=== PATIENT | male | born 1935 | race Caucasian/White ===

== ENCOUNTER 2023-08-22 05:40 | Inpatient (IN) | payer OTHER, SELFPAY ==
[2023-08-22] VITALS (9 sets, daily range): BP systolic 108–134; BP diastolic 59–71; BMI 35.4; BMI 35.2
--- NOTE | 2023-08-22 02:50 | ED.GENMED ---
History of Present Illness
<BILL Duong - Last Filed: 08/22/23 04:24>
General
Chief Complaint: Breathing Problem
Source: patient and family
Exam Limitations: none
Time Seen by Provider: 08/22/23 02:35
Nursing documentation reviewed up to this point in time: agreed with
Travel History
Have you had any contact with someone who has COVID-19?: No
Do you have any symptoms of coronavirus? Fever > 100 degrees, chills, cough, shortness of breath, sore throat, loss of taste or smell, muscle aches, or headache?: No
History of Present Illness
History of Present Illness:
This is an 88 year old male, with a PMH of CHF, stage 3b kidney disease, Afib, hypothyroidism, and lymphedema, who presents to the ED via EMS c/o wheezing and difficulty breathing x 1 day. Per pt's family, he was hospitalized on for
hallucinations and slurred speech. He was treated for heart failure and was discharged 5 days later. Pt was hospitalized again 2 weeks later at [facility] for increased somnolence. At [facility], he was placed in the ICU for a temperature of 87F
and hallucinations. He was then diagnosed with stage 3b kidney disease and discharged. Pt was at [facility] rehab for 2 weeks and then moved to [facility] 4 days ago. He states he developed wheezing 1 day ago. He was breathing okay during the day
yesterday, but began having difficulty breathing 2 hours ago. His hallucinations have resolved.He denies any fever, CP, lightheadedness, dizziness, nausea, vomiting, abdominal pain, dysuria, or urinary urgency. His daughter states his legs do look
more swollen. He denies any leg pain.
Past History
<BILL Duong - Last Filed: 08/22/23 04:24>
Past History
ED Past Medical History: Arrthythmia (Afib), CHF, Hypothyroidism and Other (Stage 3b kidney disease, lymphedema, hypothyroid)
ED Past Surgical History: Cholecystectomy
Social History
Tobacco: Non-smoker
Alcohol: None
Drug: None
Living: assisted living
Review of Systems
<BILL Duong - Last Filed: 08/22/23 04:24>
Review of Systems
Allergies reviewed?: Yes
All Other Systems: ROS reviewed and negative except as documented in HPI and ROS
Constitutional: Reports no symptoms; Denies fever
EENT: Reports no symptoms
Respiratory: Reports trouble breathing and other (wheezing); Denies cough
Cardiac: Reports no symptoms; Denies chest pain
ABD/GI: Reports no symptoms; Denies abdominal pain, nausea or vomiting
: Reports no symptoms; Denies dysuria or difficulty voiding
Musculoskeletal: Reports edema (b/l lower extremity)
Skin: Reports no symptoms
Neurological: Reports no symptoms; Denies dizzy
Psychiatric: Reports no symptoms; Denies hallucinations
Phy Exam
<BILL Duong - Last Filed: 08/22/23 04:24>
General Physical Exam
General Presentation: no apparent distress
General age: appears stated age
General Skin: warm and dry
General Habitus: elderly
General Mental: alert
General Hydration: appears well hydrated
ENT Exam
ENT Exam: neck supple, normocephalic and swallowing well
Cardiovascular Exam
Cardiovascular Exam: regular rate/rhythm, no murmur, normal peripheral pulses and other (lymphedema noted)
Heart Sounds: normal
Pulmonary Exam
Pulmonary Exam: no respiratory distress and other (bibasilar rales)
Respiratory Effort: tachypnea
Gastrointestinal Exam
Gastrointestinal Exam: normal bowel sounds, non tender, soft and non distended
Neurological Exam
Neurological Exam: alert and oriented x3
Musculoskeletal Exam
Musculoskeletal Exam: edema (significant global edema b/l LE, nontender) and other (no tenderness to palpation of lower extremity)
Skin Exam
Skin Exam: warm/dry
Psychiatric Exam
Psychiatric Exam: normal mood/affect
<Kay Abbott DO - Last Filed: 08/22/23 05:13>
Heart Failure Risk
Heart Failure Risk Score: Yes
History of Stroke or TIA: Yes
History of intubation for respiratory distress: No
Heart rate on ED arrival >/= 110: No
SaO2 <90% on arrival on room air: No
HR >/=110 during 3min walk test (or too ill to perform test): Yes
ECG has acute ischemic changes: No
Urea >/=12mmol/L (BUN 33.6mg/dL): Yes
Serum CO2>/=35mmol/L: No
Troponin I or T elevated to HI Level (0.4mg/dL): No
NT-proBNP >/=5,000ng/L (5,000pg/ml): No
HF Risk Score: 4
Admission Status: HIGH RISK 26.1% Consider SNF treatment or admission to hospital
Course
<BILL Duong - Last Filed: 08/22/23 04:24>
Orders/Labs/Results
Orders:
Orders
08/22/23 02:21
Electrocardiogram (*1) Urgent
Reason for Study: Other
Other Reason for Exam: Respiratory Distress
Cardiac Monitoring- Treatment ONCE
EKG- Treatment ONCE
IV Insert/Care/Rem.- Treatment PRN
CR Chest - 2 Views Urgent
Comment:
Reason For Exam: respiratory distress
O2 Therapy [RESP] Urgent
Titrate/Wean O2 to maintain O2 sat greater than (%): 93
Special Instructions: TO MAINTAIN CONTINUOUS O2 SATS >/= 93%
Pulse Ox/cont/shift [RESP] Urgent
Quantity: 1
Special Instructions: continuous pulse ox
08/22/23 02:22
Complete Blood Count/With Diff Urgent
Comprehensive Metabolic Panel Urgent
Free T4 Urgent
NT-proBNP Urgent
TSH Reflex To Free T4 Urgent
Comment: ADD ON
Troponin I Urgent
08/22/23 03:21
Urinalysis Reflex To Culture Urgent
08/22/23 03:23
Add On- LAB Urgent
Tests Added?: TSH w refex to free T-4
08/22/23 03:27
COVID-19 Antigen Urgent
Source: Nasal Swab
Lactic Acid Urgent
Blood Culture Q30M
MOHSEN Source: Blood/Venous
Specimen Description:
Influenza A+B Rapid Molecular Urgent
MOHSEN Source: Nasal Swab
Specimen Description:
08/22/23 03:38
US Periph Venous LOWER Ext Oneal Urgent
Comment:
Reason For Exam: progressive b/l LE edema
08/22/23 03:57
Furosemide [Lasix] 40 mg IV NOW STA
08/22/23 04:00
Blood Culture Q30M
MOHSEN Source: Blood/Venous
Specimen Description:
08/22/23 04:41
Janine [Janine Hugger-Treatment] ONCE
Patient's goal temperature:: 97 F
Additional Instructions:: Temperature and skin assessment per unit protocol
08/22/23 04:47
Admit/Transfer Patient As Directed
Co-Sign Provider:
Level of Care: Inpatient admission
Assign to:: Telemetry
Physician / Group: Domenic
Diagnosis: acute HFpEF
Reason for Telemetry: Acute Heart Failure
Date to Stop Telemetry: 08/25/23
Time to Stop Telemetry: 11:00
Reason for Hospitalization: acute HFpEF
Expected length of stay greater than two midnights?: Yes
ELOS- Estimated Length of Stay in days: 3
I certify the patient meets the requirements for IP care: Yes
08/22/23 04:48
Code Status As Directed
Resuscitation Status: Do not resuscitate
Reached after discussion with pt or family/Healthcare POA: Yes
08/22/23 04:49
DNR Bracelet Application ONCE
08/22/23 07:00
Cortisol, Random Routine
08/25/23 11:00
DC Protocol for Telemetry ONCE
Abnormal Lab Results
08/22/23
02:22
WBC 2.6 L 10^3/uL
(4.8-10.8)
RBC 3.28 L 10^6/uL
(4.70-6.10)
Hgb 10.1 L g/dL
(13.0-18.0)
Hct 31.4 L %
(39.0-52.0)
MCV 95.7 H fL
(80.0-94.0)
MCHC 32.2 L g/dL
(33.0-37.0)
RDW 15.6 H %
(11.5-14.5)
MPV 10.5 H fL
(7.4-10.4)
Absolute Neuts (auto) 1.0 L 10^3/uL
(1.4-6.5)
Absolute Lymphs (auto) 0.8 L 10^3/uL
(1.2-3.4)
Neutrophils % 38.2 L %
(42.2-75.2)
Monocytes % 17.6 H %
(1.7-9.3)
Eosinophils % 12.9 H %
(0-6)
Chloride 114 H mmol/L
(98-107)
BUN 50 H mg/dl
(9-20)
Creatinine 1.8 H mg/dL
(0.7-1.3)
Total Protein 5.5 L g/dl
(6.3-8.2)
Albumin 3.3 L g/dl
(3.5-5.0)
TSH (Reflex) 0.36 L uIU/ml
(0.47-4.68)
08/22/23 02:22
08/22/23 02:22
Vital Signs
Initial and Last Documented VS:
Initial Vital Signs
Pulse Resp Pulse Ox
60 20 98
08/22/23 02:14 08/22/23 02:14 08/22/23 02:14
Last Documented Vital Signs
Temp Pulse Resp BP Pulse Ox
94.5 F L 60 13 112/69 97
08/22/23 03:15 08/22/23 04:45 08/22/23 04:45 08/22/23 04:43 08/22/23 04:45
<Kay Abbott, DO - Last Filed: 08/22/23 05:13>
Orders/Labs/Results
Orders:
Orders
08/22/23 02:21
Electrocardiogram (*1) Urgent
Reason for Study: Other
Other Reason for Exam: Respiratory Distress
Cardiac Monitoring- Treatment ONCE
EKG- Treatment ONCE
IV Insert/Care/Rem.- Treatment PRN
CR Chest - 2 Views Urgent
Comment:
Reason For Exam: respiratory distress
O2 Therapy [RESP] Urgent
Titrate/Wean O2 to maintain O2 sat greater than (%): 93
Special Instructions: TO MAINTAIN CONTINUOUS O2 SATS >/= 93%
Pulse Ox/cont/shift [RESP] Urgent
Quantity: 1
Special Instructions: continuous pulse ox
08/22/23 02:22
Complete Blood Count/With Diff Urgent
Comprehensive Metabolic Panel Urgent
Free T4 Urgent
NT-proBNP Urgent
TSH Reflex To Free T4 Urgent
Comment: ADD ON
Troponin I Urgent
08/22/23 03:21
Urinalysis Reflex To Culture Urgent
08/22/23 03:23
Add On- LAB Urgent
Tests Added?: TSH w refex to free T-4
08/22/23 03:27
COVID-19 Antigen Urgent
Source: Nasal Swab
Lactic Acid Urgent
Blood Culture Q30M
MOHSEN Source: Blood/Venous
Specimen Description:
Influenza A+B Rapid Molecular Urgent
MOHSEN Source: Nasal Swab
Specimen Description:
08/22/23 03:38
US Periph Venous LOWER Ext Oneal Urgent
Comment:
Reason For Exam: progressive b/l LE edema
08/22/23 03:57
Furosemide [Lasix] 40 mg IV NOW STA
08/22/23 04:00
Blood Culture Q30M
MOHSEN Source: Blood/Venous
Specimen Description:
08/22/23 04:41
Janine [Janine Hugger-Treatment] ONCE
Patient's goal temperature:: 97 F
Additional Instructions:: Temperature and skin assessment per unit protocol
08/22/23 04:47
Admit/Transfer Patient As Directed
Co-Sign Provider:
Level of Care: Inpatient admission
Assign to:: Telemetry
Physician / Group: Domenic
Diagnosis: acute HFpEF
Reason for Telemetry: Acute Heart Failure
Date to Stop Telemetry: 08/25/23
Time to Stop Telemetry: 11:00
Reason for Hospitalization: acute HFpEF
Expected length of stay greater than two midnights?: Yes
ELOS- Estimated Length of Stay in days: 3
I certify the patient meets the requirements for IP care: Yes
08/22/23 04:48
Code Status As Directed
Resuscitation Status: Do not resuscitate
Reached after discussion with pt or family/Healthcare POA: Yes
08/22/23 04:49
DNR Bracelet Application ONCE
08/22/23 07:00
Cortisol, Random Routine
08/25/23 11:00
DC Protocol for Telemetry ONCE
Abnormal Lab Results
08/22/23
02:22
WBC 2.6 L 10^3/uL
(4.8-10.8)
RBC 3.28 L 10^6/uL
(4.70-6.10)
Hgb 10.1 L g/dL
(13.0-18.0)
Hct 31.4 L %
(39.0-52.0)
MCV 95.7 H fL
(80.0-94.0)
MCHC 32.2 L g/dL
(33.0-37.0)
RDW 15.6 H %
(11.5-14.5)
MPV 10.5 H fL
(7.4-10.4)
Absolute Neuts (auto) 1.0 L 10^3/uL
(1.4-6.5)
Absolute Lymphs (auto) 0.8 L 10^3/uL
(1.2-3.4)
Neutrophils % 38.2 L %
(42.2-75.2)
Monocytes % 17.6 H %
(1.7-9.3)
Eosinophils % 12.9 H %
(0-6)
Chloride 114 H mmol/L
(98-107)
BUN 50 H mg/dl
(9-20)
Creatinine 1.8 H mg/dL
(0.7-1.3)
Total Protein 5.5 L g/dl
(6.3-8.2)
Albumin 3.3 L g/dl
(3.5-5.0)
TSH (Reflex) 0.36 L uIU/ml
(0.47-4.68)
03/03/24 02:22
08/22/23 02:22
Vital Signs
Initial and Last Documented VS:
Initial Vital Signs
Pulse Resp Pulse Ox
60 20 98
08/22/23 02:14 08/22/23 02:14 08/22/23 02:14
Last Documented Vital Signs
Temp Pulse Resp BP Pulse Ox
94.5 F L 60 13 112/69 97
08/22/23 03:15 08/22/23 04:45 08/22/23 04:45 08/22/23 04:43 08/22/23 04:45
<Kay Abbott DO - Last Filed: 08/22/23 05:13>
*Radiology
Radiology exam reviewed: preliminary read by ED provider (Chest x-ray shows cardiomegaly, mild interstitial fullness, small to moderate size right pleural effusion. No old films to compare.)
*Pulse Oximetry
Patient hypoxic: no
*EKG
Interpreted by ED Provider?: Yes
Comparison EKG: no comparison EKG present
Rate: normal
Rhythm: a-fib and ventricular paced (100% ventricular paced rhythm)
*Rebar [employer]ricator Interpretation
Rate: normal
Interpretation: normal
Rhythm: ventricular paced
*Critical Care Note
Total Time (30-74mins, 75-104mins- exclusive of procedures): Not Applicable
ED Attending Note
<BILL Duong - Last Filed: 08/22/23 04:24>
-
Portions of this chart may have been created with voice recognition software.� Occasional wrong word or��sound alike� substitutions may have occurred due to the inherent limitations of voice recognition software.
<Kay Abbott DO - Last Filed: 08/22/23 05:13>
ED Attending Note
Patient seen and examined by attending physician: Yes
I performed the substantive portion of visit, reviewed & personally made and approve the management plan that is documented in note by myself or YARON.: Yes
I performed a history and physical exam of patient and discussed management with resident, I reviewed resident's note and agree with documented findings and plan of care.: Yes
ED Attending Note:
This is an 88-year-old gentleman who has history of nonischemic cardiomyopathy, CHF, chronic kidney disease stage IV, lymphedema, hypertension who was hospitalized twice at [facility] end of May to June 21 for acute CHF and then again
July 05 July 15 for acute kidney injury as well as noted to be significantly hypothermic with initial temperature reported in the 80s. There was no evidence of sepsis/bacterial infection, normal thyroid function, normal cortisol levels.
During that time he had been suffering with persistent visual hallucinations that were thought to be acute kidney injury/dehydration in nature. Lasix 40 mg as well as losartan 100 mg was discontinued.
He was discharged from [facility] July 15 and transferred to longterm facility where he remained for almost a month and from there, 1 week ago was transitioned to assisted living facility, [facility]. Prior to these recent
hospitalizations he had been living independently in [place].
While at the longterm facility Lasix 20 mg was resumed.
Patient has not been weighing himself but he does note progressive lower extremity edema over the past week or 2 and last night and then again tonight he awoke with abrupt onset of shortness of breath and wheezing. He has not had a cough, he denies
chest pain. Appetite has been 'great'
Episode of paroxysmal nocturnal dyspnea tonight was much worse than 24 hours ago prompting call to 911.
GENERAL: 88-year-old gentleman appears his stated age, awake and alert, pleasant, noted to have very mild resting tachypnea but able to speak in full sentences. Daughter and son are at bedside.
EYE: anicteric
NECK: Supple, nontender, no meningismus, no significant adenopathy. Mild JVD.
ENT: oral mucosa is moist. No rhinorrhea.
CARDIAC: Regular rate and rhythm. no murmur.
LUNGS: Mild resting tachypnea. Bibasilar rales approximately one third of the way up bilaterally.
ABDOMEN: Rotund, soft, nondistended, without focal tenderness, normoactive BS.
NEUROLOGICAL: Alert and oriented x3, no focal neuro deficits.
SKIN: Warm and dry, minimally pale in color, skin intact. Chronic venous stasis skin thickening bilateral lower extremities.
MUSCULOSKELETAL: Bilateral lower extremities with significant tense global edema that is nontender, peripheral pulses are full and equal b/l.
PSYCH: Normal and appropriate interaction.
Acute paroxysmal nocturnal dyspnea, concern for acute on chronic CHF, pneumonia. Patient is found to be mildly hypothermic, thus concern for sepsis, COVID-19, influenza.
Upon review of records from [facility] similar, more profound hypothermia at 87 �F during hospitalization mid November. Sepsis was ruled out, blood cultures were negative, normal cortisol levels as well as thyroid function.
During that hospitalization patient was noted to have acute kidney injury on chronic kidney disease complicated by visual hallucinations.
Creatinine 2.65, BUN of 94 on July 05.
BUN and creatinine at discharge 2.46/55.
BNP 338 on July 05.
According to the family patient's weight while hospitalized in June began at 235 and then diuresed to 215. Current weight is 259.
08/22/2023 04:15 AM
Chest x-ray shows cardiomegaly, mild interstitial fullness bilaterally as well as small to moderate size right pleural effusion.
Labs are remarkable for mild anemia with hemoglobin of 10.1 which is improved from previous in June. White blood cell count is low at 2.6 which is lower than previous. Normal platelet count.
Creatinine of 1.8, BUN of 50.
BNP is markedly elevated at 1900 which is trended up from 300 July 05.
COVID and influenza testing are negative.
Due to significant bilateral lower extremity edema, venous Doppler performed which overall limited study but negative for DVT.
History exam and findings most consistent with acute on chronic CHF.
Will give an IV dose of Lasix now and admit to hospitalist service.
Discharge Plan
Departure
Patient Disposition: Admit
Date of Disposition: 08/22/23
Time of Disposition: 04:21
Admit to doctor: Domenic
Presentation/result/management discussed w/ accepting MD/DO: Hospitalist
Condition: Serious
Discharge Problem:
Acute on chronic clinical systolic heart failure, Hypothermia
Prescriptions:
No Action
Eliquis 2.5 mg Tablet
2.5 mg PO BID
dutasteride [Avodart] 0.5 mg Capsule
0.5 mg PO DAILY
B12
carvedilol 6.25 mg Tablet
6.25 mg PO BID
tamsulosin [Flomax] 0.4 mg Capsule
0.4 mg PO DAILY
byhaywfrwpq-uflxwekyn-hwy C-Mn [Glucosamine 1500 Complex] 500-400 mg Capsule
PO
levothyroxine 150 mcg Capsule
150 mcg PO DAILY
Referrals:
Harvey Gonzales DO [Family Provider] -
Interventions
Interventions:
*Risk Screen - Suicide Last Done: 08/22/23 02:14
*General Assessment Last Done: 08/22/23 02:14
*Neglect/Abuse Screening Last Done: 08/22/23 02:14
ED- Fall Risk Assessment Last Done: 08/22/23 02:23
*ED COVID-19 Vaccine History Last Done: 08/22/23 02:14
ED- Cardiac Assessment Last Done: 08/22/23 02:23
ED- Pulmonary Assessment Last Done: 08/22/23 02:23
[2023-08-22 02:54] LABS: % Basophils 0.8 % (0-2); % Eosinophils 12.9 % (0-6); % Immature Granulocytes 0.4 % (0-0.5); % Lymphocytes 30.1 % (20.5-51.1); % Monocytes 17.6 % (1.7-9.3); % Neutrophils 38.2 % (42.2-75.2); Absolute Eosinophils 0.3 10^3/uL (0-0.7); Absolute Lymphocytes 0.8 10^3/uL (1.2-3.4); Absolute Monocytes 0.5 10^3/uL (0.1-0.6); Hematocrit 31.4 % (39.0-52.0); Hemoglobin 10.1 g/dL (13.0-18.0); Mean Corp Hgb Conc. 32.2 g/dL (33.0-37.0); Mean Corpuscular Hgb 30.8 pg (27.0-31.0); Mean Corpuscular Volume 95.7 fL (80.0-94.0); Mean Platelet Volume 10.5 fL (7.4-10.4); Nucleated Red Blood Cells % 0 % (-); Platelet Count 137 10^3/uL (130-400); Red Blood Cell Count 3.28 10^6/uL (4.70-6.10); Red Cell Dist. Width 15.6 % (11.5-14.5); White Blood Cell Count 2.6 10^3/uL (4.8-10.8)
[2023-08-22 03:07] LABS: ALT (SGPT) 32 U/L (0-50); AST (SGOT) 48 U/L (17-59); Albumin 3.3 g/dl (3.5-5.0); Alkaline Phosphatase 124 U/L (38-126); Blood Urea Nitrogen 50 mg/dl (9-20); Calcium 9.2 mg/dl (8.4-10.2); Carbon Dioxide 25 mmol/L (22-30); Chloride 114 mmol/L (98-107); Estimated Creatinine Clearance 39 ml/min; Glucose 87 mg/dl (70-99); Potassium 4.2 mmol/L (3.5-5.1); Sodium 143 mmol/L (135-145); Total Bilirubin 0.6 mg/dl (0.2-1.3); Total Protein 5.5 g/dl (6.3-8.2); eGFR 36.21
[2023-08-22 03:21] LABS: NT-proBNP 1890 pg/ml; Troponin I < 0.012 ng/ml
[2023-08-22 03:47] LABS: Lactic Acid 0.7 mmol/L (0.7-2.0)
[2023-08-22 03:50] LABS: COVID-19 Antigen Negative (Negative)
--- NOTE | 2023-08-22 04:11 | HPS.HSE ---
Family Physician
-
Family Physician: Harvey Gonzales
Chief Complaint
-
SOB/PND
History of Present Illness
88 y/o M with PMHx:
Chronic HFpEF (as per echo Jun 2023)
CKD3b
Paroxysmal atrial fibrillation
Hypothyroidism
Lymphedema
h/o hypothermia (without sepsis)
Visual hallucinations thought to be due to TRU/dehydration
who p/w CC SOB/PND. Yesterday evening the patient awoke with shortness of breath/paroxysmal nocturnal dyspnea. History is obtained from the patient's daughter, son-in-law, the patient, and discussion with Dr. Abbott in the ER. As per the patient's
family he has had significant weight gain recently. Records from recent [facility] admission reviewed via [place] everywhere on Dr. Abbott's iPad. Patient was hospitalized at [facility] for acute kidney injury, hypothermia not due to
sepsis, visual hallucinations. He was also diagnosed with heart failure at that time. Patient was seen and interviewed in the ultrasound department. Currently the patient denies chest pain or shortness of breath. Denies nausea, vomiting,
diarrhea, abdominal pain, headache, neck stiffness, dysuria.
Medical History
Past Medical History
Past Medical History: Reports Other (as per HPI)
Past Surgical History: Reports Other (N/A)
Social History
Tobacco: Non-smoker
Alcohol: None
Drug: None
Family History
Family History: Not pertinent
Allergies / Home Medications
Allergies reflects when Allergies were last updated in [facility].
Home Medications with original date entered in [facility]
Allergy/Medication List:
Allergies
Allergy/AdvReac Type Severity Reaction Status Date / Time
No Known Allergies Allergy Unverified 08/22/23 02:14
Home Medications
B12 08/22/23
apixaban 2.5 mg tablet (Eliquis) 2.5 mg PO BID 08/22/23
carvedilol 6.25 mg tablet 6.25 mg PO BID 08/22/23
dutasteride 0.5 mg capsule (Avodart) 0.5 mg PO DAILY 08/22/23
xvxvitgcfuw-bkrqorbwj-nfq C-Mn 500 mg-400 mg capsule cap PO 08/22/23
levothyroxine 150 mcg capsule 150 mcg PO DAILY 08/22/23
tamsulosin 0.4 mg capsule (Flomax) 0.4 mg PO DAILY 08/22/23
Review of Systems
-
History Source: Patient
A 12 point ROS was completed and negative except as noted: Yes
Physical Exam
Vital Signs
Vital Signs
Temp Pulse Resp BP Pulse Ox
94.5 F L 60 13 111/65 97
08/22/23 03:15 08/22/23 03:45 08/22/23 03:45 08/22/23 03:08 08/22/23 03:45
Physical Exam
General: Other (.)
Laboratory Results
-
08/22/23 02:22
08/22/23 02:22
Laboratory Results
Lactic Acid 0.7 mmol/L (0.7-2.0) 08/22/23 03:27
Total Bilirubin 0.6 mg/dl (0.2-1.3) 08/22/23 02:22
AST 48 U/L (17-59) 08/22/23 02:22
ALT 32 U/L (0-50) 08/22/23 02:22
Alkaline Phosphatase 124 U/L (38-126) 08/22/23 02:22
Troponin I < 0.012 ng/ml 08/22/23 02:22
Impression/Plan
-
Gen: NAD, Awake and alert, NCAT
Eyes: EOMI, PERRLA, no scleral icterus.
Neck: supple.
CV: RRR, +S1/S2, no m/r/g.
Resp: CTAB anteriorly, no rales, wheezes, or rhonchi.
Abd: +BS, soft, NT, ND
Skin: 4+ B/L LE edema, mild B/L LE chronic venous stasis dermatitis
Neuro: CN 2-12 intact, non-focal.
Psych: Normal mood and affect.
CXR (read by me, official read pending): Slightly increased vascular markings consistent with mild pulmonary edema, blunted right costophrenic angle
Acute on chronic HFpEF:
-Echo Jun 2023 with EF 60-65%
-proBNP 1889
-cont Lasix 40mg IV BID
-update echo
-c/s cards
-cont BB
-daily wts, I/Os
-FR 1200cc/day
Hypothermia:
-has been recurrent in recent months and, despite extensive workup, and etiology has not been found
-COVID/flu NEG
-BCx ordered but doubt infection, follow final BCx
-TSH slightly low at 0.36, check fT4
-check fasting cortisol
-FRANCOIS [place]
Other problems:
CKD3b
Paroxysmal atrial fibrillation: Cont BB/Eliquis
Hypothyroidism: cont Levoxyl
Lymphedema
h/o visual hallucinations thought to be due to TRU/dehydration
DNR - confirmed with pt's daughter in ER
Eliquis
[2023-08-22 04:33] LABS: TSH Reflex To Free T4 0.36 uIU/ml (0.47-4.68)
[2023-08-22] MEDS: LASIX 40 MG IV ×2 (04:43→17:54)
[2023-08-22 04:59] LABS: Free T4 1.83 ng/dl (0.78-2.19)
[2023-08-22] MEDS: COREG 6.25 MG PO ×2 (09:53→20:23)
[2023-08-22] MEDS: ELIQUIS 2.5 MG PO ×2 (09:53→20:23)
[2023-08-22] MEDS: SYNTHROID 150 MCG PO (09:53)
[2023-08-22] MEDS: FLOMAX 0.400000000000000022 MG PO (09:53)
[2023-08-22] MEDS: PROSCAR 5 MG PO (09:54)
[2023-08-22 10:43] LABS: Urine Albumin Negative (Neg - Trace); Urine Bilirubin Negative (Negative); Urine Character Clear (Clear); Urine Color Yellow; Urine Glucose Negative (Negative); Urine Ketone Negative (Negative); Urine Leukocyte Trace (Negative); Urine Nitrite Positive (Negative); Urine Occult Blood Negative (Negative); Urine Specific Gravity 1.015 (<1.030); Urine Urobilinogen Negative (Neg - 1+)
[2023-08-22 10:51] LABS: Urine Mucus Few
[2023-08-22 10:52] LABS: Urine Bacteria Moderate (Negative); Urine Hyaline Cast >15 /LPF (0-2); Urine Squamous Cell >30 /LPF (Few)
--- NOTE | 2023-08-22 10:52 | W.PN.HOSP.TC ---
Today's Communication/Plan
-
Diuresis
Follow creat
Nephrology eval
Assessment / Plan
Assessment / Plan
88-year-old male presented with shortness of breath from [facility] where he has been admitted for the past 1 week.. Patient also had weight gain. Per discussion with patient's son [facility] does not watch any diet. Patient was ordering 6 ice teas and
food with salt.
Patient thinks that he gained almost 30 pounds in the past few weeks.
Patient was admitted to [facility] June 21 [address] confusion[address] did CT scan and MRI with no CVA. 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 He was diagnosed with acute kidney injury and hypothermia also
visual hallucinations. He was also diagnosed with CHF. He went to rehab from there and was released a week ago and was admitted to [facility]. He was supposed to see a software architect when he was in the rehab which got canceled. His next appointment
is for September 2023. Family is frustrated. They have been trying to treat his lymphedema for the past 7 to 8 months with the help of primary physician. Patient states that he uses a sleeves for lymphedema of the lower extremities.
Primary physician is Dr. Harvey Gonzales and Cardiology is Dr Yuniel [facility].
Patient thinks he has had a cardiac catheterization 2 years ago
I have requested records from [facility] as well as from above physicians.
[id number] was able to access Chirag's records and told me the creatinine was 2.4 in June. She is not sure what his creatinine was prior to that.
Patient has a diagnosis of CKD.When asked if he has a history of sleep apnea-son thinks he has but he cannot tolerate CPAP.
Chest x-ray reviewed by me-pacemaker
CHF findings
# Acute on chronic heart failure with preserved ejection fraction reportedly
proBNP 1890
Continue Lasix 40 mg IV twice daily
Echo to be updated
Continue beta-blockers
Does not seem to be on SGLT2 inhibitors or BENITEZ or ARB or Arni
Intake output charting
Fluid restriction
Daily weights
He is definitely at least 20-30 pounds fluid overloaded
Benitez bandages for lower extremities
Slow diuresis may take several days
Also rule out pulmonary hypertension
# Paroxysmal atrial fibrillation-continue beta-blockers and Eliquis
# Hypothermia patient has had workup as outpatient with no etiology
Blood cultures obtained even though infection is not appearing to be at the clinical recent
Influenza and COVID-negative
Cortisol level
Urinalysis noted however a lot of epithelial cells-likely contamination
# Anemia-check iron studies
# Hypothyroidism-continue Synthroid
TSH 0.36 with normal T4
# Sleep apnea-CPAP intolerant
# CKD stage
Stage unclear
Creatinine was 2.4 while he was sick in June 2023
Creatinine is 1.8 now possible [id number] with diuresis.
Get old records from PCP and cardiology
Nephrology evaluation
# Chronic lymphedema-No DVT on ultrasound
# History of visual hallucinations felt to be secondary to dehydration TRU
Patient had MRI of the brain-no acute changes at jeans per discussion with her son.
# Prostate disease-continue Avodart and Flomax
# Pacemaker 2016
# Obesity
# DVT prophylaxis-Eliquis
# DNR status
Discussed with patient's son and [id number] on the phone.
Anticipated Discharge: > 48 hours
Subjective/Interval History
-
Date of Service: August 22, 2023
Objective Data
-
Labs:
Laboratory Results
08/22/23
02:22
WBC 2.6 L
Hgb 10.1 L
Hct 31.4 L
Plt Count 137
Sodium 143
Potassium 4.2
Chloride 114 H
Carbon Dioxide 25
BUN 50 H
Creatinine 1.8 H
Glucose 87
Calcium 9.2
Total Bilirubin 0.6
AST 48
ALT 32
Alkaline Phosphatase 124
Vital Signs:
Vital Signs
Temp Pulse Resp BP Pulse Ox
97.3 F 61 18 134/71 97
08/22/23 06:35 08/22/23 06:35 08/22/23 06:35 08/22/23 06:35 08/22/23 06:35
--- NOTE | 2023-08-22 11:34 | CON.CAR ---
Consultation
Consultation Request
Date/Time Consultation Requested: August 22, 2023 6 AM
Date/Time Consultation Performed: August 22, 2023 11:30 AM
Requesting Provider: Hospitalist
Performing Provider: Yuniel Jones
Reason for Consultation: HF
Medical History
-
Chief Complaint: SOB PND
History of Present Illness:
88-year-old male with past medical history of Chronic HFpEF (as per echo Jun 2023), CKD3b, Paroxysmal atrial fibrillation, Hypothyroidism, Lymphedema, h/o hypothermia (without sepsis)Visual hallucinations thought to be due to TRU/dehydration, who is
here with worsening shortness of breath and paroxysmal nocturnal dyspnea. Apparently, he was admitted for the entire month of July at [facility] for hypothermia, acute kidney injury, visual hallucinations, and heart failure. He was
discharged at the end of July and has noticed progressive shortness of breath and PND. Additionally, he tells me that his legs are much larger than normal. He was diuresed overnight and otherwise denies any significant chest pain or
dizziness/lightheadedness.
Past Medical History
Past Medical History: Other (Chronic HFpEF (as per echo Jun 2023), CKD3b, Paroxysmal atrial fibrillation, Hypothyroidism, Lymphedema, h/o hypothermia (without sepsis)Visual hallucinations thought to be due to TRU/dehydration)
Past Surgical History: None
Social History
Tobacco: Non-Smoker
Alcohol: None
Drug: None
Employment: Retired
Family History
Family History: Reviewed & Not Pertinent
Allergies / Home Medications
Allergy/AdvReac Type Severity Reaction Status Date / Time
No Known Allergies Allergy Unverified 08/22/23 02:14
Medication Instructions Recorded Confirmed Type
B12 08/22/23 History
apixaban 2.5 mg tablet (Eliquis) 2.5 mg PO BID 08/22/23 08/22/23 History
carvedilol 6.25 mg tablet 6.25 mg PO BID 08/22/23 08/22/23 History
dutasteride 0.5 mg capsule 0.5 mg PO DAILY 08/22/23 08/22/23 History
(Avodart)
xuaytgvyppr-ytaknvhhj-suf C-Mn 500 cap PO 08/22/23 History
mg-400 mg capsule
levothyroxine 150 mcg capsule 150 mcg PO DAILY 08/22/23 08/22/23 History
tamsulosin 0.4 mg capsule (Flomax) 0.4 mg PO DAILY 08/22/23 08/22/23 History
Review of Systems
-
All other systems: Negative unless noted
Physical Exam
Vital Signs
Temp Pulse Resp BP Pulse Ox
97.8 F 61 16 111/59 97
08/22/23 11:16 08/22/23 11:16 08/22/23 11:16 08/22/23 11:16 08/22/23 11:16
Lab Results
08/22/23 02:22
08/22/23 02:22
Troponin I < 0.012 ng/ml 08/22/23 02:22
Tkp-N-Wmiirjlawhu Pept 1890 pg/ml 08/22/23 02:22
Physical Exam
General: Well Developed, Well Nourished and No Apparent Distress
HEENT: Normocephalic
Respiratory: Clear and Non Labored Respirations
Cardiac: S1/S2 and Regular Rhythm
GI: Soft
Musculoskeletal: No Clubbing and Edema
Skin: Warm and Dry
Neuro: AO x 3
Psych: Calm
Impression / Plan
-
88-year-old male with past medical history of Chronic HFpEF (as per echo Jun 2023), CKD3b, Paroxysmal atrial fibrillation, Hypothyroidism, Lymphedema, h/o hypothermia (without sepsis)Visual hallucinations thought to be due to TRU/dehydration, who is
here with worsening shortness of breath and paroxysmal nocturnal dyspnea. He has been diuresed and is feeling improved.
Heart failure preserved ejection fraction acute on chronic
-TTE pending
-Continue 40 mg IV Lasix twice daily
-Continue beta-zonia
-Will discuss possible SGLT2 inhibitor
-Improving, dry weight unknown
Paroxysmal atrial fibrillation
-ECG shows a sensed V paced rhythm
-Continue beta-zonia and Eliquis
CKD unknown baseline creatinine today 1.8
Anemia and leukopenia
-Per primary
Hypothyroidism
Hypothermia
Lymphedema
Data Reviewed
-
EKG: Tracing Personally Visualized and interpreted
Radiology: Report Reviewed by me
Labs: Labs Reviewed by me
[2023-08-22 12:31] LABS: Cortisol, Random 14.9 ug/dl
[2023-08-22 13:50] LABS: Ferritin 60.1 ng/ml (17.9-464.0)
[2023-08-22 14:04] LABS: Vitamin B12 > 1000 pg/ml (239-931)
[2023-08-22 14:30] LABS: Iron 55 ug/dl (49-181)
[2023-08-22 14:40] LABS: Percent Saturation 16 % (20-50); Total Iron Binding Capacity 328 ug/dl (261-462)
--- NOTE | 2023-08-22 16:15 | W.CON.NEPH ---
Consultation
-
Date/Time Consultation Requested: 08/22/2023 9 AM
Date/Time Consultation Performed: 08/22/2023 4 PM
Requesting Provider: Dr. Stephen
Performing Provider: Dr. Munoz
Reason for Consultation: Acute kidney injury, edema
Medical History
-
Chief Complaint: Acute kidney injury
History of Present Illness:
This is an 88-year-old gentleman who has history of heart failure with preserved ejection fraction as well as atrial fibrillation with pacemaker. He had recently been in [facility] for what appears to have been volume overload. He was
diuresed at that time he also had acute kidney injury with a likely plateaued creatinine of 2.4. Afterwards he was sent to [facility] and then subsequently to [facility]. He says that he had gained a significant amount of weight after discharge.
He has followed a sodium restriction but not a fluid restriction. He had developed some shortness of breath with nocturnal dyspnea which had prompted his visit to the emergency room. We are asked to assist with management of his diuresis and renal
failure.
Past Medical History
Heart failure preserved ejection fraction
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
Paroxysmal atrial fibrillation
Pacemaker
Hypothyroidism
Lymphedema
Social History
Tobacco: Non-Smoker
Alcohol: None
Family History
Family History: Not Pertinent
Allergies / Home Medications
Allergy/AdvReac Type Severity Reaction Status Date / Time
No Known Allergies Allergy Unverified 08/22/23 02:14
Medication Instructions Recorded Confirmed Type
acetaminophen 325 mg tablet 650 mg PO Q8HPRN PRN mild pain 08/22/23 08/22/23 History
(Tylenol)
apixaban 2.5 mg tablet (Eliquis) 2.5 mg PO BID 08/22/23 08/22/23 History
carvedilol 6.25 mg tablet 6.25 mg PO BID 08/22/23 08/22/23 History
cyanocobalamin (vitamin B-12) 1,000 mcg PO DAILY 08/22/23 08/22/23 History
1,000 mcg tablet
dutasteride 0.5 mg capsule 0.5 mg PO DAILY 08/22/23 08/22/23 History
(Avodart)
furosemide 20 mg tablet (Lasix) 20 mg PO DAILY 08/22/23 08/22/23 History
hydrocortisone 1 % topical cream 1 applic topical BID back and 08/22/23 08/22/23 History
buttocks
levothyroxine 150 mcg capsule 150 mcg PO DAILY 08/22/23 08/22/23 History
magnesium hydroxide 400 mg/5 mL 2,400 mg PO HSPRN PRN if no bm by 08/22/23 08/22/23 History
oral suspension (Milk of Magnesia) 3rd day
tamsulosin 0.4 mg capsule (Flomax) 0.4 mg PO BID 08/22/23 08/22/23 History
Review of Systems
-
No chest pain, shortness of breath. Lower extremity edema worse than typical. No abdominal pain. No issues with urine output. The remainder of the complete review of systems was negative
Physical Exam
Vital Signs
Vital Signs
Temp Pulse Resp BP Pulse Ox
98.2 F 66 16 114/63 97
08/22/23 15:40 08/22/23 15:40 08/22/23 15:40 08/22/23 15:40 08/22/23 15:40
Lab Results
WBC 2.6 10^3/uL (4.8-10.8) L 08/22/23 02:22
RBC 3.28 10^6/uL (4.70-6.10) L 08/22/23 02:22
Hgb 10.1 g/dL (13.0-18.0) L 08/22/23 02:22
Hct 31.4 % (39.0-52.0) L 08/22/23 02:22
Plt Count 137 10^3/uL (130-400) 08/22/23 02:22
Sodium 143 mmol/L (135-145) 08/22/23 02:22
Potassium 4.2 mmol/L (3.5-5.1) 08/22/23 02:22
Chloride 114 mmol/L (98-107) H 08/22/23 02:22
Carbon Dioxide 25 mmol/L (22-30) 08/22/23 02:22
BUN 50 mg/dl (9-20) H 08/22/23 02:22
Creatinine 1.8 mg/dL (0.7-1.3) H 08/22/23 02:22
eGFR 36.21 08/22/23 02:22
Glucose 87 mg/dl (70-99) 08/22/23 02:22
Calcium 9.2 mg/dl (8.4-10.2) 08/22/23 02:22
Azp-F-Zngevnkppsz Pept 1890 pg/ml 08/22/23 02:22
Albumin 3.3 g/dl (3.5-5.0) L 08/22/23 02:22
Physical Exam
General: AOx3
HEENT: PERRL, EOMI, Ear/Nose Intact, Hearing Normal, Oropharynx Clear/Moist, Neck Supple, Trachea Midline and No Thyromegaly
Respiratory: Clear
Cardiac: Regular Rate/Rhythm
Abdomen: Soft, Nontender, Nondistended, Normal Bowel Sounds and No Hepatosplenomegaly
Musculoskeletal: Edema
Skin: No Rash and Normal Turgor
Psych: Mood/afflect pleasant and Insight/judgement good
Assessment/Plan
-
Assessment
Heart failure preserved ejection fraction
Anasarca
Acute kidney injury
CKD unknown baseline
Anemia
Paroxysmal atrial fibrillation
Hypothyroidism
CPAP
Pacemaker
Plan
Continue diuresis with IV Lasix.
Follow BMP
Records from [facility] requested
Sodium and fluid restriction
Edema is likely cardiac or lymphedema related
Data Reviewed
-
Radiology: Image Personally Visualized and interpreted (Chest x-ray on 08/22/2023 by my reading shows cardiomegaly vascular prominence)
Ultrasound: Report Reviewed by me (Lower extremity Dopplers on 08/22/2023 shows no DVT)
Medical Tests (Nuc Med, Echo etc): Image Personally Visualized and interpreted (EKG on 08/21/2022 for by my reading shows V paced rhythm)
Labs: Labs Reviewed by me
Old Records: Requested
[2023-08-23] VITALS (8 sets, daily range): BP systolic 110–125; BP diastolic 60–78; PULSE 60; O2SAT 98; BMI 34.8
[2023-08-23] MEDS: SYNTHROID 150 MCG PO (06:01)
[2023-08-23 06:48] LABS: Hematocrit 29.5 % (39.0-52.0); Hemoglobin 9.4 g/dL (13.0-18.0); Mean Corp Hgb Conc. 31.9 g/dL (33.0-37.0); Mean Corpuscular Hgb 30.8 pg (27.0-31.0); Mean Corpuscular Volume 96.7 fL (80.0-94.0); Mean Platelet Volume 10.8 fL (7.4-10.4); Platelet Count 118 10^3/uL (130-400); Red Blood Cell Count 3.05 10^6/uL (4.70-6.10); Red Cell Dist. Width 15.5 % (11.5-14.5); White Blood Cell Count 3.2 10^3/uL (4.8-10.8)
[2023-08-23 07:38] LABS: Blood Urea Nitrogen 55 mg/dl (9-20); Calcium 9.4 mg/dl (8.4-10.2); Carbon Dioxide 27 mmol/L (22-30); Chloride 108 mmol/L (98-107); Estimated Creatinine Clearance 37 ml/min; Glucose 85 mg/dl (70-99); Magnesium 2.3 mg/dl (1.6-2.3); Potassium 4.1 mmol/L (3.5-5.1); Sodium 143 mmol/L (135-145); eGFR 33.93
[2023-08-23] MEDS: ELIQUIS 2.5 MG PO ×2 (08:18→20:34)
[2023-08-23] MEDS: COREG 6.25 MG PO ×2 (08:18→20:35)
[2023-08-23] MEDS: PROSCAR 5 MG PO (08:18)
[2023-08-23] MEDS: LASIX 40 MG IV ×2 (08:18→16:11)
[2023-08-23] MEDS: FLOMAX 0.400000000000000022 MG PO (08:18)
--- NOTE | 2023-08-23 08:31 | W.PN.CD ---
Today's Communication / Plan
-
continue lasix and monitor renal function
Patiebnt with CKD- creatinine 1.9 - nephrology following
await echo
Impression / Plan
-
88-year-old male with past medical history of Chronic HFpEF (as per echo Jun 2023), CKD3b, Paroxysmal atrial fibrillation, Hypothyroidism, Lymphedema, h/o hypothermia (without sepsis)Visual hallucinations thought to be due to TRU/dehydration, who is
here with worsening shortness of breath and paroxysmal nocturnal dyspnea. Improvement with diuresis.
.
Heart failure preserved ejection fraction acute on chronic in setting of CKD
- severe bilat lower extremity edema
-Continue 40 mg IV Lasix twice daily
-Continue beta-zonia
-Improving, dry weight unknown
- monitor renal function
Paroxysmal atrial fibrillation
-ECG shows a sensed V paced rhythm
-Continue beta-zonia and Eliquis
CKD unknown baseline creatinine today 1.8and 1.9 since admit
- nephrology following
-monitor with diuretic
Anemia and leukopenia
-Per primary
Hypothyroidism
Hypothermia
Lymphedema
Physical Exam
Vital Signs/Labs
Vital Signs
Temp Pulse Resp BP Pulse Ox
97.4 F 60 18 110/78 97
08/23/23 07:00 08/23/23 07:00 08/23/23 07:00 08/23/23 07:00 08/23/23 07:00
08/22/23 08/23/23 08/24/23
06:59 06:59 06:59
Actual Weight 117.48 kg 116.148 kg
08/23/23 06:32
08/23/23 06:32
Magnesium 2.3 mg/dl (1.6-2.3) 08/23/23 06:32
Free T4 1.83 ng/dl (0.78-2.19) 08/22/23 02:22
08/22/23
02:22
Txo-J-Vyahtyonlms Pept 1890
LAB Results
08/22/23
02:22
Troponin I < 0.012
Physical Exam
Constitutional: No acute distress
Cardiovascular: Rhythm & rate is regular
Respiratory: Respiratory effort normal
GI: Soft
Neuro/Psych: Alert
Other: Other (severe bilat lower extremity edema)
Data Reviewed
-
Date of Service: August 23, 2023
Medical Decision Making: Reviewed Test Results
Echo: Other (await result. ordered. )
Medical Tests (PFT, Pathology etc): Report Reviewed by me
Labs: Labs Reviewed by me
--- NOTE | 2023-08-23 10:36 | CM ---
Reviewed chart, placed a call to patient's daughter to obtain information for assessment. Patient's daughter answered and stated that she could answer assessment questions.
Patient just moved to the [facility] [place] last Wednesday. He lives alone in his apartment but has assistance with his ADLs, personal care, dressing, bathing and toileting. He does not really ambulate and is propelled by staff in his w/c. He did use
a rollator earlier this year. Patient's daughter stated that patient is incontinent at times with bowel and bladder.
Patient has had VN services in the past however per her daughter does not do well with them.
He was in a SNF all of July, [facility]. Patient's daughter stated that if patient can return to the [facility], he would rather do that per patient's daughter than go back to SNF. Patient's daughter was advised that CM will call the [facility]
to review functional status prior to his return. Patient's daughter was agreeable to that.
Patient has a prescription plan and gets his medications from [facility].
His PCP is Harvey Gonzales DO.
Plan: Case management will continue to follow and assist with discharge planning. Patient's family hopeful that patient will be able to return back to his [facility] when stable.
--- NOTE | 2023-08-23 10:44 | W.PN.HOSP.TC ---
Today's Communication/Plan
-
see A/P
Assessment / Plan
Assessment / Plan
88-year-old male from [facility] where he has been for the past 1 week; p/w shortness of breath and weight gain.
Per son, patient was ordering 6 ice teas and food with salt. Patient thinks that he gained almost 30 pounds in the past few weeks.
Patient was admitted to [facility] June 21 for confusion. They did CT scan and MRI with no CVA. 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 He was diagnosed with acute kidney injury, hypothermia, also visual
hallucinations. He was also diagnosed with CHF. He went to rehab from there and was released a week ago and was admitted to [facility]. He was supposed to see a therapist when he was in the rehab which got canceled. His next appointment is for
September 2023.
They have been trying to treat his lymphedema for the past 7 to 8 months with the help of primary physician. Patient states that he uses a sleeves for lymphedema of the lower extremities.
Primary physician is Dr. Harvey Gonzales and Cardiology is Dr Yuniel March At [place].
Patient thinks he has had a cardiac catheterization 2 years ago.
Requested records from [facility] as well as from above physicians.
[id number] was able to access Chirag's records, his the creatinine was 2.4 in June. She is not sure what his creatinine was prior to that.
Patient has a diagnosis of CKD. Unclear history of sleep apnea- son thinks he has, but he cannot tolerate CPAP.
A/P:
# Acute on chronic heart failure with preserved ejection fraction reportedly
proBNP 1890
Continue Lasix 40 mg IV twice daily, monitor daily weight/ I and O
Check Echo
Continue PAINT AND TABLE EDGER Coreg 6.25 BID
Does not seem to be on SGLT2 inhibitors or BENITEZ or ARB, due to CKD?
Fluid restriction
Benitez bandages for lower extremities
# Paroxysmal atrial fibrillation
continue PAINT AND TABLE EDGER Coreg and Eliquis
# Hypothermia
patient has had workup as outpatient with no etiology
Blood cultures so far negative
Influenza and COVID negative
Random Cortisol level at 14.9
TSH 0.36, FT4 1.83
Urine culture noted GNR, follow S/S, start empiric ceftriaxone
Check Kidney US
# CKD unclear stage
# Possible cardiorenal syndrome
Creatinine was 2.4 in June 2023
Creatinine 1.9 today, from 1.8 on admission
Monitor SCr with IV Lasix
Check old records from PCP and cardiology
Check Kidney US
Nephrology evaluation
# Anemia with Iron deficiency
Start PO ferrous sulfate
# Hypothyroidism
continue Synthroid
TSH 0.36 with normal FT4
# Sleep apnea, CPAP intolerant
# Chronic lymphedema
No DVT on ultrasound
# History of visual hallucinations, felt to be secondary to dehydration/TRU
Patient had MRI brain-no acute changes at jeans per discussion with her son.
# Prostate disease-continue Avodart and Flomax
# Pacemaker 2016
# Obesity
DVT prophylaxis-Eliquis
DNR status
Updated patient's daughter on the phone
total time spent 51 min
Anticipated Discharge: > 48 hours
Subjective/Interval History
-
Date of Service: August 23, 2023
Objective Data
-
Labs:
Laboratory Results
08/23/23
06:32
WBC 3.2 L
Hgb 9.4 L
Hct 29.5 L
Plt Count 118 L
Sodium 143
Potassium 4.1
Chloride 108 H
Carbon Dioxide 27
BUN 55 H
Creatinine 1.9 H
Glucose 85
Calcium 9.4
Vital Signs:
Vital Signs
Temp Pulse Resp BP Pulse Ox
36.3 C 60 18 110/78 97
08/23/23 07:00 08/23/23 07:00 08/23/23 07:00 08/23/23 07:00 08/23/23 07:00
I&O
08/22/23 08/23/23 08/24/23
06:59 06:59 06:59
Intake Total 1140 / 1140
Output Total 2600 / 2600
Balance -1460 / -1460
Review of Systems
-
All other systems: Reviewed and negative
Physical Exam
-
General: Well Developed, Well Nourished, No Apparent Distress, Comfortable, Conversant and Obese; Negative Respiratory Distress
HEENT: Normocephalic, Atraumatic, Nose Appears Normal and Ears Appear Normal; Negative Oxygen
Respiratory: Clear to Auscultation and Non Labored Respirations; Negative Accessory Resp Muscle Use
Cardiac: Regular Rhythm and S1/S2
GI: Soft, Nontender, Nondistended and Normal Bowel Sounds
Musculoskeletal: Edema, Right Lower Extrem (chronic lymphedema) and Edema, Left Lower Extrem (chronic lymphedema)
Skin: Warm and Dry
Neuro: Awake and Alert
Psych: Calm and Intact Judgement/Insight
Data Reviewed
-
Diagnostic Radiology: Report Reviewed by me
Ultrasound: Report Reviewed by me
Labs: Labs Reviewed by me
Old Records: Requested
[2023-08-23] MEDS: FEOSOL 325 MG PO (13:12)
[2023-08-23] MEDS: STERILE WATER FOR INJECTION 10 ML IV (13:14)
[2023-08-23] MEDS: ROCEPHIN 1000 MG IV (13:15)
--- NOTE | 2023-08-23 13:21 | W.PN.NEPH.PH ---
Today's Communication / Plan
-
continue diuresis with IV lasix
Assessment/Plan
-
Assessment
Heart failure preserved ejection fraction
Anasarca
Acute kidney injury
CKD unknown baseline
Anemia
Paroxysmal atrial fibrillation
Hypothyroidism
CPAP
Pacemaker
Plan
Continue diuresis with IV Lasix 40mg BID.
weights are decreasing. 116kg today
UOP excellent at 2.6L
Follow BMP
Records from [facility] requested. Cr 2.4 in Jun 2023
KUS pending
Sodium and fluid restriction
Edema is likely cardiac or lymphedema related
-
-
Date of Service: August 23, 2023
CC / HPI / ROS
-
Chief Complaint:
?TRU, HFpEF
History of Present Illness:
diuresing well with lasix IV 40mg BID
weights decreasing
continues to have significant swelling
Review of Systems:
bilateral LE wrapped
UOP 2.6L
Labs
-
Labs:
WBC 3.2 10^3/uL (4.8-10.8) L 08/23/23 06:32
RBC 3.05 10^6/uL (4.70-6.10) L 08/23/23 06:32
Hgb 9.4 g/dL (13.0-18.0) L 08/23/23 06:32
Hct 29.5 % (39.0-52.0) L 08/23/23 06:32
Plt Count 118 10^3/uL (130-400) L 08/23/23 06:32
Sodium 143 mmol/L (135-145) 08/23/23 06:32
Potassium 4.1 mmol/L (3.5-5.1) 08/23/23 06:32
Chloride 108 mmol/L (98-107) H 08/23/23 06:32
Carbon Dioxide 27 mmol/L (22-30) 08/23/23 06:32
BUN 55 mg/dl (9-20) H 08/23/23 06:32
Creatinine 1.9 mg/dL (0.7-1.3) H 08/23/23 06:32
eGFR 33.93 08/23/23 06:32
Glucose 85 mg/dl (70-99) 08/23/23 06:32
Calcium 9.4 mg/dl (8.4-10.2) 08/23/23 06:32
Lpm-U-Fwedupbvesk Pept 1890 pg/ml 08/22/23 02:22
Albumin 3.3 g/dl (3.5-5.0) L 08/22/23 02:22
Physical Exam
-
Vital Signs:
Vital Signs
Temp Pulse Resp BP Pulse Ox
97.3 F 60 18 114/71 95
08/23/23 11:00 08/23/23 11:00 08/23/23 11:00 08/23/23 11:00 08/23/23 11:00
Cardiovascular:: Regular rate and rhythm
Respiratory:: Bilateral: CTA
Lung Excursion:: Normal
Abdomen:: Nontender and Soft
Bowel Sounds:: Normal
Extremity Edema:: +3: Bilateral:
Ewlsh Catheter: No
[2023-08-24 03:00] VITALS: BP 109/60
[2023-08-24 06:00] VITALS: BMI 34.5
[2023-08-24] MEDS: SYNTHROID 150 MCG PO (06:06)
[2023-08-24 06:55] LABS: Hematocrit 30.3 % (39.0-52.0); Hemoglobin 9.6 g/dL (13.0-18.0); Mean Corp Hgb Conc. 31.7 g/dL (33.0-37.0); Mean Corpuscular Volume 94.7 fL (80.0-94.0); Mean Platelet Volume 10.9 fL (7.4-10.4); Platelet Count 119 10^3/uL (130-400); Red Cell Dist. Width 15.4 % (11.5-14.5); White Blood Cell Count 2.8 10^3/uL (4.8-10.8)
[2023-08-24 07:16] LABS: Blood Urea Nitrogen 55 mg/dl (9-20); Calcium 9.2 mg/dl (8.4-10.2); Carbon Dioxide 26 mmol/L (22-30); Chloride 111 mmol/L (98-107); Estimated Creatinine Clearance 39 ml/min; Glucose 79 mg/dl (70-99); Magnesium 2.2 mg/dl (1.6-2.3); Sodium 141 mmol/L (135-145); eGFR 36.21
[2023-08-24 07:45] VITALS: BP 107/63
[2023-08-24] MEDS: ELIQUIS 2.5 MG PO ×2 (08:36→20:30)
[2023-08-24] MEDS: COREG 6.25 MG PO ×2 (08:36→20:29)
[2023-08-24] MEDS: FLOMAX 0.400000000000000022 MG PO (08:37)
[2023-08-24] MEDS: FEOSOL 325 MG PO (08:37)
[2023-08-24] MEDS: PROSCAR 5 MG PO (08:37)
[2023-08-24] MEDS: LASIX 40 MG IV ×2 (08:38→17:08)
--- NOTE | 2023-08-24 10:04 | W.PN.CD ---
Today's Communication / Plan
-
creatiine remains stable at 1.8 - nephrology following
weight trending down and and greater than 1 liter negtive over the lat 24 hours
continue lasix and monitor renal function
Impression / Plan
-
88-year-old male with past medical history of Chronic HFpEF (as per echo Jun 2023), CKD3b, Paroxysmal atrial fibrillation,PPM, Hypothyroidism, Lymphedema, h/o hypothermia (without sepsis)Visual hallucinations thought to be due to TRU/dehydration,
who is here with worsening shortness of breath and paroxysmal nocturnal dyspnea. Improvement with diuresis.
.
Heart failure preserved ejection fraction acute on chronic in setting of CKD
- severe bilat lower extremity edema
-Continue 40 mg IV Lasix twice daily
-Continue beta-zonia
-Improving, dry weight unknown
- monitor renal function
Paroxysmal atrial fibrillation
-ECG shows a sensed V paced rhythm
-Continue beta-zonia and Eliquis
Pacemaker?/[employer].
CKD unknown baseline creatinine. 1.8and 1.9 since admit
- nephrology following
-monitor with diuretic
Anemia and leukopenia
-Per primary
Hypothyroidism
Hypothermia
Lymphedema
Physical Exam
Vital Signs/Labs
Vital Signs
Temp Pulse Resp BP Pulse Ox
97.1 F 60 18 107/63 96
08/24/23 09:27 08/24/23 08:36 08/24/23 07:45 08/24/23 08:36 08/24/23 07:45
08/23/23 08/24/23 08/25/23
06:59 06:59 06:59
Actual Weight 116.148 kg 115.439 kg
08/24/23 06:26
08/24/23 06:26
Magnesium 2.2 mg/dl (1.6-2.3) 08/24/23 06:26
Free T4 1.83 ng/dl (0.78-2.19) 08/22/23 02:22
08/22/23
02:22
Iva-T-Gttygennpfm Pept 189
LAB Results
08/22/23
02:22
Troponin I < 0.012
Physical Exam
Cardiovascular: Rhythm & rate is regular
Respiratory: Respiratory effort normal
GI: Soft
Neuro/Psych: Alert
Other: Other (bilat edema up tot thighs)
Data Reviewed
-
Date of Service: August 24, 2023
Medical Decision Making: Reviewed Test Results
Medical Tests (PFT, Pathology etc): Report Reviewed by me
Labs: Labs Reviewed by me
[2023-08-24] MEDS: CORTROSYN 0.25 MG IV (10:05)
[2023-08-24] MEDS: NSS (PRESERVATIVE FREE) 1 ML IV (10:06)
[2023-08-24 10:17] LABS: ACTH Stim Cortisol 0 Min 11.8 ug/dl
--- NOTE | 2023-08-24 11:00 | W.PN.HOSP.TC ---
Today's Communication/Plan
-
see A/P
Assessment / Plan
Assessment / Plan
88-year-old male from [facility] where he has been for the past 1 week; p/w shortness of breath and weight gain.
Per son, patient was ordering 6 ice teas and food with salt. Patient thinks that he gained almost 30 pounds in the past few weeks.
Patient was admitted to [facility] June 21 for confusion[address] They did CT scan and MRI with no CVA. 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 He was diagnosed with acute kidney injury, hypothermia, also visual
hallucinations. He was also diagnosed with CHF. He went to rehab from there and was released a week ago and was admitted to [facility]. He was supposed to see a field collector when he was in the rehab which got canceled. His next appointment is for
September 2023.
They have been trying to treat his lymphedema for the past 7 to 8 months with the help of primary physician. Patient states that he uses a sleeves for lymphedema of the lower extremities.
Primary physician is Dr. Harvey Gonzales and Cardiology is Dr Yuniel March At [place].
Patient thinks he has had a cardiac catheterization 2 years ago.
Requested records from [facility] as well as from above physicians.
[id number] was able to access Chirag's records, his the creatinine was 2.4 in June. She is not sure what his creatinine was prior to that.
Patient has a diagnosis of CKD. Unclear history of sleep apnea- son thinks he has, but he cannot tolerate CPAP.
A/P:
# Acute on chronic systolic heart failure
proBNP 1890
Continue Lasix 40 mg IV twice daily, monitor daily weight, I and O
Echo noted LVEF 40% with mild global hypokinesis.�Moderate to severe tricuspid regurgitation. Estimated PASP 45-50 mmHg and RA 8 mmHg. Pleural effusion present. No prior study available for comparison.
Continue COMPRESSOR OPERATOR Coreg 6.25 BID
Does not seem to be on SGLT2 inhibitors or BENITEZ or ARB, due to CKD?
Fluid restriction
Benitez bandages for lower extremities
Card and renal following
# Paroxysmal atrial fibrillation
continue COMPRESSOR OPERATOR Coreg and Eliquis
# Hypothermia
patient has had workup as outpatient with no etiology
Blood cultures negative, Influenza and COVID negative
Urine Cx with Klebsiella, S/S reviewed
Change empiric ceftriaxone to Ancef
kidney US unrevealing: No hydronephrosis. Chronic medical renal disease and bilateral renal cysts.
Random Cortisol level equivocal at 14.9, check stim test
TSH 0.36, FT4 1.83
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
# Possible cardiorenal syndrome
Creatinine was 2.4 in June 2023
Creatinine toay 1.8, from 1.8 on admission
Monitor SCr with IV Lasix
kidney US unrevealing: No hydronephrosis. Chronic medical renal disease and bilateral renal cysts.
Nephrology evaluation
# Anemia with Iron deficiency
Started PO ferrous sulfate
# Hypothyroidism
continue Synthroid
TSH 0.36 with normal FT4
# Sleep apnea, CPAP intolerant
# Chronic lymphedema
No DVT on ultrasound
# History of visual hallucinations, felt to be secondary to dehydration/TRU
Patient had MRI brain-no acute changes at jeans per discussion with her son.
# Prostate disease-continue Avodart and Flomax
# Pacemaker 2016
# Obesity
DVT prophylaxis-Eliquis
DNR status
PT OT recc to return to [facility]
Updated patient's daughter on the phone.
Anticipated Discharge: 24 - 48 hours
Subjective/Interval History
-
Date of Service: August 24, 2023
Objective Data
-
Labs:
Laboratory Results
08/24/23
06:26
WBC 2.8 L
Hgb 9.6 L
Hct 30.3 L
Plt Count 119 L
Sodium 141
Potassium 4.0
Chloride 111 H
Carbon Dioxide 26
BUN 55 H
Creatinine 1.8 H
Glucose 79
Calcium 9.2
Vital Signs:
Vital Signs
Temp Pulse Resp BP Pulse Ox
36.2 C 60 18 107/63 96
08/24/23 09:27 08/24/23 08:36 08/24/23 07:45 08/24/23 08:36 08/24/23 07:45
I&O
08/23/23 08/24/23 08/25/23
06:59 06:59 06:59
Intake Total 1140 / 1140 1160 / 1160
Output Total 2600 / 2600 2210 / 2210
Balance -1460 / -1460 -1050 / -1050
Review of Systems
-
All other systems: Reviewed and negative
Physical Exam
-
General: Well Developed, Well Nourished, No Apparent Distress, Comfortable, Conversant and Obese; Negative Respiratory Distress
HEENT: Normocephalic, Atraumatic, Nose Appears Normal and Ears Appear Normal; Negative Oxygen
Respiratory: Clear to Auscultation and Non Labored Respirations; Negative Accessory Resp Muscle Use
Cardiac: Regular Rhythm and S1/S2
GI: Soft, Nontender, Nondistended and Normal Bowel Sounds
Musculoskeletal: Edema, Right Lower Extrem (chronic lymphedema) and Edema, Left Lower Extrem (chronic lymphedema)
Skin: Warm and Dry
Neuro: Awake and Alert
Psych: Calm and Intact Judgement/Insight
Data Reviewed
-
Diagnostic Radiology: Report Reviewed by me
Ultrasound: Report Reviewed by me
Labs: Labs Reviewed by me
Old Records: Requested
[2023-08-24] MEDS: ANCEF 5 IV ×2 (11:44→20:29)
[2023-08-24 11:48] LABS: ACTH Stim Cortisol 30 Min 21.2 ug/dl
[2023-08-24 12:02] VITALS: BP 105/61
[2023-08-24 12:25] LABS: ACTH Stim Cortisol 60 Min 24.9 ug/dl
--- NOTE | 2023-08-24 12:55 | W.PN.NEPH.PH ---
Today's Communication / Plan
-
- continue IV diuresis
Assessment/Plan
-
Assessment
Heart failure preserved ejection fraction
Anasarca
Acute kidney injury
CKD unknown baseline
Anemia
Paroxysmal atrial fibrillation
Hypothyroidism
CPAP
Pacemaker
Plan
Continue diuresis with IV Lasix 40mg BID.
weights are decreasing. 115kg today
UOP excellent at 2.2L
Follow BMP
Records from [facility] requested. Cr 2.4 in Jun 2023
KUS pending
Sodium and fluid restriction
Edema is likely cardiac or lymphedema related
-
-
Date of Service: August 24, 2023
CC / HPI / ROS
-
Chief Complaint:
?TRU, HFpEF
History of Present Illness:
diuresing well with lasix IV 40mg BID
weights decreasing
continues to have significant swelling
Review of Systems:
bilateral LE wrapped
UOP 2.2L
Labs
-
Labs:
WBC 2.8 10^3/uL (4.8-10.8) L 08/24/23 06:26
RBC 3.20 10^6/uL (4.70-6.10) L 08/24/23 06:26
Hgb 9.6 g/dL (13.0-18.0) L 08/24/23 06:26
Hct 30.3 % (39.0-52.0) L 08/24/23 06:26
Plt Count 119 10^3/uL (130-400) L 08/24/23 06:26
Sodium 141 mmol/L (135-145) 08/24/23 06:26
Potassium 4.0 mmol/L (3.5-5.1) 08/24/23 06:26
Chloride 111 mmol/L (98-107) H 08/24/23 06:26
Carbon Dioxide 26 mmol/L (22-30) 08/24/23 06:26
BUN 55 mg/dl (9-20) H 08/24/23 06:26
Creatinine 1.8 mg/dL (0.7-1.3) H 08/24/23 06:26
eGFR 36.21 08/24/23 06:26
Glucose 79 mg/dl (70-99) 08/24/23 06:26
Calcium 9.2 mg/dl (8.4-10.2) 08/24/23 06:26
Thx-X-Hbecxcueiet Pept 1890 pg/ml 08/22/23 02:22
Albumin 3.3 g/dl (3.5-5.0) L 08/22/23 02:22
Physical Exam
-
Vital Signs:
Vital Signs
Temp Pulse Resp BP Pulse Ox
97.5 F 62 16 105/61 96
08/24/23 12:47 08/24/23 12:02 08/24/23 12:02 08/24/23 12:02 08/24/23 12:02
Cardiovascular:: Regular rate and rhythm
Respiratory:: Bilateral: CTA
Lung Excursion:: Normal
Abdomen:: Nontender and Soft
Bowel Sounds:: Normal
Extremity Edema:: +3: Bilateral:
Welsh Catheter: No
[2023-08-24 15:00] VITALS: BP 115/61
[2023-08-24 19:05] VITALS: BP 123/63
[2023-08-24] MEDS: FLUSH (NSS) 2 FLUSH IV (20:29)
[2023-08-24 23:05] VITALS: BP 118/56
[2023-08-25] VITALS (7 sets, daily range): BP systolic 99–117; BP diastolic 57–66; PULSE 55; O2SAT 95; BMI 33.7
[2023-08-25] MEDS: FLUSH (NSS) 2 FLUSH IV (04:32)
[2023-08-25] MEDS: ANCEF 5 IV ×3 (04:32→20:29)
[2023-08-25] MEDS: SYNTHROID 150 MCG PO (05:48)
[2023-08-25] MEDS: ELIQUIS 2.5 MG PO ×2 (07:52→20:30)
[2023-08-25] MEDS: FEOSOL 325 MG PO (07:52)
[2023-08-25] MEDS: PROSCAR 5 MG PO (07:52)
[2023-08-25] MEDS: COREG 6.25 MG PO ×2 (07:52→20:30)
[2023-08-25] MEDS: FLOMAX 0.400000000000000022 MG PO (07:52)
[2023-08-25] MEDS: LASIX 40 MG IV (07:56)
--- NOTE | 2023-08-25 08:50 | W.PN.CD ---
Addendum entered and electronically signed by Libby Oconnell MD 08/25/23 11:41:
I saw and examined the patient.
The PERFORATOR LOADER's note was reviewed and I agree with the note.
Comment: He is feeling better, legs have always been swollen but worse in the past month. He has lymphapress boots and wears in the am, no weighing himself daily. On exam, rrr, lungs are CTA, legs with nonpitting and pitting edema, toes with edema
briana wraps on. Nephrology directing diuresis, no plans for further med changes of GDMT. Will recommend a second session of his lymphapress boots in afternoon for lymphedema.
He shoud follow up with typical Advertising Agency Manager--Advertising Agency Manager:�Dr. Yuniel March ([place]).
Will sign off
Original Note:
Today's Communication / Plan
-
BMP pending
Weight trending down
Diuresis per Nephrology
Impression / Plan
-
Background: 88-year-old male with past medical history of Chronic HFpEF (as per echo Jun 2023), CKD3b, Paroxysmal atrial fibrillation,PPM, Hypothyroidism, Lymphedema, h/o hypothermia (without sepsis)Visual hallucinations thought to be due to
TRU/dehydration, who is here with worsening shortness of breath and paroxysmal nocturnal dyspnea. Improvement with diuresis.
Advertising Agency Manager: Dr. Yuniel March ([place])
Impression/Plan:
HFmrEF (EF 40%), acute on chronic
-Last HF exacerbation 06/2023 ([facility])
-Severe bilat lower extremity edema
-Continue 40 mg IV Lasix twice daily per Nephrology, this requires intensive monitoring
-Weight trending down, dry weight unknown
-Continue beta-zonia
-Trend I/O, BMP and daily weight with diuresis
-Medical therapy is limited by renal function
Paroxysmal atrial fibrillation
-V paced on telemetry
-Oral Anticoagulation: Apixaban 2.5mg BID (age 82, creatinine > 1.5)
-[id number]: score at least 5 (Heart failure, age 75 or more, prior Stroke/TIA)
Pacemaker
-Appears to be [employer] by CXR
-Followed by primary welding machine operator submerged arc
CKD
-Unknown baseline creatinine
-Nephrology following
Moderate to severe tricuspid regurgitation
Anemia, likely of chronic diease
Leukopenia, per primary
Hypothyroidism
Prior CVA, per imaging
Hypothermia, resolved
Lymphedema, likely chronic, US neg for DVT
Physical Exam
Vital Signs/Labs
Vital Signs
Temp Pulse Resp BP Pulse Ox
97.5 F 61 18 117/64 97
08/25/23 07:00 08/25/23 07:00 08/25/23 07:00 08/25/23 07:00 08/25/23 07:00
08/24/23 08/25/23 08/26/23
06:59 06:59 06:59
Actual Weight 115.439 kg 112.491 kg
Magnesium 2.2 mg/dl (1.6-2.3) 08/24/23 06:26
Free T4 1.83 ng/dl (0.78-2.19) 08/22/23 02:22
08/22/23
02:22
Vph-E-Mczrcgmzijc Pept 189
Physical Exam
Constitutional: No acute distress and Comfortable
EENT: Anicteric and Moist mucous membranes
Cardiovascular: Rhythm/rate is irregular, S1S2 is normal and Murmur/rub/gallop absent
Respiratory: Respiratory effort normal and Lungs clear to auscul.
GI: Soft, Distention absent, Flat, Non tender and Normal bowel sounds
Neuro/Psych: AO x 3
Other: Skin (warm and dry) and Other (Lymphedema)
Data Reviewed
-
Date of Service: August 25, 2023
--- NOTE | 2023-08-25 09:22 | PN.CDI ---
CDI
- -
CDI:
Physician Documentation Request
Admit Date: 08/22/23 05:40
Dear Doctor Chivo,
Please review the following and provide your response in the progress notes.
Clinical Indicators:
Pt admitted with Acute on Chronic Systolic CHF/ CKD 3b/ HX of Anemia with Iron Deficiency
Trended Labs below
08/23/23 08/24/23
06:32 06:26
WBC 3.2 L 2.8 L
Hgb 9.4 L 9.6 L
Hct 29.5 L 30.3 L
Plt Count 118 L 119 L
Please provide a diagnosis for the above findings:
Pancytopenia
Anemia of Iron deficiency only
Other
Use of terms such as suspected, likely, concern for, or probable (associated with a specific diagnosis that is being evaluated, monitored, or treated as if it exists) are acceptable and can be coded in the inpatient setting, when documented at the
time of discharge.
Thank you,
Lilia Tan RN
CDI Specialist
[facility]
Please use your independent medical judgment in providing your response.
[2023-08-25 09:39] LABS: Hematocrit 33.1 % (39.0-52.0); Hemoglobin 10.4 g/dL (13.0-18.0); Mean Corp Hgb Conc. 31.4 g/dL (33.0-37.0); Mean Corpuscular Hgb 30.3 pg (27.0-31.0); Mean Corpuscular Volume 96.5 fL (80.0-94.0); Mean Platelet Volume 11.1 fL (7.4-10.4); Platelet Count 121 10^3/uL (130-400); Red Blood Cell Count 3.43 10^6/uL (4.70-6.10); Red Cell Dist. Width 15.3 % (11.5-14.5); White Blood Cell Count 3.9 10^3/uL (4.8-10.8)
[2023-08-25 11:04] LABS: Blood Urea Nitrogen 57 mg/dl (9-20); Calcium 9.5 mg/dl (8.4-10.2); Carbon Dioxide 25 mmol/L (22-30); Chloride 109 mmol/L (98-107); Estimated Creatinine Clearance 36 ml/min; Glucose 120 mg/dl (70-99); Magnesium 2.2 mg/dl (1.6-2.3); Sodium 141 mmol/L (135-145); eGFR 33.93
--- NOTE | 2023-08-25 11:04 | CM ---
Reviewed chart, PT/OT stating that patient can return to prior living environment but would benefit from therapy while in acute care. Will review patient's current level of functioning with director at [facility] prior to return.
Plan: Case management will continue to follow and assist with discharge planning. Return to [facility] upon medical clearance.
--- NOTE | 2023-08-25 11:10 | W.PN.HOSP.TC ---
Addendum entered and electronically signed by Vita Waldron MD 08/25/23 15:25:
# Mild Pancytopenia
Original Note:
Today's Communication/Plan
-
see A/P
Assessment / Plan
Assessment / Plan
88-year-old male from [facility] where he has been for the past 1 week; p/w shortness of breath and weight gain.
Per son, patient was ordering 6 ice teas and food with salt. Patient thinks that he gained almost 30 pounds in the past few weeks.
Patient was admitted to [facility] June 21 for confusion. They did CT scan and MRI with no CVA. 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 He was diagnosed with acute kidney injury, hypothermia, also visual
hallucinations. He was also diagnosed with CHF. He went to rehab from there and was released a week ago and was admitted to [facility]. He was supposed to see a assistant store manager sales when he was in the rehab which got canceled. His next appointment is for
September 2023.
They have been trying to treat his lymphedema for the past 7 to 8 months with the help of primary physician. Patient states that he uses a sleeves for lymphedema of the lower extremities.
Primary physician is Dr. Harvey Gonzales and Cardiology is Dr Yuniel March At [place].
Patient thinks he has had a cardiac catheterization 2 years ago.
Requested records from [facility] as well as from above physicians.
[id number] was able to access Chirag's records, his the creatinine was 2.4 in June. She is not sure what his creatinine was prior to that.
Patient has a diagnosis of CKD. Unclear history of sleep apnea- son thinks he has, but he cannot tolerate CPAP.
A/P:
# Acute on chronic systolic heart failure
proBNP 189
Continue Lasix 40 mg IV twice daily, monitor daily weight, I and O
Echo noted LVEF 40% with mild global hypokinesis.�Moderate to severe tricuspid regurgitation. Estimated PASP 45-50 mmHg and RA 8 mmHg. Pleural effusion present. No prior study available for comparison.
Continue URBAN PLANNING TEACHER Coreg 6.25 BID
Does not seem to be on SGLT2 inhibitors or BENITEZ or ARB, due to CKD?
Fluid restriction
Cont Benitez bandages for lower extremities, suspect LE edema has a large chronic lymphedema component
Card and renal following
# Paroxysmal atrial fibrillation
continue URBAN PLANNING TEACHER Coreg and Eliquis
# Hypothermia
patient has had workup as outpatient with no etiology
Blood cultures negative, Influenza and COVID negative
Urine Cx with Klebsiella, S/S reviewed
Changed empiric ceftriaxone to Ancef
kidney US unrevealing: No hydronephrosis. Chronic medical renal disease and bilateral renal cysts.
Random Cortisol level equivocal at 14.9, stim test WNL
TSH 0.36, FT4 1.83
# CKD stage 3
# Possible cardiorenal syndrome
Creatinine was 2.4 in June 2023
Creatinine toay 1.9, from 1.8 on admission
Monitor SCr with IV Lasix
kidney US unrevealing: No hydronephrosis. Chronic medical renal disease and bilateral renal cysts.
Nephrology evaluation
# Anemia with Iron deficiency
Started PO ferrous sulfate
# Hypothyroidism
continue Synthroid
TSH 0.36 with normal FT4
# Sleep apnea, CPAP intolerant
# Chronic lymphedema
No DVT on ultrasound
# History of visual hallucinations, felt to be secondary to dehydration/TRU
Patient had MRI brain-no acute changes at jeans per discussion with her son.
# Prostate disease-continue Avodart and Flomax
# Pacemaker 2016
# Obesity
DVT prophylaxis-Eliquis
DNR status
PT OT recc to return to [facility]
Updated patient's daughter on the phone 08/23
Anticipated Discharge: 24 - 48 hours
Subjective/Interval History
-
Date of Service: August 25, 2023
Objective Data
-
Labs:
Laboratory Results
08/25/23
08:49
WBC 3.9 L
Hgb 10.4 L
Hct 33.1 L
Plt Count 121 L
Sodium 141
Potassium 4.0
Chloride 109 H
Carbon Dioxide 25
BUN 57 H
Creatinine 1.9 H
Glucose 120 H
Calcium 9.5
Vital Signs:
Vital Signs
Temp Pulse Resp BP Pulse Ox
36.4 C 61 18 117/64 97
08/25/23 07:00 08/25/23 07:00 08/25/23 07:00 08/25/23 07:00 08/25/23 07:00
I&O
08/24/23 08/25/23 08/26/23
06:59 06:59 06:59
Intake Total 1160 / 1160 800 / 800
Output Total 2210 / 2210 2950 / 2950
Balance -1050 / -1050 -2150 / -2150
Review of Systems
-
All other systems: Reviewed and negative
Physical Exam
-
General: Well Developed, Well Nourished, No Apparent Distress, Comfortable, Conversant and Obese; Negative Respiratory Distress
HEENT: Normocephalic, Atraumatic, Nose Appears Normal and Ears Appear Normal; Negative Oxygen
Respiratory: Clear to Auscultation and Non Labored Respirations; Negative Accessory Resp Muscle Use
Cardiac: Regular Rhythm and S1/S2
GI: Soft, Nontender, Nondistended and Normal Bowel Sounds
Musculoskeletal: Edema, Right Lower Extrem (chronic lymphedema) and Edema, Left Lower Extrem (chronic lymphedema)
Skin: Warm and Dry
Neuro: Awake and Alert
Psych: Calm and Intact Judgement/Insight
Data Reviewed
-
Diagnostic Radiology: Report Reviewed by me
Ultrasound: Report Reviewed by me
Labs: Labs Reviewed by me
Old Records: Requested
--- NOTE | 2023-08-25 13:32 | W.PN.NEPH.PH ---
Today's Communication / Plan
-
sgin off
Assessment/Plan
-
Assessment
Heart failure preserved ejection fraction
Anasarca
Acute kidney injury
CKD unknown baseline
Anemia
Paroxysmal atrial fibrillation
Hypothyroidism
CPAP
Pacemaker
Plan
Continue diuresis with IV Lasix 40mg BID.
weights are decreasing. 115kg today
UOP excellent at 2.2L
Follow BMP
Records from [facility] requested. Cr 2.4 in Jun 2023
KUS pending
Sodium and fluid restriction
Edema is likely cardiac or lymphedema related
creatinine at 1.9, we will sign off
-
-
Date of Service: August 25, 2023
CC / HPI / ROS
-
Chief Complaint:
?TRU, HFpEF
History of Present Illness:
diuresing well with lasix IV 40mg BID
weights decreasing
continues to have significant swelling
creatinine stable at 1.9
Review of Systems:
bilateral LE wrapped
UOP 2.2L
weights down
Labs
-
Labs:
WBC 3.9 10^3/uL (4.8-10.8) L 08/25/23 08:49
RBC 3.43 10^6/uL (4.70-6.10) L 08/25/23 08:49
Hgb 10.4 g/dL (13.0-18.0) L 08/25/23 08:49
Hct 33.1 % (39.0-52.0) L 08/25/23 08:49
Plt Count 121 10^3/uL (130-400) L 08/25/23 08:49
Sodium 141 mmol/L (135-145) 08/25/23 08:49
Potassium 4.0 mmol/L (3.5-5.1) 08/25/23 08:49
Chloride 109 mmol/L (98-107) H 08/25/23 08:49
Carbon Dioxide 25 mmol/L (22-30) 08/25/23 08:49
BUN 57 mg/dl (9-20) H 08/25/23 08:49
Creatinine 1.9 mg/dL (0.7-1.3) H 08/25/23 08:49
eGFR 33.93 08/25/23 08:49
Glucose 120 mg/dl (70-99) H 08/25/23 08:49
Calcium 9.5 mg/dl (8.4-10.2) 08/25/23 08:49
Vkf-U-Dcdaydnrduq Pept 1890 pg/ml 08/22/23 02:22
Albumin 3.3 g/dl (3.5-5.0) L 08/22/23 02:22
Physical Exam
-
Vital Signs:
Vital Signs
Temp Pulse Resp BP Pulse Ox
97.7 F 61 18 99/57 96
08/25/23 11:30 08/25/23 11:30 08/25/23 11:30 08/25/23 11:30 08/25/23 11:30
Cardiovascular:: Regular rate and rhythm
Respiratory:: Bilateral: Coarse
Lung Excursion:: Normal
Abdomen:: Nontender and Soft
Bowel Sounds:: Normal
Extremity Edema:: +1: Bilateral:
Welsh Catheter: No
[2023-08-26 03:00] VITALS: BP 108/66
[2023-08-26] MEDS: ANCEF 5 IV ×2 (04:53→12:50)
[2023-08-26 06:00] VITALS: BMI 34.3
[2023-08-26] MEDS: SYNTHROID 150 MCG PO (06:24)
[2023-08-26 07:14] LABS: Hematocrit 30.5 % (39.0-52.0); Hemoglobin 9.9 g/dL (13.0-18.0); Mean Corp Hgb Conc. 32.5 g/dL (33.0-37.0); Mean Corpuscular Hgb 30.9 pg (27.0-31.0); Mean Corpuscular Volume 95.3 fL (80.0-94.0); Mean Platelet Volume 10.5 fL (7.4-10.4); Platelet Count 113 10^3/uL (130-400); Red Cell Dist. Width 15.1 % (11.5-14.5); White Blood Cell Count 3.2 10^3/uL (4.8-10.8)
[2023-08-26 07:30] VITALS: BP 110/66
[2023-08-26 07:45] LABS: Blood Urea Nitrogen 60 mg/dl (9-20); Calcium 9.3 mg/dl (8.4-10.2); Carbon Dioxide 31 mmol/L (22-30); Chloride 106 mmol/L (98-107); Estimated Creatinine Clearance 38 ml/min; Glucose 84 mg/dl (70-99); Magnesium 2.3 mg/dl (1.6-2.3); Potassium 3.9 mmol/L (3.5-5.1); Sodium 144 mmol/L (135-145); eGFR 36.21
[2023-08-26] MEDS: FEOSOL 325 MG PO (08:48)
[2023-08-26] MEDS: COREG 3.125 MG PO (08:48)
[2023-08-26] MEDS: ELIQUIS 2.5 MG PO (08:48)
[2023-08-26] MEDS: LASIX 40 MG PO (08:49)
[2023-08-26] MEDS: PROSCAR 5 MG PO (08:49)
[2023-08-26] MEDS: FLOMAX 0.400000000000000022 MG PO (08:49)
--- NOTE | 2023-08-26 10:45 | W.PN.HOSP.TC ---
Addendum entered and electronically signed by Vita Waldron MD 08/26/23 13:20:
total DC time 35 min
Original Note:
Today's Communication/Plan
-
DC today
Assessment / Plan
Assessment / Plan
88-year-old male from [facility] where he has been for the past 1 week; p/w shortness of breath and weight gain.
Per son, patient was ordering 6 ice teas and food with salt. Patient thinks that he gained almost 30 pounds in the past few weeks.
Patient was admitted to [facility] June 21 for confusion[address] They did CT scan and MRI with no CVA. 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 He was diagnosed with acute kidney injury, hypothermia, also visual
hallucinations. He was also diagnosed with CHF. He went to rehab from there and was released a week ago and was admitted to [facility]. He was supposed to see a manifest/order organizer print orders when he was in the rehab which got canceled. His next appointment is for
September 2023.
They have been trying to treat his lymphedema for the past 7 to 8 months with the help of primary physician. Patient states that he uses a sleeves for lymphedema of the lower extremities.
Primary physician is Dr. Harvey Gonzales and Cardiology is Dr Yuniel [facility].
Patient thinks he has had a cardiac catheterization 2 years ago.
Requested records from [facility] as well as from above physicians.
[id number] was able to access Chirag's records, his the creatinine was 2.4 in June. She is not sure what his creatinine was prior to that.
Patient has a diagnosis of CKD. Unclear history of sleep apnea- son thinks he has, but he cannot tolerate CPAP.
A/P:
# Acute on chronic systolic heart failure
proBNP 1889
Lasix 40 mg IV twice daily -> PO Lasix 40 mg BID, monitor daily weight, I/O
Echo noted LVEF 40% with mild global hypokinesis.�Moderate to severe tricuspid regurgitation. Estimated PASP 45-50 mmHg and RA 8 mmHg. Pleural effusion present. No prior study available for comparison.
911 TELECOMMUNICATOR Coreg 6.25 BID decreased to 3.125 mg BID due to low BP
Does not seem to be on SGLT2 inhibitors or BENITEZ or ARB, due to CKD?
Fluid restriction
Cont Benitez bandages for lower extremities, suspect LE edema has a large chronic lymphedema component
Card and renal signed off
# Paroxysmal atrial fibrillation
continue 911 TELECOMMUNICATOR Coreg and Eliquis
# Hypothermia
patient has had workup as outpatient with no etiology
Blood cultures negative, Influenza and COVID negative
Urine Cx with Klebsiella, S/S reviewed
Changed empiric ceftriaxone to Ancef -> Keflex 10 more days outpt (total 14 days)
kidney US unrevealing: No hydronephrosis. Chronic medical renal disease and bilateral renal cysts.
Random Cortisol level equivocal at 14.9, stim test WNL
TSH 0.36, FT4 1.83
# CKD stage 3
# Possible cardiorenal syndrome
Creatinine was 2.4 in June 2023
Creatinine today 1.8, from 1.8 on admission
Monitor SCr with IV Lasix
kidney US unrevealing: No hydronephrosis. Chronic medical renal disease and bilateral renal cysts.
Renal signed off
# Anemia with Iron deficiency
Started PO ferrous sulfate
# Hypothyroidism
continue Synthroid
TSH 0.36 with normal FT4
# Sleep apnea, CPAP intolerant
# Chronic lymphedema
No DVT on ultrasound
# History of visual hallucinations, felt to be secondary to dehydration/TRU
Patient had MRI brain-no acute changes at jeans per discussion with her son.
# Prostate disease-continue Avodart and Flomax
# Pacemaker 2015
# Obesity
DVT prophylaxis-Eliquis
DNR status
PT OT recc to return to [facility]
Updated patient's daughter on the phone 08/25
Anticipated Discharge: Today
Subjective/Interval History
-
Date of Service: August 26, 2023
Objective Data
-
Labs:
Laboratory Results
08/26/23
06:37
WBC 3.2 L
Hgb 9.9 L
Hct 30.5 L
Plt Count 113 L
Sodium 144
Potassium 3.9
Chloride 106
Carbon Dioxide 31 H
BUN 60 H
Creatinine 1.8 H
Glucose 84
Calcium 9.3
Vital Signs:
Vital Signs
Temp Pulse Resp BP Pulse Ox
36.3 C 61 16 110/66 96
08/26/23 07:30 08/26/23 07:30 08/26/23 07:30 08/26/23 07:30 08/26/23 07:30
I&O
08/25/23 08/26/23 08/27/23
06:59 06:59 06:59
Intake Total 800 / 800 600 / 600
Output Total 2950 / 2950 1875 / 1875
Balance -2150 / -2150 -1275 / -1275
Review of Systems
-
All other systems: Reviewed and negative
Physical Exam
-
General: Well Developed, Well Nourished, No Apparent Distress, Comfortable, Conversant and Obese; Negative Respiratory Distress
HEENT: Normocephalic, Atraumatic, Nose Appears Normal and Ears Appear Normal; Negative Oxygen
Respiratory: Clear to Auscultation and Non Labored Respirations; Negative Accessory Resp Muscle Use
Cardiac: Regular Rhythm and S1/S2
GI: Soft, Nontender, Nondistended and Normal Bowel Sounds
Musculoskeletal: Edema, Right Lower Extrem (chronic lymphedema) and Edema, Left Lower Extrem (chronic lymphedema)
Skin: Warm and Dry
Neuro: Awake and Alert
Psych: Calm and Intact Judgement/Insight
Data Reviewed
-
Diagnostic Radiology: Report Reviewed by me
Ultrasound: Report Reviewed by me
Labs: Labs Reviewed by me
Old Records: Requested
--- NOTE | 2023-08-26 11:53 | CM ---
Received notification from unit that patient is stable for discharge. Placed a call to [facility] and spoke with [place] who stated that hospital needs to set patient up with transportation.
# For report [phone]
#for [phone]
Met with patient, reviewed IMM. Patient is agreeable to discharge.
Placed a call to patient's daughter, Milagros, to update. She is also agreeable.
Transfer sheet and med necessity completed and provided to Jaye on 3.
Plan: Case management will continue to follow and assist with discharge planning. Back to the [facility].
[2023-08-26 11:58] VITALS: BMI 33.1
[2023-08-26 12:00] VITALS: BP 112/64
--- NOTE | 2023-08-26 13:02 | W.DCSUMMARY ---
Discharge Summary
Discharge Data
Date of Admission: 08/22/23
Date of Discharge: 08/26/23
-
Pending Results: No
Hospital Course
Principal Diagnosis:
Acute on chronic systolic heart failure
Urinary tract infection with Klebsiella
Chronic Diagnoses:�
Paroxysmal atrial fibrillation
Chronic kidney disease stage 3
Anemia with Iron deficiency
Hypothyroidism on Synthroid
Sleep apnea, CPAP intolerant
Chronic lymphedema
Prostate disease
Pacemaker 2016
Obesity
Consultations:�
Cardiology
Nephrology
Procedures:�
None
Clinical course:�
This is a 88-year-old male from [facility] with past medical history as stated above, who presented with shortness of breath and weight gain.�
Problem 1:
Acute on chronic systolic heart failure.
The patient's echocardiogram noted EF 40%�with mild global hypokinesis.�Moderate to severe tricuspid regurgitation. Estimated PASP 45-50 mmHg and RA 8 mmHg. Pleural effusion present.
He was treated with Lasix 40 mg IV twice daily while in the hospital, and was discharged with oral Lasix 40 mg twice daily going forward.
He can continue with his prior to admission Coreg, but at a lower dose at 3.125 mg BID (previously at 6.25 mg BID).
He can also continue with GEOVANY wrapping of his lower extremities.
It is likely that his chronic lower extremity edema has a large component of chronic lymphedema to it.
Problem 2:
Urinary tract infection with Klebsiella.
The patient received ceftriaxone and later Ancef while in the hospital. He can continue with Keflex for 10 more days following discharge.
His kidney US was unrevealing: No hydronephrosis, noted chronic medical renal disease and bilateral renal cysts.
As for the rest of his medical problems, they were stable during his hospital stay.
Discharge Plan
-
Patient Disposition: Snf/SNF
Discharge Diagnosis/Procedures: Acute on chronic systolic heart failure with chronic bilateral lower extremity lymphedema; Urinary tract infection with Klebsiella.
Condition: Fair
Diet: As tolerated, Low Sodium and Restrict fluids to 64 oz
Activity: As tolerated
Driving Restrictions: Not until seen by your Dr
Blood Work: BMP in 1 week, result to PCP
Specialty Instructions: Weigh Daily- Call MD for wt gain/loss 3 lbs overnight/5 lbs in 1 week
Instructions: *PCP/Other Validation Engineer Heart Failure Instructions
Referrals:
Harvey Gonzales, DO [Family Provider] - in less than 1 week
Additional Discharge Medication Instructions: Continue Lasix 40 mg twice daily (from 20 mg daily).
Continue Coreg at 3.125 mg twice daily (from 6.25 mg twice daily).
Continue Keflex for 10 more days
Continue oral ferrous sulfate
Prescriptions:
New
carvedilol 3.125 mg Tablet
3.125 mg PO BID Qty: 60 0RF
ferrous sulfate [FeroSul] 325 mg (65 mg iron) Tablet
325 mg PO DAILY Qty: 30 0RF
furosemide 40 mg Tablet
40 mg PO BID Qty: 60 0RF
cephalexin 500 mg capsule
500 mg PO BID 10 Days Qty: 20 0RF
Continued
Eliquis 2.5 mg Tablet
2.5 mg PO BID
dutasteride [Avodart] 0.5 mg Capsule
0.5 mg PO DAILY
cyanocobalamin (vitamin B-12) 1,000 mcg Tablet
1,000 mcg PO DAILY
tamsulosin [Flomax] 0.4 mg Capsule
0.4 mg PO BID
levothyroxine 150 mcg Capsule
150 mcg PO DAILY AT 0700
acetaminophen [Tylenol] 325 mg Tablet
650 mg PO Q8HPRN PRN (Reason: mild pain)
magnesium hydroxide [Milk of Magnesia] 400 mg/5 mL Suspension
2,400 mg PO HSPRN PRN (Reason: if no bm by 3rd day)
hydrocortisone 1 % Cream
1 applic TOPICAL BID
Discontinued
carvedilol 6.25 mg Tablet
6.25 mg PO BID
furosemide [Lasix] 20 mg Tablet
20 mg PO DAILY
Discharge Orders:
Discharge Patient (As Directed); Ordered 08/26/23
Ordered By: Vita Waldron
== END 2023-08-26 15:47 | DRG 291 ==
LOC: 3 WEST ACU 05:40
PROVIDERS: ADMITTING PHYSICIAN Internal Medicine; ATTENDING PHYSICIAN Internal Medicine; CONSULT PHYSICIAN Specialist; EMERGENCY PHYSICIAN Emergency Medicine; FAMILY PHYSICIAN Family Medicine; OTHER PHYSICIAN Internal Medicine Cardiovascular Disease
DX: I13.0 Hypertensive heart and chronic kidney disease with heart failure and stage 1 through stage 4 chronic kidney disease, or unspecified chronic kidney disease (principal); I50.43 Acute on chronic combined systolic (congestive) and diastolic (congestive) heart failure; N17.9 Acute kidney failure, unspecified; N39.0 Urinary tract infection, site not specified; N18.4 Chronic kidney disease, stage 4 (severe); D61.818 Other pancytopenia; Z66 Do not resuscitate; I48.0 Paroxysmal atrial fibrillation; E03.9 Hypothyroidism, unspecified; I89.0 Lymphedema, not elsewhere classified; B96.1 Klebsiella pneumoniae [K. pneumoniae] as the cause of diseases classified elsewhere; D50.9 Iron deficiency anemia, unspecified; E66.9 Obesity, unspecified; Z68.33 Body mass index [BMI] 33.0-33.9, adult; Z11.52 Encounter for screening for COVID-19
CPT/HCPCS: 51798; 71046; 76775; 80048; 80053; 81003; 81015; 82533; 82607; 82728; 83540; 83550; 83605; 83735; 83880; 84439; 84443; 84484; 85025; 85027; 87040; 87070; 87077; 87086; 87186; 87502; 87811; 93005; 93306; 93970; 96374; 97116; 97162; 97166; 99285

== ENCOUNTER 2023-09-21 21:03 | Inpatient (IN) | payer OTHER, SELFPAY ==
[2023-09-21] VITALS (8 sets, daily range): BP systolic 102–114; BP diastolic 61–84; BMI 34.6
[2023-09-21 17:40] LABS: % Basophils 0.9 % (0-2); % Eosinophils 4.3 % (0-6); % Lymphocytes 26.6 % (20.5-51.1); % Monocytes 13.7 % (1.7-9.3); % Neutrophils 54.5 % (42.2-75.2); Absolute Eosinophils 0.1 10^3/uL (0-0.7); Absolute Lymphocytes 0.6 10^3/uL (1.2-3.4); Absolute Monocytes 0.3 10^3/uL (0.1-0.6); Absolute Neutrophils 1.3 10^3/uL (1.4-6.5); Hematocrit 33.2 % (39.0-52.0); Hemoglobin 10.3 g/dL (13.0-18.0); Mean Corpuscular Hgb 30.1 pg (27.0-31.0); Mean Corpuscular Volume 97.1 fL (80.0-94.0); Mean Platelet Volume 11.6 fL (7.4-10.4); Nucleated Red Blood Cells % 0 % (-); Platelet Count 98 10^3/uL (130-400); Red Blood Cell Count 3.42 10^6/uL (4.70-6.10); Red Cell Dist. Width 16.1 % (11.5-14.5)
[2023-09-21 17:43] LABS: White Blood Cell Count 2.3 10^3/uL (4.8-10.8)
[2023-09-21 17:54] LABS: ALT (SGPT) 28 U/L (0-50); AST (SGOT) 51 U/L (17-59); Albumin 3.4 g/dl (3.5-5.0); Alkaline Phosphatase 128 U/L (38-126); Blood Urea Nitrogen 67 mg/dl (9-20); Calcium 9.4 mg/dl (8.4-10.2); Carbon Dioxide 26 mmol/L (22-30); Chloride 111 mmol/L (98-107); Estimated Creatinine Clearance 30 ml/min; Glucose 101 mg/dl (70-99); Potassium 3.9 mmol/L (3.5-5.1); Sodium 143 mmol/L (135-145); Total Bilirubin 0.8 mg/dl (0.2-1.3); Total Protein 5.7 g/dl (6.3-8.2); eGFR 25.63
[2023-09-21 18:02] LABS: NT-proBNP 2930 pg/ml; Troponin I < 0.012 ng/ml
--- NOTE | 2023-09-21 18:02 | ED.GENMED ---
History of Present Illness
General
Chief Complaint: Breathing Problem
Source: patient, family and ambulance crew
Exam Limitations: none
Time Seen by Provider: 09/21/23 17:47
Nursing documentation reviewed up to this point in time: agreed with
Travel History
Have you had any contact with someone who has COVID-19?: No
Do you have any symptoms of coronavirus? Fever > 100 degrees, chills, cough, shortness of breath, sore throat, loss of taste or smell, muscle aches, or headache?: No
History of Present Illness
History of Present Illness:
88-year-old male presents emergency department from [facility] for shortness of breath, dyspnea on exertion and 6 pound weight gain. He takes Lasix for CHF. Has presented similarly with hypothermia.
Past History
Past History
ED Past Medical History: Arrthythmia (Afib), CHF, Hypothyroidism and Other (Stage 3b kidney disease, lymphedema, hypothyroid)
ED Past Surgical History: Cholecystectomy
Social History
Tobacco: Non-smoker
Alcohol: None
Drug: None
Living: assisted living
Review of Systems
Review of Systems
Allergies reviewed?: Yes
All Other Systems: Not applicable
Constitutional: Reports weight gain
EENT: Reports no symptoms
Respiratory: Reports trouble breathing
Cardiac: Reports no symptoms
ABD/GI: Reports no symptoms
: Reports no symptoms
Musculoskeletal: Reports edema
Skin: Reports no symptoms
Neurological: Reports no symptoms
Endocrine: Reports no symptoms
Hematologic/Lymphatic: Reports no symptoms
Psychiatric: Reports no symptoms
Phy Exam
Physical Exam
Physical Exam:
Physical Exam
General: Afebrile
Neck: supple. no meningeal signs. normal posterior pharynx
Heart: s1/s2 regular rate and rhythm, no murmur. equal radial
pulses.
HEENT: Pupils equal round reactive to light, EOMI
Lungs: Mild respiratory distress. Rales at bases bilaterally
Abdomen: normal bowel sounds. not tender. no CVAT
Neuro: alert and oriented. no focal neurological deficits cranial nerves II through XII intact
Skin: no rash
Psychiatric: well kept. interactive and cooperative
Extremities: Bilateral tibial edema. no calf tenderness. negative homans. good distal pulses
Scores
Heart Failure Risk
Heart Failure Risk Score: Yes
History of Stroke or TIA: No
History of intubation for respiratory distress: No
Heart rate on ED arrival >/= 110: No
SaO2 <90% on arrival on room air: No
HR >/=110 during 3min walk test (or too ill to perform test): No
ECG has acute ischemic changes: No
Urea >/=12mmol/L (BUN 33.6mg/dL): Yes
Serum CO2>/=35mmol/L: No
Troponin I or T elevated to VA Level (0.4mg/dL): No
NT-proBNP >/=5,000ng/L (5,000pg/ml): No
HF Risk Score: 1
Admission Status: MEDIUM RISK 5.1% Consider observation or discharge to home with homecare & f/u visit to PCP/Picker / Packer, or SNF for treatment
Course
Orders/Labs/Results
Orders:
Orders
09/21/23 17:23
Electrocardiogram (*1) Urgent
Reason for Study: Other
Other Reason for Exam: Respiratory Distress
Cardiac Monitoring- Treatment ONCE
EKG- Treatment ONCE
IV Insert/Care/Rem.- Treatment PRN
O2 Therapy [RESP] Urgent
Titrate/Wean O2 to maintain O2 sat greater than (%): 93
Special Instructions: TO MAINTAIN CONTINUOUS O2 SATS >/= 93%
Pulse Ox/cont/shift [RESP] Urgent
Quantity: 1
Special Instructions: continuous pulse ox
09/21/23 17:25
Complete Blood Count/With Diff Urgent
Comprehensive Metabolic Panel Urgent
NT-proBNP Urgent
Troponin I Urgent
09/21/23 18:15
Lactic Acid Q4H
Comment: CANCEL 2nd LACTIC ACID IF 1st LACTIC ACID IS LESS THAN 2
Blood Culture Q30M
MOHSEN Source: Blood/Venous
Specimen Description:
Blood Culture Q30M
MOHSEN Source: Blood/Venous
Specimen Description:
09/21/23 19:02
CR Chest Portable - 1 View Urgent
Comment:
Reason For Exam: Short of breath, hypothermia
Reason Study Needs to be Portable: Patient Unstable
09/21/23 19:06
Janine Hugger [Janine Hugger-Treatment] ONCE
Patient's goal temperature:: 97 F
Additional Instructions:: Temperature and skin assessment per unit protocol
09/21/23 20:32
Furosemide [Lasix] 40 mg IV NOW STA
09/21/23 20:49
Admit/Transfer Patient As Directed
Co-Sign Provider:
Level of Care: Inpatient admission
Assign to:: IMU- Intermediate Care
Physician / Group: miles
Diagnosis: chf exacerbation, hypothermia
Reason for Hospitalization: chf exacerbation, hypothermia
Expected length of stay greater than two midnights?: Yes
ELOS- Estimated Length of Stay in days: 2
I certify the patient meets the requirements for IP care: Yes
09/21/23 20:50
Code Status As Directed
Resuscitation Status: Do not resuscitate
Reached after discussion with pt or family/Healthcare POA: Yes
DNR Bracelet Application ONCE
09/24/23 11:00
DC Protocol for Telemetry ONCE
Abnormal Lab Results
09/21/23
17:25
WBC 2.3 L* 10^3/uL
(4.8-10.8)
RBC 3.42 L 10^6/uL
(4.70-6.10)
Hgb 10.3 L g/dL
(13.0-18.0)
Hct 33.2 L %
(39.0-52.0)
MCV 97.1 H fL
(80.0-94.0)
MCHC 31.0 L g/dL
(33.0-37.0)
RDW 16.1 H %
(11.5-14.5)
Plt Count 98 L 10^3/uL
(130-400)
MPV 11.6 H fL
(7.4-10.4)
Absolute Neuts (auto) 1.3 L 10^3/uL
(1.4-6.5)
Absolute Lymphs (auto) 0.6 L 10^3/uL
(1.2-3.4)
Monocytes % 13.7 H %
(1.7-9.3)
Chloride 111 H mmol/L
(98-107)
BUN 67 H mg/dl
(9-20)
Creatinine 2.4 H mg/dL
(0.7-1.3)
Glucose 101 H mg/dl
(70-99)
Alkaline Phosphatase 128 H U/L
(38-126)
Total Protein 5.7 L g/dl
(6.3-8.2)
Albumin 3.4 L g/dl
(3.5-5.0)
09/21/23 17:25
09/21/23 17:25
Vital Signs
Initial and Last Documented VS:
Initial Vital Signs
BP
114/84
09/21/23 17:19
Last Documented Vital Signs
Temp Pulse Resp BP Pulse Ox
94.3 F L 66 13 102/72 94
09/21/23 19:54 09/21/23 20:54 09/21/23 19:52 09/21/23 20:54 09/21/23 19:45
MDM/Problems Addressed
Differential Diagnosis Includes:
Pneumonia, CHF
MDM/Problems Addressed:
88-year-old male with CHF exacerbation. IV Lasix given.
Chronic conditions affecting care: Cardiomyopathy and Kidney disease
Acute Exacerbation and/or Progression of Chronic Illness: Cardiomyopathy and Kidney disease
*Radiology
Radiology exam reviewed: radiology read reviewed (Chest x-ray shows bilateral oral effusions and pulmonary edema)
*Pulse Oximetry
Patient hypoxic: no
*EKG
Interpreted by ED Provider?: Yes
EKG Intrepretation Date: 09/21/23
EKG Intrepretation Time: 17:38
Interpretation: abnormal
Comparison EKG: changes noted
Heart Rate: 71
Rate: normal
Rhythm: PVC's and ventricular paced
Summit: normal axis
Interval: normal interval
QRS Pattern: left bundle branch block
Ischemia: no ischemia
*Mandarin Speaking Nanny Interpretation
Rate: normal
Interpretation: abnormal
Heart Rate: 72
*Critical Care Note
Total Time (30-74mins, 75-104mins- exclusive of procedures): Not Applicable
Data Reviewed
Review of Other/Old Records Reveals: Labs (Prior white blood cell count 3.2 on 08/26/2019)
Patient Management
Social determinants of health affecting care: Living situation
Discussion with other providers: Hospitalist
Escalation/DeEscalation of care consider admission/obs:
Admission indicated
ED Attending Note
-
Portions of this chart may have been created with voice recognition software.� Occasional wrong word or��sound alike� substitutions may have occurred due to the inherent limitations of voice recognition software.
Discharge Plan
Departure
Patient Disposition: Admit
Date of Disposition: 09/21/23
Time of Disposition: 20:30
Admit to: ICU
Presentation/result/management discussed w/ accepting MD/DO: Hospitalist
Patient with high blood pressure during this ER visit?: Yes
Condition: Fair
Discharge Problem:
Acute on chronic clinical systolic heart failure, Hypothermia
Interventions
Interventions:
*Risk Screen - Suicide Last Done: 09/21/23 17:21
*General Assessment Last Done: 09/21/23 17:21
*Neglect/Abuse Screening Last Done: 09/21/23 17:21
ED- Fall Risk Assessment Last Done: 09/21/23 17:22
*ED COVID-19 Vaccine History Last Done: 09/21/23 17:21
ED- Cardiac Assessment Last Done: 09/21/23 17:22
ED- Pulmonary Assessment Last Done: 09/21/23 17:53
[2023-09-21 18:40] LABS: Lactic Acid 1.1 mmol/L (0.7-2.0)
[2023-09-21] MEDS: LASIX 40 MG IV (20:54)
--- NOTE | 2023-09-21 20:56 | HPS.HSE ---
Family Physician
-
Family Physician: Jayjay Alas
Chief Complaint
-
shortness of breath
History of Present Illness
88-year-old male with past medical history of HFrEF, paroxysmal atrial fibrillation with pacemaker, hypothermia, CKD 3, anemia, hypothyroidism, sleep apnea, chronic lymphedema, history of visual hallucinations, BPH, obesity, presenting with
shortness of breath with exertion, cough with productive sputum, wheezing, increased lower extremity and 5 pound weight gain over the past week. No fevers or chills or chest pain. No urinary symptoms, nausea vomiting or diarrhea or abdominal pain.
Patient was recently treated for UTI 2 weeks ago with antibiotics.
Medical History
Past Medical History
Past Medical History: Reports Other (HFrEF, paroxysmal atrial fibrillation with pacemaker, hypothermia, CKD 3, anemia, hypothyroidism, sleep apnea, chronic lymphedema, history of visual hallucinations, BPH, obesity)
Past Surgical History: Reports None
Social History
Tobacco: Non-smoker
Alcohol: Former
Drug: None
Family History
Family History: Not pertinent
Allergies / Home Medications
Allergies reflects when Allergies were last updated in [facility].
Home Medications with original date entered in [facility]
Allergy/Medication List:
Allergies
Allergy/AdvReac Type Severity Reaction Status Date / Time
No Known Allergies Allergy Unverified 08/22/23 02:14
Home Medications
acetaminophen 325 mg tablet (Tylenol) 650 mg PO Q8HPRN PRN mild pain/temp>100 08/22/23
apixaban 2.5 mg tablet (Eliquis) 2.5 mg PO BID Blood Clot Prevention/Tx 08/22/23
cyanocobalamin (vitamin B-12) 1,000 mcg tablet 1,000 mcg PO DAILY Supplement 08/22/23
dutasteride 0.5 mg capsule (Avodart) 0.5 mg PO DAILY Urinary Issue 08/22/23
hydrocortisone 1 % topical cream 1 applic topical BID back and buttocks 08/22/23
levothyroxine 150 mcg capsule 150 mcg PO DAILY AT 0700 Thyroid 08/22/23
magnesium hydroxide 400 mg/5 mL oral suspension (Milk of Magnesia) 30 ml PO HSPRN PRN if no bm by 3rd day 08/22/23
tamsulosin 0.4 mg capsule (Flomax) 0.4 mg PO BID Urinary Issue 08/22/23
carvedilol 3.125 mg tablet 3.125 mg PO BID #60 tabs 08/26/23
ferrous sulfate 325 mg (65 mg iron) tablet (FeroSul) 325 mg PO DAILY #30 tabs 08/26/23
furosemide 40 mg tablet 40 mg PO BID #60 tabs 08/26/23
camphor-menthol 0.5 %-0.5 % lotion (Anti-Itch (menthol-camphor)) 1 applic topical HS 09/21/23
guaifenesin 100 mg/5 mL oral liquid (Edith-Tussin) 100 mg PO Q6H PRN cough 09/21/23
mupirocin 2 % topical ointment 1 applic topical BID 09/21/23
sodium chloride 0.65 % nasal spray aerosol (Deep Sea Nasal) 1 spray intranasal TID PRN nasal dryness 09/21/23
Review of Systems
-
History Source: Patient
A 12 point ROS was completed and negative except as noted: Yes
Constitutional: Reports No Symptoms
EENT: Reports No Symptoms
Respiratory: Reports See HPI
Cardiac: Reports No Symptoms
Abdomen/GI: Reports No Symptoms
: Reports No Symptoms
Musculoskeletal: Reports No Symptoms
Skin: Reports No Symptoms
Neurological: Reports No Symptoms
Endocrine: Reports No Symptoms
Hematologic/Lymphatic: Reports No Symptoms
Psych: Reports No Symptoms
Physical Exam
Vital Signs
Vital Signs
Temp Pulse Resp BP Pulse Ox
94.3 F L 66 13 102/72 94
09/21/23 19:54 09/21/23 20:54 09/21/23 19:52 09/21/23 20:54 09/21/23 19:45
Physical Exam
General: Well Developed, Well Nourished and No Apparent Distress
HEENT: NormoCephalic, Moist mucous membranes and Atraumatic
Respiratory: Clear
Cardiac: S1/S2 and Regular Rhythm; No Murmur or Rub
GI: Soft, Non Tender, Non Distended and Normal Bowel Sounds; No Organomegaly
Rectal: Deferred by Provider
Musculoskeletal: No Clubbing, No Cyanosis and No Edema
Skin: No Rash
Neuro: Nonfocal/grossly intact
Laboratory Results
-
09/21/23 17:25
09/21/23 17:25
Laboratory Results
Lactic Acid Cancelled 09/21/23 22:15
Total Bilirubin 0.8 mg/dl (0.2-1.3) 09/21/23 17:25
AST 51 U/L (17-59) 09/21/23 17:25
ALT 28 U/L (0-50) 09/21/23 17:25
Alkaline Phosphatase 128 U/L (38-126) H 09/21/23 17:25
Troponin I < 0.012 ng/ml 09/21/23 17:25
Data Reviewed
-
Lab Data: Labs Reviewed by me
Old Records: Reviewed
Impression/Plan
-
IMPRESSION:
PLAN:
Acute on chronic HFrEF exacerbation
-Cardiac BNP of 2900 from 1890
-Chest x-ray shows pulmonary edema pattern with bilateral pleural effusions
-Check I's and O's, daily weight
-40 IV Lasix twice daily
-Cardiology consulted
#Hypothermia unclear etiology, rule out UTI
# History of prior hypothermia
-Previously attributed to UTI during last admission
-Patient has had workup previously with equivocal random cortisol 14.9, normal stim test
-Check urinalysis
-Check blood cultures
-Check TSH, a.m. cortisol
-Patient on Janine hugger
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
-Creatinine of 2.4 from 1.8
Chronic leukopenia/thrombocytopenia
-Suspect underlying myelodysplastic syndrome
Chronic macrocytic anemia
Anemia with iron deficiency
-Continue ferrous sulfate
-Hemoglobin stable
Paroxysmal atrial fibrillation with pacemaker
-Continue Coreg
-Continue Eliquis
Hypothyroidism
-Continue levothyroxine
Sleep apnea, CPAP intolerant
Chronic lymphedema
History of visual hallucinations
BPH
-Continue dutasteride, tamsulosin
Obesity
DNR/DNI
DVT prophylaxis�Eliquis
Cardiac diet
[2023-09-22] VITALS (16 sets, daily range): BP systolic 85–119; BP diastolic 50–82; BMI 34.5
--- NOTE | 2023-09-22 03:00 | PTCARENOTE ---
Received patient from the ED on room air. Oral temp 97.7 off the nanda hugger.
[2023-09-22 04:19] LABS: % Basophils 0.4 % (0-2); % Eosinophils 4.8 % (0-6); % Immature Granulocytes 0.4 % (0-0.5); % Lymphocytes 28.6 % (20.5-51.1); % Monocytes 18.1 % (1.7-9.3); % Neutrophils 47.7 % (42.2-75.2); Absolute Eosinophils 0.1 10^3/uL (0-0.7); Absolute Lymphocytes 0.7 10^3/uL (1.2-3.4); Absolute Monocytes 0.4 10^3/uL (0.1-0.6); Absolute Neutrophils 1.1 10^3/uL (1.4-6.5); Mean Corp Hgb Conc. 31.3 g/dL (33.0-37.0); Mean Corpuscular Hgb 29.9 pg (27.0-31.0); Mean Corpuscular Volume 95.5 fL (80.0-94.0); Nucleated Red Blood Cells % 0 % (-); Red Blood Cell Count 3.35 10^6/uL (4.70-6.10); Red Cell Dist. Width 16.3 % (11.5-14.5)
[2023-09-22 04:30] LABS: White Blood Cell Count 2.3 10^3/uL (4.8-10.8)
[2023-09-22 04:46] LABS: Mean Platelet Volume 11.5 fL (7.4-10.4); Platelet Count 95 10^3/uL (130-400)
[2023-09-22 04:47] LABS: ALT (SGPT) 25 U/L (0-50); AST (SGOT) 44 U/L (17-59); Albumin 3.2 g/dl (3.5-5.0); Alkaline Phosphatase 131 U/L (38-126); Blood Urea Nitrogen 66 mg/dl (9-20); Calcium 9.6 mg/dl (8.4-10.2); Carbon Dioxide 26 mmol/L (22-30); Chloride 111 mmol/L (98-107); Estimated Creatinine Clearance 28 ml/min; Glucose 84 mg/dl (70-99); Potassium 3.9 mmol/L (3.5-5.1); Sodium 142 mmol/L (135-145); Total Bilirubin 0.8 mg/dl (0.2-1.3); Total Protein 5.3 g/dl (6.3-8.2); eGFR 24.41
[2023-09-22] MEDS: SYNTHROID 150 MCG PO (05:06)
[2023-09-22 05:16] LABS: TSH Reflex To Free T4 0.15 uIU/ml (0.47-4.68)
[2023-09-22 05:18] LABS: Cortisol, Random 10.6 ug/dl
[2023-09-22 05:45] LABS: Free T4 1.89 ng/dl (0.78-2.19)
[2023-09-22 07:43] LABS: Urine Albumin Negative (Neg - Trace); Urine Bilirubin Negative (Negative); Urine Character Clear (Clear); Urine Color Yellow; Urine Glucose Negative (Negative); Urine Ketone Negative (Negative); Urine Leukocyte Negative (Negative); Urine Nitrite Negative (Negative); Urine Occult Blood Negative (Negative); Urine Specific Gravity 1.015 (<1.030); Urine Urobilinogen Negative (Neg - 1+)
--- NOTE | 2023-09-22 08:54 | W.PN.CD ---
Today's Communication / Plan
-
.
Impression / Plan
-
Impression: 88M admitted with dyspnea and worsening LE edema.
PMH: He has been admitted three times this year, including a nearly one month stay at [facility]. 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
Plan
Dyspnea - he relates worsening dyspnea, cough, phlegm, and edema over two weeks. His Lasix was doubled without effect
- IV Lasix
- unclear goal weight
- He says,'The heart doctor says its the kidneys and the kidney doctor says its the heart.'
- We can consider RHC if creatinine continues to climb
HFrEF
- CM is reportedly new from prior echocardiogram
- continue carvedilol
- add other GDMT as BP/Cr tolerate
Chronic lymphedema - worsened edema from baseline according to Mr. Garcia
PAF - on apixaban. EKG looks like rate controlled AF.
CKD/TRU
Other - records records last admit from Yuniel March at [place]. Patient relates that his usual sap bi developer at [place] (?Dr. Kruse) retired several years ago. We never received records
Subjective: Dictated
TTE EF 40% with global KH, dilated and hypokinetic RV, mod-severe TR with PASP 50
Physical Exam
Vital Signs/Labs
Vital Signs
Temp Pulse Resp BP Pulse Ox
36.4 C 60 12 118/53 96
09/22/23 04:23 09/22/23 06:00 09/22/23 06:00 09/22/23 06:00 09/22/23 06:00
09/21/23 09/22/23 09/23/23
06:59 06:59 06:59
Actual Weight 254 lb 3.088 oz
09/22/23 04:09
09/22/23 04:09
Free T4 1.89 ng/dl (0.78-2.19) 09/22/23 04:09
09/21/23
17:25
Khi-L-Vhlayuclpbp Pept 2930
LAB Results
09/21/23
17:25
Troponin I < 0.012
Data Reviewed
-
Date of Service: September 22, 2023
[2023-09-22] MEDS: FEOSOL 325 MG PO (09:13)
[2023-09-22] MEDS: VITAMIN B-12 1000 MCG PO (09:13)
[2023-09-22] MEDS: COREG 3.125 MG PO ×2 (09:13→19:57)
[2023-09-22] MEDS: ELIQUIS 2.5 MG PO ×2 (09:13→19:57)
[2023-09-22] MEDS: PROSCAR 5 MG PO (09:13)
[2023-09-22] MEDS: LASIX 40 MG IV ×2 (09:13→16:42)
[2023-09-22] MEDS: FLOMAX 0.400000000000000022 MG PO ×2 (09:15→19:57)
[2023-09-22] MEDS: BACTROBAN 2% OINTMENT 1 APPLIC TOPICAL ×2 (09:15→19:59)
[2023-09-22] MEDS: HYDROCORTISONE 1% CREAM TOPICAL (09:17)
--- NOTE | 2023-09-22 10:23 | W.PN.HOSP.TC ---
Today's Communication/Plan
-
CW diuresis
Consult renal
Assessment / Plan
Assessment / Plan
Acute on chronic HFrEF exacerbation
-Cardiac BNP of 2900 from 1890; wt up by 18 lbs since recent discharge
-Chest x-ray shows pulmonary edema pattern with bilateral pleural effusions
-cw I's and O's, daily weight
-cw IV Lasix 40mg twice daily
-Cardiology following
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
-Creatinine of 2.4 from 1.8
Follow Cr with diuresis;RHC depending on diuresis and Cr
Consult Renal
Chronic leukopenia/thrombocytopenia
-Suspect underlying myelodysplastic syndrome
Chronic macrocytic anemia
Anemia with iron deficiency
-Continue ferrous sulfate
-Hemoglobin stable
Paroxysmal atrial fibrillation with pacemaker
-Continue Coreg
-Continue Eliquis
Hypothyroidism
-Continue levothyroxine
Sleep apnea, CPAP intolerant
Chronic lymphedema
History of visual hallucinations
BPH
-Continue dutasteride, tamsulosin
Obesity
DNR/DNI
DVT prophylaxis�Eliquis
Cardiac diet
DW Renal via TT
Recent admission at reviewed
Total time spent on today's encounter was 52 minutes which included time spent in counseling the patient regarding diagnosis and treatment plan as listed above, goals of care, and symptom management. Case was discussed with nursing staff,
specialists . All labs and imaging personally reviewed by me. Remainder the time spent in detailed review of previous records, lab data, imaging, and other medical provider documentation.
Anticipated Discharge: > 48 hours
Subjective/Interval History
-
Date of Service: September 22, 2023
Short of breath with minimal exertion. No need of oxygen currently.
No chest pain.
Objective Data
-
Labs:
Laboratory Results
09/22/23
04:09
WBC 2.3 L*
Hgb 10.0 L
Hct 32.0 L
Plt Count 95 L
Sodium 142
Potassium 3.9
Chloride 111 H
Carbon Dioxide 26
BUN 66 H
Creatinine 2.5 H
Glucose 84
Calcium 9.6
Total Bilirubin 0.8
AST 44
ALT 25
Alkaline Phosphatase 131 H
Vital Signs:
Vital Signs
Temp Pulse Resp BP Pulse Ox
97.4 F 60 16 97/58 95
09/22/23 07:30 09/22/23 08:12 09/22/23 08:12 09/22/23 08:12 09/22/23 08:12
I&O
09/21/23 09/22/23 09/23/23
06:59 06:59 06:59
Output Total 200 / 200 200 / 200
Balance -200 / -200 -200 / -200
Review of Systems
-
Constitutional: Denies Fever or Chills
Respiratory: Reports Cough (clear to yellow), Trouble Breathing and Wheezing
Cardiac: Denies Chest Pain
Abdomen/GI: Denies Abdominal Pain, Nausea or Vomiting
Musculoskeletal: Reports Edema
Neuro: Denies Dizzy
Physical Exam
-
General: No Apparent Distress
HEENT: Moist Mucous Membranes
Respiratory: Wheezes (occasional expiratory) and Crackles (bibasal)
Cardiac: S1/S2 and Irregular Rhythm; Negative Tachycardic
GI: Soft
Musculoskeletal: Edema, Right Lower Extrem and Edema, Left Lower Extrem (2+ BL up to upper thighs and dependent back )
Neuro: AO x 3
Psych: Calm
Data Reviewed
-
Labs: Labs Reviewed by me
--- NOTE | 2023-09-22 10:41 | CM ---
Patient from [facility] with Dx CHF, hypothermia, TRU. Room air. Receiving IV Lasix.
Spoke with Josee, DON [facility];
the patient resides there alone and is A/O at baseline.
He is assisted with ADLs and is w/c bound. The patient is able to do stand pivot transfers.
DME - w/c, rollator
VN - current with [facility] for SN due to heart failure, current with [facility] for PT/OT
SNF - prior [facility]
Pharmacy - [facility]
Per prior admission CM notes: His PCP is Harvey Gonzales DO.
Per Josee, the patient needs to be able to do stand-pivot transfers for return. The ph for report to nurse [phone], fax [phone].
Message to Dr Montague requesting PT/OT Evals.
Plan follow up after seen by PT/OT.
Plan probable return to [facility] with resumption [facility] & [facility].
--- NOTE | 2023-09-22 15:01 | W.CON.NEPH ---
Consultation
-
Date/Time Consultation Requested: 09/22/2023 10:31AM
Date/Time Consultation Performed: 09/22/2023 3:01PM
Requesting Provider: Christiano Montague
Performing Provider: Karen Jansen
Reason for Consultation: TRU on CKD
Medical History
-
Chief Complaint: TRU on CKD
History of Present Illness:
Mr. Garcia is an 88-year-old gentleman who has history of HFrEF, pAFib with PM, hypothermia, CKD 3, anemia, hypothyroidism, sleep apnea, chronic lymphedema, visual hallucinations, BPH, obesity who presented on 09/20 for SOB with exertion,
productive cough, wheezing, LE edema and weight gain (5lbs).
Of note the patient was recently admitted from 08/21-08/25 for ADHF. Found to have HFrEF (EF 40%), moderate to severe TR) PASP 45-50mmHg. He was treated with lasix. He also was treated for a UTI 2/2 to Klebsiella at the time. Nephrology was consulted
during his last hospitalization for assistance with diuretics and abnormal kidney function. We reviewed records from [facility] and he was thought to be have a Cr baseline of 1.8-2.4 (2.4 in June 2023).
Past Medical History
Heart failure preserved ejection fraction
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
Paroxysmal atrial fibrillation
Pacemaker
Hypothyroidism
Lymphedema
Past Surgical History: None
Social History
Tobacco: Non-Smoker
Alcohol: None
Drug: None
Family History
Family History: Not Pertinent
Allergies / Home Medications
Allergy/AdvReac Type Severity Reaction Status Date / Time
No Known Allergies Allergy Unverified 08/22/23 02:14
�Medication �Instructions �Recorded �Confirmed �Type
acetaminophen 325 mg tablet 650 mg PO Q8HPRN PRN mild 08/22/23 09/21/23 History
(Tylenol) pain/temp>100
apixaban 2.5 mg tablet (Eliquis) 2.5 mg PO BID Blood Clot 08/22/23 09/21/23 History
Prevention/Tx
cyanocobalamin (vitamin B-12) 1,000 mcg PO DAILY Supplement 08/22/23 09/21/23 History
1,000 mcg tablet
dutasteride 0.5 mg capsule 0.5 mg PO DAILY Urinary Issue 08/22/23 09/21/23 History
(Avodart)
hydrocortisone 1 % topical cream 1 applic topical BID back and 08/22/23 09/21/23 History
buttocks
levothyroxine 150 mcg capsule 150 mcg PO DAILY AT 0700 Thyroid 08/22/23 09/21/23 History
magnesium hydroxide 400 mg/5 mL 30 ml PO HSPRN PRN if no bm by 3rd 08/22/23 09/21/23 History
oral suspension (Milk of Magnesia) day
tamsulosin 0.4 mg capsule (Flomax) 0.4 mg PO BID Urinary Issue 08/22/23 09/21/23 History
carvedilol 3.125 mg tablet 3.125 mg PO BID #60 tabs 08/26/23 09/21/23 Rx
ferrous sulfate 325 mg (65 mg 325 mg PO DAILY #30 tabs 08/26/23 09/21/23 Rx
iron) tablet (FeroSul)
camphor-menthol 0.5 %-0.5 % lotion 1 applic topical HS Skin Issues 09/21/23 09/21/23 History
(Anti-Itch (menthol-camphor))
guaifenesin 100 mg/5 mL oral 100 mg PO Q6H PRN cough 09/21/23 09/21/23 History
liquid (Edith-Tussin)
mupirocin 2 % topical ointment 1 applic topical BID Infection 09/21/23 09/21/23 History
sodium chloride 0.65 % nasal spray 1 spray intranasal TID PRN nasal 09/21/23 09/21/23 History
aerosol (Deep Sea Nasal) dryness
furosemide 40 mg tablet 40 mg PO BID Fluid 09/22/23 09/21/23 History
Retention/Swelling
Review of Systems
-
History Source: Patient
All other systems: Negative unless noted
Constitutional: Weight Gain and Fatigue
Respiratory: Cough
Musculoskeletal: Edema
Physical Exam
Vital Signs
Vital Signs
Temp Pulse Resp BP Pulse Ox
97.7 F 60 16 109/60 94
09/22/23 11:25 09/22/23 12:17 09/22/23 12:17 09/22/23 12:17 09/22/23 12:17
Lab Results
WBC 2.3 10^3/uL (4.8-10.8) L* 09/22/23 04:09
RBC 3.35 10^6/uL (4.70-6.10) L 09/22/23 04:09
Hgb 10.0 g/dL (13.0-18.0) L 09/22/23 04:09
Hct 32.0 % (39.0-52.0) L 09/22/23 04:09
Plt Count 95 10^3/uL (130-400) L 09/22/23 04:09
Sodium 142 mmol/L (135-145) 09/22/23 04:09
Potassium 3.9 mmol/L (3.5-5.1) 09/22/23 04:09
Chloride 111 mmol/L (98-107) H 09/22/23 04:09
Carbon Dioxide 26 mmol/L (22-30) 09/22/23 04:09
BUN 66 mg/dl (9-20) H 09/22/23 04:09
Creatinine 2.5 mg/dL (0.7-1.3) H 09/22/23 04:09
eGFR 24.41 09/22/23 04:09
Glucose 84 mg/dl (70-99) 09/22/23 04:09
Calcium 9.6 mg/dl (8.4-10.2) 09/22/23 04:09
Xuf-A-Ooztmvrmxvi Pept 2930 pg/ml 09/21/23 17:25
Albumin 3.2 g/dl (3.5-5.0) L 09/22/23 04:09
Physical Exam
General: AOx3, No Distress and Nontoxic
HEENT: PERRL, EOMI, Anicteric, Conjunctivae Clear, Ear/Nose Intact and Hearing Normal
Respiratory: Crackels
Cardiac: S1/S2, Regular Rate/Rhythm and Edema
Breast: N/A
Abdomen: Soft and Nontender
Rectal: Deferred by Provider
Genito-urinary: Clear Urine
Musculoskeletal: Edema
Skin: Warm, Dry and Other (bl venous stasis changes)
Neuro: Nonfocal/Grossly Intact
Psych: Mood/afflect pleasant, Insight/judgement good and Appropriate
Assessment/Plan
-
Assessment
Heart failure reduced ejection fraction (EF 40%)
Anasarca
Acute kidney injury
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
Anemia
Paroxysmal atrial fibrillation
Hypothyroidism
CPAP
Pacemaker
Plan:
Continue diuresis with 40IV Lasix BID, appears grossly volume overloaded
Please fluid and sodium restrict
Unclear what his dry weight is -- was 110kg on discharge last time, presently 115kg
Please closely monitor I/Os
Obtain daily weights
Of note, prior kidney ultrasound without hydronephrosis, chronic medical renal disease and bilateral renal cysts
Follow BMP
If Cr continues to climb (now up to 2.5), we might need to consider a RHC
Data Reviewed
-
Radiology: Image Personally Visualized and interpreted (pulmonary edema noted )
Ultrasound: Report Reviewed by me
Labs: Labs Reviewed by me, Discussed with Physician and Discussed with Patient
Old Records: Reviewed
--- NOTE | 2023-09-22 18:07 | PTCARENOTE ---
BP 88/52 map 70 pt is sound asleep, will monitor.
--- NOTE | 2023-09-22 18:38 | PTCARENOTE ---
OOB all day in recliner - moves well with 1 assist and walker considering his lower extremities are grossly lymphedematous/ pedal edema +3 and has penile edema +2. Naps intermittently Air cushions x2 provided to recliner chair. Small void this
am- placed back to bed and bladder scanned this pm 350ml and then voided 250 in urinal. Appetite good, small BM this am. Denies pain.
Daughter brought some records she pulled from a portal from [facility] - placed on chart.
[2023-09-22] MEDS: HYDROCORTISONE 1% CREAM 1 APPLIC TOPICAL (19:59)
[2023-09-23] VITALS (18 sets, daily range): BP systolic 90–147; BP diastolic 50–85; PULSE 60; O2SAT 95; BMI 34.4
[2023-09-23] MEDS: SYNTHROID 150 MCG PO (04:22)
[2023-09-23 05:07] LABS: Blood Urea Nitrogen 68 mg/dl (9-20); Calcium 9.4 mg/dl (8.4-10.2); Carbon Dioxide 27 mmol/L (22-30); Chloride 110 mmol/L (98-107); Estimated Creatinine Clearance 29 ml/min; Glucose 93 mg/dl (70-99); Potassium 3.8 mmol/L (3.5-5.1); Sodium 141 mmol/L (135-145); eGFR 25.63
--- NOTE | 2023-09-23 05:38 | PTCARENOTE ---
Pt AAOx3, voided several times in the urinal independently. 100% paced on the monitor, 94-96% RA. VS as documented. BPs slightly lower while sound asleep, but return to baseline when awake. Call trevino within reach.
--- NOTE | 2023-09-23 07:51 | W.PN.CD ---
Today's Communication / Plan
-
Please beat on him with low sodium diet education
continue diuresis as tolerated. I think target wt of 244ish is optimal
Impression / Plan
-
Impression: 88M admitted with dyspnea and worsening LE edema.
PMH: He has been admitted three times this year, including a nearly one month stay at [facility]. 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
Plan
Dyspnea -
- Improving
- IV Lasix
- Wt is down 8 lbs (262 on admit now 254)
- On discharge last month wt was 244. This should be goal wt if we can get there. Renal fn may not allow us to get there. Continue Lasix 40mg IV bid today. When we switch to oral will llikely need 80mg qAM
- He needs a clear understanding of the importance of dietary sodium restriction. He is concerned about the high dose of lasix. I suggested he be most concerned about the repetitive CHF exacerbations requiring hospitalization. We must do better
with diet
HFrEF
- CM is reportedly new from prior echocardiogram
- continue carvedilol
- add other GDMT as BP/Cr tolerate
Chronic lymphedema - worsened edema from baseline according to Mr. Garcia
PAF - on apixaban. EKG looks like persistent/permanent AF with V Pacing
CKD/TRU
-Cr remains 2.4
Other - records records last admit from Yuniel March at [place]. 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 We never received records
Subjective: Dyspnea improving
TTE EF 40% with global KH, dilated and hypokinetic RV, mod-severe TR with PASP 50
Physical Exam
Vital Signs/Labs
Vital Signs
Temp Pulse Resp BP Pulse Ox
96.0 F L 60 14 107/66 94
09/23/23 03:10 09/23/23 06:00 09/23/23 06:00 09/23/23 06:00 09/23/23 06:00
09/22/23 09/23/23 09/24/23
06:59 06:59 06:59
Actual Weight 254 lb 3.088 oz
09/22/23 04:09
09/23/23 04:18
Free T4 1.89 ng/dl (0.78-2.19) 09/22/23 04:09
09/21/23
17:25
Rid-A-Oedzugatosg Pept 2930
LAB Results
09/21/23
17:25
Troponin I < 0.012
Physical Exam
Constitutional: No acute distress and Comfortable
EENT: Anicteric
Cardiovascular: Rhythm & rate is regular and S1S2 is normal
GI: Soft
Neuro/Psych: Motor deficits absent
Other: Skin (Lymphedema bilat LE)
Data Reviewed
-
Date of Service: September 23, 2023
--- NOTE | 2023-09-23 08:21 | PTCARENOTE ---
Assumed care of patient at beginning of this shift from previous RN. Initial temp 93 axillary as oral temp was not registering; rectal temp 94.2. Overnight temps were 95.7-96.7. Dr Montague notified via tiger text; instructed to resume nanda arambula.
Currently rectal temp 94.8.
[2023-09-23] MEDS: PROSCAR 5 MG PO (08:47)
[2023-09-23] MEDS: VITAMIN B-12 1000 MCG PO (08:47)
[2023-09-23] MEDS: COREG 3.125 MG PO ×2 (08:47→21:37)
[2023-09-23] MEDS: ELIQUIS 2.5 MG PO ×2 (08:47→21:37)
[2023-09-23] MEDS: FLOMAX 0.400000000000000022 MG PO ×2 (08:47→21:37)
[2023-09-23] MEDS: BACTROBAN 2% OINTMENT 1 APPLIC TOPICAL ×2 (08:48→21:37)
[2023-09-23] MEDS: LASIX 40 MG IV ×2 (08:48→17:29)
[2023-09-23] MEDS: FEOSOL 325 MG PO (08:48)
[2023-09-23] MEDS: HYDROCORTISONE 1% CREAM 1 APPLIC TOPICAL ×2 (08:52→21:36)
--- NOTE | 2023-09-23 09:00 | W.PN.HOSP.TC ---
Today's Communication/Plan
-
CW Diuresis
Follow weight
PT/OT eval
Assessment / Plan
Assessment / Plan
Acute on chronic HFrEF exacerbation
-Cardiac BNP of 2900 from 1890; wt up by 18 lbs since recent discharge
-Chest x-ray shows pulmonary edema pattern with bilateral pleural effusions
-cw I's and O's, daily weight
-cw IV Lasix 40mg twice daily -improved wt -loss 8 pounds. Most recent discharge weight was 244 pounds. Currently at 254 pounds.
-Cardiology following
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
-Creatinine of 2.4 from 1.8
Follow Cr with diuresis;RHC depending on diuresis and Cr
Consult Renal
Chronic leukopenia/thrombocytopenia
-Suspect underlying myelodysplastic syndrome
Chronic macrocytic anemia
Anemia with iron deficiency
-Continue ferrous sulfate
-Hemoglobin stable
Paroxysmal atrial fibrillation with pacemaker
-Continue Coreg
-Continue Eliquis
Hypothermia-suspect Thermo dysregulation from age and environmental conditions probably. Free T4 is normal. Cortisol is normal. Afebrile. Not acting like infection. Use as needed Janine hugger for now.
Hypothyroidism
-Continue levothyroxine
Sleep apnea, CPAP intolerant
Chronic lymphedema
History of visual hallucinations
BPH
-Continue dutasteride, tamsulosin
Obesity
DNR/DNI
DVT prophylaxis�Eliquis
Cardiac diet
Anticipated Discharge: 24 - 48 hours
Subjective/Interval History
-
Date of Service: September 23, 2023
Breathing better. Wheezing has receded. No chest pain.
No nausea vomiting.
Denies dysuria. No diarrhea.
2 weeks ago he had a common cold that has resolved. He is left with some cough not much productive.
Objective Data
-
Labs:
Laboratory Results
09/23/23
04:18
Sodium 141
Potassium 3.8
Chloride 110 H
Carbon Dioxide 27
BUN 68 H
Creatinine 2.4 H
Glucose 93
Calcium 9.4
Vital Signs:
Vital Signs
Temp Pulse Resp BP Pulse Ox
94.8 F L 62 14 147/71 94
09/23/23 08:24 09/23/23 08:47 09/23/23 06:00 09/23/23 08:47 09/23/23 06:00
I&O
09/22/23 09/23/23 09/24/23
06:59 06:59 06:59
Intake Total 780 / 780
Output Total 200 / 200 1000 / 1000
Balance -200 / -200 -220 / -220
Review of Systems
-
Constitutional: Denies Fever or Chills
EENT: Denies Sore Throat
Respiratory: Reports Cough and Trouble Breathing (improved)
Cardiac: Denies Chest Pain
Abdomen/GI: Denies Abdominal Pain
Neuro: Denies Dizzy
Physical Exam
-
General: No Apparent Distress
HEENT: Moist Mucous Membranes
Respiratory: Crackles (few basal bilateral) and Non Labored Respirations; Negative Wheezes or Accessory Resp Muscle Use
Cardiac: S1/S2 and Irregular Rhythm; Negative Tachycardic
GI: Soft
Musculoskeletal: Edema, Right Lower Extrem and Edema, Left Lower Extrem
Neuro: AO x 3; Negative Tremors
Psych: Calm; Negative Confused or Agitated
Data Reviewed
-
Labs: Labs Reviewed by me
--- NOTE | 2023-09-23 10:06 | W.PN.NEPH.PH ---
Today's Communication / Plan
-
Maintain IV Lasix
Check postvoid bladder
Daily BMP
Assessment/Plan
-
Assessment
Heart failure reduced ejection fraction (EF 40%)
Anasarca
Acute kidney injury
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
Anemia
Paroxysmal atrial fibrillation
Hypothyroidism
CPAP
Pacemaker
Plan:
creatinine at baseline 2.5 and remains nonoliguric but only 800cc
Continue diuresis with 40IV Lasix BID, appears grossly volume overloaded
Please fluid and sodium restrict
Unclear what his dry weight is -- was 110kg on discharge last time, presently 115kg
Please closely monitor I/Os
Obtain daily weights
Of note, prior kidney ultrasound without hydronephrosis, chronic medical renal disease and bilateral renal cysts
Follow BMP
may need to explore RHC
-
-
Date of Service: September 23, 2023
CC / HPI / ROS
-
Chief Complaint:
Chronic kidney disease stage
History of Present Illness:
Creatinine stable at 2.4
Hemodynamically stable
Congestive heart failure maintained on 40 mg IV twice daily of late
Review of Systems:
Hypothermic on Bear hugger
non oliguric
Lethargic
Labs
-
Labs:
WBC 2.3 10^3/uL (4.8-10.8) L* 09/22/23 04:09
RBC 3.35 10^6/uL (4.70-6.10) L 09/22/23 04:09
Hgb 10.0 g/dL (13.0-18.0) L 09/22/23 04:09
Hct 32.0 % (39.0-52.0) L 09/22/23 04:09
Plt Count 95 10^3/uL (130-400) L 09/22/23 04:09
Sodium 141 mmol/L (135-145) 09/23/23 04:18
Potassium 3.8 mmol/L (3.5-5.1) 09/23/23 04:18
Chloride 110 mmol/L (98-107) H 09/23/23 04:18
Carbon Dioxide 27 mmol/L (22-30) 09/23/23 04:18
BUN 68 mg/dl (9-20) H 09/23/23 04:18
Creatinine 2.4 mg/dL (0.7-1.3) H 09/23/23 04:18
eGFR 25.63 09/23/23 04:18
Glucose 93 mg/dl (70-99) 09/23/23 04:18
Calcium 9.4 mg/dl (8.4-10.2) 09/23/23 04:18
Pqh-R-Fqgvkryfcdl Pept 2930 pg/ml 09/21/23 17:25
Albumin 3.2 g/dl (3.5-5.0) L 09/22/23 04:09
Physical Exam
-
Vital Signs:
Vital Signs
Temp Pulse Resp BP Pulse Ox
94.8 F L 62 14 147/71 94
09/23/23 08:24 09/23/23 08:47 09/23/23 06:00 09/23/23 08:47 09/23/23 06:00
Cardiovascular:: Regular rate and rhythm
Respiratory:: Bilateral: Coarse
Lung Excursion:: Normal
Abdomen:: Nontender and Soft
Bowel Sounds:: Normal
Extremity Edema:: +2: Bilateral:
Welsh Catheter: No
[2023-09-23 10:27] LABS: Procalcitonin < 0.05 ng/ml (0.0-0.25)
--- NOTE | 2023-09-23 11:35 | PTCARENOTE ---
Random bladder scan done as per Dr Palacio: 233. Dr Palacio made aware.
[2023-09-23 14:43] LABS: Free T3 2.39 pg/ml (2.77-5.27)
--- NOTE | 2023-09-23 18:25 | CM ---
Patient from [facility] with Dx CHF, hypothermia, TRU. Room air. Receiving IV Lasix. PT & OT recommend skilled rehab.
Received call from Milagros, daughter this am prior to therapy notes being available; daughter hoping patient can return to [facility] with [facility]. She would want patient sent back with transport arranged. Her email is
[email or web address] - when IMM needed.
Plan follow up with Josee MUNOZ at [facility] if they can accept the patient back with his current mobility.
Plan possible return to [facility] with resumption [facility] vs SNF for rehab.
[2023-09-24] VITALS (14 sets, daily range): BP systolic 83–120; BP diastolic 54–82; BMI 34.6
--- NOTE | 2023-09-24 05:09 | PTCARENOTE ---
Pt temperature dropped from 96.3 to 94.6 rectally. Janine arambula restarted on pt to bring to goal temp of 97.0. Pt offers no complaints at this time. Resting comfortably in bed with call trevino in reach.
[2023-09-24] MEDS: SYNTHROID 150 MCG PO (05:50)
[2023-09-24 06:03] LABS: Blood Urea Nitrogen 71 mg/dl (9-20); Calcium 9.2 mg/dl (8.4-10.2); Carbon Dioxide 27 mmol/L (22-30); Chloride 110 mmol/L (98-107); Estimated Creatinine Clearance 29 ml/min; Glucose 92 mg/dl (70-99); Potassium 3.8 mmol/L (3.5-5.1); Sodium 141 mmol/L (135-145); eGFR 25.63
[2023-09-24] MEDS: VITAMIN B-12 1000 MCG PO (08:36)
[2023-09-24] MEDS: FEOSOL 325 MG PO (08:36)
[2023-09-24] MEDS: FLOMAX 0.400000000000000022 MG PO ×2 (08:36→19:25)
[2023-09-24] MEDS: ELIQUIS 2.5 MG PO ×2 (08:36→19:24)
[2023-09-24] MEDS: BACTROBAN 2% OINTMENT 1 APPLIC TOPICAL ×2 (08:36→21:19)
[2023-09-24] MEDS: PROSCAR 5 MG PO (08:36)
[2023-09-24] MEDS: HYDROCORTISONE 1% CREAM 1 APPLIC TOPICAL ×2 (08:37→21:18)
[2023-09-24] MEDS: COREG 3.125 MG PO ×2 (08:38→19:25)
[2023-09-24] MEDS: LASIX 40 MG IV ×2 (08:38→17:22)
--- NOTE | 2023-09-24 09:09 | W.PN.HOSP.TC ---
Today's Communication/Plan
-
CW diuresis
Follow Cr
Prn Janine arambula
Assessment / Plan
Assessment / Plan
Acute on chronic HFrEF exacerbation
-Cardiac BNP of 2900 from 1890; wt up by 18 lbs since recent discharge
-Chest x-ray shows pulmonary edema pattern with bilateral pleural effusions
-cw I's and O's, daily weight
-cw IV Lasix 40mg twice daily -improved wt -loss 8 pounds but stalled now. Most recent discharge weight was 244 pounds. Currently at 255 pounds.
-Cardiology following; consider metalzone.
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
-Creatinine of 2.4 from 1.8
Follow Cr with diuresis;RHC depending on diuresis and Cr
Renal following
Chronic leukopenia/thrombocytopenia
-Suspect underlying myelodysplastic syndrome
Chronic macrocytic anemia
Anemia with iron deficiency
-Continue ferrous sulfate
-Hemoglobin stable
Paroxysmal atrial fibrillation with pacemaker
-Continue Coreg
-Continue Eliquis
Hypothermia-suspect Thermo dysregulation from age and environmental conditions probably. Free T4 is normal. Cortisol is normal. Afebrile. Not acting like infection. UA neg , blood cx neg, Procal normal .Optimize CHF. Use as needed Janine arambula
for now.
Hypothyroidism
-Continue levothyroxine
Sleep apnea, CPAP intolerant
Chronic lymphedema
History of visual hallucinations
BPH
-Continue dutasteride, tamsulosin
Obesity
DNR/DNI
DVT prophylaxis�Eliquis
Cardiac diet
DW RN
Anticipated Discharge: > 48 hours
Subjective/Interval History
-
Date of Service: September 24, 2023
Slept okay after midnight.
Not short of breath. No chest pain. No palpitations.
Good appetite. No diarrhea.
No dysuria or retention symptoms.
Denies any fever or chills.
No leg pains.
Objective Data
-
Labs:
Laboratory Results
09/24/23
05:20
Sodium 141
Potassium 3.8
Chloride 110 H
Carbon Dioxide 27
BUN 71 H
Creatinine 2.4 H
Glucose 92
Calcium 9.2
Vital Signs:
Vital Signs
Temp Pulse Resp BP Pulse Ox
97.1 F 113 21 102/65 95
09/24/23 07:41 09/24/23 08:38 09/24/23 04:00 09/24/23 08:38 09/24/23 04:00
I&O
09/23/23 09/24/23 09/25/23
06:59 06:59 06:59
Intake Total 780 / 780 1200 / 1200
Output Total 1000 / 1000 1150 / 1150 400 / 400
Balance -220 / -220 50 / 50 -400 / -400
Review of Systems
-
All other systems: Reviewed and negative
Physical Exam
-
General: No Apparent Distress
HEENT: Moist Mucous Membranes
Respiratory: Non Labored Respirations; Negative Wheezes, Rhonchi, Crackles or Accessory Resp Muscle Use
Cardiac: S1/S2 and Irregular Rhythm; Negative Tachycardic
GI: Soft and Nontender
Musculoskeletal: Edema, Right Lower Extrem and Edema, Left Lower Extrem
Neuro: AO x 3
Psych: Calm; Negative Confused or Agitated
Data Reviewed
-
Labs: Labs Reviewed by me
--- NOTE | 2023-09-24 09:57 | W.PN.CD ---
Today's Communication / Plan
-
cont lasix 40mg IV bid, with close monitoring of labs and tele
discussed with hospitalist: will add metolazone prior to PM lasix dose, but may ultimately need to increase to 80mg IV bid
Impression / Plan
-
Impression: 88M admitted with dyspnea and worsening LE edema.
PMH: He has been admitted three times this year, including a nearly one month stay at [facility]. 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
Plan
Dyspnea: in setting of acute on chronic HFrEF. 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
- Improving
- this admit: weight 119kg --> 115kg, but he was 110-111kg in August
-cont lasix 40mg IV bid, with close monitoring of labs and tele
-discussed with hospitalist: will add metolazone prior to PM lasix dose, but may ultimately need to increase to 80mg IV bid
HFrEF, cardiomyopathy, unspecified type
- CM is reportedly new from prior echocardiogram, med mgmt for now
- continue carvedilol
- GDMT limited by BP and CKD4
Chronic lymphedema - worsened edema from baseline according to Mr. Garcia
A fib - may be persistent now
-on apixaban. Tele: AFib with V Pacing
CKD/TRU
-Cr remains 2.4
Other - records records last admit from Yuniel March at [place]. 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 We never received records
Subjective:
SOB better. Still with significant edema.
TTE 08/22/22: EF 40% with global KH, dilated and hypokinetic RV, mod-severe TR with PASP 50
Physical Exam
Vital Signs/Labs
Vital Signs
Temp Pulse Resp BP Pulse Ox
97.1 F 113 21 102/65 95
09/24/23 07:41 09/24/23 08:38 09/24/23 04:00 09/24/23 08:38 09/24/23 04:00
09/23/23 09/24/23 09/25/23
06:59 06:59 06:59
Actual Weight 115.5 kg
09/22/23 04:09
09/24/23 05:20
Free T4 1.89 ng/dl (0.78-2.19) 09/22/23 04:09
09/21/23
17:25
Ulm-B-Knnbcqwiwgz Pept 2930
LAB Results
09/21/23
17:25
Troponin I < 0.012
Physical Exam
Constitutional: No acute distress and Comfortable
EENT: Moist mucous membranes
Cardiovascular: Rhythm & rate is regular, Systolic murmur absent, Pedal edema present and JVD present
Respiratory: Respiratory effort normal and Lungs clear to auscul.
Neuro/Psych: AO x 3
Data Reviewed
-
Date of Service: September 24, 2023
EKG: Other (Tele: A fib, V paced)
Labs: Labs Reviewed by me
--- NOTE | 2023-09-24 12:43 | W.PN.NEPH.PH ---
Today's Communication / Plan
-
diuresis per cards
follow labs
Assessment/Plan
-
Assessment
Heart failure reduced ejection fraction (EF 40%)
Anasarca
Acute kidney injury
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
Anemia
Paroxysmal atrial fibrillation
Hypothyroidism
CPAP
Pacemaker
Plan:
creatinine at baseline 2.5 and remains nonoliguric
Continue diuresis with 40IV Lasix BID, appears grossly volume overloaded
metolazone this pm, agree likely need to increase lasix to 80 BID
cont fluid and sodium restrict,pt was taking 62ounces/day as out pt
goal DW probably 110kg,
Please closely monitor I/Os
Obtain daily weights
Of note, prior kidney ultrasound without hydronephrosis, chronic medical renal disease and bilateral renal cysts
Follow BMP
may need to explore RHC if no improvement
consider thoracentesis if possible
d/w pt
-
-
Date of Service: September 24, 2023
CC / HPI / ROS
-
Chief Complaint:
Chronic kidney disease stage
History of Present Illness:
Creatinine stable at 2.4
Hemodynamically stable
Congestive heart failure maintained on 40 mg IV twice daily, wt is up
on RA
Review of Systems:
Hypothermic on Bear hugger
non oliguric
sob no change, no dysuria
Labs
-
Labs:
WBC 2.3 10^3/uL (4.8-10.8) L* 09/22/23 04:09
RBC 3.35 10^6/uL (4.70-6.10) L 09/22/23 04:09
Hgb 10.0 g/dL (13.0-18.0) L 09/22/23 04:09
Hct 32.0 % (39.0-52.0) L 09/22/23 04:09
Plt Count 95 10^3/uL (130-400) L 09/22/23 04:09
Sodium 141 mmol/L (135-145) 09/24/23 05:20
Potassium 3.8 mmol/L (3.5-5.1) 09/24/23 05:20
Chloride 110 mmol/L (98-107) H 09/24/23 05:20
Carbon Dioxide 27 mmol/L (22-30) 09/24/23 05:20
BUN 71 mg/dl (9-20) H 09/24/23 05:20
Creatinine 2.4 mg/dL (0.7-1.3) H 09/24/23 05:20
eGFR 25.63 09/24/23 05:20
Glucose 92 mg/dl (70-99) 09/24/23 05:20
Calcium 9.2 mg/dl (8.4-10.2) 09/24/23 05:20
Ase-M-Yopieqfpyzg Pept 2930 pg/ml 09/21/23 17:25
Albumin 3.2 g/dl (3.5-5.0) L 09/22/23 04:09
Physical Exam
-
Vital Signs:
Vital Signs
Temp Pulse Resp BP Pulse Ox
97.9 F 113 21 102/65 95
09/24/23 11:45 09/24/23 08:38 09/24/23 04:00 09/24/23 08:38 09/24/23 04:00
Cardiovascular:: Regular rate and rhythm
Lung Excursion:: Normal (very decreased bilat, mild wheezing)
Extremity Edema:: +3: Bilateral:
Welsh Catheter: No
--- NOTE | 2023-09-24 14:29 | CM ---
Patient seen at bedside. Patient on nanda hugger when seen today. Patient not medically ready for discharge. Patient family plan is for patient to return to [facility] with [facility]. CM will continue to follow for discharge planning needs.
Plan; return to independent apartment at [facility]; pending functional status assessments. will need updated referrals to [facility].
[2023-09-24] MEDS: ZAROXOLYN 5 MG PO (15:33)
[2023-09-25] VITALS (17 sets, daily range): BP systolic 88–123; BP diastolic 54–78; PULSE 65–66; BMI 33.9
--- NOTE | 2023-09-25 02:41 | PTCARENOTE ---
Pt resting comfortably overnight. No complaints of pain. At baseline pupils are unequal. AAOx3. Edema as documented. Scrotal edema +2 elevated on towel. Continues on RA POX 93-94%. Slightly MEDINA, EW after activity. 100% VPaced on CM rate 60.
Afebrile. Using urinal at bedside. Pt states he pulled left groin muscle approx 10 days ago so it is difficult for him to lift left leg. Using urinal at bedside. Rest of assessment as documented. Call trevino remain within reach. Will continue to
monitor.
[2023-09-25 06:23] LABS: Blood Urea Nitrogen 72 mg/dl (9-20); Calcium 9.6 mg/dl (8.4-10.2); Carbon Dioxide 29 mmol/L (22-30); Chloride 107 mmol/L (98-107); Estimated Creatinine Clearance 28 ml/min; Glucose 91 mg/dl (70-99); Potassium 3.7 mmol/L (3.5-5.1); Sodium 140 mmol/L (135-145); eGFR 24.41
--- NOTE | 2023-09-25 08:49 | W.PN.HOSP.TC ---
Today's Communication/Plan
-
CW IV diuresis
Follow Cr
Assessment / Plan
Assessment / Plan
Acute on chronic HFrEF exacerbation
-Cardiac BNP of 2900 from 1890; wt up by 18 lbs since recent discharge
-Chest x-ray shows pulmonary edema pattern with bilateral pleural effusions
-cw I's and O's, daily weight
-cw IV Lasix twice daily 's/p one dose of Metalazone 45-improved wt -249 lbs today . Most recent discharge weight was 244 pounds.
-Cardiology following; consider metalzone.
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
-Creatinine of 2.5 from 1.8
Follow Cr with diuresis;RHC depending on diuresis and Cr
Renal following
Chronic leukopenia/thrombocytopenia
-Suspect underlying myelodysplastic syndrome
Chronic macrocytic anemia
Anemia with iron deficiency
-Continue ferrous sulfate
-Hemoglobin stable
Paroxysmal atrial fibrillation with pacemaker
-Continue Coreg
-Continue Eliquis
Hypothermia-suspect Thermo dysregulation from age and environmental conditions probably. Free T4 is normal. Cortisol is normal. Afebrile. Not acting like infection. UA neg , blood cx neg, Procal normal .Optimize CHF. Use as needed Janine hugger
for now.
Hypothyroidism
-Continue levothyroxine
Sleep apnea, CPAP intolerant
Chronic lymphedema
History of visual hallucinations
BPH
-Continue dutasteride, tamsulosin
Obesity
DNR/DNI
DVT prophylaxis�Eliquis
Cardiac diet
DW RN
Anticipated Discharge: 24 - 48 hours
Subjective/Interval History
-
Date of Service: September 25, 2023
Improved breathing. Denies shortness of breath at rest. Improving weight.
No chest pain.
No fever or chills.
Tolerating diet.
Objective Data
-
Labs:
Laboratory Results
09/25/23
04:36
Sodium 140
Potassium 3.7
Chloride 107
Carbon Dioxide 29
BUN 72 H
Creatinine 2.5 H
Glucose 91
Calcium 9.6
Vital Signs:
Vital Signs
Temp Pulse Resp BP Pulse Ox
97.1 F 60 14 113/68 94
09/25/23 06:19 09/25/23 08:00 09/25/23 08:00 09/25/23 08:00 09/25/23 04:00
I&O
09/24/23 09/25/23 09/26/23
06:59 06:59 06:59
Intake Total 1200 / 1200
Output Total 1150 / 1150 1300 / 1300
Balance 50 / 50 -1300 / -1300
Review of Systems
-
Respiratory: Denies Cough
Abdomen/GI: Denies Abdominal Pain, Nausea or Vomiting
Neuro: Denies Dizzy
Physical Exam
-
General: No Apparent Distress
HEENT: Moist Mucous Membranes
Respiratory: Clear to Auscultation
Cardiac: S1/S2 and Irregular Rhythm; Negative Tachycardic
GI: Soft and Nontender
Musculoskeletal: Edema, Right Lower Extrem and Edema, Left Lower Extrem
Neuro: AO x 3
Psych: Calm
Data Reviewed
-
Labs: Labs Reviewed by me
[2023-09-25] MEDS: PROSCAR 5 MG PO (09:53)
[2023-09-25] MEDS: SYNTHROID 150 MCG PO (09:53)
[2023-09-25] MEDS: VITAMIN B-12 1000 MCG PO (09:53)
[2023-09-25] MEDS: FEOSOL 325 MG PO (09:53)
[2023-09-25] MEDS: COREG 3.125 MG PO ×2 (09:53→22:07)
[2023-09-25] MEDS: ELIQUIS 2.5 MG PO ×2 (09:53→22:07)
[2023-09-25] MEDS: FLOMAX 0.400000000000000022 MG PO ×2 (09:53→22:07)
[2023-09-25] MEDS: LASIX 40 MG IV ×2 (09:56→16:11)
[2023-09-25] MEDS: HYDROCORTISONE 1% CREAM 1 APPLIC TOPICAL ×2 (09:56→22:07)
[2023-09-25] MEDS: BACTROBAN 2% OINTMENT 1 APPLIC TOPICAL ×2 (10:19→22:07)
--- NOTE | 2023-09-25 15:03 | W.PN.CD ---
Today's Communication / Plan
-
Continue diuresis
Benitez wraps to legs bilaterally
Impression / Plan
-
Impression: 88M admitted with dyspnea and worsening LE edema.
PMH: He has been admitted three times this year, including a nearly one month stay at [facility]. 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
Plan
Dyspnea: in setting of acute on chronic HFrEF. 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
- Improving
- this admit: weight 119kg --> 113kg, but he was 110-111kg in August
-metolazone 5mg 09/24/23 pror to pm dose
-BP low but I ordered orthostatics and these were normal
-cont lasix 40mg IV bid, with close monitoring of labs and tele
HFrEF, cardiomyopathy, unspecified type
- CM is reportedly new from prior echocardiogram, med mgmt for now
- continue carvedilol
- GDMT limited by BP and CKD4
Chronic lymphedema - worsened edema from baseline according to Mr. Garcia
Will order Benitez wraps
A fib - may be persistent now
-on apixaban. Tele: AFib with V Pacing
CKD/TRU
-Cr remains 2.5 (prior 07/25)
Hypothermia: Janine arambula on care per medicine
Other - records records last admit from Yuniel March at [facility]. 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 We never received records
Subjective:
SOB better. Still with significant edema. No dizziness when he stands up
TTE 08/22/22: EF 40% with global KH, dilated and hypokinetic RV, mod-severe TR with PASP 50
Physical Exam
Vital Signs/Labs
Vital Signs
Temp Pulse Resp BP Pulse Ox
97.1 F 60 14 90/54 95
09/25/23 06:19 09/25/23 09:53 09/25/23 08:00 09/25/23 09:53 09/25/23 14:27
09/24/23 09/25/23 09/26/23
06:59 06:59 06:59
Actual Weight 115.5 kg 113.262 kg
09/22/23 04:09
09/25/23 04:36
Free T4 1.89 ng/dl (0.78-2.19) 09/22/23 04:09
09/21/23
17:25
Ece-C-Zovbxxhkljv Pept 2930
Physical Exam
Constitutional: No acute distress
Cardiovascular: Rhythm & rate is regular, Pedal edema present (2+ pitting and nonpitting edema bilaterally) and S1S2 is normal
Respiratory: Respiratory effort normal, Lungs clear to auscul., Wheeze Absent and Crackles Absent
Neuro/Psych: AO x 3
Data Reviewed
-
Date of Service: September 25, 2023
EKG: Other (Telemetry with V pacing intermittent PVCs)
X-Ray/CT/US/MRI/NUC/PET: Discussed with Physician (Will order compression) and Discussed with Nurse (Will order compression)
--- NOTE | 2023-09-25 16:19 | W.PN.NEPH.PH ---
Addendum entered and electronically signed by Sonali Marcus MD 09/25/23 16:25:
BP are soft, on high dose flomax
monitor , prn midodrine
Original Note:
Today's Communication / Plan
-
IV lasix 40 BID, metolazone again
Assessment/Plan
-
Assessment
Heart failure reduced ejection fraction (EF 40%)
Anasarca
Acute kidney injury
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
Anemia
Paroxysmal atrial fibrillation
Hypothyroidism
CPAP
Pacemaker
Plan:
creatinine at baseline 2.5 and remains nonoliguric
Continue diuresis with 40IV Lasix BID, appears grossly volume overloaded
metolazone this pm, again
cont fluid and sodium restrict,pt was taking 62ounces/day as out pt
goal DW probably 110kg,
Please closely monitor I/Os
Obtain daily weights
Of note, prior kidney ultrasound without hydronephrosis, chronic medical renal disease and bilateral renal cysts
Follow BMP
consider thoracentesis if possible
d/w pt and family at bedside in detail
-
-
Date of Service: September 25, 2023
CC / HPI / ROS
-
Chief Complaint:
Chronic kidney disease stage
History of Present Illness:
Creatinine stable at 2.5
Hemodynamically stable
Congestive heart failure maintained on 40 mg IV twice daily, wt is decreasing
on RA
Review of Systems:
Hypothermic better
non oliguric
no sob at rest
Labs
-
Labs:
WBC 2.3 10^3/uL (4.8-10.8) L* 09/22/23 04:09
RBC 3.35 10^6/uL (4.70-6.10) L 09/22/23 04:09
Hgb 10.0 g/dL (13.0-18.0) L 09/22/23 04:09
Hct 32.0 % (39.0-52.0) L 09/22/23 04:09
Plt Count 95 10^3/uL (130-400) L 09/22/23 04:09
Sodium 140 mmol/L (135-145) 09/25/23 04:36
Potassium 3.7 mmol/L (3.5-5.1) 09/25/23 04:36
Chloride 107 mmol/L (98-107) 09/25/23 04:36
Carbon Dioxide 29 mmol/L (22-30) 09/25/23 04:36
BUN 72 mg/dl (9-20) H 09/25/23 04:36
Creatinine 2.5 mg/dL (0.7-1.3) H 09/25/23 04:36
eGFR 24.41 09/25/23 04:36
Glucose 91 mg/dl (70-99) 09/25/23 04:36
Calcium 9.6 mg/dl (8.4-10.2) 09/25/23 04:36
Aad-R-Etcyizmwlrd Pept 2930 pg/ml 09/21/23 17:25
Albumin 3.2 g/dl (3.5-5.0) L 09/22/23 04:09
Physical Exam
-
Vital Signs:
Vital Signs
Temp Pulse Resp BP Pulse Ox
93.0 F L 71 11 96/56 95
09/25/23 15:50 09/25/23 16:11 09/25/23 16:00 09/25/23 16:11 09/25/23 14:27
Cardiovascular:: Regular rate and rhythm
Respiratory:: Bilateral: CTA (decreased bs)
Lung Excursion:: Normal
Abdomen:: Nontender and Soft
Extremity Edema:: +2: Bilateral:
Welsh Catheter: No
--- NOTE | 2023-09-25 16:29 | PTCARENOTE ---
Pt again hypothermic, placed back on nanda hugger for temp of 93.0. Drs. Montague and Anish aware. Plan discussed. Pt remains seated up in chair. no complaints at this time.
--- NOTE | 2023-09-25 17:08 | PTCARENOTE ---
Benitez wraps ordered and applied at this time.
[2023-09-25] MEDS: ProAmatine 5 MG PO (17:42)
[2023-09-25] MEDS: ZAROXOLYN 5 MG PO (17:43)
[2023-09-26] VITALS (11 sets, daily range): BP systolic 95–109; BP diastolic 54–68; BMI 33.7
--- NOTE | 2023-09-26 04:43 | PTCARENOTE ---
Pt slept well overnight. AAOx3. Denies any pain or discomfort. VSS. Temps low throughout shift. Remained on nanda hugger till 0300 this am with eventual increase in temp 97.5 rectally. Nanda hugger removed. CM 100% Vpaced. Benitez wraps removed from B/L
LE's, remained elevated on pillows. Using urinal throughout shift. No change from previous assessment. Call trevino remains within reach. Will continue to monitor.
[2023-09-26 05:54] LABS: Blood Urea Nitrogen 76 mg/dl (9-20); Calcium 9.6 mg/dl (8.4-10.2); Carbon Dioxide 30 mmol/L (22-30); Chloride 105 mmol/L (98-107); Estimated Creatinine Clearance 29 ml/min; Glucose 82 mg/dl (70-99); Potassium 3.8 mmol/L (3.5-5.1); Sodium 139 mmol/L (135-145); eGFR 25.63
[2023-09-26] MEDS: SYNTHROID 150 MCG PO (06:07)
--- NOTE | 2023-09-26 07:36 | PTCARENOTE ---
Janine arambula resumed for rectal temp 96.6 at this time. Will discuss with attending Dr. Montague on rounds.
--- NOTE | 2023-09-26 09:02 | W.PN.HOSP.TC ---
Today's Communication/Plan
-
CW IV diuresis
ID eval
Assessment / Plan
Assessment / Plan
Acute on chronic HFrEF exacerbation
-Cardiac BNP of 2900 from 1890; wt up by 18 lbs since recent discharge
-Chest x-ray shows pulmonary edema pattern with bilateral pleural effusions
-cw I's and O's, daily weight
-cw IV Lasix twice daily 's/p one dose of Metalazone 45-improved wt -248 lbs today . Most recent discharge weight was 244 pounds.
-Cardiology following.
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
-Creatinine of 2.4 from 1.8
Follow Cr with diuresis;RHC depending on diuresis and Cr
Renal following
# Hypothermia-suspect thermo dysregulation from age . No focal infective symptoms. Not bacteremic. Urinalysis negative. Procalcitonin negative. Chronic leukopenia without neutropenia noted. Doubt infection. Thought hypothermia may be from
heart failure decompensation but with her weight coming down and remaining hypothermic will ask ID to weigh in
Doubt endocrinopathy-patient with low TSH on Synthroid suggestive more of hyperthyroidism than hypothyroidism. Cortisol is normal on 2 occasions.
Once infection is felt unlikely by ID as well we will give a trial of steroids see.
Dont see any medications that would do it .
Chronic leukopenia/thrombocytopenia
-Suspect underlying myelodysplastic syndrome
Chronic macrocytic anemia
Anemia with iron deficiency
-Continue ferrous sulfate
-Hemoglobin stable
Paroxysmal atrial fibrillation with pacemaker
-Continue Coreg
-Continue Eliquis
Hypothyroidism
-Continue levothyroxine
Sleep apnea, CPAP intolerant
Chronic lymphedema
History of visual hallucinations
BPH
-Continue dutasteride, tamsulosin
Obesity
DNR/DNI
DVT prophylaxis�Eliquis
Cardiac diet
DW RN
Anticipated Discharge: > 48 hours
Subjective/Interval History
-
Date of Service: September 26, 2023
Feels generally weak But voices no specific complaints.
Breathing comfortable. No chest pain.
No nausea vomiting or diarrhea.
Denies any dysuria.
No joint pains. Denies any pain in his body. No fevers chills.
Remained hypothermic last night requiring Janine hugger again.
Objective Data
-
Labs:
Laboratory Results
09/26/23
04:52
Sodium 139
Potassium 3.8
Chloride 105
Carbon Dioxide 30
BUN 76 H
Creatinine 2.4 H
Glucose 82
Calcium 9.6
Vital Signs:
Vital Signs
Temp Pulse Resp BP Pulse Ox
96.6 F L 60 11 100/61 94
09/26/23 07:34 09/26/23 06:00 09/26/23 06:00 09/26/23 06:00 09/25/23 20:00
I&O
09/25/23 09/26/23 09/27/23
06:59 06:59 06:59
Intake Total 200 / 200
Output Total 1300 / 1300 2450 / 2450 200 / 200
Balance -1300 / -1300 -2250 / -2250 -200 / -200
Review of Systems
-
All other systems: Reviewed and negative
Physical Exam
-
General: No Apparent Distress
HEENT: Moist Mucous Membranes
Respiratory: Clear to Auscultation (anteriorly)
Cardiac: Regular Rhythm and S1/S2
GI: Soft, Nontender, Nondistended and Normal Bowel Sounds
Musculoskeletal: Edema, Right Lower Extrem and Edema, Left Lower Extrem
Neuro: AO x 3
Psych: Calm
Data Reviewed
-
Labs: Labs Reviewed by me
[2023-09-26] MEDS: VITAMIN B-12 1000 MCG PO (09:40)
[2023-09-26] MEDS: FLOMAX 0.400000000000000022 MG PO ×2 (09:40→21:11)
[2023-09-26] MEDS: DESENEX/MITRAZOL/ZEASORB 1 APPLIC TOPICAL ×2 (09:40→21:11)
[2023-09-26] MEDS: ELIQUIS 2.5 MG PO ×2 (09:40→21:11)
[2023-09-26] MEDS: PROSCAR 5 MG PO (09:40)
[2023-09-26] MEDS: COREG 3.125 MG PO ×2 (09:40→21:11)
[2023-09-26] MEDS: LASIX 80 MG IV ×2 (09:41→17:56)
[2023-09-26] MEDS: HYDROCORTISONE 1% CREAM 1 APPLIC TOPICAL ×2 (09:41→21:12)
[2023-09-26] MEDS: FEOSOL 325 MG PO (09:41)
--- NOTE | 2023-09-26 11:00 | CON.ID ---
Consultation
-
Date/Time Consultation Requested: September 26, 2023 0859
Date/Time Consultation Performed: September 26, 2023 1100
Requesting Provider: Dr. Christiano Montague
Performing Provider: Dr. Karen Buckner
Reason for Consultation: Hypothermia of unclear etiology
Chief Complaint / Past History
Chief Complaint
SOB
History of Present Illness
88 year old male with CHF, CKD3b, Afib, PPM, hypothyroidism third hospitalization for acute on chronic CHF exacerbation. He was hospitalized at [facility] Jun-Jul with visual hallucination, TRU, diagnosed with heart failure. He was hypothermic
during that admission without finding of sepsis. He was recently hospitalized at 08/21 to 08/25 with acute on chronic HF; intermittent hypothermic, Ucx + klebsiella treated with abx. He returned to ED 09/20 with worsening SOB, cough, worsening LE
edema, and weight gain. CXR: + pulm edema. ECHO EF 40%. Pt again hypothermic. He denies feeling cold. No subjective fever, chills, or sweats. No URI sxs. No urinary sxs. No diarrhea.
Past History
Additional Past Medical History:
Chronic HFpEF
CKD3b
Paroxysmal atrial fibrillation
PPM
Hypothyroidism
Lymphedema (since Jul, 2023)
h/o hypothermia (without sepsis)
BPH
sleep apnea, intolerant to CPAP
Allergy History:
No Known Allergies Allergy (Unverified 08/22/23 02:14)
Medications Reviewed: Yes
Current Antibiotics:
None
Social History
Tobacco: Non-Smoker
Alcohol: None
Drug: None
Family History
Family History: Not Pertinent
Review of Systems
Review of Systems
General: Negative Fever, Chills or Change in Appetite
HEENT: Negative Stiff Neck, Sinus Problems, Headache or Pharyngitis
Cardiovascular: Negative Chest Pain
Respiratory: Negative Sputum Production
Gasteroenterology: Other (no diarrhea); Negative Nausea or Vomiting
Genital / Urological: Negative Dysuria or Flank Pain
Endocrine: Negative Weakness
Musculoskeletal: Negative Arthralgias
Skin / Hair / Nails: Negative Rash
Neurological: Negative Headache or Dizziness
All systems: All other systems were reviewed and were negative
Vital Signs
Temp Pulse Resp BP Pulse Ox
97.1 F 60 18 113/67 94
09/26/23 09:00 09/26/23 09:40 09/26/23 09:37 09/26/23 09:40 09/26/23 09:37
Physical Exam
Physical Exam
Constitutional: No Acute Distress, Comfortable and Obese
Eyes: No Conjunctival Hemorrhage and Sclera Anicteric
Pharynx: Benign
Cardiovascular: Regular Rate, S1/S2 and Other (PPM site no induration/erythema)
Pulmonary: Other (decreased BS bases)
Gastrointestinal: Soft, Non Tender, Non Distended and Normal Bowel Sounds
Genito-Urinary: Negative CVA Tenderness
Extremities: Edema (BLE 2+)
Musculoskeletal: Negative Spinal Tenderness
Neurological: AO x 3; Negative Meningeal Signs
Lab / Diagnostic Study Results
09/22/23 04:09
09/26/23 04:52
Abs Immat Gran (auto) 0.0 10^3/uL (0-0.05) 09/22/23 04:09
Absolute Neuts (auto) 1.1 10^3/uL (1.4-6.5) L 09/22/23 04:09
Absolute Lymphs (auto) 0.7 10^3/uL (1.2-3.4) L 09/22/23 04:09
Absolute Monos (auto) 0.4 10^3/uL (0.1-0.6) 09/22/23 04:09
Absolute Basos (auto) 0.0 10^3/uL (0-0.2) 09/22/23 04:09
Immature Gran % 0.4 % (0-0.5) 09/22/23 04:09
Neutrophils % 47.7 % (42.2-75.2) 09/22/23 04:09
Lymphocytes % 28.6 % (20.5-51.1) 09/22/23 04:09
Monocytes % 18.1 % (1.7-9.3) H 09/22/23 04:09
Eosinophils % 4.8 % (0-6) 09/22/23 04:09
Basophils % 0.4 % (0-2) 09/22/23 04:09
Lactic Acid Cancelled 09/21/23 22:15
Procalcitonin < 0.05 ng/ml (0.0-0.25) 09/23/23 09:38
Microbiology Results
Micro:
09/21/23 18:15 Blood Culture - Preliminary
Blood/Venous No Growth in 4 days- Final report to follow
09/21/23 18:15 Blood Culture - Preliminary
Blood/Venous No Growth in 4 days- Final report to follow
09/22/23 04:09 MRSA Screen - Final
Nose No Methicillin Resistant Staphylococcus aureus isolated.
09/21/23 CXR: Cardiomegaly with findings highly suggestive of pulmonary edema pattern with bilateral pleural effusions.
Assessment / Plan
# Intermittent Hypothermia (rectal temps), persistent over past 2 days
- No infectious etiology as previous (at [facility]).
-Nontoxic appearing.
- Unclear source. ?autonomic dsysfunction
- Can repeat blood cx, UA reflex Ucx.
- Observe off abx.
# Pancytopenia
- Suspect underlying hematological/bone marrow disorder
--- NOTE | 2023-09-26 15:40 | W.PN.CD ---
Today's Communication / Plan
-
continue diuresis
continue compression therapy
Continue bb
Impression / Plan
-
Impression: 88M admitted with dyspnea and worsening LE edema.
PMH: He has been admitted three times this year, including a nearly one month stay at [facility]. 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
Plan
Dyspnea: in setting of acute on chronic HFrEF. 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
- Improving
- this admit: weight 119kg --> 112kg, but he was 110-111kg in August
-metolazone 5mg 09/24/23 and 09/25/23 prior to pm dose, and lasix increased to 80mg IV BID
-BP low but better today , prn midodrine ordered by nephrology but none today
-continue close monitoring of labs and tele
HFrEF, cardiomyopathy, unspecified type
- CM is reportedly new from prior echocardiogram, med mgmt for now
- continue carvedilol
- GDMT limited by BP and CKD4
Chronic lymphedema - worsened edema from baseline according to Mr. Garcia
-Continue Benitez wraps
A fib - may be persistent now
-on apixaban. Tele: AFib with V Pacing
CKD/TRU
-Cr remains 2.5 (prior 07/25)
Hypothermia: Janine arambula on care per medicine
Other - records records last admit from Yuniel March at [facility]. 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 We never received records
Subjective:
SOB better. No dizziness when he stands up. He is cold and doesn't know why.
TTE 08/22/22: EF 40% with global KH, dilated and hypokinetic RV, mod-severe TR with PASP 50
Physical Exam
Vital Signs/Labs
Vital Signs
Temp Pulse Resp BP Pulse Ox
97.3 F 60 18 113/67 94
09/26/23 14:00 09/26/23 09:40 09/26/23 09:37 09/26/23 09:40 09/26/23 09:37
09/25/23 09/26/23 09/27/23
06:59 06:59 06:59
Actual Weight 113.262 kg 112.7 kg
09/22/23 04:09
09/26/23 04:52
Free T4 1.89 ng/dl (0.78-2.19) 09/22/23 04:09
09/21/23
17:25
Ech-V-Ooxwvdysvds Pept 2930
Physical Exam
Constitutional: No acute distress
Cardiovascular: Rhythm & rate is regular and Pedal edema present (benitez wraps in place still with 1-2+ pitting)
Respiratory: Respiratory effort normal, Lungs clear to auscul., Wheeze Absent, Crackles Absent and Rhonchi Absent
Neuro/Psych: AO x 3
Data Reviewed
-
Date of Service: September 26, 2023
EKG: Other (tele pacing )
--- NOTE | 2023-09-26 17:01 | W.PN.NEPH.PH ---
Today's Communication / Plan
-
cont diuresis
Assessment/Plan
-
Assessment
Heart failure reduced ejection fraction (EF 40%)
Anasarca
Acute kidney injury
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
Anemia
Paroxysmal atrial fibrillation
Hypothyroidism
CPAP
Pacemaker
Plan:
creatinine stable at 2.4 and remains nonoliguric
increased Lasix 80 BID, appears grossly volume overloaded
metolazone prn
cont fluid and sodium restrict,pt was taking 62ounces/day as out pt
goal DW probably 110kg,
Please closely monitor I/Os
Obtain daily weights
Of note, prior kidney ultrasound without hydronephrosis, chronic medical renal disease and bilateral renal cysts
Follow BMP
-
-
Date of Service: September 26, 2023
CC / HPI / ROS
-
Chief Complaint:
Chronic kidney disease stage
History of Present Illness:
Creatinine stable at 2.4
Hemodynamically stable
Congestive heart failure maintained on 80 mg IV twice daily, wt is decreasing
on RA, wt decreasing
Review of Systems:
Hypothermic still
non oliguric
no sob at rest
Labs
-
Labs:
WBC 2.3 10^3/uL (4.8-10.8) L* 09/22/23 04:09
RBC 3.35 10^6/uL (4.70-6.10) L 09/22/23 04:09
Hgb 10.0 g/dL (13.0-18.0) L 09/22/23 04:09
Hct 32.0 % (39.0-52.0) L 09/22/23 04:09
Plt Count 95 10^3/uL (130-400) L 09/22/23 04:09
Sodium 139 mmol/L (135-145) 09/26/23 04:52
Potassium 3.8 mmol/L (3.5-5.1) 09/26/23 04:52
Chloride 105 mmol/L (98-107) 09/26/23 04:52
Carbon Dioxide 30 mmol/L (22-30) 09/26/23 04:52
BUN 76 mg/dl (9-20) H 09/26/23 04:52
Creatinine 2.4 mg/dL (0.7-1.3) H 09/26/23 04:52
eGFR 25.63 09/26/23 04:52
Glucose 82 mg/dl (70-99) 09/26/23 04:52
Calcium 9.6 mg/dl (8.4-10.2) 09/26/23 04:52
Jgb-C-Iuyraairuuo Pept 2930 pg/ml 09/21/23 17:25
Albumin 3.2 g/dl (3.5-5.0) L 09/22/23 04:09
Physical Exam
-
Vital Signs:
Vital Signs
Temp Pulse Resp BP Pulse Ox
96.9 F L 60 18 113/67 94
09/26/23 16:00 09/26/23 09:40 09/26/23 09:37 09/26/23 09:40 09/26/23 09:37
Cardiovascular:: Regular rate and rhythm
Lung Excursion:: Normal (decreasedBS )
Abdomen:: Nontender and Soft
Extremity Edema:: +3: Bilateral:
Welsh Catheter: No
[2023-09-26 19:06] LABS: Urine Albumin Negative (Neg - Trace); Urine Bilirubin Negative (Negative); Urine Character Clear (Clear); Urine Color Straw; Urine Glucose Negative (Negative); Urine Ketone Negative (Negative); Urine Leukocyte Negative (Negative); Urine Nitrite Negative (Negative); Urine Occult Blood Negative (Negative); Urine Urobilinogen Negative (Neg - 1+)
--- NOTE | 2023-09-26 20:00 | PTCARENOTE ---
resumed care of pt sleeping in bed, pt easily arousable to voice, MAKAH, AAOx3. HR 60, 100% Vpaced on the monitor. POX 98% on RA. B/L base crackles, MEDINA. + bowel, round obese abd. Pt using BSCx1 with walker when needed/ Urinal. B/L LE Benitez wraps in
place, removed HS per protocol. +3 pitting B/L LE edema, Reddness/warmth noted. Heels elevated on pillows. Pt repositioning self as needed. Right AC int capped at this time. Call trevino in reach. Will continue to monitor.
[2023-09-27] VITALS (16 sets, daily range): BP systolic 86–112; BP diastolic 48–73; PULSE 60; O2SAT 97; BMI 33.2
[2023-09-27 04:55] LABS: Hematocrit 30.7 % (39.0-52.0); Hemoglobin 9.6 g/dL (13.0-18.0); Mean Corp Hgb Conc. 31.3 g/dL (33.0-37.0); Mean Corpuscular Hgb 29.7 pg (27.0-31.0); Mean Platelet Volume 11.1 fL (7.4-10.4); Platelet Count 94 10^3/uL (130-400); Red Blood Cell Count 3.23 10^6/uL (4.70-6.10); Red Cell Dist. Width 15.9 % (11.5-14.5); White Blood Cell Count 3.3 10^3/uL (4.8-10.8)
[2023-09-27 05:25] LABS: Blood Urea Nitrogen 80 mg/dl (9-20); Calcium 9.5 mg/dl (8.4-10.2); Carbon Dioxide 33 mmol/L (22-30); Chloride 102 mmol/L (98-107); Estimated Creatinine Clearance 28 ml/min; Glucose 93 mg/dl (70-99); Potassium 3.6 mmol/L (3.5-5.1); Sodium 138 mmol/L (135-145); eGFR 25.63
[2023-09-27] MEDS: SYNTHROID 150 MCG PO (05:40)
--- NOTE | 2023-09-27 08:25 | W.PN.CD ---
Today's Communication / Plan
-
change lasix to 80mg bid as pt at target wt 244
CXR to rule out sizeable effusions suggested by exam today
Impression / Plan
-
Impression: 88M admitted with dyspnea and worsening LE edema.
PMH: He has been admitted three times this year, including a nearly one month stay at [facility]. 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
Plan
Dyspnea: in setting of acute on chronic HFrEF. 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
- Improving
- this admit: weight 119kg --> 112kg, but he was 110-111kg in August. Wt today is 244 lbs - I think this is his goal wt (was wt when discharged in August)
-Change lasis to 80mg po bid
- CXR - exam suggests bilat effusions
HFrEF, cardiomyopathy, unspecified type
- CM is reportedly new from prior echocardiogram, med mgmt for now
- continue carvedilol
- GDMT limited by BP and CKD4
Chronic lymphedema - worsened edema from baseline according to Mr. Garcia
-Continue Benitez wraps
A fib - may be persistent now
-on apixaban. Tele: AFib with V Pacing
CKD/TRU
-Cr remains 2.5 (prior 07/25)
Hypothermia: Janine arambula on care per medicine
Other - records records last admit from Yuniel March at [facility]. 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 We never received records
Subjective:
SOB better. No dizziness when he stands up. He is cold and doesn't know why.
TTE 08/22/22: EF 40% with global KH, dilated and hypokinetic RV, mod-severe TR with PASP 50
Physical Exam
Vital Signs/Labs
Vital Signs
Temp Pulse Resp BP Pulse Ox
96.9 F L 60 13 97/55 92
09/27/23 03:36 09/27/23 04:00 09/27/23 04:00 09/27/23 04:00 09/27/23 04:00
09/26/23 09/27/23 09/28/23
06:59 06:59 06:59
Actual Weight 248 lb 7.375 oz 244 lb 7.882 oz
09/27/23 04:26
09/27/23 04:26
Free T4 1.89 ng/dl (0.78-2.19) 09/22/23 04:09
09/21/23
17:25
Tee-D-Wflhyuotzlv Pept 2930
Physical Exam
Constitutional: No acute distress and Comfortable
Cardiovascular: Rhythm & rate is regular and Murmur/rub/gallop absent
Respiratory: Respiratory effort normal and Other (Diminished breath sounds at both bases)
GI: Non tender
Neuro/Psych: Motor deficits absent
Data Reviewed
-
Date of Service: September 27, 2023
[2023-09-27] MEDS: LASIX IV (09:06)
[2023-09-27] MEDS: COREG 3.125 MG PO ×2 (09:25→19:56)
[2023-09-27] MEDS: VITAMIN B-12 1000 MCG PO (09:25)
[2023-09-27] MEDS: FEOSOL 325 MG PO (09:25)
[2023-09-27] MEDS: ELIQUIS 2.5 MG PO ×2 (09:25→19:56)
[2023-09-27] MEDS: DESENEX/MITRAZOL/ZEASORB 1 APPLIC TOPICAL ×2 (09:25→19:56)
[2023-09-27] MEDS: PROSCAR 5 MG PO (09:25)
[2023-09-27] MEDS: LASIX 80 MG PO ×2 (09:26→16:25)
[2023-09-27] MEDS: FLOMAX 0.400000000000000022 MG PO ×2 (09:26→19:56)
[2023-09-27] MEDS: HYDROCORTISONE 1% CREAM 1 APPLIC TOPICAL ×2 (09:26→19:57)
--- NOTE | 2023-09-27 11:00 | W.PN.ID1 ---
Date of Service
Date of Service: September 27, 2023
Today's Communication
Observe off abx.
Assessment / Plan
# Intermittent Hypothermia (rectal temps),
- Now off warming blanket.
- No infectious etiology as previous (at [facility]).
-Nontoxic appearing.
- Unclear source. ?autonomic dysfunction
-09/26/23 Repeat UA negative
09/27/23 CXR: no infiltrate
Repeat Blood cx's pending.
- Observe off abx.
# Pancytopenia
- Suspect underlying hematological/bone marrow disorder
%Additional Past Medical History:
Chronic HFpEF
CKD3b
Paroxysmal atrial fibrillation
PPM
Hypothyroidism
Lymphedema (since Jul, 2023)
h/o hypothermia (without sepsis)
BPH
sleep apnea, intolerant to CPAP
Chief Complaint
-: Other (Hypothermia)
Subjective / Review of Systems
Feels well. No longer on warming blanket. No new symptoms.
Vital Signs / Physical Exam
Vital Signs
Vital Signs
Temp Pulse Resp BP Pulse Ox
97.4 F 60 16 94/51 94
09/27/23 07:25 09/27/23 10:00 09/27/23 10:00 09/27/23 10:00 09/27/23 06:00
Physical Exam
Constitutional: No Acute Distress and Comfortable
Pulmonary: Clear
Gastrointestinal: Soft, Non Tender and Non Distended
Genito-Urinary: Negative CVA Tenderness
Extremities: Edema; Negative Erythema
Neurological: AO x 3
Objective Data
Lab Data
Lab Results
09/27/23 04:26
09/27/23 04:26
Estimated Creat Clear 28 ml/min 09/27/23 04:26
Lactic Acid Cancelled 09/21/23 22:15
Total Bilirubin 0.8 mg/dl (0.2-1.3) 09/22/23 04:09
AST 44 U/L (17-59) 09/22/23 04:09
ALT 25 U/L (0-50) 09/22/23 04:09
Alkaline Phosphatase 131 U/L (38-126) H 09/22/23 04:09
Most recent labs reviewed.
Micro Results:
09/26/23 14:38 Blood Culture - Pending
Blood/Venous
09/21/23 18:15 Blood Culture - Final
Blood/Venous No Growth - Final Report
09/21/23 18:15 Blood Culture - Final
Blood/Venous No Growth - Final Report
09/26/23 13:18 Blood Culture - Pending
Blood/Venous
09/22/23 04:09 MRSA Screen - Final
Nose No Methicillin Resistant Staphylococcus aureus isolated.
09/21/23 CXR: Cardiomegaly with findings highly suggestive of pulmonary edema pattern with bilateral pleural effusions.
--- NOTE | 2023-09-27 12:48 | W.PN.HOSP.TC ---
Addendum entered and electronically signed by Christiano Montague MD 09/27/23 16:13:
discussed with nephrology Dr. Raza for discharge from their standpoint.
Discussed with the daughter Milagros and updated the clinical data and the changes in the dose of Lasix and follow-up plan.
repeat PT eval noted-recommendation is now for home health.
Total time of discharge 35 minutes
Original Note:
Today's Communication/Plan
-
DC planning
Assessment / Plan
Assessment / Plan
Acute on chronic HFrEF exacerbation
-Cardiac BNP of 2900 from 1890; wt up by 18 lbs since recent discharge
-Chest x-ray shows pulmonary edema pattern with bilateral pleural effusions
-cw I's and O's, daily weight
-cw IV Lasix twice daily 's/p one dose of Metalazone 45-improved wt -244 lbs today . Most recent discharge weight was 244 pounds.
-Cardiology following. CXR today shows small left and small to moderate rt pleural effusion -pt without resp distress and on RA -CW Diuresis
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
-Creatinine of 2.4 from 1.8
Follow Cr with diuresis;RHC depending on diuresis and Cr
Renal following
# Hypothermia-suspect thermo dysregulation from age . No focal infective symptoms. Not bacteremic. Urinalysis negative. Procalcitonin negative. Chronic leukopenia without neutropenia noted. Doubt infection. Thought hypothermia may be from
heart failure decompensation
Doubt endocrinopathy-patient with low TSH on Synthroid suggestive more of hyperthyroidism than hypothyroidism. Cortisol is normal on 2 occasions.
ID input noted - no evidence of obvious infection
Resolved now
Chronic leukopenia/thrombocytopenia
-Suspect underlying myelodysplastic syndrome
Chronic macrocytic anemia
Anemia with iron deficiency
-Continue ferrous sulfate
-Hemoglobin stable
Paroxysmal atrial fibrillation with pacemaker
-Continue Coreg
-Continue Eliquis
Hypothyroidism
-Continue levothyroxine
Sleep apnea, CPAP intolerant
Chronic lymphedema
History of visual hallucinations
BPH
-Continue dutasteride, tamsulosin
Obesity
DNR/DNI
DVT prophylaxis�Eliquis
Cardiac diet
PT recs rehab
DC planning when ok from Renal standpoint
Anticipated Discharge: Within 24 hours
Subjective/Interval History
-
Date of Service: September 27, 2023
Patient feels improved. Denies shortness of breath.
No chest pain.
No fever or chills.
Objective Data
-
Labs:
Laboratory Results
09/27/23
04:26
WBC 3.3 L
Hgb 9.6 L
Hct 30.7 L
Plt Count 94 L
Sodium 138
Potassium 3.6
Chloride 102
Carbon Dioxide 33 H
BUN 80 H
Creatinine 2.4 H
Glucose 93
Calcium 9.5
Vital Signs:
Vital Signs
Temp Pulse Resp BP Pulse Ox
97.4 F 60 16 94/51 94
09/27/23 07:25 09/27/23 10:00 09/27/23 10:00 09/27/23 10:00 09/27/23 06:00
I&O
09/26/23 09/27/23 09/28/23
06:59 06:59 06:59
Intake Total 200 / 200 480 / 480 120 / 120
Output Total 2450 / 2450 2075 / 2075 450 / 450
Balance -2250 / -2250 -1595 / -1595 -330 / -330
Review of Systems
-
EENT: Denies Sore Throat
Respiratory: Denies Cough
Abdomen/GI: Denies Abdominal Pain, Nausea or Vomiting
Neuro: Denies Dizzy or Headache
Psych: Reports Depressed
Physical Exam
-
General: No Apparent Distress
HEENT: Moist Mucous Membranes
Respiratory: Non Labored Respirations and Decreased Breath Sounds (bl bases); Negative Wheezes, Crackles or Accessory Resp Muscle Use
Cardiac: Regular Rhythm and S1/S2
GI: Soft
Musculoskeletal: Edema, Right Lower Extrem and Edema, Left Lower Extrem
Neuro: AO x 3
Psych: Calm
Data Reviewed
-
Labs: Labs Reviewed by me
--- NOTE | 2023-09-27 16:06 | W.DS.TRANS ---
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
-
Discharge Instructions:
Sleep Apnea Risk Low
Discharge Diagnosis/Procedures Acute on chronic CHF decompensation
Diet 2 Gram Sodium
Activity As tolerated
Driving Restrictions No driving
Bathing Restrictions None
Blood Work BMP in one week -arrange it through your PCP
Other Services PT,OT
Specialty Instructions Weigh Daily
Instructions: *PCP/Other Waiter/Waitress Second Class Heart Failure Instructions
Stand-Alone Forms:
Changes to Home Medications: Yes
Discharge Medications:
DC Medications w/original date entered in [facility]
acetaminophen 325 mg tablet (Tylenol) 650 mg PO Q8HPRN PRN mild pain/temp>100 08/22/23
apixaban 2.5 mg tablet (Eliquis) 2.5 mg PO BID Blood Clot Prevention/Tx 08/22/23
cyanocobalamin (vitamin B-12) 1,000 mcg tablet 1,000 mcg PO DAILY Supplement 08/22/23
dutasteride 0.5 mg capsule (Avodart) 0.5 mg PO DAILY Urinary Issue 08/22/23
hydrocortisone 1 % topical cream 1 applic topical BID back and buttocks 08/22/23
levothyroxine 150 mcg capsule 150 mcg PO DAILY AT 0700 Thyroid 08/22/23
magnesium hydroxide 400 mg/5 mL oral suspension (Milk of Magnesia) 30 ml PO HSPRN PRN if no bm by 3rd day 08/22/23
tamsulosin 0.4 mg capsule (Flomax) 0.4 mg PO BID Urinary Issue 08/22/23
carvedilol 3.125 mg tablet 3.125 mg PO BID #60 tabs 08/26/23
ferrous sulfate 325 mg (65 mg iron) tablet (FeroSul) 325 mg PO DAILY #30 tabs 08/26/23
camphor-menthol 0.5 %-0.5 % lotion (Anti-Itch (menthol-camphor)) 1 applic topical HS Skin Issues 09/21/23
guaifenesin 100 mg/5 mL oral liquid (Edith-Tussin) 100 mg PO Q6H PRN cough 09/21/23
mupirocin 2 % topical ointment 1 applic topical BID Infection 09/21/23
sodium chloride 0.65 % nasal spray aerosol (Deep Sea Nasal) 1 spray intranasal TID PRN nasal dryness 09/21/23
furosemide 80 mg tablet 80 mg PO BID@0800,1600 #60 tabs 09/27/23
Home Medication Changes
continue medication-Lasix dose increased from 40 to 80 mg twice a day
Pending Results: No
--- NOTE | 2023-09-27 16:13 | W.DCSUMMARY ---
Addendum entered and electronically signed by Christiano Montague MD 09/28/23 09:14:
Date of discharge 09/28/2023
Original Note:
Discharge Summary
Discharge Data
Date of Admission: 09/21/23
Date of Discharge: 09/27/23
-
Pending Results: No
Hospital Course
Primary diagnosis:
Acute on chronic heart failure with reduced EF
Acute kidney injury on chronic kidney disease stage III
Hypothermia without evidence of infection
Secondary diagnosis:
chronic pancytopenia
Paroxysmal atrial fibrillation
Pacemaker in situ
Hypothyroidism
Sleep apnea - CPAP intolerant
Hospital course:
patient with chronic heart failure with reduced EF presented with increasing shortness of breath and weight gain.
Most recent weight on discharge in August was 244 and he was admitted 262 pounds. He lives in a local assisted living facility. His BNP was elevated 2930. Chest x-ray findings are highly suggestive of pulmonary edema pattern with bilateral pleural
effusion. No evidence of FL. He had an echocardiogram last month during his admission At [facility] and it showed LV function 40% with mild global hypokinesis. Dilated and hypokinetic RV. Moderate to severe TR. Elevated pulmonary
systolic pressures of 45-50 mmHg.
Was seen by cardiology was initiated on diuretics with improvement in his symptoms as well as weight back to 244 pounds. He was on Lasix40 mg twice daily at home and that was increased to 80 mg twice daily on discharge.
started chronic kidney stage III and his creatinine [Baseline 1.8] was elevated on this occasion suggestive of acute kidney injury. his creatinine was 2.4 on admission and remained stable at that with diuresis. Unclear if this is related to his
cardiorenal syndrome. No evidence of obstruction on the recent kidney ultrasound. was seen by barrel dedenting machine operator who recommended continued diuresis.
He was hypothermic during the stay and it was felt may be thrombotic dysregulation from his age and acute CHF. There is no Evidence of endocrinopathy or infection during the stay here. Once his heart failure is better his temperature was normal
again.
Consultants on board:
Cardiology-Dr. Ch
Nephrology-Dr. Jansen
Infectious disease-
Discharge Plan
-
Patient Disposition: Home with Home Care
Discharge Diagnosis/Procedures: Acute on chronic CHF decompensation
Diet: 2 Gram Sodium
Activity: As tolerated
Driving Restrictions: No driving
Bathing Restrictions: None
Blood Work: BMP in one week -arrange it through your PCP
Other Services: PT and OT
Specialty Instructions: Weigh Daily- Call MD for wt gain/loss 3 lbs overnight/5 lbs in 1 week
Instructions: *PCP/Other Machine Hose Cutter Heart Failure Instructions
Referrals:
Jayjay Alas MD [Family Provider] - in less than 1 week
Santhosh Hdez MD [Active] - in one week
Prescriptions:
New
furosemide 80 mg Tablet
80 mg PO BID@0800,1600 Qty: 60 0RF
Rx Instructions:
Dose increased on this admission
Continued
Eliquis 2.5 mg Tablet
2.5 mg PO BID
dutasteride [Avodart] 0.5 mg Capsule
0.5 mg PO DAILY
cyanocobalamin (vitamin B-12) 1,000 mcg Tablet
1,000 mcg PO DAILY
tamsulosin [Flomax] 0.4 mg Capsule
0.4 mg PO BID
levothyroxine 150 mcg Capsule
150 mcg PO DAILY AT 0700
acetaminophen [Tylenol] 325 mg Tablet
650 mg PO Q8HPRN PRN (Reason: mild pain/temp>100)
magnesium hydroxide [Milk of Magnesia] 400 mg/5 mL Suspension
30 ml PO HSPRN PRN (Reason: if no bm by 3rd day)
hydrocortisone 1 % Cream
1 applic TOPICAL BID
carvedilol 3.125 mg Tablet
3.125 mg PO BID Qty: 60 0RF
ferrous sulfate [FeroSul] 325 mg (65 mg iron) Tablet
325 mg PO DAILY Qty: 30 0RF
guaifenesin [Edith-Tussin] 100 mg/5 mL Liquid
100 mg PO Q6H PRN (Reason: cough)
Anti-Itch (menthol-camphor) 0.5-0.5 % Lotion
1 applic TOPICAL HS
Patient Comments:
09/21/2023: apply to legs
mupirocin 2 % Ointment
1 applic TOPICAL BID
Patient Comments:
09/21/2023: apply to gluteal area until rash is healed
Deep Sea Nasal 0.65 % Aerosol,Douglas
1 spray INTRANASAL TID PRN (Reason: nasal dryness)
Discontinued
furosemide 40 mg tablet
40 mg PO BID
Discharge Orders:
Discharge Patient (As Directed); Ordered 09/27/23
Ordered By: Christiano Montague
Discharge Date and Time
Print Language: PORTUGUESE
--- NOTE | 2023-09-27 16:41 | CM ---
Addendum entered by Diana Chen RN 09/27/23 16:55:
Plan return to [facility] tomorrow with resumption [facility]
Original Note:
Patient from [facility] with Dx CHF, hypothermia, TRU. Room air. PT recommends HH. OT recommends SNF vs LONG-TERM w/assist ADLs.
Phone call to [facility]; requested callback to confirm acceptance for return- no response.
Spoke with Alberto nurse, [facility]; they are able to accept the patient back tomorrow, as he is finished at 5pm and cannot re-admit him or give meds if he arrives after that time. The patient should be set up with [facility] again-
confirmed will refer to [facility]. The phone for report [phone], fax [phone].
Phone call to daughter Milagros; left mesage requesting callback re; d/c tomorrow - no response.
Referral to [facility].
Plan return to [facility] tomorrow with resumption [facility] vs SNF for rehab.
--- NOTE | 2023-09-27 16:44 | W.PN.NEPH.PH ---
Today's Communication / Plan
-
- for d/c today
Assessment/Plan
-
Assessment
Heart failure reduced ejection fraction (EF 40%)
Anasarca
Acute kidney injury
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
Anemia
Paroxysmal atrial fibrillation
Hypothyroidism
CPAP
Pacemaker
Plan:
creatinine stable at 2.4 and remains nonoliguric
increased Lasix 80 BID, doing well on this
metolazone prn
cont fluid and sodium restrict,pt was taking 62ounces/day as out pt
goal DW probably 110kg, met today
Please closely monitor I/Os
Obtain daily weights
Of note, prior kidney ultrasound without hydronephrosis, chronic medical renal disease and bilateral renal cysts
Follow BMP
-
-
Date of Service: September 27, 2023
CC / HPI / ROS
-
Chief Complaint:
Chronic kidney disease stage
History of Present Illness:
Creatinine stable at 2.4
Hemodynamically stable
Congestive heart failure maintained on 80 mg IV twice daily, wt is decreasing
on RA, wt decreasing
Review of Systems:
Hypothermic still
non oliguric
no sob at rest
Labs
-
Labs:
WBC 3.3 10^3/uL (4.8-10.8) L 09/27/23 04:26
RBC 3.23 10^6/uL (4.70-6.10) L 09/27/23 04:26
Hgb 9.6 g/dL (13.0-18.0) L 09/27/23 04:26
Hct 30.7 % (39.0-52.0) L 09/27/23 04:26
Plt Count 94 10^3/uL (130-400) L 09/27/23 04:26
Sodium 138 mmol/L (135-145) 09/27/23 04:26
Potassium 3.6 mmol/L (3.5-5.1) 09/27/23 04:26
Chloride 102 mmol/L (98-107) 09/27/23 04:26
Carbon Dioxide 33 mmol/L (22-30) H 09/27/23 04:26
BUN 80 mg/dl (9-20) H 09/27/23 04:26
Creatinine 2.4 mg/dL (0.7-1.3) H 09/27/23 04:26
eGFR 25.63 09/27/23 04:26
Glucose 93 mg/dl (70-99) 09/27/23 04:26
Calcium 9.5 mg/dl (8.4-10.2) 09/27/23 04:26
Uni-F-Uqlqcgbahgj Pept 2930 pg/ml 09/21/23 17:25
Albumin 3.2 g/dl (3.5-5.0) L 09/22/23 04:09
Physical Exam
-
Vital Signs:
Vital Signs
Temp Pulse Resp BP Pulse Ox
97.4 F 60 16 102/61 94
09/27/23 07:25 09/27/23 10:00 09/27/23 10:00 09/27/23 16:25 09/27/23 06:00
Cardiovascular:: Regular rate and rhythm
Respiratory:: Bilateral: CTA
Lung Excursion:: Normal
Abdomen:: Nontender and Soft
Bowel Sounds:: Normal
Extremity Edema:: +2: Bilateral:
Welsh Catheter: No
--- NOTE | 2023-09-27 17:59 | PTCARENOTE ---
Rec'd pt this AM. Temp remains WNL throughout the day not requiring nanda hugger. Vital signs stable. Plan for d.c. to [facility] tomorrow
[2023-09-28] VITALS (8 sets, daily range): BP systolic 94–114; BP diastolic 45–74; BMI 32.5
[2023-09-28] MEDS: SYNTHROID 150 MCG PO (03:51)
--- NOTE | 2023-09-28 03:56 | PTCARENOTE ---
Pt assessed at 1999, rectal temp found to be 95.0. Janine hugger applied to keep temp >97.0. Rectal temp now 97.6. Janine hugger removed. Pt repositioned per comfort. Heels elevated on pillows. Pt denies any complaints. HR in the 60's 100% V paced on
the monitor. POX 94-96% on RA. Sacral foam applied to sacrum for protection. Pt slept well overnight. Vital signs stable. Will continue to monitor.
[2023-09-28] MEDS: LASIX 80 MG PO (08:35)
[2023-09-28] MEDS: FLOMAX 0.400000000000000022 MG PO (08:35)
[2023-09-28] MEDS: FEOSOL 325 MG PO (08:35)
[2023-09-28] MEDS: PROSCAR 5 MG PO (08:35)
[2023-09-28] MEDS: VITAMIN B-12 1000 MCG PO (08:35)
[2023-09-28] MEDS: ELIQUIS 2.5 MG PO (08:35)
[2023-09-28] MEDS: COREG 3.125 MG PO (08:35)
[2023-09-28] MEDS: HYDROCORTISONE 1% CREAM 1 APPLIC TOPICAL (08:36)
[2023-09-28] MEDS: DESENEX/MITRAZOL/ZEASORB 1 APPLIC TOPICAL (08:36)
--- NOTE | 2023-09-28 09:00 | PTCARENOTE ---
Patient received from speech correction consultant. Patient resting comfortably in bed. AAO, VSS. No complaints of pain. Patient however with low temperatures overnight and needing to be placed back on the Janine hugger. Patient was off Janine hugger by 0400 and
has maintained appropriate temps since. Being discharged today. Call trevino in reach.
--- NOTE | 2023-09-28 09:08 | W.PN.HOSP.TC ---
Today's Communication/Plan
-
DC
Assessment / Plan
Assessment / Plan
Acute on chronic HFrEF exacerbation
-Cardiac BNP of 2900 from 1890; wt up by 18 lbs since recent discharge
-Chest x-ray shows pulmonary edema pattern with bilateral pleural effusions
-cw I's and O's, daily weight
-cw IV Lasix twice daily 's/p one dose of Metalazone 45-improved wt -244 lbs today . Most recent discharge weight was 244 pounds.
-Cardiology following. CXR today shows small left and small to moderate rt pleural effusion -pt without resp distress and on RA -CW Diuresis
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
-Creatinine of 2.4 from 1.8
Follow Cr with diuresis;RHC depending on diuresis and Cr
Renal following
# Hypothermia-suspect thermo dysregulation from age . No focal infective symptoms. Not bacteremic. Urinalysis negative. Procalcitonin negative. Chronic leukopenia without neutropenia noted. Doubt infection. Thought hypothermia may be from
heart failure decompensation
Doubt endocrinopathy-patient with low TSH on Synthroid suggestive more of hyperthyroidism than hypothyroidism. Cortisol is normal on 2 occasions.
ID input noted - no evidence of obvious infection
Intermittent nature of it says again about thermo dysregulation/autonomic dysfunction from age and environmental issues may be.
If persistent during day and night and all times may be then check MRI brain to at thermoregulatory centers -hippocampus/basal ganglia
Chronic leukopenia/thrombocytopenia
-Suspect underlying myelodysplastic syndrome
Chronic macrocytic anemia
Anemia with iron deficiency
-Continue ferrous sulfate
-Hemoglobin stable
Paroxysmal atrial fibrillation with pacemaker
-Continue Coreg
-Continue Eliquis
Hypothyroidism
-Continue levothyroxine
Sleep apnea, CPAP intolerant
Chronic lymphedema
History of visual hallucinations
BPH
-Continue dutasteride, tamsulosin
Obesity
DNR/DNI
DVT prophylaxis�Eliquis
Cardiac diet
PT recs home health
Remains Medically stable for DC
Had discussed with daughter Milagros yesterday and went over the dx,tx,dc plan
Total time of dc 35 min
Anticipated Discharge: Today
Subjective/Interval History
-
Date of Service: September 28, 2023
Stayed overnight due to failed logistics of discharge.
Was hypothermic needing Janine Hugger last night but now this am fine.
Objective Data
-
Vital Signs:
Vital Signs
Temp Pulse Resp BP Pulse Ox
97.6 F 60 13 101/54 94
09/28/23 03:00 09/28/23 08:35 09/28/23 06:00 09/28/23 08:35 09/28/23 06:00
I&O
09/27/23 09/28/23 09/29/23
06:59 06:59 06:59
Intake Total 480 / 480 120 / 120
Output Total 5 / 5 2475 / 2475
Balance -1595 / -1595 -2355 / -2355
Review of Systems
-
Constitutional: Denies Fever or Chills
Respiratory: Denies Trouble Breathing
Cardiac: Denies Chest Pain
Abdomen/GI: Denies Abdominal Pain, Nausea or Vomiting
Neuro: Denies Dizzy
Physical Exam
-
General: Well Nourished and Comfortable
HEENT: Moist Mucous Membranes
Respiratory: Clear to Auscultation
Cardiac: Regular Rhythm and S1/S2
GI: Soft
Musculoskeletal: Edema, Right Lower Extrem and Edema, Left Lower Extrem
Neuro: AO x 3 and No Motor Deficits; Negative Tremors
--- NOTE | 2023-09-28 09:13 | W.PN.UPDATE ---
Update Note
Progress Note Update
for billing purposes
Level 2 inpatient subsequent for 09/27/23
--- NOTE | 2023-09-28 13:47 | CM ---
CM reviewed pt with Dr Montague- ready for dc
Call to dtr with update and transportation discussed
Per chart review and discussion with nursing, no medical necessity for BLS
Dtr in agreement with van fees
Per dtr request, outreach to Dr Montague requesting call to dtr to address her medical concerns
IMM verbally reviewed over phone with dtr- copy emailed [email or web address]
Transportation form completed
Update to [facility] nursing/Alberto
Update to [facility] via [facility]
Bedside update to patient who requesting physician call son with update as well
Pt concern with [facility] ability to handle LTC- discussed HALFWAY vs SNF
Provided SNF PAC per his request
Outreach to Dr Montague with his request regarding call to son
Discharge Disposition- return to [facility] with Deepika/Gelacio- FERNANDA wesley pickup 3pm
Phone- [phone] Fax- [phone]
[facility] Fax- [phone]
--- NOTE | 2023-09-28 14:00 | W.HF.CON ---
Heart Failure
- LV Function
Left ventricular function study result: LV Ejection fraction >35% - 40% (ECHO 08/23/23)
Ejection Fraction Percentage: 40
- ARNI
Patient already on ARNI: No
Heart Failure ARNI Contraindication: Acute Renal Failure, Hypotension
- ACEI/ARB
Patient already on ACEI/ARB: No
Heart Failure ACEI/ARB Contraindication: Acute Renal Failure, Hypotension
- Beta Jena
Patient already on Evidence Based Beta Jena: Yes
- Mineralocorticord Receptor Antagonist
Patient already on MRA: No
Heart Failure MRA Contraindication: Acute Renal Insufficiency, Hypotension
- SGLT-2 Inhibitor
Patient already on SGLT-2 Inhibitor: No
Heart Failure SGLT-2 Inhibitor Contraindication: eGFR < 25
- Afib Anticoagulation
Patient already on Anticoagulation for Afib: Yes
- NYHA CHF Classification
NYHA CHF Classification Level: Class III - Symptoms w/ min exertion, interferes w/ nml daily activity
- ACC/AHA Stage
ACC/AHA Stage: Stage C: Symptomatic Heart Failure
--- NOTE | 2023-09-28 14:15 | PTCARENOTE ---
Report called to Naif at [facility]. [phone]
--- NOTE | 2023-09-28 15:19 | PTCARENOTE ---
Patient discharged to [facility] via [facility] transport. Questions answered to best ability. Patient left with all known belongings.
== END 2023-09-28 15:13 | disposition home health service (06) | DRG 291 ==
LOC: IMU 21:03
PROVIDERS: ADMITTING PHYSICIAN Hospitalist; ATTENDING PHYSICIAN Internal Medicine; CONSULT PHYSICIAN Internal Medicine Cardiovascular Disease; CONSULT PHYSICIAN Internal Medicine Infectious Disease; EMERGENCY PHYSICIAN Emergency Medicine; FAMILY PHYSICIAN Family Medicine; OTHER PHYSICIAN Student in an Organized Health Care Education/Training Program
DX: I13.0 Hypertensive heart and chronic kidney disease with heart failure and stage 1 through stage 4 chronic kidney disease, or unspecified chronic kidney disease (principal); I50.43 Acute on chronic combined systolic (congestive) and diastolic (congestive) heart failure; D61.818 Other pancytopenia; N17.9 Acute kidney failure, unspecified; I42.9 Cardiomyopathy, unspecified; Z66 Do not resuscitate; N18.32 Chronic kidney disease, stage 3b; I48.0 Paroxysmal atrial fibrillation; Z95.0 Presence of cardiac pacemaker; Z79.01 Long term (current) use of anticoagulants; E03.9 Hypothyroidism, unspecified; E66.9 Obesity, unspecified; I89.0 Lymphedema, not elsewhere classified; D50.9 Iron deficiency anemia, unspecified; N40.0 Benign prostatic hyperplasia without lower urinary tract symptoms; G47.30 Sleep apnea, unspecified; Z68.32 Body mass index [BMI] 32.0-32.9, adult
CPT/HCPCS: 71045; 71046; 80048; 80053; 81003; 82533; 83605; 83880; 84145; 84439; 84443; 84481; 84484; 85025; 85027; 87040; 87070; 93005; 97163; 97167; 97530; 99285

== ENCOUNTER 2024-02-06 19:20 | Inpatient (IN) | payer OTHER, SELFPAY ==
[2024-02-06] VITALS (8 sets, daily range): BP systolic 99–126; BP diastolic 63–95; BMI 29.3; BMI 28.2
[2024-02-06 15:24] LABS: % Basophils 0.5 % (0-2); % Eosinophils 7.6 % (0-6); % Immature Granulocytes 0.2 % (0-0.5); % Lymphocytes 22.9 % (20.5-51.1); % Monocytes 10.8 % (1.7-9.3); Absolute Eosinophils 0.3 10^3/uL (0-0.7); Absolute Monocytes 0.5 10^3/uL (0.1-0.6); Absolute Neutrophils 2.5 10^3/uL (1.4-6.5); Hematocrit 38.2 % (39.0-52.0); Hemoglobin 12.8 g/dL (13.0-18.0); Mean Corp Hgb Conc. 33.5 g/dL (33.0-37.0); Mean Corpuscular Hgb 30.9 pg (27.0-31.0); Mean Corpuscular Volume 92.3 fL (80.0-94.0); Mean Platelet Volume 9.8 fL (7.4-10.4); Nucleated Red Blood Cells % 0 % (-); Platelet Count 129 10^3/uL (130-400); Red Blood Cell Count 4.14 10^6/uL (4.70-6.10); White Blood Cell Count 4.4 10^3/uL (4.8-10.8)
[2024-02-06 15:36] LABS: ALT (SGPT) 15 U/L (0-50); AST (SGOT) 26 U/L (17-59); Alkaline Phosphatase 68 U/L (38-126); Blood Urea Nitrogen 57 mg/dl (9-20); Calcium 9.1 mg/dl (8.4-10.2); Carbon Dioxide 30 mmol/L (22-30); Chloride 102 mmol/L (98-107); Estimated Creatinine Clearance 31 ml/min; Glucose 116 mg/dl (70-99); Potassium 3.2 mmol/L (3.5-5.1); Sodium 139 mmol/L (135-145); Total Protein 5.1 g/dl (6.3-8.2); eGFR 33.93
[2024-02-06 15:38] LABS: NT-proBNP 6860 pg/ml
--- NOTE | 2024-02-06 17:50 | ED.GENMED ---
History of Present Illness
General
Chief Complaint: Weight Changes
Source: patient
Exam Limitations: none
Time Seen by Provider: 02/06/24 17:01
Nursing documentation reviewed up to this point in time: agreed with
History of Present Illness
History of Present Illness:
Patient with history of congestive heart failure on Lasix, presents to ED from senior care secondary to increased leg swelling along with weight gain over the past 1 week, despite increasing dose of Lasix. Denies fever or chills. Denies coughing.
Denies chest pain or shortness of breath. Denies leg pain. Denies back pain. Denies recent change in diet. Denies recent illness.
Past History
Past History
ED Past Medical History: Arrthythmia (Afib), CHF, Hypothyroidism and Other (Stage 3b kidney disease, lymphedema, hypothyroid)
ED Past Surgical History: Cholecystectomy
Social History
Tobacco: Non-smoker
Alcohol: None
Drug: None
Living: assisted living
Review of Systems
Review of Systems
Allergies reviewed?: Yes
All Other Systems: ROS reviewed and negative except as documented in HPI and ROS
Constitutional: Reports no symptoms
EENT: Reports no symptoms
Respiratory: Reports no symptoms
Cardiac: Reports no symptoms
ABD/GI: Reports no symptoms
: Reports no symptoms
Musculoskeletal: Reports edema
Skin: Reports no symptoms
Neurological: Reports no symptoms
Phy Exam
Physical Exam
Physical Exam:
Physical Exam
General: no apparent distress, not acutely ill. afebrile.
Head: nc/at. eomi
Neck: supple. no meningeal signs.
Heart: s1/s2 regular rate and rhythm, no murmur. equal radial pulses.
Lungs: no acute respiratory distress. diminished breath sounds bilaterally
Abdomen: normal bowel sounds. not tender.
Neuro: alert and oriented. no focal neurological deficits
Skin: no rash
Psychiatric: well kept. interactive and cooperative
Extremities: LE b/l pitting edema. no calf tenderness.
Scores
Heart Failure Risk
Heart Failure Risk Score: Yes
History of Stroke or TIA: No
History of intubation for respiratory distress: No
Heart rate on ED arrival >/= 110: No
SaO2 <90% on arrival on room air: No
HR >/=110 during 3min walk test (or too ill to perform test): No
ECG has acute ischemic changes: No
Urea >/=12mmol/L (BUN 33.6mg/dL): Yes
Serum CO2>/=35mmol/L: No
Troponin I or T elevated to RI Level (0.4mg/dL): No
NT-proBNP >/=5,000ng/L (5,000pg/ml): Yes
HF Risk Score: 2
Admission Status: MEDIUM RISK 9.2% Consider observation or discharge to home with homecare & f/u visit to PCP/Track Grinder Operator, or SNF for treatment
Course
Orders/Labs/Results
Orders:
Orders
02/06/24 14:53
EKG [Electrocardiogram (*1)] Urgent
Reason for Study: Shortness of Breath
EKG- Treatment ONCE
02/06/24 Dinner
Cholesterol Lowering
At Your Request: Full Participation
Does patient need a safe tray?: No
Fluid Restriction: 1800 mL/day (60 oz)
Cholesterol Lowering: Sodium, 2 Gram
02/06/24 15:07
Complete Blood Count/With Diff Urgent
Comprehensive Metabolic Panel Urgent
Magnesium Urgent
Comment: ADD ON
Pro-BNP [NT-proBNP] Urgent
02/06/24 17:51
Add On- LAB Urgent
Tests Added?: magnesium
Furosemide [Lasix] 40 mg IV NOW STA
Potassium Chloride [KCl] 40 meq PO NOW STA
02/06/24 17:55
CR Chest - 2 Views Urgent
Comment:
Reason For Exam: fluid overload
02/06/24 18:29
Admit/Transfer Patient As Directed
Co-Sign Provider:
Level of Care: Inpatient admission
Assign to:: Telemetry
Physician / Group: Dr. Celestino Ellis/Hospitalists
Diagnosis: Heart Failure Exacerbation
Reason for Telemetry: Acute Heart Failure
Date to Stop Telemetry: 02/09/24
Time to Stop Telemetry: 11:00
Reason for Hospitalization: Heart Failure Exacerbation
Expected length of stay greater than two midnights?: Yes
ELOS- Estimated Length of Stay in days: 3
I certify the patient meets the requirements for IP care: Yes
PRN Pain Medication Management As Directed
May give lesser potent ordered pain med per pt: Yes
preference::
Protocol:: Medication orders for pain may be administered in a
manner that supports deferring to patient preference
when the pt is:
- Requesting an ordered lesser potent pain medication.
Least to most potent pain medications are defined
as: acetaminophen < NSAID < tramadol < opioids
(morphine, oxycodone, hydromorphone).
- Requesting a lesser dose of the same medication IF
ORDERED.
- Requesting a less intrusive route of administration
if both routes are prescribed by the provider (PO <
IV).
02/06/24 18:32
Code Status As Directed
Resuscitation Status: Do not resuscitate
Reached after discussion with pt or family/Healthcare POA: Yes
DNR Bracelet Application ONCE
02/06/24 18:44
CARDIOLOGY CONSULT Routine
Consulting Provider: Yuniel Jones
Was physician already notified: Yes
Reason for consult: CHF exacerbation, increased legs swelling, poor urine output
02/06/24 18:45
NEPHROLOGY CONSULT Routine
Consulting Provider: Sonali Marcus
Was physician already notified: Yes
Reason for consult: CHF exacerbation, increased legs swelling, poor urine output
02/06/24 20:44
Acetaminophen [Tylenol] 650 mg PO Q8HPRN PRN
Apixaban [Eliquis] 2.5 mg PO BID
Bisacodyl [Dulcolax] 10 mg RECTAL [id number] PRN
Carvedilol [Coreg] 3.125 mg PO BID
Clotrimazole/Betamet Diprop [Lotrisone Cream] See Dose Instructions TOPICAL BID
Guaifenesin Solution [Robitussin] 100 mg PO Q6HPRN PRN
Magnesium Hydroxide [Milk of Magnesia] 30 ml PO HSPRN PRN
Polyethylene Glycol Powder [Miralax] 17 grams PO DAILYPRN PRN
Zinc Oxide 20% [Zinc Oxide Ointment] See Dose Instructions TOPICAL BID
Zinc Oxide 20% [Zinc Oxide Ointment] See Dose Instructions TOPICAL DAILYPRN PRN
clobetasol 1 applic TOPICAL BIDPRN PRN
02/06/24 20:44
Activity As Directed
Activity Level: As Tolerated
Intake/ Output As Directed
Frequency: q12h
Vital Signs As Directed
Frequency: Per unit guidelines
Weight As Directed
Frequency: Daily
02/06/24 20:54
Sodium Chloride [Ross, Saline Mist] See Dose Instructions NASAL TIDPRN PRN
02/06/24 21:11
HydrOXYZINE [Atarax] 50 mg PO Q8HPRN PRN
02/06/24 21:16
Troponin I Q6H
02/06/24 22:00
Miconazole Nitrate [Desenex/Mitrazol/Zeasorb] See Dose Instructions TOPICAL BID
Tamsulosin [Flomax] 0.4 mg PO BID@1200,2200
02/07/24 00:00
BMP [Basic Metabolic Panel] Routine
02/07/24 02:44
Troponin I Q6H
02/07/24 06:00
Basic Metabolic Panel IN AM
Complete Blood Count/No Diff IN AM
Magnesium IN AM
Levothyroxine [Synthroid] 150 mcg PO DAILY @ 0600
02/07/24 08:00
Docusate Sodium [Colace] 200 mg PO DAILY
Furosemide [Lasix] 60 mg IV BID AT 0800,1600
02/07/24 08:44
Troponin I Q6H
02/07/24 12:00
Cyanocobalamin [Vitamin B-12] 1,000 mcg PO NOON
Famotidine [Pepcid] 40 mg PO NOON
Ferrous Sulfate [Feosol] 325 mg PO NOON
dutasteride [Avodart] 0.5 mg PO NOON
02/08/24 06:00
Basic Metabolic Panel IN AM
Complete Blood Count/No Diff IN AM
Magnesium IN AM
02/09/24 06:00
Basic Metabolic Panel IN AM
Complete Blood Count/No Diff IN AM
Magnesium IN AM
02/09/24 11:00
DC Protocol for Telemetry ONCE
02/10/24 06:00
Basic Metabolic Panel IN AM
Complete Blood Count/No Diff IN AM
Magnesium IN AM
02/11/24 06:00
Magnesium IN AM
02/12/24 06:00
Magnesium IN AM
02/13/24 06:00
Magnesium IN AM
Abnormal Lab Results
02/06/24
15:07
WBC 4.4 L 10^3/uL
(4.8-10.8)
RBC 4.14 L 10^6/uL
(4.70-6.10)
Hgb 12.8 L g/dL
(13.0-18.0)
Hct 38.2 L %
(39.0-52.0)
RDW 16.0 H %
(11.5-14.5)
Plt Count 129 L 10^3/uL
(130-400)
Absolute Lymphs (auto) 1.0 L 10^3/uL
(1.2-3.4)
Monocytes % 10.8 H %
(1.7-9.3)
Eosinophils % 7.6 H %
(0-6)
Potassium 3.2 L mmol/L
(3.5-5.1)
BUN 57 H mg/dl
(9-20)
Creatinine 1.9 H mg/dL
(0.7-1.3)
Glucose 116 H mg/dl
(70-99)
Total Protein 5.1 L g/dl
(6.3-8.2)
Albumin 3.0 L g/dl
(3.5-5.0)
02/06/24 15:07
02/06/24 15:07
Vital Signs
Initial and Last Documented VS:
Initial Vital Signs
Temp Pulse Resp BP Pulse Ox
97.8 F 76 18 124/65 97
02/06/24 14:54 02/06/24 14:54 02/06/24 14:54 02/06/24 14:54 02/06/24 14:54
Last Documented Vital Signs
Temp Pulse Resp BP Pulse Ox
97.8 F 78 20 109/63 92
02/06/24 23:15 02/06/24 23:15 02/06/24 23:15 02/06/24 23:15 02/06/24 23:15
MDM/Problems Addressed
MDM/Problems Addressed:
History and exam consistent with fluid overload. Unfortunately, with increased weight gain and decreased urine output, despite increasing Lasix as an outpatient, especially in light of stage IV kidney disease, patient will require IV diuresis.
*Critical Care Note
Total Time (30-74mins, 75-104mins- exclusive of procedures): Not Applicable
ED Attending Note
-
Portions of this chart may have been created with voice recognition software.� Occasional wrong word or��sound alike� substitutions may have occurred due to the inherent limitations of voice recognition software.
Discharge Plan
Departure
Patient Disposition: Admit
Date of Disposition: 02/06/24
Time of Disposition: 18:01
Admit to: Telemetry
Presentation/result/management discussed w/ accepting MD/DO: Hospitalist
Discharge Problem:
Fluid overload, Chronic kidney disease, Hypokalemia
Interventions
Interventions:
*Risk Screen - Suicide Last Done: 02/06/24 21:35
*General Assessment Last Done: 02/06/24 14:59
*Neglect/Abuse Screening Last Done: 02/06/24 14:59
ED- Fall Risk Assessment Last Done: 02/06/24 15:00
*ED COVID-19 Vaccine History Last Done: 02/06/24 21:35
*Nursing Disposition Last Done: 02/06/24 20:52
Discharge Date and Time
Discharge Date/Time: 02/06/24 20:53
[2024-02-06] MEDS: LASIX 40 MG IV (17:57)
[2024-02-06] MEDS: KCL 40 MEQ PO (17:57)
--- NOTE | 2024-02-06 18:03 | HPS.HSE ---
Family Physician
-
Family Physician: Jayjay Alas
Chief Complaint
-
Weight gain, increased swelling in the legs
History of Present Illness
88 y/o male with past medical history of HFrEF, paroxysmal atrial fibrillation with pacemaker, hypothermia, CKD 3, anemia, chronic pancytopenia, hypothyroidism, sleep apnea (CPAP intolerant), chronic lymphedema, history of visual hallucinations, BPH
and obesity, presented with increasing swelling in his legs and poor urine output over the past ~1 week. Patient's daughter was present in patient's room with him and contributed to the history. They both mentioned that patient's Lasix was
increased to 100 mg PO BID this past week however patient has still been gaining weight and low urine output. Patient denied having any chest pain, shortness of breath or abdominal pain.
Medical History
Past Medical History
Past Medical History: Reports Other (As per HPI above)
Past Surgical History: Reports Cholecystectomy
Social History
Tobacco: Non-smoker
Alcohol: None
Drug: None
Family History
Family History: Not pertinent
Allergies / Home Medications
Allergies reflects when Allergies were last updated in [facility].
Home Medications with original date entered in [facility]
Allergy/Medication List:
Allergies
Allergy/AdvReac Type Severity Reaction Status Date / Time
No Known Allergies Allergy Verified 02/06/24 14:54
Home Medications
acetaminophen 325 mg tablet (Tylenol) 650 mg PO Q8HPRN PRN mild pain/temp>100 08/22/23
apixaban 2.5 mg tablet (Eliquis) 2.5 mg PO BID Blood Clot Prevention/Tx 08/22/23
cyanocobalamin (vitamin B-12) 1,000 mcg tablet 1,000 mcg PO NOON Supplement 08/22/23
dutasteride 0.5 mg capsule (Avodart) 0.5 mg PO NOON Urinary Issue 08/22/23
levothyroxine 150 mcg capsule 150 mcg PO DAILY @ 0600 Thyroid 08/22/23
magnesium hydroxide 400 mg/5 mL oral suspension (Milk of Magnesia) 30 ml PO HSPRN PRN CONSTIPATION 08/22/23
tamsulosin 0.4 mg capsule (Flomax) 0.4 mg PO BID@1200,2200 Urinary Issue 08/22/23
sodium chloride 0.65 % nasal spray aerosol (Deep Sea Nasal) 1 spray intranasal TIDPRN PRN nasal dryness 09/21/23
furosemide 80 mg tablet 80 mg PO BID@0800,1600 #60 tabs 09/27/23
carvedilol 3.125 mg tablet (Coreg) 3.125 mg PO BID 02/06/24
clobetasol 0.05 % topical cream 1 applic topical BIDPRN PRN FLARES 02/06/24
clotrimazole-betamethasone 1 %-0.05 % topical cream 1 applic topical BID RASH 02/06/24
docusate sodium 100 mg capsule (Colace) 200 mg PO DAILY 02/06/24
famotidine 40 mg tablet (Pepcid) 40 mg PO NOON 02/06/24
ferrous sulfate 325 mg (65 mg iron) tablet (FeroSul) 325 mg PO NOON 02/06/24
furosemide 40 mg tablet (Lasix) 40 mg PO NOON 02/06/24
guaifenesin 100 mg/5 mL oral liquid (Tussin) 100 mg PO Q6HPRN PRN COUGH 02/06/24
hydroxyzine HCl 50 mg tablet 50 mg PO Q8HPRN PRN PRURITIS 02/06/24
nystatin 100,000 unit/gram topical powder 1 applic topical NOON ABD FOLDS 02/06/24
polyethylene glycol 3350 17 gram oral powder packet (Miralax) 17 g PO DAILYPRN PRN CONSTIPATION 02/06/24
zinc oxide 20 % topical ointment 1 applic topical BID INCONTINENCE 02/06/24
zinc oxide 20 % topical ointment 1 applic topical DAILYPRN PRN BUTTOCKS 02/06/24
Review of Systems
-
A 12 point ROS was completed and negative except as noted: Yes
Physical Exam
Vital Signs
Vital Signs
Temp Pulse Resp BP Pulse Ox
97.8 F 77 16 122/80 98
02/06/24 14:54 02/06/24 17:57 02/06/24 17:30 02/06/24 17:57 02/06/24 17:30
Physical Exam
General: No Apparent Distress, Comfortable and Conversant
HEENT: NormoCephalic and Moist mucous membranes
Respiratory: Clear
Cardiac: S1/S2 and Regular Rhythm
GI: Soft, Non Tender and Normal Bowel Sounds
Musculoskeletal: No Cyanosis, Edema, Left Lower Extremity and Edema, Right Lower Extremity
Skin: Warm and Dry
Neuro: Awake, Alert, AO x 3 and Nonfocal/grossly intact
Psych: Calm and Intact Judgment/Insight
Laboratory Results
-
02/06/24 15:07
02/06/24 15:07
Laboratory Results
Total Bilirubin 1.0 mg/dl (0.2-1.3) 02/06/24 15:07
AST 26 U/L (17-59) 02/06/24 15:07
ALT 15 U/L (0-50) 02/06/24 15:07
Alkaline Phosphatase 68 U/L (38-126) 02/06/24 15:07
Impression/Plan
-
Assessment/Plan
Increased leg swelling along with weight gain over the 1 week prior to admission
Concern for Acute on chronic HFrEF exacerbation
-Cardiac BNP of 6860 (was 2930 a few months ago)
-Weight is 97.8 kg, lower than the discharge weight of 108.5 kg a few months ago
-Continue I's and O's, daily weights
-Start IV Lasix 60 mg BID
-Cardiology will be consulted, recommendations appreciated
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
#Hypokalemia
-Potassium given in the ER
-Recheck BMP tonight
-Follow-up on magnesium
# CKD 3
-Creatinine 1.9 today, better than the Cr on discharge a few months ago at 2.4
-Follow Cr with diuresis; RHC depending on diuresis and Cr
#History of Hypothermia
#Chronic Pancytopenia
-Suspect on last admission to have underlying myelodysplastic syndrome
Chronic macrocytic anemia
Anemia with iron deficiency
-Continue ferrous sulfate
-Hemoglobin stable
Paroxysmal atrial fibrillation with pacemaker
-Continue Coreg
-Continue Eliquis
Hypothyroidism
-Continue levothyroxine
Sleep apnea, CPAP intolerant
Chronic lymphedema
History of visual hallucinations
BPH
-Continue dutasteride, tamsulosin
Obesity
DNR/DNI (patient and his daugter confirmed patient's DNR status at the time of admission)
DVT prophylaxis�Eliquis
Cardiac diet
[2024-02-06 18:36] LABS: Magnesium 2.3 mg/dl (1.6-2.3)
--- NOTE | 2024-02-06 21:00 | PTCARENOTE ---
Pt arrived to room 416-02. Pt did stand+pivot from stretcher to bed. Pt AAOx3, VSS. Pt in no signs of acute distress, respirations regular. Pt oriented to room, call trevino placed within reach.
[2024-02-06 21:50] LABS: Troponin I 0.036 ng/ml
[2024-02-06] MEDS: COREG 3.125 MG PO (22:12)
[2024-02-06] MEDS: FLOMAX 0.4 MG PO (22:12)
[2024-02-06] MEDS: ELIQUIS 2.5 MG PO (22:12)
[2024-02-06] MEDS: ZINC OXIDE OINTMENT 1 APPLIC TOPICAL (22:13)
[2024-02-06] MEDS: LOTRISONE CREAM 1 APPLIC TOPICAL (22:13)
[2024-02-06] MEDS: DESENEX/MITRAZOL/ZEASORB 1 APPLIC TOPICAL (22:13)
[2024-02-07] VITALS (7 sets, daily range): BP systolic 103–129; BP diastolic 56–73; PULSE 59–60; O2SAT 97–98; BMI 28.0
[2024-02-07 02:50] LABS: Blood Urea Nitrogen 52 mg/dl (9-20); Calcium 8.8 mg/dl (8.4-10.2); Carbon Dioxide 33 mmol/L (22-30); Chloride 103 mmol/L (98-107); Estimated Creatinine Clearance 32 ml/min; Glucose 107 mg/dl (70-99); Potassium 3.4 mmol/L (3.5-5.1); Sodium 140 mmol/L (135-145); eGFR 36.21
[2024-02-07 02:55] LABS: Troponin I 0.036 ng/ml
[2024-02-07] MEDS: SYNTHROID 150 MCG PO (06:02)
[2024-02-07] MEDS: KCL 40 MEQ PO (06:32)
--- NOTE | 2024-02-07 06:38 | W.PN.HOSP.TC ---
Today's Communication/Plan
-
cont IV diuresis
daily weights I/O
Aldactone as per cardio
monitor electrolytes
PT/OT
Assessment / Plan
Assessment / Plan
Physical Exam
General: No Apparent Distress, Comfortable and Conversant
HEENT: NormoCephalic and Moist mucous membranes
Respiratory: Clear
Cardiac: S1/S2 and Regular Rhythm
GI: Soft, Non Tender and Normal Bowel Sounds
Musculoskeletal: No Cyanosis, Lower ext Edema b/l
Skin: Warm and Dry
Neuro: Awake, Alert, AO x 3 and Nonfocal/grossly intact
Psych: Calm and Intact Judgment/Insight
88M HFrEF pAfib ppm CVA CKD3 COPD Sleep Apnea Pancytopenia Hypothyroidism BPH Obesity here for Acute on Chronic HFrEF
Increased leg swelling along with weight gain over the 1 week prior to admission
Concern for Acute on chronic HFrEF exacerbation
-Cardiac BNP of 6860 (was 2930 a few months ago)
-Weight is 97.8 kg, lower than the discharge weight of 108.5 kg a few months ago
-Continue I's and O's, daily weights
-Started IV Lasix 60 mg BID, cont
-Cardiology Nephro consults appreciated
-Aldactone added
#Hypokalemia
Monitor and replete as necessary
# CKD 3
-Creatinine 1.9 today, better than the Cr on discharge a few months ago at 2.4
-Cont to monitor
#History of Hypothermia
#Chronic Pancytopenia
-Suspect on last admission to have underlying myelodysplastic syndrome
Chronic macrocytic anemia
Anemia with iron deficiency
-Continue ferrous sulfate
-Hemoglobin stable
Paroxysmal atrial fibrillation with pacemaker
-Continue Coreg
-Continue Eliquis
Hypothyroidism
-Continue levothyroxine
Sleep apnea, CPAP intolerant
Chronic lymphedema
History of visual hallucinations
BPH
-Continue dutasteride, tamsulosin
Obesity
DNR/DNI
DVT prophylaxis�Eliquis
I spent a total of 50 minutes with the patient or on the floor. More than 50% of this time involved counseling and coordination of care.
Anticipated Discharge: 24 - 48 hours
Subjective/Interval History
-
Date of Service: February 07, 2024
Reports feeling well. Notes weight loss since start IV diuresis
Objective Data
-
Labs:
Laboratory Results
02/07/24 02/07/24
02:03 06:00
WBC Pending
Hgb Pending
Hct Pending
Plt Count Pending
Sodium 140 Pending
Potassium 3.4 L Pending
Chloride 103 Pending
Carbon Dioxide 33 H Pending
BUN 52 H Pending
Creatinine 1.8 H Pending
Glucose 107 H Pending
Calcium 8.8 Pending
Vital Signs:
Vital Signs
Temp Pulse Resp BP Pulse Ox
98.0 F 62 20 103/62 95
02/07/24 03:02 02/07/24 03:02 02/07/24 03:02 02/07/24 03:02 02/07/24 03:02
I&O
02/05/24 02/06/24 02/07/24
06:59 06:59 06:59
Intake Total 480 / 480
Output Total 1220 / 1220
Balance -740 / -740
--- NOTE | 2024-02-07 08:04 | CON.CAR ---
Addendum entered and electronically signed by Jaret Goldman MD 02/07/24 10:39:
-
-
Came in with a k+ of3.2 suggesting we can stop the KCl and send him out on new Aldactone with plans for CAREFUL BMP followup.
-
-
Addendum entered and electronically signed by Jaret Goldman MD 02/07/24 10:34:
I saw and examined the patient.
The CMA OR LPN's note was reviewed and I agree with the note.
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 Fortunately no dyspnea,
PND, orthopnea. No clear precipitant for his acute HF exacerbation. No obvious med nonadherence or infection or new illness.
Plan:
IV diuresis
Add SGLT2-I if renal and medicine agree. His VA benefits should cover his Eliquis and the SGLT2-I (I reviewed with patient)
Add MRA if renal agrees
BP soft for ARNI but could consider ARB or GEOVANY-I as well
Goal dry weight now seems to be 202 lbs (91.8 kg)
We spent more than 75 min on patient encounter today.
Original Note:
Consultation
Consultation Request
Date/Time Consultation Requested: 02/06/24 1844
Date/Time Consultation Performed: 02/07/24 0800
Requesting Provider: Dr. Ellis
Performing Provider: Ananya ZHAO for Dr. Goldman
Reason for Consultation: CHF
Medical History
-
Chief Complaint: edema, weight gain, decreased urine output
History of Present Illness:
88 y/o male with HFrEF, Biventricular pacemaker (BS), Permanent AFIB on Eliquis, chronic lymphedema, and CKD (stage IV per OP nephro note), who is here for evaluation of 6 lb weight gain over the last week with increased LE edema and decreased urine
output. He denies any CP or SOB. He is laying flat without SOB. Denies orthopnea or PND. Last admission 09/2023, he was d/c'd at weight of about 109 kg and he is admitted with weight of about 98 kg (in ER). However, he tells me that since that d/c he
has been diligent about his diet. His dry weight is 202 lbs. He takes his meds and lasix was recently increased as OP without helping with weight or edema.
Past Medical History
Past Medical History: Arrhythmias, CHF and Renal Failure
Social History
Tobacco: Non-Smoker
Living: Other ('[place]')
Family History
Family History: Reviewed & Not Pertinent
Allergies / Home Medications
Allergy/AdvReac Type Severity Reaction Status Date / Time
No Known Allergies Allergy Verified 02/06/24 14:54
�Medication �Instructions �Recorded �Confirmed �Type
acetaminophen 325 mg tablet 650 mg PO Q8HPRN PRN mild 08/22/23 02/06/24 History
(Tylenol) pain/temp>100
apixaban 2.5 mg tablet (Eliquis) 2.5 mg PO BID Blood Clot 08/22/23 02/06/24 History
Prevention/Tx
cyanocobalamin (vitamin B-12) 1,000 mcg PO NOON Supplement 08/22/23 02/06/24 History
1,000 mcg tablet
dutasteride 0.5 mg capsule 0.5 mg PO NOON Urinary Issue 08/22/23 02/06/24 History
(Avodart)
levothyroxine 150 mcg capsule 150 mcg PO DAILY @ 0600 Thyroid 08/22/23 02/06/24 History
magnesium hydroxide 400 mg/5 mL 30 ml PO HSPRN PRN CONSTIPATION 08/22/23 02/06/24 History
oral suspension (Milk of Magnesia)
tamsulosin 0.4 mg capsule (Flomax) 0.4 mg PO BID@1200,2200 Urinary 08/22/23 02/06/24 History
Issue
sodium chloride 0.65 % nasal spray 1 spray intranasal TIDPRN PRN 09/21/23 02/06/24 History
aerosol (Deep Sea Nasal) nasal dryness
furosemide 80 mg tablet 80 mg PO BID@0800,1600 #60 tabs 09/27/23 02/06/24 Rx
carvedilol 3.125 mg tablet (Coreg) 3.125 mg PO BID 02/06/24 02/06/24 History
clobetasol 0.05 % topical cream 1 applic topical BIDPRN PRN FLARES 02/06/24 02/06/24 History
clotrimazole-betamethasone 1 1 applic topical BID RASH 02/06/24 02/06/24 History
%-0.05 % topical cream
docusate sodium 100 mg capsule 200 mg PO DAILY 02/06/24 02/06/24 History
(Colace)
famotidine 40 mg tablet (Pepcid) 40 mg PO NOON 02/06/24 02/06/24 History
ferrous sulfate 325 mg (65 mg 325 mg PO NOON 02/06/24 02/06/24 History
iron) tablet (FeroSul)
furosemide 40 mg tablet (Lasix) 40 mg PO NOON 02/06/24 02/06/24 History
guaifenesin 100 mg/5 mL oral 100 mg PO Q6HPRN PRN COUGH 02/06/24 02/06/24 History
liquid (Tussin)
hydroxyzine HCl 50 mg tablet 50 mg PO Q8HPRN PRN PRURITIS 02/06/24 02/06/24 History
nystatin 100,000 unit/gram topical 1 applic topical NOON ABD FOLDS 02/06/24 02/06/24 History
powder
polyethylene glycol 3350 17 gram 17 g PO DAILYPRN PRN CONSTIPATION 02/06/24 02/06/24 History
oral powder packet (Miralax)
zinc oxide 20 % topical ointment 1 applic topical BID INCONTINENCE 02/06/24 02/06/24 History
zinc oxide 20 % topical ointment 1 applic topical DAILYPRN PRN 02/06/24 02/06/24 History
BUTTOCKS
Review of Systems
-
History Source: Patient
All other systems: Negative unless noted
Constitutional: Weight Gain
Musculoskeletal: Edema
Physical Exam
Vital Signs
Temp Pulse Resp BP Pulse Ox
98 F 61 18 117/66 97
02/07/24 07:29 02/07/24 07:29 02/07/24 07:29 02/07/24 07:29 02/07/24 07:29
Lab Results
Troponin I 0.036 ng/ml H* 02/07/24 02:03
Vju-G-Jncftlqnvky Pept 6860 pg/ml 02/06/24 15:07
Physical Exam
General: Well Developed, Well Nourished and No Apparent Distress
HEENT: Normocephalic and Anicteric
Respiratory: Clear and Non Labored Respirations
Cardiac: Regular Rhythm
Musculoskeletal: Edema (moderate BLE edema)
Neuro: AO x 3
Psych: Calm
Impression / Plan
-
HFrEF: acute on chronic
-most recent echo 08/23/23: LVEF 40% with mild global hypokinesis. Dilated and hypokinetic RV. Moderate to severe tricuspid regurgitation. Estimated PASP 45-50 mmHg and RA 8 mmHg. Will update.
-continue IV Lasix, which requires intensive monitoring
-labs this AM are pending. Hypokalemia noted on arrival and replaced.
-continue Coreg- past notes reviewed and GDMT has been limited by BP and CKD. Will palencia SGLT2 inhibitors for patient. Also may be able to increase BB this admit. Monitor BP response with diuresis. Can discuss with nephro if patient could be on
RAAS or MRA meds, or if need to continue to avoid with renal dysfunction.
-dry weight is 202 lbs per patient and he is currently 206 lbs. Of note, LE edema is worse than usual, but he does have baseline lymphedema. Compression to LE's.
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
CKD:
-nephrology is consulted
-monitor with diuresis
Permanent AFIB:
-stable, rate controlled
-continue Eliquis for OAC for his [id number] score of at least 3 for age and CHF
Abnormal troponin:
-acute non-ischemic myocardial injury in setting of CHF exacerbation
-denies CP or SOB
-checking echo as above
Data Reviewed
-
EKG: Tracing Personally Visualized and interpreted (V-paced 75 BPM)
Radiology: Report Reviewed by me (CXR: Cardiomegaly with a small left pleural effusion.)
Medical Tests (Nuc Med, Echo etc): Report Reviewed by me (echo 08/23/23: LVEF 40% with mild global hypokinesis. Dilated and hypokinetic RV. Moderate to severe tricuspid regurgitation. Estimated PASP 45-50 mmHg and RA 8 mmHg.)
Labs: Labs Reviewed by me
[2024-02-07 10:08] LABS: Hematocrit 36.8 % (39.0-52.0); Hemoglobin 12.3 g/dL (13.0-18.0); Mean Corp Hgb Conc. 33.4 g/dL (33.0-37.0); Mean Corpuscular Hgb 30.3 pg (27.0-31.0); Mean Corpuscular Volume 90.6 fL (80.0-94.0); Mean Platelet Volume 10.3 fL (7.4-10.4); Platelet Count 124 10^3/uL (130-400); Red Blood Cell Count 4.06 10^6/uL (4.70-6.10); Red Cell Dist. Width 16.4 % (11.5-14.5)
[2024-02-07] MEDS: ELIQUIS 2.5 MG PO ×2 (10:09→21:33)
[2024-02-07] MEDS: COREG 3.125 MG PO ×2 (10:12→21:33)
[2024-02-07] MEDS: LASIX 60 MG IV ×2 (10:19→17:58)
[2024-02-07] MEDS: DESENEX/MITRAZOL/ZEASORB 1 APPLIC TOPICAL ×2 (10:23→21:34)
[2024-02-07] MEDS: ZINC OXIDE OINTMENT 1 APPLIC TOPICAL ×2 (10:24→21:34)
[2024-02-07] MEDS: LOTRISONE CREAM 1 APPLIC TOPICAL ×2 (10:25→21:34)
[2024-02-07 10:31] LABS: Troponin I 0.028 ng/ml
[2024-02-07 11:06] LABS: Blood Urea Nitrogen 47 mg/dl (9-20); Calcium 9.1 mg/dl (8.4-10.2); Carbon Dioxide 31 mmol/L (22-30); Chloride 102 mmol/L (98-107); Estimated Creatinine Clearance 31 ml/min; Glucose 102 mg/dl (70-99); Magnesium 2.2 mg/dl (1.6-2.3); Sodium 138 mmol/L (135-145); eGFR 33.93
--- NOTE | 2024-02-07 11:21 | CM ---
Addendum entered by Salima Martinez 02/07/24 15:55:
CM spoke with nurse Ellison from the [facility], discussed patients PT notes, per Scot, patient appears to be at baseline, patient is typically ambulatory in room with RW, for farther distance requires assistance. Patient will need script for PT/OT to
continue therapy upon discharge (Gelacio PT). Scot reports [facility] new pharmacy is [facility] out of [place] ([phone]).
Addendum entered by Salima Martinez 02/07/24 11:34:
CM spoke with Dorota from [facility] office ([phone]), would be able to cover medication, would need discharge summary and script faxed to [phone]. Dorota reports medication can take about two weeks, CM will provide patient with medication
coupon upon discharge.
Plan; will need discharge summary and script for either Jardiance or Farxiga faxed to [facility] ([phone]) upon discharge, watch for PT/OT recommendations for return to [facility].
Original Note:
CM received consult for cost of Jardiance/Farxiga 10 mg PO daily. Per ambulatory orders: Jardiance 10mg: $161.76, Farxiga: $154, shared with patient. Patient reports he would like to see if the [place] can assist with any coverage, [facility] [place], doctor is Laurie Caruso, gives CM approval to call [place].
Patient resides in the [facility]. Patient reports he is currently working with [facility] PT/OT at the [facility] (with therapist Jose Elias and Sincere). Patient denies SNF history. Patient PCP Dr. Alas, pharmacy [facility], patient reports
pharmacy has recently been changed, unsure new pharmacy, CM will confirm with [facility]. Patient confirms he has prescription coverage. CM placed call to [facility], left message for nurse Ellison to obtain patients PLOF. CM will continue to follow for
all discharge planning needs.
Plan; return to [facility] with Brizuela PT/OT likely, will watch for PT/OT recommendations.
[2024-02-07] MEDS: FEOSOL 325 MG PO (13:46)
[2024-02-07] MEDS: PEPCID 20 MG PO (13:46)
[2024-02-07] MEDS: FLOMAX 0.4 MG PO ×2 (13:46→21:33)
[2024-02-07] MEDS: VITAMIN B-12 1000 MCG PO (13:46)
--- NOTE | 2024-02-07 13:46 | W.CON.NEPH ---
Consultation
-
Date/Time Consultation Requested: 02/06/2024 18:45PM
Date/Time Consultation Performed: 02/07/2024 1:46PM
Requesting Provider: Celestino Ellis
Performing Provider: Karen Jansen
Reason for Consultation: CKD
Medical History
-
Chief Complaint: TRU on CKD
History of Present Illness:
Mr. Garcia is an 88-year-old gentleman who has history of HFrEF, pAFib with PM, hypothermia, CKD 3, anemia, hypothyroidism, sleep apnea, chronic lymphedema, visual hallucinations, BPH, obesity who presented on 02/05 with increased LE swelling
and poor urine output for 1 week.
Of note the patient was recently admitted from 08/21-08/25 for ADHF. Found to have HFrEF (EF 40%), moderate to severe TR) PASP 45-50mmHg. He was treated with lasix. He also was treated for a UTI 2/ to Klebsiella at the time. Nephrology was consulted
during his last hospitalization for assistance with diuretics and abnormal kidney function. We reviewed records from [facility] and he was thought to be have a Cr baseline of 1.8-2.4 (2.4 in June 2023). He had another admission in September for
ADHF, discharged with Cr of 2.4 and lasix 80mg BID and metolazone with good response. EDW thought to be 110kg.
Past Medical History
Heart failure preserved ejection fraction
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
Paroxysmal atrial fibrillation
Pacemaker
Hypothyroidism
Lymphedema
Past Surgical History: None
Social History
Tobacco: Non-Smoker
Alcohol: None
Drug: None
Family History
Family History: Not Pertinent
Allergies / Home Medications
Allergy/AdvReac Type Severity Reaction Status Date / Time
No Known Allergies Allergy Verified 02/06/24 14:54
�Medication �Instructions �Recorded �Confirmed �Type
acetaminophen 325 mg tablet 650 mg PO Q8HPRN PRN mild 08/22/23 02/06/24 History
(Tylenol) pain/temp>100
apixaban 2.5 mg tablet (Eliquis) 2.5 mg PO BID Blood Clot 08/22/23 02/06/24 History
Prevention/Tx
cyanocobalamin (vitamin B-12) 1,000 mcg PO NOON Supplement 08/22/23 02/06/24 History
1,000 mcg tablet
dutasteride 0.5 mg capsule 0.5 mg PO NOON Urinary Issue 08/22/23 02/06/24 History
(Avodart)
levothyroxine 150 mcg capsule 150 mcg PO DAILY @ 0600 Thyroid 08/22/23 02/06/24 History
magnesium hydroxide 400 mg/5 mL 30 ml PO HSPRN PRN CONSTIPATION 08/22/23 02/06/24 History
oral suspension (Milk of Magnesia)
tamsulosin 0.4 mg capsule (Flomax) 0.4 mg PO BID@1200,2200 Urinary 08/22/23 02/06/24 History
Issue
sodium chloride 0.65 % nasal spray 1 spray intranasal TIDPRN PRN 09/21/23 02/06/24 History
aerosol (Deep Sea Nasal) nasal dryness
furosemide 80 mg tablet 80 mg PO BID@0800,1600 #60 tabs 09/27/23 02/06/24 Rx
carvedilol 3.125 mg tablet (Coreg) 3.125 mg PO BID 02/06/24 02/06/24 History
clobetasol 0.05 % topical cream 1 applic topical BIDPRN PRN FLARES 02/06/24 02/06/24 History
clotrimazole-betamethasone 1 1 applic topical BID RASH 02/06/24 02/06/24 History
%-0.05 % topical cream
docusate sodium 100 mg capsule 200 mg PO DAILY 02/06/24 02/06/24 History
(Colace)
famotidine 40 mg tablet (Pepcid) 40 mg PO NOON 02/06/24 02/06/24 History
ferrous sulfate 325 mg (65 mg 325 mg PO NOON 02/06/24 02/06/24 History
iron) tablet (FeroSul)
furosemide 40 mg tablet (Lasix) 40 mg PO NOON 02/06/24 02/06/24 History
guaifenesin 100 mg/5 mL oral 100 mg PO Q6HPRN PRN COUGH 02/06/24 02/06/24 History
liquid (Tussin)
hydroxyzine HCl 50 mg tablet 50 mg PO Q8HPRN PRN PRURITIS 02/06/24 02/06/24 History
nystatin 100,000 unit/gram topical 1 applic topical NOON ABD FOLDS 02/06/24 02/06/24 History
powder
polyethylene glycol 3350 17 gram 17 g PO DAILYPRN PRN CONSTIPATION 02/06/24 02/06/24 History
oral powder packet (Miralax)
zinc oxide 20 % topical ointment 1 applic topical BID INCONTINENCE 02/06/24 02/06/24 History
zinc oxide 20 % topical ointment 1 applic topical DAILYPRN PRN 02/06/24 02/06/24 History
BUTTOCKS
Review of Systems
-
History Source: Patient
All other systems: Negative unless noted
Constitutional: Fatigue
: Difficulty Voiding
Musculoskeletal: Edema
Physical Exam
Vital Signs
Vital Signs
Temp Pulse Resp BP Pulse Ox
98.3 F 61 20 121/73 97
02/07/24 11:18 02/07/24 11:18 02/07/24 11:18 02/07/24 11:18 02/07/24 11:18
Lab Results
WBC 4.0 10^3/uL (4.8-10.8) L 02/07/24 09:22
RBC 4.06 10^6/uL (4.70-6.10) L 02/07/24 09:22
Hgb 12.3 g/dL (13.0-18.0) L 02/07/24 09:22
Hct 36.8 % (39.0-52.0) L 02/07/24 09:22
Plt Count 124 10^3/uL (130-400) L 02/07/24 09:22
Sodium 138 mmol/L (135-145) 02/07/24 09:22
Potassium 4.0 mmol/L (3.5-5.1) 02/07/24 09:22
Chloride 102 mmol/L (98-107) 02/07/24 09:22
Carbon Dioxide 31 mmol/L (22-30) H 02/07/24 09:22
BUN 47 mg/dl (9-20) H 02/07/24 09:22
Creatinine 1.9 mg/dL (0.7-1.3) H 02/07/24 09:22
eGFR 33.93 02/07/24 09:22
Glucose 102 mg/dl (70-99) H 02/07/24 09:22
Calcium 9.1 mg/dl (8.4-10.2) 02/07/24 09:22
Zts-Y-Fnrwigglvvs Pept 6860 pg/ml 02/06/24 15:07
Albumin 3.0 g/dl (3.5-5.0) L 02/06/24 15:07
Physical Exam
General: AOx3, No Distress and Nontoxic
HEENT: PERRL, EOMI, Anicteric, Conjunctivae Clear, Ear/Nose Intact and Hearing Normal
Respiratory: Crackels, Normal Excursion and Nonlabored Respirations
Cardiac: S1/S2, Regular Rate/Rhythm and Edema
Breast: N/A
Abdomen: Soft, Nontender, Nondistended, Normal Bowel Sounds and No Hepatosplenomegaly
Rectal: Deferred by Provider
Genito-urinary: No Costovertebral Tender and Clear Urine
Musculoskeletal: No Clubbing, No Cyanosis and Edema
Skin: No Rash, Warm, Dry, No Clubbing, No Cyanosis, Normal Turgor and No Bruising
Neuro: Nonfocal/Grossly Intact
Hematologic/Lymphatic: No Cervical Lymphadenopathy
Psych: Mood/afflect pleasant, Insight/judgement good and Appropriate
Data Reviewed
-
Radiology: Image Personally Visualized and interpreted (L pleural effusion)
Labs: Labs Reviewed by me, Discussed with Physician and Discussed with Patient
Old Records: Reviewed
Assessment/Plan
-
Assessment
Heart failure reduced ejection fraction (EF 40%)
Anasarca
Acute kidney injury
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
Anemia
Paroxysmal atrial fibrillation
Hypothyroidism
CPAP
Pacemaker
Plan:
creatinine stable at 1.9 and remains nonoliguric
on lasix 60mg IV BID and responding well
metolazone prn
added on spironolactone today
discussed initiating SGLT2-inhibitor. i would be okay with this as kidney function is at baseline
cont fluid and sodium restrict
patient's weight is significantly lower than prior --> needs new EDW
Please closely monitor I/Os
Obtain daily weights
Of note, prior kidney ultrasound without hydronephrosis, chronic medical renal disease and bilateral renal cysts
Follow BMP
[2024-02-08 03:15] VITALS: BP 121/70
[2024-02-08 06:00] VITALS: BMI 28.0
[2024-02-08] MEDS: SYNTHROID 150 MCG PO (06:38)
[2024-02-08 07:00] VITALS: BP 127/65
[2024-02-08 08:10] LABS: Hematocrit 38.1 % (39.0-52.0); Hemoglobin 12.7 g/dL (13.0-18.0); Mean Corp Hgb Conc. 33.3 g/dL (33.0-37.0); Mean Corpuscular Hgb 30.8 pg (27.0-31.0); Mean Corpuscular Volume 92.5 fL (80.0-94.0); Mean Platelet Volume 10.7 fL (7.4-10.4); Platelet Count 122 10^3/uL (130-400); Red Blood Cell Count 4.12 10^6/uL (4.70-6.10); Red Cell Dist. Width 16.4 % (11.5-14.5); White Blood Cell Count 3.7 10^3/uL (4.8-10.8)
[2024-02-08] MEDS: COREG 3.125 MG PO ×2 (08:44→21:05)
[2024-02-08] MEDS: ELIQUIS 2.5 MG PO ×2 (08:44→21:05)
[2024-02-08] MEDS: LASIX 60 MG IV ×2 (08:45→15:44)
[2024-02-08] MEDS: ALDACTONE 12.5 MG PO (08:45)
[2024-02-08] MEDS: DESENEX/MITRAZOL/ZEASORB 1 APPLIC TOPICAL ×2 (08:45→21:05)
[2024-02-08 08:46] LABS: Blood Urea Nitrogen 52 mg/dl (9-20); Carbon Dioxide 29 mmol/L (22-30); Chloride 105 mmol/L (98-107); Estimated Creatinine Clearance 32 ml/min; Glucose 92 mg/dl (70-99); eGFR 36.21
[2024-02-08] MEDS: LOTRISONE CREAM 1 APPLIC TOPICAL ×2 (08:46→21:05)
[2024-02-08] MEDS: ZINC OXIDE OINTMENT 1 APPLIC TOPICAL ×2 (08:46→21:06)
[2024-02-08 08:56] LABS: Calcium 9.2 mg/dl (8.4-10.2); Magnesium 2.4 mg/dl (1.6-2.3); Phosphorus 3.3 mg/dl (2.5-4.5); Sodium 139 mmol/L (135-145)
--- NOTE | 2024-02-08 09:55 | W.PN.HOSP.TC ---
Today's Communication/Plan
-
cont diuresis as per cardio
Assessment / Plan
Assessment / Plan
Physical Exam
General: No Apparent Distress, Comfortable and Conversant
HEENT: NormoCephalic and Moist mucous membranes
Respiratory: Clear
Cardiac: S1/S2 and Regular Rhythm
GI: Soft, Non Tender and Normal Bowel Sounds
Musculoskeletal: No Cyanosis, Lower ext Edema b/l
Skin: Warm and Dry
Neuro: Awake, Alert, AO x 3 and Nonfocal/grossly intact
Psych: Calm and Intact Judgment/Insight
88M HFrEF pAfib ppm CVA CKD3 COPD Sleep Apnea Pancytopenia Hypothyroidism BPH Obesity here for Acute on Chronic HFrEF
Increased leg swelling along with weight gain over the 1 week prior to admission
Concern for Acute on chronic HFrEF exacerbation
-Cardiac BNP of 6860 (was 2930 a few months ago)
-Weight is 97.8 kg, lower than the discharge weight of 108.5 kg a few months ago
-Continue I's and O's, daily weights
-Started IV Lasix 60 mg BID, cont
-Cardiology Nephro consults appreciated
-Aldactone added
#Hypokalemia
Monitor and replete as necessary
# CKD 3
-Creatinine 1.9 today, better than the Cr on discharge a few months ago at 2.4
-Cont to monitor
#History of Hypothermia
#Chronic Pancytopenia
-Suspect on last admission to have underlying myelodysplastic syndrome
Chronic macrocytic anemia
Anemia with iron deficiency
-Continue ferrous sulfate
-Hemoglobin stable
Paroxysmal atrial fibrillation with pacemaker
-Continue Coreg
-Continue Eliquis
Hypothyroidism
-Continue levothyroxine
Sleep apnea, CPAP intolerant
Chronic lymphedema
History of visual hallucinations
BPH
-Continue dutasteride, tamsulosin
Obesity
DNR/DNI
DVT prophylaxis�Eliquis
I spent a total of 40 minutes with the patient or on the floor. More than 50% of this time involved counseling and coordination of care.
Anticipated Discharge: 24 - 48 hours
Subjective/Interval History
-
Date of Service: February 08, 2024
No acute distress
Objective Data
-
Labs:
Laboratory Results
02/08/24
06:43
WBC 3.7 L
Hgb 12.7 L
Hct 38.1 L
Plt Count 122 L
Sodium 139
Potassium 4.0
Chloride 105
Carbon Dioxide 29
BUN 52 H
Creatinine 1.8 H
Glucose 92
Calcium 9.2
Vital Signs:
Vital Signs
Temp Pulse Resp BP Pulse Ox
97.8 F 62 18 127/65 98
02/08/24 07:00 02/08/24 07:00 02/08/24 07:00 02/08/24 07:00 02/08/24 07:00
I&O
02/07/24 02/08/24 02/09/24
06:59 06:59 06:59
Intake Total 480 / 480 120 / 120
Output Total 1220 / 1220 2225 / 2225
Balance -740 / -740 -2105 / -2105
--- NOTE | 2024-02-08 10:07 | CM ---
Patient seen at bedside.
Patient was receiving Brizuela PT/OT at [facility].
Therapy recommending PT/OT when he returns to [facility]. Will need script at discharge.
will need discharge summary and script for either Fatmata or Yvonne faxed to [facility] ([phone]) upon discharge.
PLAN: Discharge when stable to [facility] with Brizuela PT/OT.
--- NOTE | 2024-02-08 10:13 | W.PN.CD ---
Today's Communication / Plan
-
-Continue 60 mg IV Lasix BID.
Impression / Plan
-
HFrEF: acute on chronic
-LVEF 40% with mild global hypokinesis; dilated and hypokinetic RV.
-Severe tricuspid regurgitation.; estimated PASP 45-50 mmHg and RA 8 mmHg.
-Continue 60 mg IV Lasix BID.
-Nephrology consulted.
-Continue Coreg- past notes reviewed and GDMT has been limited by BP and CKD.
-Dry weight is 202 lbs per patient and he is currently 206 lbs; chronic lymphedema.
CKD:
-nephrology is consulted
-monitor with diuresis
Permanent AFIB/PPM:
-Rate controlled, V-Paced; RINKMAN-P in place (BS).
-Continue Eliquis for OAC for his [id number] score of at least 3 for age and CHF.
Abnormal troponin:
-Likely acute non-ischemic myocardial injury in setting of CHF exacerbation.
Physical Exam
Vital Signs/Labs
Vital Signs
Temp Pulse Resp BP Pulse Ox
97.8 F 62 18 127/65 98
02/08/24 07:00 02/08/24 07:00 02/08/24 07:00 02/08/24 07:00 02/08/24 07:00
02/07/24 02/08/24 02/09/24
06:59 06:59 06:59
Actual Weight 93.621 kg 93.497 kg
02/08/24 06:43
02/08/24 06:43
Magnesium 2.4 mg/dl (1.6-2.3) H 02/08/24 06:43
02/06/24
15:07
Rax-F-Idtnpmwrvqf Pept 6860
LAB Results
02/06/24 02/07/24 02/07/24
21:16 02:03 09:22
Troponin I 0.036 H* 0.036 H* 0.028
Physical Exam
Constitutional: No acute distress and Comfortable
EENT: Anicteric
Cardiovascular: Rhythm & rate is regular, Pedal edema present (3+), Systolic murmur present (Soft 1/6) and S1S2 is normal
Respiratory: Respiratory effort normal and Lungs clear to auscul.
GI: Soft
Neuro/Psych: AO x 3
Other: Skin (Bilateral pretibial erythema with venous stasis changes)
Data Reviewed
-
Date of Service: February 08, 2024
EKG: Tracing Personally Visualized and interpreted (Telemetry: Atrial fibrillation, V paced)
Echo: Report Reviewed by me (EF 40%, severe TR)
Medical Tests (PFT, Pathology etc): Discussed with Patient
Labs: Labs Reviewed by me
[2024-02-08 11:00] VITALS: BP 146/80
[2024-02-08] MEDS: PEPCID 20 MG PO (12:14)
[2024-02-08] MEDS: FEOSOL 325 MG PO (12:14)
[2024-02-08] MEDS: FLOMAX 0.4 MG PO ×2 (12:14→21:05)
[2024-02-08] MEDS: VITAMIN B-12 1000 MCG PO (12:14)
[2024-02-08 15:00] VITALS: BP 151/80
--- NOTE | 2024-02-08 15:01 | W.PN.NEPH.PH ---
Today's Communication / Plan
-
- sign off
Assessment/Plan
-
Assessment
Heart failure reduced ejection fraction (EF 40%)
Anasarca
Acute kidney injury
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
Anemia
Paroxysmal atrial fibrillation
Hypothyroidism
CPAP
Pacemaker
Plan:
creatinine stable at 1.8 and remains nonoliguric
on lasix 60mg IV BID and responding well
metolazone prn
added on spironolactone today
discussed initiating SGLT2-inhibitor. i would be okay with this as kidney function is at baseline
cont fluid and sodium restrict
patient's weight is significantly lower than prior --> needs new EDW
Please closely monitor I/Os
Obtain daily weights
Of note, prior kidney ultrasound without hydronephrosis, chronic medical renal disease and bilateral renal cysts
Follow BMP
Nephrology will sign off at this time as the patient's kidney function is at baseline.
-
-
Date of Service: February 08, 2024
CC / HPI / ROS
-
Chief Complaint:
CKD
History of Present Illness:
CHF exacerbation
diuresing well with lasix 60mg IV BID
Cr at baseline
Review of Systems:
feeling well
birthday tomorrow
Labs
-
Labs:
WBC 3.7 10^3/uL (4.8-10.8) L 02/08/24 06:43
RBC 4.12 10^6/uL (4.70-6.10) L 02/08/24 06:43
Hgb 12.7 g/dL (13.0-18.0) L 02/08/24 06:43
Hct 38.1 % (39.0-52.0) L 02/08/24 06:43
Plt Count 122 10^3/uL (130-400) L 02/08/24 06:43
Sodium 139 mmol/L (135-145) 02/08/24 06:43
Potassium 4.0 mmol/L (3.5-5.1) 02/08/24 06:43
Chloride 105 mmol/L (98-107) 02/08/24 06:43
Carbon Dioxide 29 mmol/L (22-30) 02/08/24 06:43
BUN 52 mg/dl (9-20) H 02/08/24 06:43
Creatinine 1.8 mg/dL (0.7-1.3) H 02/08/24 06:43
eGFR 36.21 02/08/24 06:43
Glucose 92 mg/dl (70-99) 02/08/24 06:43
Calcium 9.2 mg/dl (8.4-10.2) 02/08/24 06:43
Phosphorus 3.3 mg/dl (2.5-4.5) 02/08/24 06:43
Fra-T-Ungdgdddbtp Pept 6860 pg/ml 02/06/24 15:07
Albumin 3.0 g/dl (3.5-5.0) L 02/06/24 15:07
Physical Exam
-
Vital Signs:
Vital Signs
Temp Pulse Resp BP Pulse Ox
97.8 F 61 18 146/80 99
02/08/24 11:00 02/08/24 11:00 02/08/24 11:00 02/08/24 11:00 02/08/24 11:00
Cardiovascular:: Regular rate and rhythm
Respiratory:: Bilateral: CTA
Lung Excursion:: Normal
Abdomen:: Nontender and Soft
Bowel Sounds:: Normal
Extremity Edema:: +2: Bilateral:
Welsh Catheter: No
[2024-02-08 19:30] VITALS: BP 128/67
[2024-02-08 23:25] VITALS: BP 118/65
[2024-02-09] VITALS (7 sets, daily range): BP systolic 104–145; BP diastolic 55–79; PULSE 58; O2SAT 98; BMI 27.5
--- NOTE | 2024-02-09 03:15 | DOWNTIME ---
There was a [employer] Client Furnace Clerk Downtime on 02/09/2024 from 0100 to 02/09/2024 at 0252. Downtime documentation of patient's care, including medication administrations, has been reconciled in the electronic record per guidelines. Refer to the
patient's paper chart under the miscellaneous tab to see printed paper medication records and downtime forms.
[2024-02-09] MEDS: SYNTHROID 150 MCG PO (06:09)
--- NOTE | 2024-02-09 07:58 | W.PN.HOSP.TC ---
Addendum entered and electronically signed by Priya Valle MD 02/10/24 08:10:
Stage 2 sacral pressure injury, POA
Addendum entered and electronically signed by Priya Valle MD 02/10/24 08:08:
permanent atrial fibrillation
Original Note:
Today's Communication/Plan
-
cont diuresis as per Cardio
Assessment / Plan
Assessment / Plan
Physical Exam
General: No Apparent Distress, Comfortable and Conversant
HEENT: NormoCephalic and Moist mucous membranes
Respiratory: Clear
Cardiac: S1/S2 and Regular Rhythm
GI: Soft, Non Tender and Normal Bowel Sounds
Musculoskeletal: No Cyanosis, Lower ext Edema b/l
Skin: Warm and Dry
Neuro: Awake, Alert, AO x 3 and Nonfocal/grossly intact
Psych: Calm and Intact Judgment/Insight
88M HFrEF pAfib ppm CVA CKD3 COPD Sleep Apnea Pancytopenia Hypothyroidism BPH Obesity here for Acute on Chronic HFrEF
Increased leg swelling along with weight gain over the 1 week prior to admission
Concern for Acute on chronic HFrEF exacerbation
-Cardiac BNP of 6860 (was 2930 a few months ago)
-Weight is 97.8 kg, lower than the discharge weight of 108.5 kg a few months ago
-Continue I's and O's, daily weights
-Started IV Lasix 60 mg BID, cont
-Cardiology Nephro consults appreciated
-Aldactone added
#Hypokalemia
Monitor and replete as necessary
# CKD 3
-Creatinine 1.9 today, better than the Cr on discharge a few months ago at 2.4
-Cont to monitor
#History of Hypothermia
#Chronic Pancytopenia
-Suspect on last admission to have underlying myelodysplastic syndrome
Chronic macrocytic anemia
Anemia with iron deficiency
-Continue ferrous sulfate
-Hemoglobin stable
Paroxysmal atrial fibrillation with pacemaker
-Continue Coreg
-Continue Eliquis
Hypothyroidism
-Continue levothyroxine
Sleep apnea, CPAP intolerant
Chronic lymphedema
History of visual hallucinations
BPH
-Continue dutasteride, tamsulosin
Obesity
DNR/DNI
DVT prophylaxis�Eliquis
discussed with patient, patient's son Gene, and [id number]-uph Leigh
I spent a total of 40 minutes with the patient or on the floor. More than 50% of this time involved counseling and coordination of care.
Anticipated Discharge: Within 24 hours
Subjective/Interval History
-
Date of Service: February 09, 2024
Objective Data
-
Labs:
Laboratory Results
02/09/24
07:02
WBC Pending
Hgb Pending
Hct Pending
Plt Count Pending
Sodium Pending
Potassium Pending
Chloride Pending
Carbon Dioxide Pending
BUN Pending
Creatinine Pending
Glucose Pending
Calcium Pending
Vital Signs:
Vital Signs
Temp Pulse Resp BP Pulse Ox
97.7 F 61 18 104/55 95
02/09/24 03:30 02/09/24 03:30 02/09/24 03:30 02/09/24 03:30 02/09/24 03:30
I&O
02/08/24 02/09/24 02/10/24
06:59 06:59 06:59
Intake Total 120 / 120 1080 / 1080
Output Total 2225 / 2225 2625 / 2625
Balance -2105 / -2105 -1545 / -1545
[2024-02-09 08:20] LABS: Hematocrit 37.5 % (39.0-52.0); Hemoglobin 12.6 g/dL (13.0-18.0); Mean Corp Hgb Conc. 33.6 g/dL (33.0-37.0); Mean Corpuscular Hgb 31.1 pg (27.0-31.0); Mean Corpuscular Volume 92.6 fL (80.0-94.0); Mean Platelet Volume 10.4 fL (7.4-10.4); Platelet Count 141 10^3/uL (130-400); Red Blood Cell Count 4.05 10^6/uL (4.70-6.10); Red Cell Dist. Width 16.2 % (11.5-14.5); White Blood Cell Count 4.1 10^3/uL (4.8-10.8)
[2024-02-09] MEDS: LASIX 60 MG IV ×2 (08:36→16:35)
[2024-02-09] MEDS: COREG 3.125 MG PO ×2 (08:38→21:14)
[2024-02-09] MEDS: ELIQUIS 2.5 MG PO ×2 (08:38→21:14)
[2024-02-09] MEDS: ALDACTONE 12.5 MG PO (08:38)
[2024-02-09] MEDS: DESENEX/MITRAZOL/ZEASORB 1 APPLIC TOPICAL ×2 (08:40→21:16)
[2024-02-09 08:41] LABS: Blood Urea Nitrogen 46 mg/dl (9-20); Calcium 9.3 mg/dl (8.4-10.2); Carbon Dioxide 39 mmol/L (22-30); Chloride 100 mmol/L (98-107); Estimated Creatinine Clearance 32 ml/min; Glucose 103 mg/dl (70-99); Magnesium 2.3 mg/dl (1.6-2.3); Phosphorus 3.2 mg/dl (2.5-4.5); Potassium 3.9 mmol/L (3.5-5.1); Sodium 138 mmol/L (135-145); eGFR 35.98
[2024-02-09] MEDS: LOTRISONE CREAM 1 APPLIC TOPICAL ×2 (08:41→21:17)
[2024-02-09] MEDS: ZINC OXIDE OINTMENT 1 APPLIC TOPICAL ×2 (08:42→21:17)
--- NOTE | 2024-02-09 09:15 | PN.CDI ---
CDI
- -
CDI:
Physician Documentation Request
Admit Date: 02/06/24 19:20
Dear Doctor Tori,
Patient admitted with acute on chronic systolic CHF.
02/06 Nursing skin assessment, 'Stage 2 sacral pressure injury, POA.'
Physician documentation of the type and location of wounds is required for compliant documentation. Based on the above clinical findings and your assessment, please provide the following in your progress note:
Type (etiology) of ulcer/wound:
- Diabetic ulcer
- Arterial (ischemic) ulcer
- Traumatic wound
- Venous stasis ulcer
- Pressure (decubitus) ulcer
- Non-healing surgical wound
- Other
- Unable to determine
For a pressure ulcer, please also include the stage* of the ulcer:
- Stage 1 - Skin intact, non-blanchable redness
- Stage 2 - Partial thickness loss of dermis, includes intact or open blister
- Stage 3 - Full thickness tissue not including bone, tendon or muscle
- Stage 4 - Full thickness tissue loss, including exposed bone, tendon or muscle
- Unstageable - Full thickness loss in which the base of the ulcer is covered by slough (yellow, batres, duarte, green or brown) and/or eschar (batres, brown or black) in the wound bed.
- Unable to determine
Use of terms such as suspected, likely, concern for, or probable (associated with a specific diagnosis that is being evaluated, monitored, or treated as if it exists) are acceptable and can be coded in the inpatient setting, when documented at the
time of discharge.
Thank you,
Marce NERI,RN,CCDS
CDI Specialist
Available via [place] text
Please use your independent medical judgment in providing your response.
*Source: National Pressure Ulcer Advisory Panel (NPUAP)
--- NOTE | 2024-02-09 09:29 | PN.CDI ---
CDI
- -
CDI:
Physician Documentation Request
Admit Date: 02/06/24 19:20
Dear Doctor Tori,
Patient admitted with acute on chronic systolic CHF.
02/07 PN, 'Paroxysmal atrial fibrillation with pacemaker....'
02/07 Cardiology note, 'Permanent AFIB/PPM....'
Due to conflicting documentation, please clarify in your note the type of atrial fib being monitored, evaluated and/ or treated:
Permanent atrial fibrillation
Paroxysmal atrial fibrillation
Other
Use of terms such as suspected, likely, concern for, or probable (associated with a specific diagnosis that is being evaluated, monitored, or treated as if it exists) are acceptable and can be coded in the inpatient setting, when documented at the
time of discharge.
Thank you,
Marce NERI, RN,CCDS
CDI Specialist
Available via [employer] text
Please use your independent medical judgment in providing your response.
--- NOTE | 2024-02-09 11:00 | PTCARENOTE ---
Dr Valle wants pt to stay on tele monitoring due to receiving Lasix 60mg IV BID.
[2024-02-09] MEDS: PEPCID 20 MG PO (11:50)
[2024-02-09] MEDS: FEOSOL 325 MG PO (11:50)
[2024-02-09] MEDS: FLOMAX 0.4 MG PO ×2 (11:50→21:14)
[2024-02-09] MEDS: VITAMIN B-12 1000 MCG PO (11:50)
--- NOTE | 2024-02-09 12:48 | CM ---
Patient seen at bedside.
Cont on IV lasix - diuresis
Patient resident at the [facility].
Had Brizuela therapy at the facility prior to hospitalization.
PT recommending therapy at facility. Will need script.
CM to give coupon for medication.
Dorota from [facility] office ([phone]), would be able to cover medication, would need discharge summary and script faxed to [phone]. Dorota reports medication can take about two weeks, CM will provide patient with medication coupon upon
discharge.
will need discharge summary and script for either Jardiance or Farxiga faxed to [facility] ([phone]) upon discharge.
PLAN: Discharge when stable to the [facility] with Brizuela therapy.
--- NOTE | 2024-02-09 17:07 | W.PN.CD ---
Today's Communication / Plan
-
Will move to PO Lasix with PRN extra for weight gain
Check pBNP and BMP in AM
Consider adding SGLT2-I at discharge
Impression / Plan
-
HFrEF: acute on chronic
-LVEF 40% with mild global hypokinesis; dilated and hypokinetic RV.
-Severe tricuspid regurgitation.; estimated PASP 45-50 mmHg and RA 8 mmHg.
-Continue 60 mg IV Lasix BID.
-Nephrology consulted.
-Continue Coreg- past notes reviewed and GDMT has been limited by BP and CKD.
-Dry weight is 202 lbs per patient and he is currently 206 lbs; chronic lymphedema.
- Today 02/09/2024 weight is 202.3, essentially at dry weight => will move to PO Lasix with PRN extra for weight gain
CKD:
-nephrology is consulted
-monitor with diuresis
Permanent AFIB/PPM:
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
-Continue Eliquis for OAC for his [id number] score of at least 3 for age and CHF.
Abnormal troponin:
-Likely acute non-ischemic myocardial injury in setting of CHF exacerbation.
Physical Exam
Vital Signs/Labs
Vital Signs
Temp Pulse Resp BP Pulse Ox
98.1 F 60 16 136/67 99
02/09/24 15:00 02/09/24 16:35 02/09/24 15:00 02/09/24 16:35 02/09/24 15:00
02/08/24 02/09/24 02/10/24
06:59 06:59 06:59
Actual Weight 93.497 kg 91.943 kg
02/09/24 07:02
02/09/24 07:02
Magnesium 2.3 mg/dl (1.6-2.3) 02/09/24 07:02
08/18/24
15:07
Gri-B-Cvutaepkzpi Pept 6860
LAB Results
02/06/24 02/07/24 02/07/24
21:16 02:03 09:22
Troponin I 0.036 H* 0.036 H* 0.028
Physical Exam
Constitutional: No acute distress
EENT: Anicteric
Cardiovascular: Pedal edema is absent
Respiratory: Respiratory effort normal and Lungs clear to auscul.
GI: Soft and Distention absent
Data Reviewed
-
Date of Service: February 09, 2024
[2024-02-10 03:45] VITALS: BP 111/64
[2024-02-10 05:29] VITALS: BMI 27.7
[2024-02-10] MEDS: SYNTHROID 150 MCG PO (06:23)
[2024-02-10 07:00] VITALS: BP 120/63
--- NOTE | 2024-02-10 07:25 | W.PN.HOSP.TC ---
Today's Communication/Plan
-
discharge
Assessment / Plan
Assessment / Plan
Physical Exam
General: No Apparent Distress, Comfortable and Conversant
HEENT: NormoCephalic and Moist mucous membranes
Respiratory: Clear
Cardiac: S1/S2 and Regular Rhythm
GI: Soft, Non Tender and Normal Bowel Sounds
Musculoskeletal: No Cyanosis, Lower ext Edema b/l
Skin: Warm and Dry
Neuro: Awake, Alert, AO x 3 and Nonfocal/grossly intact
Psych: Calm and Intact Judgment/Insight
88M HFrEF pAfib ppm CVA CKD3 COPD Sleep Apnea Pancytopenia Hypothyroidism BPH Obesity here for Acute on Chronic HFrEF
Increased leg swelling along with weight gain over the 1 week prior to admission
Concern for Acute on chronic HFrEF exacerbation
-Cardiac BNP of 6860 (was 2930 a few months ago)
-Weight is 97.8 kg, lower than the discharge weight of 108.5 kg a few months ago
-Continue I's and O's, daily weights
-improved with IV Lasix 60 mg BID transitioned back to 80 mg bid as per cardiology. Metolazone prn wt gain
-Cardiology Nephro consults appreciated
-Aldactone Farxiga added
#Hypokalemia
Monitor and replete as necessary
# CKD 3
-Creatinine stable baseline 1.8
Chronic macrocytic anemia
Anemia with iron deficiency
-Continue ferrous sulfate
-Hemoglobin stable
Permanent atrial fibrillation with pacemaker
-Continue Coreg
-Continue Eliquis
Hypothyroidism
-Continue levothyroxine
Sleep apnea, CPAP intolerant
Chronic lymphedema
History of visual hallucinations
BPH
-Continue dutasteride, tamsulosin
Obesity
Stage 2 sacral pressure injury, POA
cont local wound care
DNR/DNI
DVT prophylaxis�Eliquis
discussed with patient, patient's son Gene, and Asrvpgbz-og-ygu Leigh
Total Time Preparing Discharge ___50____ minutes including examination of the patient, summary of the hospital stay, instructions for continuing care to all relevant caregivers; and preparation of discharge records, prescriptions, and referral
forms if necessary.
Anticipated Discharge: Today
Subjective/Interval History
-
Date of Service: February 10, 2024
Seen and examined at bedside in no acute distress. Reports feeling well. Eager to go home. Denies new acute issues.
Objective Data
-
Labs:
Laboratory Results
02/10/24
06:22
WBC Pending
Hgb Pending
Hct Pending
Plt Count Pending
Sodium Pending
Potassium Pending
Chloride Pending
Carbon Dioxide Pending
BUN Pending
Creatinine Pending
Glucose Pending
Calcium Pending
Vital Signs:
Vital Signs
Temp Pulse Resp BP Pulse Ox
97.5 F 62 18 111/64 97
02/10/24 03:45 02/10/24 03:45 02/10/24 03:45 02/10/24 03:45 02/10/24 03:45
I&O
02/09/24 02/10/24 02/11/24
06:59 06:59 06:59
Intake Total 1080 / 1080 1080 / 1080
Output Total 2625 / 2625 800 / 800
Balance -1545 / -1545 280 / 280
[2024-02-10 08:07] LABS: Hematocrit 37.5 % (39.0-52.0); Hemoglobin 12.3 g/dL (13.0-18.0); Mean Corp Hgb Conc. 32.8 g/dL (33.0-37.0); Mean Corpuscular Hgb 30.1 pg (27.0-31.0); Mean Corpuscular Volume 91.7 fL (80.0-94.0); Mean Platelet Volume 10.5 fL (7.4-10.4); Platelet Count 147 10^3/uL (130-400); Red Blood Cell Count 4.09 10^6/uL (4.70-6.10); White Blood Cell Count 4.1 10^3/uL (4.8-10.8)
[2024-02-10 08:28] LABS: NT-proBNP 4350 pg/ml
[2024-02-10 08:43] LABS: Blood Urea Nitrogen 48 mg/dl (9-20); Calcium 9.3 mg/dl (8.4-10.2); Chloride 99 mmol/L (98-107); Estimated Creatinine Clearance 32 ml/min; Glucose 95 mg/dl (70-99); Magnesium 2.4 mg/dl (1.6-2.3); Phosphorus 3.3 mg/dl (2.5-4.5); Potassium 4.2 mmol/L (3.5-5.1); Sodium 142 mmol/L (135-145); eGFR 35.98
[2024-02-10] MEDS: ELIQUIS 2.5 MG PO (08:48)
[2024-02-10] MEDS: LASIX 80 MG PO ×2 (08:49→16:22)
[2024-02-10] MEDS: ZINC OXIDE OINTMENT 1 APPLIC TOPICAL (08:50)
[2024-02-10] MEDS: ALDACTONE 12.5 MG PO (08:50)
[2024-02-10] MEDS: COREG 3.125 MG PO (08:51)
[2024-02-10] MEDS: LOTRISONE CREAM 1 APPLIC TOPICAL (08:53)
[2024-02-10] MEDS: DESENEX/MITRAZOL/ZEASORB 1 APPLIC TOPICAL (08:53)
[2024-02-10 09:04] LABS: Carbon Dioxide 35 mmol/L (22-30)
[2024-02-10 11:00] VITALS: BP 127/65
--- NOTE | 2024-02-10 11:45 | W.PN.CD ---
Today's Communication / Plan
-
Lasix 80 mg po bid, metolazone 5 mg 30 mins prior to AM dose for weight gain
Start Farxiga 10 mg
We will sign off pls call with questions/concerns.
Impression / Plan
-
HFrEF: acute on chronic
-LVEF 40% with mild global hypokinesis; dilated and hypokinetic RV.
-Severe tricuspid regurgitation.; estimated PASP 45-50 mmHg and RA 8 mmHg.
-Nephrology consulted.
-Continue Coreg- past notes reviewed and GDMT has been limited by BP and CKD.
-Dry weight is 204 lbs per patient and he is currently 206 lbs; chronic lymphedema.
- Lasix 80 mg bid, if weight is up 3 lbs in a day or 5 lbs in a week then 5 mg Metolazone prior to AM dose
- Started farxiga 10 mg daily
CKD:
-nephrology is consulted
-monitor with diuresis
Permanent AFIB/PPM:
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
-Continue Eliquis for OAC for his [id number] score of at least 3 for age and CHF.
Abnormal troponin:
-Likely acute non-ischemic myocardial injury in setting of CHF exacerbation.
Physical Exam
Vital Signs/Labs
Vital Signs
Temp Pulse Resp BP Pulse Ox
97.5 F 61 18 120/63 99
02/10/24 07:00 02/10/24 07:00 02/10/24 07:00 02/10/24 08:51 02/10/24 07:00
02/09/24 02/10/24 02/11/24
06:59 06:59 06:59
Actual Weight 202 lb 11.2 oz 204 lb 3 oz
02/10/24 06:22
02/10/24 06:22
Magnesium 2.4 mg/dl (1.6-2.3) H 02/10/24 06:22
02/06/24 02/10/24
15:07 06:22
Wry-Q-Dtruevfpnop Pept 2600 1060
Physical Exam
Constitutional: No acute distress and Comfortable
EENT: Anicteric
Cardiovascular: Rhythm & rate is regular and Pedal edema present
Respiratory: Respiratory effort normal and Lungs clear to auscul.
GI: Soft
Neuro/Psych: AO x 3
Data Reviewed
-
Date of Service: February 10, 2024
EKG: Tracing Personally Visualized and interpreted (paced)
Echo: Report Reviewed by me
Labs: Labs Reviewed by me
[2024-02-10] MEDS: FARXIGA 10 MG PO (11:47)
[2024-02-10] MEDS: VITAMIN B-12 1000 MCG PO (11:47)
[2024-02-10] MEDS: FLOMAX 0.4 MG PO (11:47)
[2024-02-10] MEDS: FEOSOL 325 MG PO (11:48)
[2024-02-10] MEDS: PEPCID 20 MG PO (11:49)
[2024-02-10 15:00] VITALS: BP 116/65
--- NOTE | 2024-02-10 15:30 | W.DCSUMMARY ---
Discharge Summary
Discharge Data
Date of Admission: 02/06/24
Date of Discharge: 02/10/24
-
Pending Results: No
Discharge Plan
-
Patient Disposition: Home with Home Care
Discharge Diagnosis/Procedures: Lymphedema
Acute on Chronic Heart Failure with Reduced Ejection Fraction
Chronic Kidney Disease Stage III
Mild Anemia
permanent atrial fibrillation with pacemaker
Hypothyroidism
Condition: Fair
Diet: Low Cholesterol and 2 Gram Sodium
Additional Diets: 60 oz fluid restriction
Activity: As tolerated and With Walker
Driving Restrictions: No driving
Bathing Restrictions: None
Blood Work: Please repeat CBC and BMP with primary care provider in 1 week of discharge.
Other Services: PT and OT
Specialty Instructions: Weigh Daily- Call MD for wt gain/loss 3 lbs overnight/5 lbs in 1 week
Activity Restrictions/Additional Instructions:
Please follow up with primary care provider in 1 week of discharge and Cardiology in 2 weeks of discharge.
Farxiga and Aldactone have been prescribed for better control/treatment heart Failure.
Metolazone has been prescribed as needed for wt gain 3lbs overnight or 5 lbs in 1 week. When needed, take 30 min before morning Lasix dose.
Please take medications as prescribed/recommended and follow up with primary care provider and/or other healthcare provider involved in your care for refills and/or further adjustment to your medication regimen as necessary.
Instructions: *CBC Heart Failure Instructions
Referrals:
Yuniel Jones MD [Active] - in two weeks
Jayjay Alas MD [Family Provider] - in one week
Prescriptions:
New
spironolactone 25 mg Tablet
12.5 mg PO DAILY 30 Days Qty: 15 0RF
dapagliflozin propanediol 10 mg Tablet
10 mg PO DAILY 30 Days Qty: 30 0RF
metolazone 5 mg tablet
5 mg PO DAILY PRN (Reason: weight gain) Qty: 30 0RF
Rx Instructions:
as needed for wt gain 3 lbs overnight or 5 lbs in a week.
Take 30 min before morning Lasix
Continued
Eliquis 2.5 mg Tablet
2.5 mg PO BID
dutasteride [Avodart] 0.5 mg Capsule
0.5 mg PO NOON
cyanocobalamin (vitamin B-12) 1,000 mcg Tablet
1,000 mcg PO NOON
tamsulosin [Flomax] 0.4 mg Capsule
0.4 mg PO BID@1200,2200
levothyroxine 150 mcg Capsule
150 mcg PO DAILY @ 0600
acetaminophen [Tylenol] 325 mg Tablet
650 mg PO Q8HPRN PRN (Reason: mild pain/temp>100)
magnesium hydroxide [Milk of Magnesia] 400 mg/5 mL Suspension
30 ml PO HSPRN PRN (Reason: CONSTIPATION)
[place] Nasal 0.65 % Aerosol,[place]
1 spray INTRANASAL TIDPRN PRN (Reason: nasal dryness)
furosemide 80 mg Tablet
80 mg PO BID@0800,1600 Qty: 60 0RF
Rx Instructions:
Dose increased on this admission
polyethylene glycol 3350 [Miralax] 17 gram Powder In Packet
17 g PO DAILYPRN PRN (Reason: CONSTIPATION)
famotidine [Pepcid] 40 mg Tablet
40 mg PO NOON
clobetasol 0.05 % Cream
1 applic TOPICAL BIDPRN PRN (Reason: FLARES)
Rx Instructions:
2 WEEKS ON 1 WEEK OFF
hydroxyzine HCl 50 mg Tablet
50 mg PO Q8HPRN PRN (Reason: PRURITIS)
zinc oxide 20 % Ointment
1 applic TOPICAL BID
zinc oxide 20 % Ointment
1 applic TOPICAL DAILYPRN PRN (Reason: BUTTOCKS)
guaifenesin [Tussin] 100 mg/5 mL Liquid
100 mg PO Q6HPRN PRN (Reason: COUGH)
carvedilol [Coreg] 3.125 mg Tablet
3.125 mg PO BID
clotrimazole-betamethasone 1-0.05 % Cream
1 applic TOPICAL BID
docusate sodium [Colace] 100 mg Capsule
200 mg PO DAILY
nystatin 100,000 unit/gram Powder
1 applic TOPICAL NOON
ferrous sulfate [FeroSul] 325 mg (65 mg iron) tablet
325 mg PO NOON
Discontinued
furosemide [Lasix] 40 mg Tablet
40 mg PO NOON
Rx Instructions:
FOR 5 DAYS STARTING 02/03/24 IN ADDITION TO 80MG STNDING ORDER
Discharge Orders:
Discharge Patient (As Directed); Ordered 02/10/24
Ordered By: Priya Valle
Discharge Date and Time
Print Language: YAKUT
--- NOTE | 2024-02-10 16:31 | CM ---
Patient seen at bedside. IMM explained & signed. In chart.
Discharge today back to the [facility]
Spoke with daughter Milagros & son and they were unable to transport patient.
Transportation discussed along with the cost & patient agreeable to w/c van ($105)
Phone number for transport given to patient for payment.
Transport time set for 5:30PM
Farxiga coupon sent in discharge packet. CM spoke to Alberto at [facility].
Scripts for Brizuela PT/OT in packet.
Faxed discharge summary & Farxiga script to [facility] ([phone]).
PLAN: Discharge to [facility].
Transportation at 5:30pm via wheelchair van.
[employer]
Report - [phone]
Fax - [phone]
== END 2024-02-10 17:40 | disposition home or self-care (01) | DRG 292 ==
LOC: 4 WEST ACU 19:20
PROVIDERS: Emergency Medicine; ADMITTING PHYSICIAN Hospitalist; ATTENDING PHYSICIAN Internal Medicine; EMERGENCY PHYSICIAN Emergency Medicine; FAMILY PHYSICIAN Family Medicine; OTHER PHYSICIAN Internal Medicine Cardiovascular Disease; OTHER PHYSICIAN Student in an Organized Health Care Education/Training Program
DX: I50.23 Acute on chronic systolic (congestive) heart failure (principal); D61.818 Other pancytopenia; N18.4 Chronic kidney disease, stage 4 (severe); N17.9 Acute kidney failure, unspecified; I48.21 Permanent atrial fibrillation; I5A Non-ischemic myocardial injury (non-traumatic); Z66 Do not resuscitate; I89.0 Lymphedema, not elsewhere classified; E03.9 Hypothyroidism, unspecified; G47.30 Sleep apnea, unspecified; N40.0 Benign prostatic hyperplasia without lower urinary tract symptoms; E87.6 Hypokalemia; D50.9 Iron deficiency anemia, unspecified; D53.9 Nutritional anemia, unspecified; L89.152 Pressure ulcer of sacral region, stage 2; I07.1 Rheumatic tricuspid insufficiency; E66.9 Obesity, unspecified; Z68.27 Body mass index [BMI] 27.0-27.9, adult; Z79.01 Long term (current) use of anticoagulants; Z79.890 Hormone replacement therapy; Z79.899 Other long term (current) drug therapy; Z95.0 Presence of cardiac pacemaker
CPT/HCPCS: 71046; 80048; 80053; 83735; 83880; 84100; 84484; 85025; 85027; 87070; 93005; 93306; 96374; 97116; 97162; 97166; 99285

== ENCOUNTER 2024-08-09 06:35 | Day surgery (SDC) | payer OTHER, SELFPAY ==
[2024-08-09 07:33] VITALS: BMI 28.5
[2024-08-09 07:34] VITALS: BMI 28.5
[2024-08-09 07:38] VITALS: BP 125/69
[2024-08-09] MEDS: ALCAINE 0.5% EYE DROPS 1 DROP OPHTH (07:52)
[2024-08-09] MEDS: POLYTRIM OPHTHALMIC SOLUTION 1 DROP OPHTH (07:52)
[2024-08-09] MEDS: PRED FORTE 1% EYE DROPS 1 DROP OPHTH (07:53)
[2024-08-09] MEDS: NEO-SYNEPHRINE 2.5% OPH SOL. 1 DROP OPHTH (07:53)
[2024-08-09] MEDS: CYCLOGYL 1% EYE DROPS 1 DROP OPHTH (07:53)
[2024-08-09] MEDS: ACUVAIL 1 DROPS OPHTH (07:54)
[2024-08-09] MEDS: MYDRIACYL 1 DROP OPHTH (07:54)
[2024-08-09] MEDS: AKTEN OPHTHALMIC GEL 1 ML OPHTH (07:55)
[2024-08-09 09:48] VITALS: BP 123/65
== END 2024-08-09 10:15 ==
LOC: SDS 06:35
PROVIDERS: ATTENDING PHYSICIAN Ophthalmology
PROC: 08RJ3JZ Replacement of Right Lens with Synthetic Substitute, Percutaneous Approach (ICD-10-PCS; 2024-08-09)
DX: H25.11 Age-related nuclear cataract, right eye (principal)
CPT/HCPCS: 66984

== ENCOUNTER → 2024-08-11 11:07 | Outpatient (REF) | payer OTHER, SELFPAY | LOC: RAD 11:07 | PROVIDERS: ATTENDING PHYSICIAN Podiatrist Foot & Ankle Surgery; FAMILY PHYSICIAN Family Medicine | DX: I73.9 Peripheral vascular disease, unspecified (principal); I73.89 Other specified peripheral vascular diseases | CPT/HCPCS: 93922; 93925 ==

== ENCOUNTER → 2024-10-02 12:25 | Outpatient (REF) | payer OTHER, SELFPAY ==
[2024-10-02 13:31] LABS: Hemoglobin 13.2 g/dL (13.0-18.0); Mean Corp Hgb Conc. 33.8 g/dL (33.0-37.0); Mean Corpuscular Hgb 31.5 pg (27.0-31.0); Mean Corpuscular Volume 93.1 fL (80.0-94.0); Platelet Count 141 10^3/uL (130-400); Red Blood Cell Count 4.19 10^6/uL (4.70-6.10); Red Cell Dist. Width 13.7 % (11.5-14.5); White Blood Cell Count 5.5 10^3/uL (4.8-10.8)
[2024-10-02 15:20] LABS: Blood Urea Nitrogen 61 mg/dl (9-20); Calcium 9.2 mg/dl (8.4-10.2); Carbon Dioxide 21 mmol/L (22-30); Chloride 110 mmol/L (98-107); Glucose 99 mg/dl (70-99); Potassium 3.9 mmol/L (3.5-5.1); Sodium 144 mmol/L (135-145); eGFR 23.14
== END ==
LOC: REG 12:25
PROVIDERS: ATTENDING PHYSICIAN Internal Medicine Cardiovascular Disease; FAMILY PHYSICIAN Family Medicine
DX: I50.20 Unspecified systolic (congestive) heart failure (principal); I48.19 Other persistent atrial fibrillation
CPT/HCPCS: 36415; 80048; 85027

== ENCOUNTER → 2025-01-22 09:27 | Outpatient (REF) | payer OTHER, SELFPAY | LOC: RCS 09:27 | PROVIDERS: ATTENDING PHYSICIAN Internal Medicine Cardiovascular Disease; FAMILY PHYSICIAN Family Medicine | DX: I50.20 Unspecified systolic (congestive) heart failure (principal) | CPT/HCPCS: 93306; Q9950 ==

== ENCOUNTER 2025-05-20 12:33 | Inpatient (IN) | payer OTHER, SELFPAY ==
[2025-05-20] VITALS (13 sets, daily range): BP systolic 103–139; BP diastolic 58–91; BMI 26.2; BMI 26.1
--- NOTE | 2025-05-20 08:18 | ED.GENMED ---
History of Present Illness
<CECE Fraser - Last Filed: 05/20/25 12:35>
General
Chief Complaint: Skin Problem
Source: patient
Exam Limitations: none
Time Seen by Provider: 05/20/25 08:16
Nursing documentation reviewed up to this point in time: agreed with
History of Present Illness
History of Present Illness:
Patient is an 89-year-old male with past medical history of CVA chronic kidney disease stage III COPD sleep apnea pancytopenia hypothyroid chronic heart failure iron deficiency anemia A-fib with PM presents to the ER complaining of increasing
swelling in his legs for the past 2 weeks. He also notes that since 3 days ago he has had redness to his bilateral legs/feet area worse on the right. He has been taking Keflex since without relief.
In addition he complains of left lateral neck pain worse with movement and twisting his neck for the past several days.
Past History
<CECE Fraser - Last Filed: 05/20/25 12:35>
Past History
ED Past Medical History: Arrthythmia (Afib), CHF, Hypothyroidism and Other (Stage 3b kidney disease, lymphedema, hypothyroid)
ED Past Surgical History: Cholecystectomy
Social History
Tobacco: Non-smoker
Alcohol: None
Drug: None
Living: assisted living
Phy Exam
<CECE Fraser - Last Filed: 05/20/25 12:35>
General Physical Exam
General Presentation: no apparent distress
General age: appears stated age
General Skin: warm and dry
General Habitus: elderly
General Mental: alert
General Hydration: appears well hydrated
Cardiovascular Exam
Cardiovascular Exam: regular rate/rhythm, normal peripheral pulses and other (+ l/e edema to redness to dorsal right foot )
Neurological Exam
Neurological Exam: alert and oriented x3
Musculoskeletal Exam
Musculoskeletal Exam: other (Positive bilateral lower extremity swelling and redness to dorsal foot on right and slight erythema to left foot as well )
Skin Exam
Skin Exam: normal color and warm/dry
Psychiatric Exam
Psychiatric Exam: normal mood/affect
Course
<CECE Fraser - Last Filed: 05/20/25 12:35>
Orders/Labs/Results
Orders:
Orders
05/20/25 08:30
Electrocardiogram (*1) Urgent
Reason for Study: Other
Other Reason for Exam: Possible Sepsis
EKG- Treatment ONCE
05/20/25 08:34
Acetaminophen [Tylenol] 1,000 mg PO NOW STA
Lidocaine [Lidocaine 4% Patch] 1 patch TOPICAL NOW STA
Apply Lidocaine patch(s) to:: left lateral neck
05/20/25 08:39
Complete Blood Count/With Diff Urgent
Comprehensive Metabolic Panel Urgent
Lactic Acid Q4H
Comment: ON ICE, CANCEL 2ND ORDER IF FIRST LACTIC ACID LEVEL <2
Pro-BNP [NT-proBNP] Urgent
Prothrombin Time Urgent
Blood Culture Q20M
MOHSEN Source: Blood/Venous
Specimen Description:
Comment: Urgent from separate sites. If patient screens positive for possible sepsis
Blood Culture Q20M
MOHSEN Source: Blood/Venous
Specimen Description:
Comment: Urgent from separate sites. If patient screens positive for possible sepsis
05/20/25 08:45
Acetaminophen [Tylenol] 500 mg .ROUTE .STK-MED ONE
05/20/25 10:03
Chest [CR Chest - 2 Views ] Urgent
Comment:
Reason For Exam: sob
05/20/25 10:41
Furosemide [Lasix] 20 mg IV NOW STA
05/20/25 11:02
Vancomycin [Vancocin] 2,000 mg 0.9% Sodium Chloride 500 ml [Nss] 500 ml IV NOW
05/20/25 11:27
Potassium Chloride [KCl] 40 meq PO NOW STA
05/20/25 11:51
CARDIOLOGY CONSULT Routine
Consulting Provider: Yuniel Jones
Was physician already notified: Yes
05/20/25 11:58
Admit/Transfer Patient As Directed
Co-Sign Provider:
Level of Care: Inpatient admission
Assign to:: Telemetry
Physician / Group: [facility]/hospitalist
Diagnosis: CHF
Reason for Telemetry: Arrhythmia
Date to Stop Telemetry: 05/23/25
Time to Stop Telemetry: 11:00
Reason for Hospitalization: CHF
Expected length of stay greater than two midnights?: Yes
ELOS- Estimated Length of Stay in days: 3
I certify the patient meets the requirements for IP care: Yes
PRN Pain Medication Management As Directed
May give lesser potent ordered pain med per pt: Yes
preference::
Protocol:: Medication orders for pain may be administered in a
manner that supports deferring to patient preference
when the pt is:
- Requesting an ordered lesser potent pain medication.
Least to most potent pain medications are defined
as: acetaminophen < NSAID < tramadol < opioids
(morphine, oxycodone, hydromorphone).
- Requesting a lesser dose of the same medication IF
ORDERED.
- Requesting a less intrusive route of administration
if both routes are prescribed by the provider (PO <
IV).
05/20/25 12:04
Code Status As Directed
Resuscitation Status: Do not resuscitate
Reached after discussion with pt or family/Healthcare POA: Yes
DNR Bracelet Application ONCE
05/20/25 12:30
Lactic Acid Q4H
Comment: ON ICE, CANCEL 2ND ORDER IF FIRST LACTIC ACID LEVEL <2
05/23/25 11:00
DC Protocol for Telemetry ONCE
Abnormal Lab Results
05/20/25
08:39
WBC 11.0 H 10^3/uL
(4.8-10.8)
RBC 4.65 L 10^6/uL
(4.70-6.10)
MCHC 32.8 L g/dL
(33.0-37.0)
Abs Immat Gran (auto) 0.2 H 10^3/uL
(0-0.05)
Absolute Neuts (auto) 9.3 H 10^3/uL
(1.4-6.5)
Absolute Lymphs (auto) 0.4 L 10^3/uL
(1.2-3.4)
Absolute Monos (auto) 1.0 H 10^3/uL
(0.1-0.6)
Immature Gran % 1.7 H %
(0-0.5)
Neutrophils % 84.5 H %
(42.2-75.2)
Lymphocytes % 3.9 L %
(20.5-51.1)
Monocytes % 9.4 H %
(1.7-9.3)
PT 19.6 H Sec
(11.4-14.6)
Potassium 3.3 L mmol/L
(3.5-5.1)
BUN 97 H mg/dl
(9-20)
Creatinine 2.6 H mg/dL
(0.7-1.3)
Glucose 111 H mg/dl
(70-99)
Total Bilirubin 1.7 H mg/dl
(0.2-1.3)
Total Protein 6.2 L g/dl
(6.3-8.2)
Albumin 3.4 L g/dl
(3.5-5.0)
05/20/25 08:39
05/20/25 08:39
Vital Signs
Initial and Last Documented VS:
Initial Vital Signs
Pulse Ox
98
05/20/25 08:19
Last Documented Vital Signs
Temp Pulse Resp BP Pulse Ox
97.7 F 72 17 112/83 98
05/20/25 08:22 05/20/25 11:50 05/20/25 08:26 05/20/25 11:50 05/20/25 10:36
Assembler Billiard Table consulted with Physician
Assembler Billiard Table consulted with physician?: Yes
Name of Physician Consulted: Henrietta
<Gillian Shrestha MD - Last Filed: 05/20/25 12:36>
Orders/Labs/Results
Orders:
Orders
05/20/25 08:30
Electrocardiogram (*1) Urgent
Reason for Study: Other
Other Reason for Exam: Possible Sepsis
EKG- Treatment ONCE
05/20/25 08:34
Acetaminophen [Tylenol] 1,000 mg PO NOW STA
Lidocaine [Lidocaine 4% Patch] 1 patch TOPICAL NOW STA
Apply Lidocaine patch(s) to:: left lateral neck
05/20/25 08:39
Complete Blood Count/With Diff Urgent
Comprehensive Metabolic Panel Urgent
Lactic Acid Q4H
Comment: ON ICE, CANCEL 2ND ORDER IF FIRST LACTIC ACID LEVEL <2
Pro-BNP [NT-proBNP] Urgent
Prothrombin Time Urgent
Blood Culture Q20M
MOHSEN Source: Blood/Venous
Specimen Description:
Comment: Urgent from separate sites. If patient screens positive for possible sepsis
Blood Culture Q20M
MOHSEN Source: Blood/Venous
Specimen Description:
Comment: Urgent from separate sites. If patient screens positive for possible sepsis
05/20/25 08:45
Acetaminophen [Tylenol] 500 mg .ROUTE .STK-MED ONE
05/20/25 10:03
Chest [CR Chest - 2 Views ] Urgent
Comment:
Reason For Exam: sob
05/20/25 10:41
Furosemide [Lasix] 20 mg IV NOW STA
05/20/25 11:02
Vancomycin [Vancocin] 2,000 mg 0.9% Sodium Chloride 500 ml [Nss] 500 ml IV NOW
05/20/25 11:27
Potassium Chloride [KCl] 40 meq PO NOW STA
05/20/25 11:51
CARDIOLOGY CONSULT Routine
Consulting Provider: Yuniel Jones
Was physician already notified: Yes
05/20/25 11:58
Admit/Transfer Patient As Directed
Co-Sign Provider:
Level of Care: Inpatient admission
Assign to:: Telemetry
Physician / Group: Chivo/hospitalist
Diagnosis: CHF
Reason for Telemetry: Arrhythmia
Date to Stop Telemetry: 05/23/25
Time to Stop Telemetry: 11:00
Reason for Hospitalization: CHF
Expected length of stay greater than two midnights?: Yes
ELOS- Estimated Length of Stay in days: 3
I certify the patient meets the requirements for IP care: Yes
PRN Pain Medication Management As Directed
May give lesser potent ordered pain med per pt: Yes
preference::
Protocol:: Medication orders for pain may be administered in a
manner that supports deferring to patient preference
when the pt is:
- Requesting an ordered lesser potent pain medication.
Least to most potent pain medications are defined
as: acetaminophen < NSAID < tramadol < opioids
(morphine, oxycodone, hydromorphone).
- Requesting a lesser dose of the same medication IF
ORDERED.
- Requesting a less intrusive route of administration
if both routes are prescribed by the provider (PO <
IV).
05/20/25 12:04
Code Status As Directed
Resuscitation Status: Do not resuscitate
Reached after discussion with pt or family/Healthcare POA: Yes
DNR Bracelet Application ONCE
05/20/25 12:30
Lactic Acid Q4H
Comment: ON ICE, CANCEL 2ND ORDER IF FIRST LACTIC ACID LEVEL <2
05/23/25 11:00
DC Protocol for Telemetry ONCE
Abnormal Lab Results
05/20/25
08:39
WBC 11.0 H 10^3/uL
(4.8-10.8)
RBC 4.65 L 10^6/uL
(4.70-6.10)
MCHC 32.8 L g/dL
(33.0-37.0)
Abs Immat Gran (auto) 0.2 H 10^3/uL
(0-0.05)
Absolute Neuts (auto) 9.3 H 10^3/uL
(1.4-6.5)
Absolute Lymphs (auto) 0.4 L 10^3/uL
(1.2-3.4)
Absolute Monos (auto) 1.0 H 10^3/uL
(0.1-0.6)
Immature Gran % 1.7 H %
(0-0.5)
Neutrophils % 84.5 H %
(42.2-75.2)
Lymphocytes % 3.9 L %
(20.5-51.1)
Monocytes % 9.4 H %
(1.7-9.3)
PT 19.6 H Sec
(11.4-14.6)
Potassium 3.3 L mmol/L
(3.5-5.1)
BUN 97 H mg/dl
(9-20)
Creatinine 2.6 H mg/dL
(0.7-1.3)
Glucose 111 H mg/dl
(70-99)
Total Bilirubin 1.7 H mg/dl
(0.2-1.3)
Total Protein 6.2 L g/dl
(6.3-8.2)
Albumin 3.4 L g/dl
(3.5-5.0)
05/20/25 08:39
05/20/25 08:39
Vital Signs
Initial and Last Documented VS:
Initial Vital Signs
Pulse Ox
98
05/20/25 08:19
Last Documented Vital Signs
Temp Pulse Resp BP Pulse Ox
97.7 F 72 17 112/83 98
05/20/25 08:22 05/20/25 11:50 05/20/25 08:26 05/20/25 11:50 05/20/25 10:36
<CECE Fraser - Last Filed: 05/20/25 12:35>
MDM/Problems Addressed
Differential Diagnosis Includes:
Not limited to CHF exacerbation fluid overload cellulitis
MDM/Problems Addressed:
As documented patient is a an 89-year-old male with chronic kidney disease and heart failure presents for creasing swelling in lower extremities along with redness. Patient has been on antibiotics without improvement. He has worsened. He denies
any shortness of breath he is afebrile no acute distress. White count minimally elevated at 11. Regarding cellulitis will order dose of vancomycin. He has chronic kidney disease is BUN is 97 which is higher than previous and his creatinine today
is 2.6 which is baseline. As discussed in ED physician will give small dose of lasix and will order vanco for cellulitis. His x-ray shows cardiomegaly however no acute pulmonary tumor on x-ray. His lungs are clear he is in no acute distress
nonhypoxic. He did have discomfort in his left neck with presenting musculoskeletal.
Chronic conditions affecting care:
Chronic kidney disease CHF
<CECE Fraser - Last Filed: 05/20/25 12:35>
*Radiology
Radiology exam reviewed: radiology read reviewed
*Pulse Oximetry
SaO2: 98
Oxygen Mode of Delivery: Room air
Patient hypoxic: no
*EKG
Interpreted by ED Provider?: Yes
Heart Rate: 74
Rate: normal
Rhythm: sinus and ventricular paced
*Critical Care Note
Total Time (30-74mins, 75-104mins- exclusive of procedures): Not Applicable
Data Reviewed
Review of Other/Old Records Reveals: Labs and Discharge Summary
ED Attending Note
<CECE Fraser - Last Filed: 05/20/25 12:35>
-
Portions of this chart may have been created with voice recognition software.� Occasional wrong word or��sound alike� substitutions may have occurred due to the inherent limitations of voice recognition software.
<Gillian Shrestha MD - Last Filed: 05/20/25 12:36>
ED Attending Note
Patient seen and examined by attending physician: Yes
I performed the substantive portion of visit, reviewed & personally made and approve the management plan that is documented in note by myself or YARON.: Yes
ED Attending Note:
Patient appears nontoxic. He is breathing comfortably. Patient has erythema of bilateral lower extremities, particularly medial right lower leg area
Discharge Plan
Departure
Patient Disposition: Admit
Date of Disposition: 05/20/25
Time of Disposition: 10:54
Admit to: Telemetry
Admit to doctor: hospitalist
Presentation/result/management discussed w/ accepting MD/DO: Hospitalist
Patient with high blood pressure during this ER visit?: No
Condition: Fair
Covid-19: Not Applicable
Discharge Problem:
Cellulitis, Fluid overload
Interventions
Interventions:
*Risk Screen - Suicide Last Done: 05/20/25 08:24
*General Assessment Last Done: 05/20/25 08:24
*Neglect/Abuse Screening Last Done: 05/20/25 08:24
*ED COVID-19 Vaccine History Last Done: 05/20/25 08:24
*ED Influenza Vaccine History Last Done: 05/20/25 08:24
ED-Skin Assessment Last Done: 05/20/25 08:25
[2025-05-20] MEDS: LIDOCAINE 4% PATCH 1 PATCH TOPICAL (08:46)
[2025-05-20] MEDS: TYLENOL 1000 MG PO (08:46)
[2025-05-20 08:51] LABS: Hematocrit 41.8 % (39.0-52.0); Hemoglobin 13.7 g/dL (13.0-18.0); Mean Corp Hgb Conc. 32.8 g/dL (33.0-37.0); Mean Corpuscular Volume 89.9 fL (80.0-94.0); Nucleated Red Blood Cells % 0 % (-); Platelet Count 209 10^3/uL (130-400); Red Cell Dist. Width 13.4 % (11.5-14.5)
[2025-05-20 08:59] LABS: INR 1.64; PT 19.6 Sec (11.4-14.6)
[2025-05-20 09:23] LABS: ALT (SGPT) 31 U/L (0-50); AST (SGOT) 31 U/L (17-59); Albumin 3.4 g/dl (3.5-5.0); Alkaline Phosphatase 75 U/L (38-126); Blood Urea Nitrogen 97 mg/dl (9-20); Calcium 8.9 mg/dl (8.4-10.2); Carbon Dioxide 23 mmol/L (22-30); Chloride 103 mmol/L (98-107); Estimated Creatinine Clearance 22 ml/min; Glucose 111 mg/dl (70-99); Potassium 3.3 mmol/L (3.5-5.1); Sodium 136 mmol/L (135-145); Total Protein 6.2 g/dl (6.3-8.2); eGFR 23.00
--- NOTE | 2025-05-20 11:22 | HPS.HSE ---
Addendum entered and electronically signed by Vita Waldron MD 05/20/25 15:08:
Holding Aldactone per psych tech
Original Note:
Family Physician
-
Family Physician: Jayjay Alas
Chief Complaint
-
BL LE swelling and redness
L lateral neck pain 2/2 spasm
History of Present Illness
HPI: 89-year-old male with past medical history of CKD, sleep apnea, heart failure, iron deficiency anemia, Pancytopenia, A-fib; p/w BL LE increasing swelling for the past 2 weeks.
He also noted redness to his bilateral legs/feet (R >L ) that started about 3 days HEEL REDUCER. He has been taking Keflex since without relief.
In addition, he complains of localized left lateral neck pain, worse with movement for a few days.
Medical History
Past Medical History
Past Medical History: Reports Other
Additional Past Medical History:
CKD,
sleep apnea,
heart failure,
iron deficiency anemia,
Pancytopenia,
A-fib
Past Surgical History: Reports Cardiac (PPM), Cholecystectomy and Other (Cataract)
Social History
Tobacco: Non-smoker
Alcohol: None
Drug: None
Living: Assisted Living
Family History
Family History: Not pertinent
Allergies / Home Medications
Allergies reflects when Allergies were last updated in [facility].
Home Medications with original date entered in [facility]
Allergy/Medication List:
Allergies
Allergy/AdvReac Type Severity Reaction Status Date / Time
No Known Allergies Allergy Verified 05/20/25 08:27
Home Medications
acetaminophen 325 mg tablet (Tylenol) 650 mg PO Q8HPRN PRN mild pain/temp>100 08/22/23
apixaban 2.5 mg tablet (Eliquis) 2.5 mg PO BID@1200,1700 Blood Clot Prevention/Tx 03/03/24
levothyroxine 150 mcg capsule 150 mcg PO DAILY @ 0600 Thyroid 08/22/23
magnesium hydroxide 400 mg/5 mL oral suspension (Milk of Magnesia) 30 ml PO HSPRN PRN CONSTIPATION 08/22/23
tamsulosin 0.4 mg capsule (Flomax) 0.4 mg PO BID@1200,1700 Urinary Issue 08/22/23
carvedilol 3.125 mg tablet (Coreg) 3.125 mg PO BID@1200,1700 02/06/24
clobetasol 0.05 % topical cream 1 applic topical BIDPRN PRN FLARES 02/06/24
guaifenesin 100 mg/5 mL oral liquid (Tussin) 100 mg PO Q6HPRN PRN COUGH 02/06/24
hydroxyzine HCl 50 mg tablet 50 mg PO Q8HPRN PRN PRURITIS 02/06/24
nystatin 100,000 unit/gram topical powder 1 applic topical NOON ABD FOLDS 02/06/24
polyethylene glycol 3350 17 gram oral powder packet (Miralax) 17 g PO DAILYPRN PRN CONSTIPATION 02/06/24
benzocaine 15 mg-menthol 3.6 mg lozenges (Sore Throat (benzocaine with menthol)) 1 srinivas PO QID PRN sore throat 08/02/24
diclofenac sodium 1 % topical gel (Voltaren Arthritis Pain) 1 ea topical BID 08/02/24
dutasteride 0.5 mg capsule 0.5 mg PO NOON 08/02/24
fluticasone propionate 50 mcg/actuation nasal spray,suspension 1 spray intranasal BID@0800,1600 08/02/24
furosemide 80 mg tablet 80 mg PO BID@1200,1700 08/02/24
menthol 5 % topical patch (Bengay Ultra Strength (menthol)) 1 patch topical DAILY Right Foot Pain 08/02/24
mineral oil-hydrophil petrolat topical ointment 1 applic topical DAILY shins 08/02/24
sertraline 50 mg tablet 50 mg PO NOON 08/02/24
sodium chloride 0.65 % nasal spray aerosol (Saline Nasal) 1 spray intranasal TID PRN Nasal Dryness 08/02/24
spironolactone 25 mg tablet 25 mg PO NOON 08/02/24
triamcinolone acetonide 0.1 % topical cream 1 applic topical BID 08/02/24
zinc oxide 13 % topical cream (Desitin Daily Defense) 1 applic topical BID AT 0800,1600 after cleansing 08/02/24
zinc oxide 13 % topical cream (Desitin Daily Defense) 1 applic topical PRN PRN after cleansing for redness 08/02/24
cephalexin 500 mg capsule 500 mg PO TID 05/20/25
clotrimazole 1 % topical cream 1 applic topical BID 05/20/25
dapagliflozin propanediol 10 mg tablet (Farxiga) 10 mg PO DAILY 05/20/25
glycerin-dimethicone lotion ea topical 05/20/25
hydrocortisone 1 % topical cream 1 applic topical BID PRN itching 05/20/25
loratadine 10 mg tablet 10 mg PO DAILY PRN allergies 05/20/25
metolazone 5 mg tablet 2.5 mg PO DAILY PRN weight gain 05/20/25
Review of Systems
-
Cardiac: Reports See HPI; Denies Chest Pain
Musculoskeletal: Reports Edema (BL LE )
Skin: Reports See HPI and Rash (Mild BL LE)
Physical Exam
Vital Signs
Vital Signs
Temp Pulse Resp BP Pulse Ox
36.5 C 78 17 121/71 98
05/20/25 08:22 05/20/25 08:26 05/20/25 08:26 05/20/25 08:22 05/20/25 10:36
Physical Exam
General: Well Developed, Well Nourished, No Apparent Distress, Comfortable and Conversant
HEENT: NormoCephalic, Moist mucous membranes and Atraumatic
Respiratory: Clear and Non Labored Respirations; No Accessory Resp Muscle Use
Cardiac: S1/S2 and Regular Rhythm; No Murmur or Rub
GI: Soft, Non Tender, Non Distended and Normal Bowel Sounds; No Organomegaly
Rectal: Deferred by Provider
Musculoskeletal: Edema, Left Lower Extremity and Edema, Right Lower Extremity
Skin: Rash (BL LE )
Neuro: Awake and Alert
Psych: Calm and Intact Judgment/Insight
Laboratory Results
-
05/20/25 08:39
05/20/25 08:39
Laboratory Results
PT 19.6 Sec (11.4-14.6) H 05/20/25 08:39
INR 1.64 05/20/25 08:39
Lactic Acid 0.9 mmol/L (0.7-2.0) 05/20/25 08:39
Total Bilirubin 1.7 mg/dl (0.2-1.3) H 05/20/25 08:39
AST 31 U/L (17-59) 05/20/25 08:39
ALT 31 U/L (0-50) 05/20/25 08:39
Alkaline Phosphatase 75 U/L (38-126) 05/20/25 08:39
Data Reviewed
-
Lab Data: Labs Reviewed by me
Impression/Plan
-
HPI: 89-year-old male with past medical history of CKD, sleep apnea, heart failure, iron deficiency anemia, Pancytopenia, A-fib; p/w BL LE increasing swelling for the past 2 weeks.
He also noted redness to his bilateral legs/feet (R >L ) that started about 3 days HEEL REDUCER. He has been taking Keflex since without relief.
In addition, he complains of localized left lateral neck pain, worse with movement for a few days.
A/P:
# BL LE swelling, concern for acute on chronic HFrEF
BNP 6550
Check update echo
s/p IV Lasix 20 mg in ED, cont IV lasix 40 BID (HEEL REDUCER 80 mg daily with metolazone PRN)
Monitor daily weight, I/O
Cont HEEL REDUCER coreg, Cont HEEL REDUCER Aldactone at decreased dose to give BP room for IV lasix
Card CS
# localized left lateral neck pain, suspect MSL in etiology
warm compress, lidocaine cream, Tylenol PRN for pain control
# Likely BL LE cellulitis, R > L
# Chronic lymphedema
s/p vanc in ED, cont Ancef
Wound care CS
# Hypokalemia
Replete
# CKD stage 4
SCr 2.6 which appears to be at baseline,
Monitor SCr on IV lasix
# h/o Chronic macrocytic anemia
# h/o Anemia with iron deficiency
# h/o Pancytopenia,
Monitor CBC
# Permanent atrial fibrillation with pacemaker
Cont HEEL REDUCER Coreg with hold parameter
Continue HEEL REDUCER Eliquis
# Hypothyroidism
Continue levothyroxine
Check TSH reflex FT4
# Sleep apnea, CPAP intolerant
# BPH
Continue dutasteride, tamsulosin
DNR/DNI, confirmed with pt with daughter at bedside
DVT prophylaxis� HEEL REDUCER Eliquis
[2025-05-20] MEDS: LASIX 20 MG IV (11:50)
[2025-05-20] MEDS: KCL 40 MEQ PO (11:50)
[2025-05-20] MEDS: VANCOCIN 540 MG IV (11:54)
--- NOTE | 2025-05-20 12:52 | CON.CAR ---
Consultation
Consultation Request
Date/Time Consultation Requested: May 20, 2025 11 AM
Date/Time Consultation Performed: May 20, 2025 12:58 PM
Requesting Provider: Hospitalist
Performing Provider: Yuniel Jones
Reason for Consultation: Acute on chronic heart failure
Medical History
-
Chief Complaint: Lower extremity swelling and redness
History of Present Illness:
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
He tells me this started maybe about 1 or 2 weeks ago. However, on Wednesday became much more prevalent. He tells me that he has been taking his medications as prescribed. Unfortunately, yesterday his legs became so swollen that he was unable to get
out of bed without any help. Today, this continues to be exacerbated and he presented for further evaluation.
Past Medical History
Past Medical History: Arrhythmias, CHF, Renal Failure and Other (Iron deficiency anemia pancytopenia)
Past Surgical History: Other (Permanent pacemaker cholecystectomy cataract)
Social History
Tobacco: Non-Smoker
Alcohol: None
Drug: None
Living: Assisted [facility]
Family History
Family History: Reviewed & Not Pertinent
Allergies / Home Medications
Allergy/AdvReac Type Severity Reaction Status Date / Time
No Known Allergies Allergy Verified 05/20/25 08:27
�Medication �Instructions �Recorded �Confirmed �Type
acetaminophen 325 mg tablet 650 mg PO Q8HPRN PRN mild 08/22/23 05/20/25 History
(Tylenol) pain/temp>100
apixaban 2.5 mg tablet (Eliquis) 2.5 mg PO BID@1200,1700 Blood Clot 08/22/23 05/20/25 History
Prevention/Tx
levothyroxine 150 mcg capsule 150 mcg PO DAILY @ 0600 Thyroid 08/22/23 05/20/25 History
magnesium hydroxide 400 mg/5 mL 30 ml PO HSPRN PRN CONSTIPATION 08/22/23 05/20/25 History
oral suspension (Milk of Magnesia)
tamsulosin 0.4 mg capsule (Flomax) 0.4 mg PO BID@1200,1700 Urinary 08/22/23 05/20/25 History
Issue
carvedilol 3.125 mg tablet (Coreg) 3.125 mg PO BID@1200,1700 02/06/24 05/20/25 History
clobetasol 0.05 % topical cream 1 applic topical BIDPRN PRN FLARES 02/06/24 05/20/25 History
guaifenesin 100 mg/5 mL oral 100 mg PO Q6HPRN PRN COUGH 02/06/24 05/20/25 History
liquid (Tussin)
hydroxyzine HCl 50 mg tablet 50 mg PO Q8HPRN PRN PRURITIS 02/06/24 05/20/25 History
nystatin 100,000 unit/gram topical 1 applic topical NOON ABD FOLDS 02/06/24 05/20/25 History
powder
polyethylene glycol 3350 17 gram 17 g PO DAILYPRN PRN CONSTIPATION 02/06/24 05/20/25 History
oral powder packet (Miralax)
benzocaine 15 mg-menthol 3.6 mg 1 srinivas PO QID PRN sore throat 08/02/24 05/20/25 History
lozenges (Sore Throat (benzocaine
with menthol))
diclofenac sodium 1 % topical gel 1 ea topical BID 08/02/24 05/20/25 History
(Voltaren Arthritis Pain)
dutasteride 0.5 mg capsule 0.5 mg PO NOON 08/02/24 05/20/25 History
fluticasone propionate 50 1 spray intranasal BID@0800,1600 08/02/24 05/20/25 History
mcg/actuation nasal
spray,suspension
furosemide 80 mg tablet 80 mg PO BID@1200,1700 08/02/24 05/20/25 History
menthol 5 % topical patch (Bengay 1 patch topical DAILY Right Foot 08/02/24 05/20/25 History
Ultra Strength (menthol)) Pain
mineral oil-hydrophil petrolat 1 applic topical DAILY shins 08/02/24 05/20/25 History
topical ointment
sertraline 50 mg tablet 50 mg PO NOON 08/02/24 05/20/25 History
sodium chloride 0.65 % nasal spray 1 spray intranasal TID PRN Nasal 08/02/24 05/20/25 History
aerosol (Saline Nasal) Dryness
spironolactone 25 mg tablet 25 mg PO NOON 08/02/24 05/20/25 History
triamcinolone acetonide 0.1 % 1 applic topical BID 08/02/24 05/20/25 History
topical cream
zinc oxide 13 % topical cream 1 applic topical BID AT 0800,1600 08/02/24 05/20/25 History
(Desitin Daily Defense) after cleansing
zinc oxide 13 % topical cream 1 applic topical PRN PRN after 08/02/24 05/20/25 History
(Desitin Daily Defense) cleansing for redness
cephalexin 500 mg capsule 500 mg PO TID 05/20/25 05/20/25 History
clotrimazole 1 % topical cream 1 applic topical BID 05/20/25 05/20/25 History
dapagliflozin propanediol 10 mg 10 mg PO DAILY 05/20/25 05/20/25 History
tablet (Farxiga)
glycerin-dimethicone lotion ea topical 05/20/25 History
hydrocortisone 1 % topical cream 1 applic topical BID PRN itching 05/20/25 05/20/25 History
loratadine 10 mg tablet 10 mg PO DAILY PRN allergies 05/20/25 05/20/25 History
metolazone 5 mg tablet 2.5 mg PO DAILY PRN weight gain 05/20/25 05/20/25 History
Review of Systems
-
All other systems: Negative unless noted
Physical Exam
Vital Signs
Temp Pulse Resp BP Pulse Ox
97.7 F 72 17 112/83 98
05/20/25 08:22 05/20/25 11:50 05/20/25 08:26 05/20/25 11:50 05/20/25 10:36
Lab Results
05/20/25 08:39
05/20/25 08:39
Axx-Q-Lmoqmadixvp Pept 6550 pg/ml 05/20/25 08:39
Physical Exam
General: Well Developed, Well Nourished and No Apparent Distress
HEENT: Normocephalic
Respiratory: Clear and Non Labored Respirations
Cardiac: Irregular Rhythm
GI: Soft
Musculoskeletal: Edema (2-3+)
Skin: Warm and Dry
Neuro: AO x 3
Psych: Calm
Impression / Plan
-
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
lower extremity edema and likely cellulitis of his bilateral lower extremities.
Cellulitis
- Per primary
Acute on chronic heart failure mildly reduced ejection fraction exacerbation
- IV Lasix 80 mg twice daily: K greater than 4 mag greater than 2
- Monitor creatinine as he does have CKD; low threshold to involve nephrology
- GDMT limited by creatinine and blood pressure
- GDMT: Continue carvedilol 3.125 mg twice daily, continue dapagliflozin: Unable to tolerate Entresto, holding spironolactone for now
- Presence of BiV ICD
Persistent/permanent A-fib
- Heart rate controlled continue Eliquis
CKD
- Monitor creatinine low threshold for nephrology
Hypothyroidism
Sleep apnea
BPH
Data Reviewed
-
EKG: Tracing Personally Visualized and interpreted (paced)
Medical Tests (Nuc Med, Echo etc): Report Reviewed by me
Labs: Labs Reviewed by me
--- NOTE | 2025-05-20 13:16 | EDCM ---
Reviewed chart and met with pt bedside in ED. [place] apartment at [facility].
Needs assistance with ADLs and personal care, ambulates with RW and also has WC.
His daughter Miko is POA.
Confirms prescription coverage.
Hx [facility] PT/OT, no hx SNF
PCP: Jayjay Alas
Pharmacy: Meds supplied by the [facility] [place], [facility].
Anticipate return to the [facility], CM will continue to follow for any discharge planning needs.
[2025-05-20] MEDS: ANCEF 5 IV (15:52)
[2025-05-20] MEDS: COREG PO (15:53)
[2025-05-20] MEDS: ELIQUIS 2.5 MG PO (15:54)
[2025-05-20] MEDS: FLOMAX 0.4 MG PO ×2 (15:54→17:39)
[2025-05-20] MEDS: ZOLOFT 50 MG PO (15:54)
[2025-05-20] MEDS: LMX 4 1 APPLIC TOPICAL (15:54)
[2025-05-20] MEDS: LASIX 80 MG IV (16:28)
[2025-05-20] MEDS: TYLENOL 650 MG PO (17:39)
[2025-05-21] MEDS: ANCEF 5 IV ×2 (02:55→15:24)
[2025-05-21 02:57] VITALS: BP 122/64
[2025-05-21 05:28] VITALS: BMI 26.2
[2025-05-21] MEDS: SYNTHROID 150 MCG PO (05:37)
[2025-05-21 05:45] LABS: Hematocrit 36.1 % (39.0-52.0); Hemoglobin 12.1 g/dL (13.0-18.0); Mean Corp Hgb Conc. 33.5 g/dL (33.0-37.0); Mean Corpuscular Volume 90.5 fL (80.0-94.0); Nucleated Red Blood Cells % 0 % (-); Platelet Count 210 10^3/uL (130-400); Red Cell Dist. Width 13.4 % (11.5-14.5)
[2025-05-21 06:07] LABS: Blood Urea Nitrogen 92 mg/dl (9-20); Calcium 8.6 mg/dl (8.4-10.2); Carbon Dioxide 22 mmol/L (22-30); Chloride 107 mmol/L (98-107); Estimated Creatinine Clearance 25 ml/min; Glucose 92 mg/dl (70-99); Magnesium 2.5 mg/dl (1.6-2.3); Potassium 3.5 mmol/L (3.5-5.1); Sodium 135 mmol/L (135-145); eGFR 28.10
--- NOTE | 2025-05-21 07:19 | W.PN.HOSP.TC ---
Today's Communication/Plan
-
Per cardiology: IV Lasix 80 mg twice daily; added 3 days metolazone; Continue carvedilol 3.125 mg twice daily, continue dapagliflozin
Replete K+
f/u echocardiogram
Assessment / Plan
Assessment / Plan
89-year-old male with past medical history of CKD, sleep apnea, heart failure, iron deficiency anemia, Pancytopenia, A-fib; p/w BL LE increasing swelling for the past 2 weeks currently most concerning for acute HFmrEF exacerbation.
acute on chronic HFmrEF exacerbation
BNP 6550 (ranged from 1890 to 6860 in past)
Last echo LVEF 45%
f/u echocardiogram
weight is up 0.5kg; I/O net -270 mL
Per cardiology: IV Lasix 80 mg twice daily: K > 4; Mg > 2; and added 3 days metolazone
Per cardiology: Continue carvedilol 3.125 mg twice daily, continue dapagliflozin: Unable to tolerate Entresto, holding spironolactone for now;
localized left lateral neck pain, suspect MSK in etiology
warm compress, lidocaine cream, Tylenol PRN for pain control
Concern for possible cellulitis, R > L
Chronic lymphedema
s/p vanc in ED, on cefazolin to cover for possible cellulitis
Wound care CS
Hypokalemia
K 3.5
Mg 2.5
Ordered 40 Meq PO K+
CKD stage 4
Cr 2.2 down from 2.6; baselien could be 1.8-2.0
decrease in creatinine after lasix could be cardiorenal
h/o Chronic macrocytic anemia
h/o Anemia with iron deficiency
h/o Pancytopenia
Monitor CBC
Permanent atrial fibrillation with pacemaker
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
Continue SURVEY RESEARCH PROFESSOR Eliquis
Hypothyroidism
Continue levothyroxine
low TSH normal FT4 ->sublinical hyperthyroidism or euthyroid issues during hospitalization
upon discharge, consider repeat outpatient TFTs
Sleep apnea, CPAP intolerant
BPH
Continue dutasteride, tamsulosin
DNR/DNI, confirmed with pt with daughter at bedside
DVT prophylaxis� SURVEY RESEARCH PROFESSOR Eliquis
Anticipated Discharge: > 48 hours
Subjective/Interval History
-
Date of Service: May 21, 2025
this morning, endorses numbness on right heel, but able to move toes/legs. R foot > swollen than left, but compressible. rash over the toes.
reports that the neck pain is still persisting despite warm compress
denies chest pain, abdominal pain, dyspnea, headaches
denies fevers/chills
Objective Data
-
Labs:
Laboratory Results
05/21/25
05:05
WBC 9.4
Hgb 12.1 L
Hct 36.1 L
Plt Count 210
Sodium 135
Potassium 3.5
Chloride 107
Carbon Dioxide 22
BUN 92 H
Creatinine 2.2 H
Glucose 92
Calcium 8.6
WBC down from 11
Cre 2.2 from 2.6 (on furosemide)
BUN 92 from 97
TSH 0.03
Free T4 1.59
Vital Signs:
Vital Signs
Temp Pulse Resp BP Pulse Ox
97.7 F 62 17 122/64 97
05/21/25 02:57 05/21/25 02:57 05/21/25 02:57 05/21/25 02:57 05/21/25 02:57
I&O
05/20/25 05/21/25 05/22/25
06:59 06:59 06:59
Intake Total 480 / 480
Output Total 750 / 750
Balance -270 / -270
[2025-05-21 07:30] VITALS: BP 111/53
[2025-05-21] MEDS: PROSCAR 5 MG PO (08:06)
[2025-05-21] MEDS: ELIQUIS 2.5 MG PO ×2 (08:06→23:04)
[2025-05-21] MEDS: DESENEX/MITRAZOL/ZEASORB 1 APPLIC TOPICAL ×2 (08:06→23:03)
[2025-05-21] MEDS: FARXIGA 10 MG PO (08:06)
[2025-05-21] MEDS: COREG 3.125 MG PO ×2 (08:06→23:04)
[2025-05-21] MEDS: LASIX 80 MG IV ×2 (08:48→16:06)
[2025-05-21] MEDS: TYLENOL 650 MG PO (08:53)
--- NOTE | 2025-05-21 11:03 | W.PN.CD ---
Today's Communication / Plan
-
Add 3 days of metolazone to Lasix 80 IV BID
Follow BUN/Cr carefully given eGFR 23-28
Let's hope renal function improves or at least dose not worsen with diuresis, high risk
Impression / Plan
-
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
lower extremity edema and likely cellulitis of his bilateral lower extremities.
Cellulitis
- Per primary
Acute on chronic heart failure mildly reduced ejection fraction exacerbation
- IV Lasix 80 mg twice daily: K greater than 4 mag greater than 2 => not losing weight. 05/20/2025 87.1 kg and 05/21/2025 87.54 kg
- Will add 3 doses of Zaroxolyn
- Monitor creatinine as he does have CKD; low threshold to involve nephrology
- GDMT limited by creatinine and blood pressure
- GDMT: Continue carvedilol 3.125 mg twice daily, continue dapagliflozin: Unable to tolerate Entresto, holding spironolactone for now
- Presence of BiV ICD
Persistent/permanent A-fib
- Heart rate controlled continue Eliquis
CKD4, severe
- Monitor creatinine low threshold for nephrology
Hypothyroidism
Sleep apnea
BPH
Subjective: Comfortable
Physical Exam
Vital Signs/Labs
Vital Signs
Temp Pulse Resp BP Pulse Ox
98.1 F 61 18 115/61 94
05/21/25 07:30 05/21/25 08:48 05/21/25 07:30 05/21/25 08:48 05/21/25 07:30
05/20/25 05/21/25 05/22/25
06:59 06:59 06:59
Actual Weight 87.543 kg
05/21/25 05:05
05/21/25 05:05
PT 19.6 Sec (11.4-14.6) H 05/20/25 08:39
INR 1.64 05/20/25 08:39
Magnesium 2.5 mg/dl (1.6-2.3) H 05/21/25 05:05
Free T4 1.59 ng/dl (0.78-2.19) 05/21/25 05:05
05/20/25
08:39
Jko-L-Nygaroadzai Pept 6550
Physical Exam
Constitutional: No acute distress
Cardiovascular: Rhythm/rate is irregular and Pedal edema present
Respiratory: Respiratory effort normal and Crackles Present
GI: Soft
Neuro/Psych: Alert
Data Reviewed
-
Date of Service: May 21, 2025
--- NOTE | 2025-05-21 11:23 | WOUNDNOTE ---
R FOOT/ANKLE (DORSAL)
--- NOTE | 2025-05-21 11:25 | WOUNDNOTE ---
[facility] RN note: Patient admitted with CHF, LE swelling/redness. Patient lives a [facility] assisted living.
See H&P for complete history.
PMH: CKD4, sleep apnea, HF, anemia, pancytopenia, a fib (Eliquis), lymphedema, BPH. Patient wears knee high Tubigrip at home.
Wound Location and type/assessment: Patient admitted with: LE edema. Pedal pulses heard via portable Doppler. R anterior ankle/foot linear ecchymotic red area suspect from his knee high Tubigrip with edema. Coccyx/buttocks blanchable red skin. Skin
on heels blanchable mild red skin.
Appetite: on lower cholesterol diet.
Pressure redistribution devices in place: [employer] Accumax. Patient turns self in bed. He ambulates to bathroom.
Plan: Protective silicone border foam applied to R dorsal foot/ankle. Heels off bed with pillow. t/c SPD and ordered a bariatric air chair cushion. Discussed with EMMY Bella. Instructed patient use of bariatric air chair cushion. Instructed patient
pressure injury prevention measures.
Will confirm orders with Dr. Waldron and discussed with RAÚL Johansen.
Care plan to be updated. Will sign off. Call if needed.
Note to case management requested for discharge: VN if needed.
Recommend follow up at wound care center upon discharge if needed.
[2025-05-21 11:30] VITALS: BP 143/63
[2025-05-21] MEDS: ZOLOFT 50 MG PO (12:22)
[2025-05-21] MEDS: FLOMAX 0.4 MG PO ×2 (12:22→16:29)
--- NOTE | 2025-05-21 12:54 | W.PN.UPDATE ---
Update Note
Progress Note Update
I saw and evaluated the patient with the resident.
HPI: 89-year-old male with past medical history of CKD, sleep apnea, heart failure, iron deficiency anemia, Pancytopenia, A-fib; p/w BL LE increasing swelling for the past 2 weeks.
He also noted redness to his bilateral legs/feet (R >L ) that started about [address] [employer]. He has been taking Keflex since without relief.
In addition, he complains of localized left lateral neck pain, worse with movement for a few days.
A/P:
# BL LE swelling 2/2 acute on chronic HFrEF
BNP 6550
update echo this admission: compared to prior echocardiogram in January 2025, suspect LVEF was underestimated on prior study (45%). PASP is stable (previously 39 mmHg).
cont IV lasix now at 80 BID ([address] WORKER 80 mg daily with metolazone PRN)
Metolazone added by card
Monitor daily weight, I/O
Cont [address] [address] [employer]ER coreg,
Holding [address] [address] WORKER Aldactone
Card on board
# localized left lateral neck pain, suspect MSL in etiology
warm compress, lidocaine cream, Tylenol PRN for pain control
# Likely BL LE cellulitis, R > L
# Chronic lymphedema
s/p vanc in ED, cont Ancef
Wound care on board
# Hypokalemia
Replete
# CKD stage 4
SCr 2.6 -> 2.2, appears to be at baseline,
Monitor SCr on IV lasix
# h/o Chronic macrocytic anemia
# h/o Anemia with iron deficiency
# h/o Pancytopenia,
Monitor CBC
# Permanent atrial fibrillation with pacemaker
Cont [employer] [address] WORKER Coreg with hold parameter
Continue [employer] [address] WORKER Eliquis
# Hypothyroidism
Continue levothyroxine
TSH reflex FT4 noted
# Sleep apnea, CPAP intolerant
# BPH
Continue dutasteride, tamsulosin
DNR/DNI, confirmed with pt with daughter at bedside
DVT prophylaxis� [address] [address] WORKER Eliquis
[2025-05-21] MEDS: KCL 40 MEQ PO (13:27)
[2025-05-21 15:24] VITALS: BP 130/67
[2025-05-21] MEDS: ZAROXOLYN 5 MG PO (15:24)
--- NOTE | 2025-05-21 17:35 | CM ---
Pt admitted via ED last night with LE edema and cellulitis. [place] apartment at [facility].
Needs assistance with ADLs and personal care, ambulates with RW and also has WC.
Hx of [facility]. Await PT/OT evals to determine if referral to [facility] is appropriate.
[2025-05-21 19:00] VITALS: BP 124/55
[2025-05-21 23:00] VITALS: BP 118/57
[2025-05-22] VITALS (9 sets, daily range): BP systolic 103–131; BP diastolic 51–70; PULSE 60; O2SAT 96; BMI 25.0
[2025-05-22] MEDS: ANCEF 5 IV ×2 (02:46→15:58)
[2025-05-22] MEDS: SYNTHROID 150 MCG PO (05:40)
[2025-05-22 06:25] LABS: Hematocrit 38.4 % (39.0-52.0); Hemoglobin 12.6 g/dL (13.0-18.0); Mean Corp Hgb Conc. 32.8 g/dL (33.0-37.0); Mean Corpuscular Volume 91.6 fL (80.0-94.0); Nucleated Red Blood Cells % 0 % (-); Platelet Count 216 10^3/uL (130-400); Red Cell Dist. Width 13.8 % (11.5-14.5)
[2025-05-22 06:47] LABS: Blood Urea Nitrogen 90 mg/dl (9-20); Calcium 8.9 mg/dl (8.4-10.2); Carbon Dioxide 27 mmol/L (22-30); Chloride 106 mmol/L (98-107); Estimated Creatinine Clearance 23 ml/min; Glucose 101 mg/dl (70-99); Magnesium 2.6 mg/dl (1.6-2.3); Potassium 3.6 mmol/L (3.5-5.1); Sodium 138 mmol/L (135-145); eGFR 25.32
--- NOTE | 2025-05-22 07:09 | W.PN.HOSP.TC ---
Addendum entered and electronically signed by Johanny Linder MD 05/22/25 18:38:
I saw and evaluated the patient independently. I reviewed and discussed the resident�s note and agree with findings and plan as documented by Dr. Cardozo.
GENERAL: well developed, well nourished, male in no apparent distress
HEENT: NC/AT
HEART: irreg irreg
LUNGS : clear to auscultation bilaterally
ABDOM: soft, nontender, nondistended, + bowel sounds
EXT: no cyanosis, clubbing--bilateral LE edema with briana wraps in place--legs not elevated as pt sitting in the chair with dependent legs--pt also has posterior neck (does NOT cross the midline) rash with scabbed area on distal shoulder (trapezius
distribution)--red with concern for blisters
NEUROLOGIC: grossly intact
acute on chronic HFmrEF -> HFimprovedEF exacerbation--pro BNP 6500--apprec cards--cont diuresis--ECHO with EF 59%--cont coreg, farxiga--daily weights, I/Os--Per cardiology: IV Lasix 80 mg twice daily; 3 days of metolazone started 05/21/2025--Per
cardiology: Continue carvedilol 3.125 mg twice daily, continue dapagliflozin: Unable to tolerate Entresto, holding spironolactone for now;
Left neck and shoulder pain--not relieved with tylenol--shoulder vesicular rash concerning for shingles )does not cross midline)--try gabapentin--likely will start acyclovir renal dosing in AM if more blisters are seen
Hypokalemia --replete--due to diuresis
CKD stage 4--Cr 2.6->2.2->2.4----renal dose meds
Concern for possible cellulitis, R > L /Chronic lymphedema--cont cefazolin for now, low threshold to stop
Permanent atrial fibrillation with pacemaker--Continue FURNACE UNLOADER carvedilol with hold parameter--Continue FURNACE UNLOADER apixaban
h/o Chronic macrocytic anemia/h/o Anemia with iron deficiency/h/o Pancytopenia
Hypothyroidism--Continue levothyroxine--TSH 0.03--FT4 1.59--low TSH, normal FT4 --> subclinical hyperthyroidism or euthyroid issues during hospitalization--upon discharge, consider repeat outpatient TFTs
Sleep apnea, CPAP intolerant
BPH--Continue dutasteride, tamsulosin
code status--DNR/DNI
DVT proph� FURNACE UNLOADER Eliquis
Original Note:
Today's Communication/Plan
-
c/f shingles, start gabapentin
consider d/c cefazolin
Replete K+
per cardiology, continue metalozone
Assessment / Plan
Assessment / Plan
89-year-old male with past medical history of CKD, atrial fibrillation with pacemaker on apixaban, HFmrEF -> HFimpEF, iron deficiency anemia, pancytopenia, sleep apnea p/w BL LE increasing swelling for the past 2 weeks currently most concerning for
acute HFmrEF -> HFimpEF exacerbation.
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
BNP 6550 (ranged from 1890 to 6860 in past)
Echo 01/22/2025: LVEF 45%
Echo 05/21/2025: LVEF 59%
His home GDMT: carvedilol, dapagliflozin, spironolactone
Today: weight is down 4kg; I/O net -1395mL
Per cardiology: IV Lasix 80 mg twice daily; 3 days of metolazone started 05/21/2025
Per cardiology: Continue carvedilol 3.125 mg twice daily, continue dapagliflozin: Unable to tolerate Entresto, holding spironolactone for now;
Goal electrolytes: K > 4; Mg > 2
per cardiology, continue metolazone
Left shoulder vesicular rash c/f shingles
concerning for shingles
after discussion with pharmacy, will start gabapentin 100mg tid
monitor
Hypokalemia
K 3.6
Mg 2.6
Ordered 40 Meq PO K+ on 05/22 for goal K of 4
CKD stage 4
Cr 2.6->2.2->2.4
baseline could be 1.8-2.0
Concern for possible cellulitis, R > L
Chronic lymphedema
s/p vanc in ED, currently on cefazolin to cover for possible cellulitis
consider d/c cefazolin
Wound care following
Permanent atrial fibrillation with pacemaker
Continue FURNACE UNLOADER carvedilol with hold parameter
Continue FURNACE UNLOADER apixaban
h/o Chronic macrocytic anemia
h/o Anemia with iron deficiency
h/o Pancytopenia
Hgb 12.6
MCV 91.6
WBC 8.3
Plt 216
Hypothyroidism
Continue levothyroxine
TSH 0.03
FT4 1.59
low TSH, normal FT4 --> sublinical hyperthyroidism or euthyroid issues during hospitalization
upon discharge, consider repeat outpatient TFTs
Sleep apnea, CPAP intolerant
BPH
Continue dutasteride, tamsulosin
DNR/DNI, confirmed with pt with daughter at bedside
DVT prophylaxis� FURNACE UNLOADER Eliquis
Anticipated Discharge: > 48 hours
Subjective/Interval History
-
Date of Service: May 22, 2025
Objective Data
-
Labs:
Laboratory Results
05/22/25
05:56
WBC 8.4
Hgb 12.6 L
Hct 38.4 L
Plt Count 216
Sodium 138
Potassium 3.6
Chloride 106
Carbon Dioxide 27
BUN 90 H
Creatinine 2.4 H
Glucose 101 H
Calcium 8.9
Cr 2.6 -> 2.2 -> 2.4 (baseline 1.8-2.0)
K 3.6
Mg 2.6
Echocardiogram 05/21/2025
SUMMARY
1. Left ventricle is normal in size and systolic function with no regional wall motion abnormalities. LVEF 59%.
2. Dilated RV with decreased systolic function.
3. Severe biatrial enlargement.
4. Mild tricuspid regurgitation with mildly elevated pulmonary artery systolic pressure (40 mmHg).
5. Compared to prior echocardiogram in January 2025, direct comparison is difficult because contrast was not used on today's study, but noncontrast images look similar. Suspect LVEF was underestimated on prior study (45%). PASP is stable (previously
39 mmHg).
Vital Signs:
Vital Signs
Temp Pulse Resp BP Pulse Ox
97.6 F 62 16 117/62 96
05/22/25 03:00 05/22/25 03:00 05/22/25 03:00 05/22/25 03:00 05/22/25 03:00
BP 110s/60s
HR 60s
Weight is down to 83.6 from 87.5 kg
I&O
05/21/25 05/22/25 05/23/25
06:59 06:59 06:59
Intake Total 480 / 480 1800 / 1800
Output Total 750 / 750 3195 / 3195
Balance -270 / -270 -1395 / -1395
net -1395 mL
Review of Systems
-
History Source: Patient
Constitutional: Reports No Symptoms
Respiratory: Reports No Symptoms
Cardiac: Reports No Symptoms
Abdomen/GI: Reports No Symptoms
Neuro: Reports No Symptoms
Physical Exam
-
General: Conversant
HEENT: Normocephalic
Respiratory: Clear to Auscultation
Cardiac: Other (no murmurs on my exam)
GI: Soft, Nontender, Nondistended and Normal Bowel Sounds
Musculoskeletal: Edema, Right Lower Extrem (R > L, especially foot. bandage present on right foot), Edema, Left Lower Extrem and Other (able to move toes, legs)
Skin: Other (vesicular and erythematous rash on left shoulder that does not cross midline, c/f shingles)
Neuro: AO x 3 and Nonfocal/Grossly Intact
Psych: Calm
[2025-05-22] MEDS: ELIQUIS 2.5 MG PO ×2 (08:29→20:29)
[2025-05-22] MEDS: PROSCAR 5 MG PO (08:29)
[2025-05-22] MEDS: COREG 3.125 MG PO ×2 (08:29→20:29)
[2025-05-22] MEDS: FARXIGA 10 MG PO (08:29)
[2025-05-22] MEDS: ZAROXOLYN 5 MG PO (08:29)
[2025-05-22] MEDS: KCL 40 MEQ PO (08:29)
[2025-05-22] MEDS: DESENEX/MITRAZOL/ZEASORB 1 APPLIC TOPICAL ×2 (08:30→20:29)
--- NOTE | 2025-05-22 09:48 | W.PN.CD ---
Today's Communication / Plan
-
Zaroxolyn today and tomorrow
Watch BUN/Cr/K+/HCO3
Impression / Plan
-
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
lower extremity edema and likely cellulitis of his bilateral lower extremities.
Cellulitis
- Per primary, on cefazolin
Acute on chronic heart failure mildly reduced ejection fraction exacerbation
- IV Lasix 80 mg twice daily: was not losing weight. 05/20/2025 87.1 kg and 05/21/2025 87.54 kg
- Had Zaroxolyn yesterday
- This AM 05/22/2025 weight is 83 kg and BUN/Cr are fairly stable
- Will get Zaroxolyn tomorrow 05/23/2025
- May need to go home on PRN Zaroxolyn added to Lasix
- Monitor creatinine as he does have CKD; low threshold to involve nephrology
- GDMT limited by creatinine and blood pressure
- GDMT: Continue carvedilol 3.125 mg twice daily, continue dapagliflozin: Unable to tolerate Entresto, holding spironolactone for now
- Presence of BiV ICD
Persistent/permanent A-fib
- Heart rate controlled continue Eliquis
CKD4, severe
- Monitor creatinine low threshold for nephrology
Hypothyroidism
Sleep apnea
BPH
Subjective: Comfortable
Physical Exam
Vital Signs/Labs
Vital Signs
Temp Pulse Resp BP Pulse Ox
97.7 F 63 16 116/54 97
05/22/25 07:30 05/22/25 07:30 05/22/25 07:30 05/22/25 07:30 05/22/25 07:30
05/21/25 05/22/25 05/23/25
06:59 06:59 06:59
Actual Weight 87.543 kg 83.603 kg
05/22/25 05:56
05/22/25 05:56
PT 19.6 Sec (11.4-14.6) H 05/20/25 08:39
INR 1.64 05/20/25 08:39
Magnesium 2.6 mg/dl (1.6-2.3) H 05/22/25 05:56
Free T4 1.59 ng/dl (0.78-2.19) 05/21/25 05:05
05/20/25
08:39
Pkh-M-Rgmrklahoij Pept 6550
Physical Exam
Constitutional: No acute distress
EENT: Anicteric
Cardiovascular: Rhythm & rate is regular and Pedal edema present (at most tr)
Respiratory: Respiratory effort normal and Lungs clear to auscul.
GI: Soft and Distention absent
Neuro/Psych: Alert
Data Reviewed
-
Date of Service: May 22, 2025
[2025-05-22] MEDS: LASIX 80 MG IV ×2 (10:08→15:57)
[2025-05-22] MEDS: TYLENOL 650 MG PO (10:25)
[2025-05-22] MEDS: FLOMAX 0.4 MG PO ×2 (12:50→15:59)
[2025-05-22] MEDS: ZOLOFT 50 MG PO (12:50)
--- NOTE | 2025-05-22 16:51 | CM ---
Patient seen at bedside with physicians. Patient now with shoulder pain/rash, physician to assess next steps. Patient lives alone in personal care; [facility]. Therapy assessments recommending home health. CM will continue to follow for
discharge planning needs.
Plan; home with VN pending patient choice of agency
[2025-05-22] MEDS: NEURONTIN 100 MG PO ×2 (17:45→22:40)
[2025-05-23] VITALS (7 sets, daily range): BP systolic 109–123; BP diastolic 55–66; BMI 25.1
[2025-05-23] MEDS: ANCEF 5 IV (03:20)
[2025-05-23] MEDS: SYNTHROID 150 MCG PO (07:09)
--- NOTE | 2025-05-23 07:31 | W.PN.HOSP.TC ---
Addendum entered and electronically signed by Johanny Linder MD 05/23/25 13:17:
I saw and evaluated the patient independently. I reviewed and discussed the resident�s note and agree with findings and plan as documented by Dr. Cardozo.
GENERAL: well developed, well nourished, male in no apparent distress
HEENT: NC/AT
HEART: irreg irreg
LUNGS : clear to auscultation bilaterally
ABDOM: soft, nontender, nondistended, + bowel sounds
EXT: no cyanosis, clubbing--bilateral LE edema with briana wraps in place--pt also has posterior neck (does NOT cross the midline)(trapezius distribution) rash with scabbed area on distal shoulder --red with concern for blisters possibly starting
NEUROLOGIC: grossly intact
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
dapagliflozin: Unable to tolerate Entresto, holding spironolactone for now
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
Left neck and shoulder pain--not relieved with tylenol--shoulder vesicular rash concerning for shingles (does not cross midline)--pain improved with gabapentin- start valacyclovir
Hypokalemia --replete--due to diuresis
Chronic lymphedema, R>L--stop cefazolin--not concerned for cellulitis
Permanent atrial fibrillation with pacemaker--Continue SEXOLOGIST carvedilol with hold parameter--Continue SEXOLOGIST apixaban
h/o Chronic macrocytic anemia/h/o Anemia with iron deficiency/h/o Pancytopenia
Hypothyroidism--Continue levothyroxine--TSH 0.03--FT4 1.59--low TSH, normal FT4 --> subclinical hyperthyroidism or euthyroid issues during hospitalization--upon discharge, consider repeat outpatient TFTs
Sleep apnea, CPAP intolerant
BPH--Continue dutasteride, tamsulosin
code status--DNR/DNI
DVT proph� SEXOLOGIST Eliquis
Original Note:
Today's Communication/Plan
-
- valacyclovir 1g q24h
- f/u cardiology recommendations regarding diuresis
- nephrology consulted
- discontinued cefazolin
Assessment / Plan
Assessment / Plan
89-year-old male with past medical history of CKD, atrial fibrillation with pacemaker on apixaban, HFmrEF -> HFimpEF, iron deficiency anemia, pancytopenia, sleep apnea p/w BL LE increasing swelling for the past 2 weeks currently most concerning for
acute HFmrEF -> HFimpEF exacerbation.
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
BNP 6550 (ranged from 1890 to 6860 in past)
Echo 01/22/2025: LVEF 45%
Echo 05/21/2025: LVEF 59%
His home GDMT: carvedilol, dapagliflozin, spironolactone
Today: weight is largely stable (+0.3kg); I/O net -655mL
Goal electrolytes: K > 4; Mg > 2
Cardiology's recommendations: IV Lasix 80 mg twice daily; 3 days of metolazone started 05/21/2025; today is day 3.; Continue carvedilol 3.125 mg twice daily, continue dapagliflozin: Unable to tolerate Entresto, holding spironolactone for now
f/u cardiology recommendations regarding diuresis because this AM furosemide and metolazone were held
nephrology consulted
Left shoulder vesicular rash c/f shingles
concerning for shingles
continue gabapentin 100mg tid
based on today's exam noting possible early formation of blisters
valacyclovir 1g q24h
Hypokalemia
K 3.8
Mg 2.6
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
Cr 2.6->2.2->2.4
baseline could be 1.8-2.0
Cr is now 2.6
BUN 107
Nephrology consulted
Concern for possible cellulitis, R > L
Chronic lymphedema
s/p vanc in ED, currently on cefazolin to cover for possible cellulitis
Wound care following
Does not appear concerning for cellulitis, discontinued cefazolin
Permanent atrial fibrillation with pacemaker
Continue SEXOLOGIST carvedilol with hold parameter
Continue SEXOLOGIST apixaban
h/o Chronic macrocytic anemia
h/o Anemia with iron deficiency
h/o Pancytopenia
Hgb 13.8
MCV 92.9
WBC 8.7
Plt 228
Hypothyroidism
Continue levothyroxine
TSH 0.03
FT4 1.59
low TSH, normal FT4 --> sublinical hyperthyroidism or euthyroid issues during hospitalization
upon discharge, awake overnight counselor patient to repeat outpatient TFTs
Sleep apnea, CPAP intolerant
BPH
Continue dutasteride, tamsulosin
DNR/DNI, confirmed with pt with daughter at bedside
DVT prophylaxis� SEXOLOGIST apixaban
Anticipated Discharge: > 48 hours
Subjective/Interval History
-
Date of Service: May 23, 2025
shoulder lesion appears to have possible early formation of blisters
R foot appears more swollen
L foot appears dried out
subjectively, pain is a little better, since we started gabapentin 100mg tid
Objective Data
-
Labs:
Laboratory Results
05/23/25
06:00
WBC Pending
Hgb Pending
Hct Pending
Plt Count Pending
Sodium Pending
Potassium Pending
Chloride Pending
Carbon Dioxide Pending
BUN Pending
Creatinine Pending
Glucose Pending
Calcium Pending
WBC 8.7
Hgb 13.8
Plt 228
Cr 2.6 from 2.4 yesterday (baseline of 1.8-2.0)
BUN 107
Vital Signs:
Vital Signs
Temp Pulse Resp BP Pulse Ox
97.4 F 61 17 121/65 97
05/23/25 03:00 05/23/25 03:00 05/23/25 03:00 05/23/25 03:00 05/23/25 03:00
I&O
05/22/25 05/23/25 05/24/25
06:59 06:59 06:59
Intake Total 1800 / 1800 995 / 995
Output Total 3195 / 3195 1250 / 1250 400 / 400
Balance -1395 / -1395 -255 / -255 -400 / -400
Review of Systems
-
History Source: Patient
Constitutional: Reports No Symptoms
Respiratory: Reports No Symptoms
Cardiac: Reports No Symptoms
Abdomen/GI: Reports No Symptoms
Skin: Reports Other (pain on L shoulder)
Neuro: Reports No Symptoms
Physical Exam
-
General: Conversant
HEENT: Normocephalic
Respiratory: Clear to Auscultation
Cardiac: Other (no murmurs on my exam)
GI: Soft, Nontender, Nondistended and Normal Bowel Sounds
Musculoskeletal: Edema, Right Lower Extrem (R > L, especially foot. bandage present on right foot), Edema, Left Lower Extrem and Other (able to move toes, legs)
Skin: Other (vesicular and erythematous rash on left shoulder that does not cross midline, possible early formation of blistering or late stage, c/f shingles)
Neuro: AO x 3 and Nonfocal/Grossly Intact
Psych: Calm
[2025-05-23 08:30] LABS: Hematocrit 42.0 % (39.0-52.0); Hemoglobin 13.8 g/dL (13.0-18.0); Mean Corp Hgb Conc. 32.9 g/dL (33.0-37.0); Mean Corpuscular Volume 92.9 fL (80.0-94.0); Nucleated Red Blood Cells % 0 % (-); Platelet Count 228 10^3/uL (130-400); Red Cell Dist. Width 13.7 % (11.5-14.5)
[2025-05-23 09:16] LABS: Blood Urea Nitrogen 107 mg/dl (9-20); Calcium 9.1 mg/dl (8.4-10.2); Carbon Dioxide 29 mmol/L (22-30); Chloride 101 mmol/L (98-107); Estimated Creatinine Clearance 22 ml/min; Glucose 107 mg/dl (70-99); Potassium 3.8 mmol/L (3.5-5.1); Sodium 138 mmol/L (135-145); eGFR 23.00
[2025-05-23] MEDS: ELIQUIS 2.5 MG PO ×2 (10:05→19:46)
[2025-05-23] MEDS: FARXIGA 10 MG PO (10:05)
[2025-05-23] MEDS: PROSCAR 5 MG PO (10:06)
[2025-05-23] MEDS: COREG 3.125 MG PO ×2 (10:06→19:45)
[2025-05-23] MEDS: NEURONTIN 100 MG PO ×3 (10:06→21:08)
[2025-05-23] MEDS: DESENEX/MITRAZOL/ZEASORB TOPICAL (10:07)
[2025-05-23] MEDS: ZAROXOLYN PO (10:09)
[2025-05-23] MEDS: LASIX IV (10:09)
--- NOTE | 2025-05-23 12:55 | W.PN.CD ---
Today's Communication / Plan
-
Stop IV Lasix
Tomorrow begin Lasix 80 mg PO daily with PRN Zaroxolyn
BUt might need BID Lasix at home
Impression / Plan
-
A/P: 89-year-old male with past medical history of heart failure mildly reduced ejection fraction EF 45%, [employer], paroxysmal A-fib, CKD, iron deficiency anemia, pancytopenia who is here for acute on chronic heart failure exacerbation with bilateral
lower extremity edema and likely cellulitis of his bilateral lower extremities.
Cellulitis
- Per primary, on cefazolin
Acute on chronic heart failure mildly reduced ejection fraction exacerbation. Admit weight 87.7 kg
- IV Lasix 80 mg twice daily with Zaroxolyn 05/21/2025 and 05/22/2025
- Today 05/23/2025 weight 83.9 kg BUT BUN 107 Cr 2.6
- Will stop IV Lasix 80 BID and plan Lasix 80 mg PO daily with PRN Zaroxolyn, might need BID Lasix
- Monitor creatinine as he does have CKD; low threshold to involve nephrology
- GDMT limited by creatinine and blood pressure
- GDMT: Continue carvedilol 3.125 mg twice daily, continue dapagliflozin: Unable to tolerate Entresto, holding spironolactone for now
- Presence of BiV ICD
Persistent/permanent A-fib, Heart rate controlled continue Eliquis
CKD4, severe, Monitor creatinine low threshold for nephrology
Hypothyroidism
Sleep apnea
BPH
Subjective: Comfortable
Physical Exam
Vital Signs/Labs
Vital Signs
Temp Pulse Resp BP Pulse Ox
97.7 F 62 16 109/66 97
05/23/25 11:00 05/23/25 11:00 05/23/25 11:00 05/23/25 11:00 05/23/25 11:00
05/22/25 05/23/25 05/24/25
06:59 06:59 06:59
Actual Weight 83.603 kg 83.915 kg
05/23/25 07:55
05/23/25 07:55
PT 19.6 Sec (11.4-14.6) H 05/20/25 08:39
INR 1.64 05/20/25 08:39
Magnesium 2.6 mg/dl (1.6-2.3) H 05/22/25 05:56
Free T4 1.59 ng/dl (0.78-2.19) 05/21/25 05:05
05/20/25
08:39
Yzi-M-Owxdyzexeow Pept 6550
Physical Exam
Constitutional: No acute distress
EENT: Anicteric
Cardiovascular: Rhythm & rate is regular and Pedal edema is absent
Respiratory: Respiratory effort normal and Lungs clear to auscul.
GI: Soft and Distention absent
Neuro/Psych: Alert
Data Reviewed
-
Date of Service: May 23, 2025
[2025-05-23] MEDS: FLOMAX PO (14:01)
[2025-05-23] MEDS: VALTREX 1000 MG PO (14:22)
[2025-05-23] MEDS: ZOLOFT 50 MG PO (14:22)
--- NOTE | 2025-05-23 14:55 | CM ---
Patient seen at bedside with physicians on . Patient plan is for discharge home with VN and he has had [facility] for PT/OT in the past. Patient is from a personal care and will need to have update called to [facility] when medically appropriate for
discharge. CM called to [facility] and left for nursing re discharge plan. CM will continue to follow for discharge planning needs.
Plan; return to [facility]; with [facility] PT/OT watch for possible SNF needs. call to [facility] nursing to update status [phone].
--- NOTE | 2025-05-23 15:19 | W.CON.NEPH ---
Addendum entered and electronically signed by Xiang Lorenzo DO 05/24/25 11:25:
correction to this statement ' He is on Zaroxolyn appropriately dosed at 1000 mg every 24 with current eGFR ' I meant to state Valtrex not zaroxylyn at 1000 mg
Original Note:
Consultation
-
Date/Time Consultation Requested: May 23, 2025 at 9 AM
Date/Time Consultation Performed: May 23, 2025 at 3 PM
Requesting Provider: Madhu Cardozo
Performing Provider: Dr. Lorenzo
Reason for Consultation: Mild acute kidney injury on chronic kidney disease stage IV
Medical History
-
Chief Complaint: TRU on CKD
History of Present Illness:
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
Also found to have shingles.
Renal consultation for acute on chronic kidney disease stage IV. Creatinine labile over the last year baseline creatinine around 2.2. He presented with a creatinine of 2.6.
He is being treated with IV diuretics presented with a weight of 87 kg currently down to 83 kg.
Since admission he developed more prerenal azotemia with a BUN of 107
September 2024 BUN 61 and creatinine [address] Palacio last seen in November 2024
Past Medical History
Heart failure preserved ejection fraction
CKD stage IV
Paroxysmal atrial fibrillation
Pacemaker
Hypothyroidism
Lymphedema
Past Surgical History: None
Social History
Tobacco: Non-Smoker
Alcohol: None
Drug: None
Family History
Family History: Not Pertinent
Allergies / Home Medications
Allergy/AdvReac Type Severity Reaction Status Date / Time
No Known Allergies Allergy Verified 05/20/25 08:27
�Medication �Instructions �Recorded �Confirmed �Type
acetaminophen 325 mg tablet 650 mg PO Q8HPRN PRN mild 08/22/23 05/20/25 History
(Tylenol) pain/temp>100
apixaban 2.5 mg tablet (Eliquis) 2.5 mg PO BID@1200,1700 Blood Clot 08/22/23 05/20/25 History
Prevention/Tx
levothyroxine 150 mcg capsule 150 mcg PO DAILY@0600 Thyroid 08/22/23 05/20/25 History
magnesium hydroxide 400 mg/5 mL 30 ml PO HSPRN PRN CONSTIPATION 08/22/23 05/20/25 History
oral suspension (Milk of Magnesia)
carvedilol 3.125 mg tablet (Coreg) 3.125 mg PO BID@1200,1700 Blood 02/06/24 05/20/25 History
Pressure
clobetasol 0.05 % topical cream 1 applic topical BIDPRN PRN FLARES 02/06/24 05/20/25 History
guaifenesin 100 mg/5 mL oral 100 mg PO Q6HPRN PRN COUGH 02/06/24 05/20/25 History
liquid (Tussin)
hydroxyzine HCl 50 mg tablet 50 mg PO Q8HPRN PRN PRURITIS 02/06/24 05/20/25 History
nystatin 100,000 unit/gram topical 1 applic topical 1300 ABD FOLDS 02/06/24 05/20/25 History
powder
polyethylene glycol 3350 17 gram 17 g PO DAILYPRN PRN CONSTIPATION 02/06/24 05/20/25 History
oral powder packet (Miralax)
benzocaine 15 mg-menthol 3.6 mg 1 srinivas PO QID PRN sore throat 08/02/24 05/20/25 History
lozenges (Sore Throat (benzocaine
with menthol))
dutasteride 0.5 mg capsule 0.5 mg PO NOON Urinary Issue 08/02/24 05/20/25 History
fluticasone propionate 50 2 spray intranasal DAILY Allergies 08/02/24 05/20/25 History
mcg/actuation nasal
spray,suspension
furosemide 80 mg tablet 80 mg PO DAILY Fluid 08/02/24 05/20/25 History
Retention/Swelling
sertraline 50 mg tablet 50 mg PO NOON Depression 08/02/24 05/20/25 History
sodium chloride 0.65 % nasal spray 1 spray intranasal TID PRN Nasal 08/02/24 05/20/25 History
aerosol (Saline Nasal) Dryness
spironolactone 25 mg tablet 12.5 mg PO NOON Fluid 08/02/24 05/20/25 History
Retention/Swelling
zinc oxide 13 % topical cream 1 applic topical BID AT 0800,1700 08/02/24 05/20/25 History
(Desitin Daily Defense) after cleansing
zinc oxide 13 % topical cream 1 applic topical DAILYPRN PRN 08/02/24 05/20/25 History
(Desitin Daily Defense) after cleansing for redness
cephalexin 500 mg capsule 500 mg PO TID Infection 05/20/25 05/20/25 History
clotrimazole 1 % topical cream 1 applic topical BID Skin Issues 05/20/25 05/20/25 History
dapagliflozin propanediol 10 mg 10 mg PO NOON Diabetes 05/20/25 05/20/25 History
tablet (Farxiga)
hydrocortisone 1 % topical cream 1 applic topical DAILYPRN PRN 05/20/25 05/20/25 History
itching
loratadine 10 mg tablet 10 mg PO DAILYPRN PRN allergies 05/20/25 05/20/25 History
metolazone 5 mg tablet 2.5 mg PO DAILYPRN PRN weight gain 05/20/25 05/20/25 History
tamsulosin 0.4 mg capsule 0.4 mg PO BID@1200,1700 Urinary 05/20/25 05/20/25 History
Issue
Review of Systems
-
Leg swelling, left cervical pain. No shortness of breath or chest
Physical Exam
Vital Signs
Vital Signs
Temp Pulse Resp BP Pulse Ox
97.7 F 62 16 109/66 97
05/23/25 11:00 05/23/25 11:00 05/23/25 11:00 05/23/25 11:00 05/23/25 11:00
Lab Results
WBC 8.7 10^3/uL (4.8-10.8) 05/23/25 07:55
RBC 4.52 10^6/uL (4.70-6.10) L 05/23/25 07:55
Hgb 13.8 g/dL (13.0-18.0) 05/23/25 07:55
Hct 42.0 % (39.0-52.0) 05/23/25 07:55
Plt Count 228 10^3/uL (130-400) 05/23/25 07:55
Sodium 138 mmol/L (135-145) 05/23/25 07:55
Potassium 3.8 mmol/L (3.5-5.1) 05/23/25 07:55
Chloride 101 mmol/L (98-107) 05/23/25 07:55
Carbon Dioxide 29 mmol/L (22-30) 05/23/25 07:55
BUN 107 mg/dl (9-20) H* 05/23/25 07:55
Creatinine 2.6 mg/dL (0.7-1.3) H 05/23/25 07:55
eGFR 23.00 05/23/25 07:55
Glucose 107 mg/dl (70-99) H 05/23/25 07:55
Calcium 9.1 mg/dl (8.4-10.2) 05/23/25 07:55
Dgt-Z-Ymsushsutwi Pept 6550 pg/ml 05/20/25 08:39
Albumin 3.4 g/dl (3.5-5.0) L 05/20/25 08:39
Physical Exam
General no acute distress
HEENT no cephalic atraumatic extraocular muscle intact no scleral icterus no JVD neck supple
lungs clear to auscultation bilateral
heart regular S1-S2 positive
abdomen soft nontender positive bowel sounds
extremities +2 edema pulses present bilateral
Neurologically nonfocal alert and oriented x 3
Skin shingles the left upper thoracic/cervical
Psych normal affect no bizarre behavior
Data Reviewed
-
Radiology: Image Personally Visualized and interpreted
Labs: Labs Reviewed by me, Discussed with Physician and Discussed with Patient
Assessment/Plan
-
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
Also found to have shingles.
Renal consultation for acute on chronic kidney disease stage IV. Creatinine labile over the last year baseline creatinine around 2.2. He presented with a creatinine of 2.6.
He is being treated with IV diuretics presented with a weight of 87 kg currently down to 83 kg.
Since admission he developed more prerenal azotemia with a BUN of 107
September 2024 BUN 61 and creatinine [address] Palacio last seen in November 2024
Assessment
CKD stage IV
Heart failure reduced ejection fraction (EF 45%) as of January 2025
Acute shingles
Lower extremity
Acute kidney injury
Anemia of CKD
Paroxysmal atrial fibrillation
Hypothyroidism
CPAP
Pacemaker
Plan:
Follows with Dr. Palacio
Prerenal azotemia secondary to diuretic therapy
Weights down 4 kg from admission/lungs clear edema improved
Valacyclovir renally dosed for appropriate GFR
Agree with holding IV diuretics at this time with maintenance Lasix 80 mg with diminished GFR.
BUN is significantly increased from September 2024 from 60-107 with stable creatinine and suggestive of prerenal and decreased effective arterial blood volume
He is back on [facility] as has been on outpatient
He is on Zaroxolyn appropriately dosed at 1000 mg every 24 with current eGFR
Suggestion going forward depending on renal function over the next 24 to 48 hours that he is on a more steady regimen of metolazone low-dose 2.5 mg 3 times a week in conjunction with loop diuretic
Discussion with him about things he can do at his assisted living which is most of out of his control unfortunately as he eats at a dining fay and has only so many in regards to sodium food
From a volume standpoint he appears to be at a manageable weight with a goal at this time to maintain current weight.
With that said, likely will need to live with a certain amount of lower extremity edema at the same time be comfortable with higher degree of azotemia to balance his CHF and chronic renal disease
[2025-05-23] MEDS: FLOMAX 0.4 MG PO (16:00)
[2025-05-23] MEDS: DESENEX/MITRAZOL/ZEASORB 1 APPLIC TOPICAL (19:47)
[2025-05-23] MEDS: TYLENOL 650 MG PO (19:48)
[2025-05-24 03:00] VITALS: BP 108/62
[2025-05-24 05:42] VITALS: BMI 25.2
[2025-05-24] MEDS: SYNTHROID 150 MCG PO (05:59)
[2025-05-24 06:39] LABS: Hematocrit 38.9 % (39.0-52.0); Hemoglobin 12.7 g/dL (13.0-18.0); Mean Corp Hgb Conc. 32.6 g/dL (33.0-37.0); Mean Corpuscular Volume 90.5 fL (80.0-94.0); Platelet Count 210 10^3/uL (130-400); Red Cell Dist. Width 13.6 % (11.5-14.5)
--- NOTE | 2025-05-24 07:15 | W.PN.HOSP.TC ---
Addendum entered and electronically signed by Johanny Linder MD 05/24/25 15:08:
I saw and evaluated the patient independently. I reviewed and discussed the resident�s note and agree with findings and plan as documented by Dr. Cardozo.
GENERAL: well developed, well nourished, male in no apparent distress
HEENT: NC/AT
HEART: irreg irreg
LUNGS : clear to auscultation bilaterally
ABDOM: soft, nontender, nondistended, + bowel sounds
EXT: no cyanosis, clubbing--bilateral LE edema with briana wraps in place--pt also has posterior neck (does NOT cross the midline)(trapezius distribution) rash with scabbed area on distal shoulder --red with concern for blisters possibly starting--much
improved
NEUROLOGIC: grossly intact
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
dapagliflozin: Unable to tolerate Entresto, holding spironolactone for now--cleared for d/c home --meds per cards/renal
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
Left neck and shoulder pain--not relieved with tylenol--shoulder vesicular rash concerning for shingles (does not cross midline)--pain improved with gabapentin- cont valacyclovir
Hypokalemia --replete--due to diuresis
Chronic lymphedema, R>L--stop cefazolin--not concerned for cellulitis
Permanent atrial fibrillation with pacemaker--Continue FISCAL ANALYST carvedilol with hold parameter--Continue FISCAL ANALYST apixaban
h/o Chronic macrocytic anemia/h/o Anemia with iron deficiency/h/o Pancytopenia
Hypothyroidism--Continue levothyroxine--TSH 0.03--FT4 1.59--low TSH, normal FT4 --> subclinical hyperthyroidism or euthyroid issues during hospitalization--upon discharge, consider repeat outpatient TFTs
Sleep apnea, CPAP intolerant
BPH--Continue dutasteride, tamsulosin
code status--DNR/DNI
DVT proph� FISCAL ANALYST Eliquis
ok for d/c home with VN
Original Note:
Today's Communication/Plan
-
- continue furosemide; dapagliflozin
- f/u nephrology regarding metolazone
- valacyclovir, day 07/28
- replete K+
Assessment / Plan
Assessment / Plan
89-year-old male with past medical history of CKD, atrial fibrillation with pacemaker on apixaban, HFmrEF -> HFimpEF, iron deficiency anemia, pancytopenia, sleep apnea p/w BL LE increasing swelling for the past 2 weeks currently most concerning for
acute HFmrEF -> HFimpEF exacerbation.
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
BNP 6550 (ranged from 1890 to 6860 in past)
Echo 01/22/2025: LVEF 45%
Echo 05/21/2025: LVEF 59%
His home GDMT: carvedilol, dapagliflozin, spironolactone
Today: weight is largely stable; I/O net -655mL
Goal electrolytes: K > 4; Mg > 2
Cardiology's recommendations:Lasix 80 mg daily; 3 days of metolazone started 05/21/2025; today is day 3.; Continue carvedilol 3.125 mg twice daily, continue dapagliflozin: Unable to tolerate Entresto, discontinued spironolactone for now
Cardiology okay to continue with PO furosemide 80mg daily, dapagliflozin, carvedilol. per cardiology, okay for discharge with BMP in 1 week, will arrange outpatient follow-up
nephrology consulted regarding possible metolazone
Prerenal azotemia
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
Cr 2.6->2.2->2.4-> 2.6 -> 2.4
baseline could be 1.8-2.0
Cr is now 2.4
BUN 109
Per cardiology, okay to give furosemide 80mg daily
Left shoulder vesicular rash c/f shingles
concerning for shingles
continue gabapentin 100mg tid
based on today's exam noting possible early formation of blisters
valacyclovir 1g q24h, today is day #2
Hypokalemia
K 3.6
Mg 2.6
Ordered PO KCl 40mEq repletion
Chronic lymphedema
s/p vanc in ED, and s/p cefazolin, not concerning for cellulitis
Wound care following
Permanent atrial fibrillation with pacemaker
Continue FISCAL ANALYST carvedilol with hold parameter
Continue FISCAL ANALYST apixaban
h/o Chronic macrocytic anemia
h/o Anemia with iron deficiency
h/o Pancytopenia
Hgb 13.8
MCV 92.9
WBC 8.7
Plt 228
Hypothyroidism
Continue levothyroxine
TSH 0.03
FT4 1.59
low TSH, normal FT4 --> sublinical hyperthyroidism or euthyroid issues during hospitalization
upon discharge, corporate counselor patient to repeat outpatient TFTs
Sleep apnea, CPAP intolerant
BPH
Continue dutasteride, tamsulosin
DNR/DNI, confirmed with pt with daughter at bedside
DVT prophylaxis� FISCAL ANALYST apixaban
Anticipated Discharge: Within 24 hours
Subjective/Interval History
-
Date of Service: May 24, 2025
feels good
lying flat in bed
BUN 104 , Cr 2.4, nurse asked, im still holding furosemide.
Objective Data
-
Labs:
Laboratory Results
05/24/25
06:23
WBC 7.1
Hgb 12.7 L
Hct 38.9 L
Plt Count 210
Sodium Pending
Potassium Pending
Chloride Pending
Carbon Dioxide Pending
BUN Pending
Creatinine Pending
Glucose Pending
Calcium Pending
BUN 109
Cr 2.4
Vital Signs:
Vital Signs
Temp Pulse Resp BP Pulse Ox
97.8 F 61 17 108/62 97
05/24/25 03:00 05/24/25 03:00 05/24/25 03:00 05/24/25 03:00 05/24/25 03:00
I&O
05/23/25 05/24/25 05/25/25
06:59 06:59 06:59
Intake Total 995 / 995 600 / 600
Output Total 1250 / 1250 1025 / 1025
Balance -255 / -255 -425 / -425
Review of Systems
-
History Source: Patient
Constitutional: Reports No Symptoms
Respiratory: Reports No Symptoms
Cardiac: Reports No Symptoms
Abdomen/GI: Reports No Symptoms
Skin: Reports Other (pain on L shoulder)
Neuro: Reports No Symptoms
Physical Exam
-
General: Conversant
HEENT: Normocephalic
Respiratory: Clear to Auscultation
Cardiac: Other (no murmurs on my exam)
GI: Soft, Nontender, Nondistended and Normal Bowel Sounds
Musculoskeletal: Edema, Right Lower Extrem (R > L, especially foot. bandage present on right foot), Edema, Left Lower Extrem and Other (able to move toes, legs)
Skin: Other (vesicular and erythematous rash on left shoulder that does not cross midline, possible early formation of blistering or late stage, c/f shingles)
Neuro: AO x 3 and Nonfocal/Grossly Intact
Psych: Calm
[2025-05-24 07:39] VITALS: BP 109/58
[2025-05-24 07:44] LABS: Blood Urea Nitrogen 109 mg/dl (9-20); Calcium 9.1 mg/dl (8.4-10.2); Carbon Dioxide 30 mmol/L (22-30); Chloride 100 mmol/L (98-107); Estimated Creatinine Clearance 23 ml/min; Glucose 97 mg/dl (70-99); Potassium 3.6 mmol/L (3.5-5.1); Sodium 136 mmol/L (135-145); eGFR 25.32
[2025-05-24] MEDS: ELIQUIS 2.5 MG PO (08:22)
[2025-05-24] MEDS: COREG 3.125 MG PO (08:22)
[2025-05-24] MEDS: FARXIGA 10 MG PO (08:22)
[2025-05-24] MEDS: PROSCAR 5 MG PO (08:22)
[2025-05-24] MEDS: LASIX PO (08:23)
[2025-05-24] MEDS: NEURONTIN 100 MG PO ×2 (08:23→14:59)
[2025-05-24] MEDS: DESENEX/MITRAZOL/ZEASORB 1 APPLIC TOPICAL (08:23)
[2025-05-24] MEDS: KCL 40 MEQ PO (08:52)
--- NOTE | 2025-05-24 09:27 | CM ---
Addendum entered by Miroslava Wallace 05/24/25 13:21:
patient discharge today - called daughter Miko
spoke with Alberto [phone] at [facility] updated on dischart
[facility] accepted referral for home health-spoke with Laurie baugh
IMM explained & placed in chart
PLAN: [facility] with [facility] report #[phone], [facility] fax #: [phone]
[facility] fax #: [phone]
daughter will ask her to transport - will call back CM
Original Note:
CM spoke with patient nader Crouch
PT rec Home health
daughter states prefers [facility] - referral entered in [facility]port
daughter states would not send him to SNF
CM left message for nsg at [facility]
PLAN: [facility] with [facility]
--- NOTE | 2025-05-24 09:40 | W.PN.CD ---
Today's Communication / Plan
-
looks stable on lasix 80mg PO daily, farxiga 10mg daily: continue
nephrology communication reviewed: standing metolazone is being considered, will defer to nephrology
will we arrange for outpatient f/u with us; please call us with additional questions
Impression / Plan
-
A/P: 89-year-old male with past medical history of heart failure mildly reduced ejection fraction EF 45%, [employer], paroxysmal A-fib, CKD, iron deficiency anemia, pancytopenia who is here for acute on chronic heart failure exacerbation with bilateral
lower extremity edema and likely cellulitis of his bilateral lower extremities.
Cellulitis
- Per primary
Acute on chronic heart failure mildly reduced ejection fraction exacerbation. Admit weight 87.7 kg--> 84.4kg
- s/p IV Lasix 80 mg twice daily with Zaroxolyn 05/21/2025 and 05/22/2025
- also with CKD4
- GDMT limited by creatinine and blood pressure
- GDMT: Continue carvedilol 3.125 mg twice daily, continue dapagliflozin: Unable to tolerate Entresto; sopped spironolactone for now
- Presence of BiV ICD
-looks stable on lasix 80mg PO daily, farxiga 10mg daily
-nephrology communication reviewed: standing metolazone is being considered, will defer to nephrology
Persistent/permanent A-fib, Heart rate controlled continue Eliquis 2.5mg bid
CKD4, severe, Monitor creatinine low threshold for nephrology
Hypothyroidism
Sleep apnea
BPH
Physical Exam
Vital Signs/Labs
Vital Signs
Temp Pulse Resp BP Pulse Ox
97.4 F 62 16 109/58 97
05/24/25 07:39 05/24/25 07:39 05/24/25 07:39 05/24/25 07:39 05/24/25 07:39
05/23/25 05/24/2525
06:59 06:59 06:59
Actual Weight 83.915 kg 84.368 kg
05/24/25 06:23
05/24/25 06:23
PT 19.6 Sec (11.4-14.6) H 05/20/25 08:39
INR 1.64 05/20/25 08:39
Magnesium 2.6 mg/dl (1.6-2.3) H 05/22/25 05:56
Free T4 1.59 ng/dl (0.78-2.19) 05/21/25 05:05
05/20/25
08:39
Csu-F-Qpwbvuaeeyw Pept 6550
Physical Exam
Constitutional: No acute distress and Comfortable
EENT: Moist mucous membranes
Cardiovascular: Rhythm & rate is regular, Pedal edema present, JVD present and Systolic murmur present
Respiratory: Respiratory effort normal and Lungs clear to auscul.
Neuro/Psych: AO x 3
Data Reviewed
-
Date of Service: May 24, 2025
EKG: Other (V paced 60)
Labs: Labs Reviewed by me
[2025-05-24 11:04] VITALS: BP 123/67
[2025-05-24] MEDS: LASIX 80 MG PO (11:18)
--- NOTE | 2025-05-24 11:57 | W.PN.NEPH.PH ---
Today's Communication / Plan
-
follow BMP
Assessment/Plan
-
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
Also found to have shingles.
Renal consultation for acute on chronic kidney disease stage IV. Creatinine labile over the last year baseline creatinine around 2.2. He presented with a creatinine of 2.6.
He is being treated with IV diuretics presented with a weight of 87 kg currently down to 83 kg.
Since admission he developed more prerenal azotemia with a BUN of 107
September 2024 BUN 61 and creatinine [address] Palacio last seen in November 2024
Assessment
CKD stage IV
Heart failure reduced ejection fraction (EF 45%) as of January 2025
Acute shingles
Lower extremity
Acute kidney injury
Anemia of CKD
Paroxysmal atrial fibrillation
Hypothyroidism
CPAP
Pacemaker
Plan:
Follows with Dr. Palacio
po lasix
prn metolazone, he says that this is handled by assisted living and that he also tracks his weights
-
-
Date of Service: May 24, 2025
CC / HPI / ROS
-
Chief Complaint:
TRU
History of Present Illness:
TRU/Cr down to 2.4
BP stable
diuresed well for decompensated HF
Review of Systems:
no CP/SOB
Labs
-
Labs:
WBC 7.1 10^3/uL (4.8-10.8) 05/24/25 06:23
RBC 4.30 10^6/uL (4.70-6.10) L 05/24/25 06:23
Hgb 12.7 g/dL (13.0-18.0) L 05/24/25 06:23
Hct 38.9 % (39.0-52.0) L 05/24/25 06:23
Plt Count 210 10^3/uL (130-400) 05/24/25 06:23
Sodium 136 mmol/L (135-145) 05/24/25 06:23
Potassium 3.6 mmol/L (3.5-5.1) 05/24/25 06:23
Chloride 100 mmol/L (98-107) 05/24/25 06:23
Carbon Dioxide 30 mmol/L (22-30) 05/24/25 06:23
BUN 109 mg/dl (9-20) H* 05/24/25 06:23
Creatinine 2.4 mg/dL (0.7-1.3) H 05/24/25 06:23
eGFR 25.32 05/24/25 06:23
Glucose 97 mg/dl (70-99) 05/24/25 06:23
Calcium 9.1 mg/dl (8.4-10.2) 05/24/25 06:23
Jus-O-Ppbrkpvpteu Pept 6550 pg/ml 05/20/25 08:39
Albumin 3.4 g/dl (3.5-5.0) L 05/20/25 08:39
Physical Exam
-
Vital Signs:
Vital Signs
Temp Pulse Resp BP Pulse Ox
97.1 F 62 16 123/67 98
05/24/25 11:04 05/24/25 11:04 05/24/25 11:04 05/24/25 11:04 05/24/25 11:04
Cardiovascular:: Regular rate and rhythm
Respiratory:: Bilateral: Coarse
Lung Excursion:: Normal
Abdomen:: Nontender and Soft
Bowel Sounds:: Normal
Extremity Edema:: +1: Bilateral:
[2025-05-24] MEDS: ZOLOFT 50 MG PO (12:00)
[2025-05-24] MEDS: FLOMAX 0.4 MG PO (12:00)
[2025-05-24 12:09] VITALS: BP 112/65; PULSE 61; O2SAT 98
[2025-05-24 12:11] VITALS: BP 112/65; PULSE 61; O2SAT 98
--- NOTE | 2025-05-24 12:58 | W.DCSUMMARY ---
Addendum entered and electronically signed by Johanny Linder MD 05/25/25 07:04:
Read, reviewed, and agree. See same day progress note for additional details. Time spent coordinating care, DC planning, review of DC plan of care with resident, transition of care, review of records in EMR, med rec, consults, notes, d/w
consultants, nursing, family, and CM = 36 minutes
Original Note:
Discharge Summary
Discharge Data
Date of Admission: 05/20/25
Date of Discharge: 05/24/25
-
Pending Results: No
Hospital Course
Discharging Physician : Dr. Johanny Linder; Dr. Madhu Cardozo
Disposition : Home with home care
Primary care physician : Jayjay Alas
Principal Discharge diagnosis : Heart failure exacerbation, shingles, prerenal azotemia, TRU on CKD4, hypokalemia
Chronic Discharge diagnosis : permanent atrial fibrillation with pacemaker, hypothyroidism, sleep apnea CPAP intolerant, BPH
Hospital Course :
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
HFimpEF exacerbation. During the admission, the patient had complained of left sided neck pain which was found to be a rash concerning for shingles. The patient started a course of valacyclovir and gabapentin to treat shingles and associated pain.
The following problems were addressed during this admission
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
BNP 6550 (ranged from 1890 to 6860 in past)
Echo 01/22/2025: LVEF 45%
Echo 05/21/2025: LVEF 59%
His home GDMT: carvedilol, dapagliflozin, spironolactone
Net loss of 3.54kg during the admission
Cardiology and nephrology were consulted: upon discharge the following medications have been recommended per consultants
- furosemide 80mg daily; dapagliflozin 10mg, metolazone 2.5mg prn daily for weight gain; spironolactone was stopped this admission; patient is reported to be unable to tolerate sacubitril-valsartan
- cardiology outpatient follow-up has been arranged
Prerenal azotemia
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
Cr 2.6->2.2->2.4-> 2.6 -> 2.4
baseline could be 1.8-2.0
BUN 109
Per cardiology, okay to give furosemide 80mg daily
Per nephrology, home prn metolazone 2.5mg
Left shoulder vesicular rash c/f shingles
explanation for the patient's pain
continue gabapentin 100mg tid
based on today's exam, points to likely resolving shingles with no new blistering
valacyclovir 1g q24h, today is day #2, given a total for 7 day course
Hypokalemia - resolved
K 3.6
Mg 2.6
Chronic lymphedema
lower extremity swelling with some redness was initially concerning for cellulitis per ED
administered vancomycin and a course of cefazolin, both discontinued
Wound care was involved and provided recommendations upon discharge
Permanent atrial fibrillation with pacemaker
carvedilol and apixaban
h/o Chronic macrocytic anemia
h/o Anemia with iron deficiency
h/o Pancytopenia
Hgb 12.7
MCV 90.5
WBC 7.1
Plt 210
Hypothyroidism
Continue levothyroxine
TSH 0.03; FT4 1.59
low TSH, normal FT4 --> sublinical hyperthyroidism or euthyroid issues during hospitalization
discharge paperwork recommends repeat TFTs in outpatient
Sleep apnea, CPAP intolerant
BPH
Continue dutasteride, tamsulosin
Important imaging findings :
CXR 05/20/2025
IMPRESSION:
1. Moderate cardiomegaly.
2. Elevated pulmonary venous pressures without acute pulmonary edema.
3. Left-sided biventricular cardiac pacemaker in place.
Echocardiogram 05/21/2025
SUMMARY
1. Left ventricle is normal in size and systolic function with no regional wall motion abnormalities. LVEF 59%.
2. Dilated RV with decreased systolic function.
3. Severe biatrial enlargement.
4. Mild tricuspid regurgitation with mildly elevated pulmonary artery systolic pressure (40 mmHg).
5. Compared to prior echocardiogram in January 2025, direct comparison is difficult because contrast was not used on today's study, but noncontrast images look similar. Suspect LVEF was underestimated on prior study (45%). PASP is stable (previously
39 mmHg).
Discharge Plan
-
Patient Disposition: Home with Home Care
Discharge Diagnosis/Procedures: Heart failure exacerbation, shingles, prerenal azotemia, TRU on CKD4, hypokalemia, permanent atrial fibrillation with pacemaker, hypothyroidism, sleep apnea CPAP intolerant, BPH
Condition: Fair
Diet: Low Cholesterol and Low Sodium
Activity: As tolerated
Driving Restrictions: As prior to admission
Bathing Restrictions: None
Other Services: VN
Activity Restrictions/Additional Instructions:
Pad R anterior ankle/foot linear red juan c with silicone border foam. Change every 3 days and as needed for loosened dressing.
Bilateral knee high Benitez wraps as tolerated; remove at bedtime; rewrap q am.
Pad R anterior ankle/foot linear red juan c with silicone border foam. Change q 3 days and prn loosened dressing.
Elevate heels off bed with pillows.
Bariatric air chair cushion
Instructions: *CBC Heart Failure Instructions
Referrals:
Rubén Palacio DO [Active, Nephrology] - in three to four weeks
Yuniel Jonse MD [Active, Cardiology] - 06/13/25 10:00 am
Referral Note: note this appt is at the [facility] and [facility] in [place] (and not the [place] office)
Jayjay Alas MD [Family Provider, Family Practice] - in less than 1 week
Additional Discharge Medication Instructions: Please continue furosemide daily and metolazone prn for weight gain.
You should continue dapagliflozin and carvedilol
You also should continue valacyclovir daily until 05/29/2025. You may continue gabapentin three times a day for pain.
You may continue your other medications as below.
You have an appointment with cardiology scheduled. You should follow-up with nephrology in 3-4 weeks.
Please do repeat thyroid function testing in 1-2 months after discharge.
Please also obtain a BMP within 1 week with results to PCP.
Prescriptions:
New
valacyclovir 500 mg Tablet
1,000 mg PO Q24H Qty: 6 0RF
gabapentin 100 mg Capsule
100 mg PO TID 6 Days Qty: 18 0RF
Continued
Eliquis 2.5 mg Tablet
2.5 mg PO BID@1200,1700
levothyroxine 150 mcg Capsule
150 mcg PO DAILY@0600
acetaminophen [Tylenol] 325 mg Tablet
650 mg PO Q8HPRN MDD 3000mg PRN (Reason: mild pain/temp>100)
magnesium hydroxide [Milk of Magnesia] 400 mg/5 mL Suspension
30 ml PO HSPRN PRN (Reason: CONSTIPATION)
polyethylene glycol 3350 [Miralax] 17 gram Powder In Packet
17 g PO DAILYPRN PRN (Reason: CONSTIPATION)
clobetasol 0.05 % Cream
1 applic TOPICAL BIDPRN PRN (Reason: FLARES)
Rx Instructions:
2 WEEKS ON 1 WEEK OFF
hydroxyzine HCl 50 mg Tablet
50 mg PO Q8HPRN PRN (Reason: PRURITIS)
guaifenesin [Tussin] 100 mg/5 mL Liquid
100 mg PO Q6HPRN PRN (Reason: COUGH)
carvedilol [Coreg] 3.125 mg Tablet
3.125 mg PO BID@1200,1700
nystatin 100,000 unit/gram Powder
1 applic TOPICAL 1300
Saline Nasal 0.65 % Aerosol,[place]
1 spray INTRANASAL TID PRN (Reason: Nasal Dryness)
sertraline 50 mg Tablet
50 mg PO NOON
Desitin Daily Defense 13 % Cream
1 applic TOPICAL BID AT 0800,1700
Desitin Daily Defense 13 % Cream
1 applic TOPICAL DAILYPRN PRN (Reason: after cleansing for redness)
Sore Throat (benzocaine-menth) 15-3.6 mg Lozenge
1 srinivas PO QID PRN (Reason: sore throat)
fluticasone propionate 50 mcg/actuation [place],Suspension
2 spray INTRANASAL DAILY
dutasteride 0.5 mg Capsule
0.5 mg PO NOON
furosemide 80 mg tablet
80 mg PO DAILY
hydrocortisone 1 % Cream
1 applic TOPICAL DAILYPRN PRN (Reason: itching)
clotrimazole 1 % Cream
1 applic TOPICAL BID
Rx Instructions:
to affected areas on buttocks and dominique area
loratadine 10 mg Tablet
10 mg PO DAILYPRN PRN (Reason: allergies)
dapagliflozin propanediol [Farxiga] 10 mg Tablet
10 mg PO NOON
metolazone 5 mg tablet
2.5 mg PO DAILYPRN PRN (Reason: weight gain)
Rx Instructions:
1 tab once daily as needed for edema, weight gain of more than 5lbs
tamsulosin 0.4 mg capsule
0.4 mg PO BID@1200,1700
Discontinued
spironolactone 25 mg Tablet
12.5 mg PO NOON
cephalexin 500 mg capsule
500 mg PO TID
Rx Instructions:
Starting 11/26/25 x7 days, ending 05/23/25
Discharge Orders:
Discharge Patient (As Directed); Ordered 05/24/25
Ordered By: Madhu Cardozo
Discharge Date and Time
Print Language: INDONESIAN
[2025-05-24] MEDS: VALTREX 1000 MG PO (13:59)
[2025-05-24 15:12] VITALS: BP 112/58
--- NOTE | 2025-05-25 13:56 | W.HF.CON ---
Heart Failure
- LV Function
Left ventricular function study result: LV Ejection fraction >/= 50%
Ejection Fraction Percentage: 59
- ARNI
Patient already on ARNI: No
Heart Failure ARNI Not Indicated: LV Ejection Fraction >/= 40%
- ACEI/ARB
Patient already on ACEI/ARB: No
Heart Failure ACEI/ARB Not Indicated: LV Ejection Fraction > 40%
- Beta Jena
Patient already on Evidence Based Beta Jena: Yes
- Mineralocorticord Receptor Antagonist
Patient already on MRA: No
Heart Failure MRA Not Indicated: LV Ejection Fraction > 40%
- SGLT-2 Inhibitor
Patient already on SGLT-2 Inhibitor: Yes
- Afib Anticoagulation
Patient already on Anticoagulation for Afib: Yes
- NYHA CHF Classification
NYHA CHF Classification Level: Class III - Symptoms w/ min exertion, interferes w/ nml daily activity
- ACC/AHA Stage
ACC/AHA Stage: Stage C: Symptomatic Heart Failure
== END 2025-05-24 17:31 | disposition home health service (06) | DRG 292 ==
LOC: 3 WEST ACU 12:33
PROVIDERS: Nurse Practitioner; ADMITTING PHYSICIAN Internal Medicine; ATTENDING PHYSICIAN Internal Medicine; CONSULT PHYSICIAN Internal Medicine Cardiovascular Disease; EMERGENCY PHYSICIAN Emergency Medicine; FAMILY PHYSICIAN Family Medicine; OTHER PHYSICIAN Internal Medicine Nephrology
DX: I50.43 Acute on chronic combined systolic (congestive) and diastolic (congestive) heart failure (principal); I48.21 Permanent atrial fibrillation; N17.9 Acute kidney failure, unspecified; N18.4 Chronic kidney disease, stage 4 (severe); B02.9 Zoster without complications; E87.6 Hypokalemia; Z95.0 Presence of cardiac pacemaker; E03.9 Hypothyroidism, unspecified; G47.30 Sleep apnea, unspecified; N40.0 Benign prostatic hyperplasia without lower urinary tract symptoms; I89.0 Lymphedema, not elsewhere classified; E11.22 Type 2 diabetes mellitus with diabetic chronic kidney disease; Z79.01 Long term (current) use of anticoagulants; Z79.890 Hormone replacement therapy; Z79.899 Other long term (current) drug therapy; D53.9 Nutritional anemia, unspecified; D50.8 Other iron deficiency anemias; E05.90 Thyrotoxicosis, unspecified without thyrotoxic crisis or storm; Z66 Do not resuscitate; D63.1 Anemia in chronic kidney disease; J44.9 Chronic obstructive pulmonary disease, unspecified; T50.2X5A Adverse effect of carbonic-anhydrase inhibitors, benzothiadiazides and other diuretics, initial encounter; Z86.73 Personal history of transient ischemic attack (TIA), and cerebral infarction without residual deficits
CPT/HCPCS: 71046; 80048; 80053; 83605; 83735; 83880; 84439; 84443; 85025; 85027; 85610; 87040; 87070; 87147; 93005; 93308; 93321; 93325; 97110; 97116; 97163; 97167; 97530; 99285